=== PATIENT | male | born 1965 | race Caucasian/White ===

== ENCOUNTER 2020-04-24 16:46 | Inpatient (IN) | payer OTHER ==
[~2020-04-24] VITALS: Ht 182.9 cm; Wt 86.8 kg
[2020-04-24 19:13] VITALS: BP 118/67
[2020-04-24] MEDS ORDERED: ENOXAPARIN 30MG/0.3ML SYRINGE (J1650 PER 10MG) SC SCH (20:15)
[2020-04-24] MEDS ORDERED: SODIUM CHLORIDE 0.9% 1000ML IV SCH (20:15)
--- NOTE | 2020-04-24 21:18 | HPEPDOC ---
[facility] Medical History & Physical Date of Admission Apr 24, 2020 Date of Service: Apr 24, 2020 Primary Care Physician: A History and Physical Primary care provider: Dr. Ruddy Knight in [facility] [place] Line Puller: Dr. Berkowitz at [facility] Cardiology Date of Admission: 04/24/2020 CHIEF COMPLAINT: Weakness, dizziness, syncope HISTORY OF PRESENT ILLNESS: And patient reports that he was helping a friend move water heaters today in the 80 degree (or more) heat, when he began to feel very lightheaded, hot, he tried sitting in front of the air-conditioner, but after being seated for a few minutes he became even more lightheaded and then passed out. He was brought to the [facility] emergency room where he was found to be in acute renal failure with BUN 72, creatinine 7.4, sodium 135, potassium 4.4, chloride 98, CO2 21, calcium 10.5, anion gap 16. He was given fluids in the emergency department, and was going to be transferred to [facility], transfer was artery accepted and underway, but the patient decided to leave [place] from [facility]. Apparently his friends brought him to his senses, and he deciding that he did not wish to today, presented to [facility]. Since we already had a bed assigned for him anyway, in lieu of going to the ER, he was admitted as a direct admit to the hospitalist service. ALLERGIES: No known drug allergies CODE STATUS: Full Code PAST MEDICAL HISTORY: Known history of chronic atrial fibrillation Congestive heart failure COPD GERD Hypertension HOME MEDICATIONS: Apparently he had been on amiodarone 200 mg daily for years but this was disc ontinued by his certified residential medication aide in November 2019. He reports that he had been feeling bouts of atrial fibrillation in the past few weeks, therefore he started taking this once again just 1-2 weeks ago (using old pills that he had left over) he has not informed his certified residential medication aide that he has resumed taking this yet. Losartan potassium 100 mg daily Metoprolol tartrate 100 mg daily Pantoprazole 20 mg daily Xarelto - the patient reports that he takes and 25 mg daily, which currently is 1 tablet, but I do not believe that his manufactured in this dose, I suspect that he is actually on 20 mg daily. PAST SURGICAL HISTORY: Tonsillectomy SOCIAL HISTORY: Admits to current almost everyday use of manufactured methamphetamines for the past 10 years. Smokes daily. Quit using alcohol approximately 10 years when he started using meth. FAMILY HISTORY: Noncontributory REVIEW OF SYSTEMS: Constitutional: Patient denies fevers, chills, night sweats, recent weight gain/loss. HEENT: Patient denies blurred or double vision, transient visual disturbances, postnasal drip, epistaxis, sore throat, difficulty chewing or swallowing food. Cardiovascular: Patient denies chest discomfort/pain, palpitations, exertional dyspnea, orthopnea, edema of the extremities, claudication. He cannot tell he is in atrial fibrillation at this moment. Respiratory: Patient denies dyspnea, wheezing, cough, hemoptysis, sputum production. Gastrointestinal: Patient denies nausea, vomiting, diarrhea, constipation, abdominal pain, melena, hematochezia, hematemesis, jaundice at this time. He did have some nausea earlier today when he had the lightheadedness just prior to passing out. No emesis. PHYSICAL EXAMINATION: General: Awake, alert, oriented 3. He does seem to speak much more quickly than normal. HEENT: Head normocephalic atraumatic, conjunctiva are pink, sclera are nonicteric, buccal mucosa and tongue is very dry. Hearing is grossly intact to conversation. Respiratory: Clear to auscultation bilaterally with no wheezes, rales, or rhonchi. Cardiovascular: Distant heart sounds, although rhythm is irregular, rate is within normal range. Pulse is irregularly irregular. Abdomen: Soft, nontender, nondistended, no hepatosplenomegaly appreciated. Bowel sounds present. Extremities: 2+ pulses in the radial and dorsalis pedis bilaterally. No evidence of clubbing or cyanosis. Tenting present ELECTROCARDIOGRAM: EKG taken at [facility] shows him to be in atrial fibrillation with a rate of 76 IMAGING: Chest x-ray taken at [facility], report was unremarkable ASSESSMENT: Severe acute kidney injury, with unknown baseline creatinine. Likely secondary to significant dehydration. Also possibly secondary to reinitiating amiodarone without the knowledge of his certified residential medication aide. Rate controlled atrial fibrillation, with known history of paroxysmal atrial fibrillation Methamphetamine use likely contributing to presence of atrial fibrillation, and probably predisposing factor to dehydration and overexertion in hot weather PLAN: [facility] We will administer another 1 L saline bolus, and then continue saline at 200 mL per hour. Blood pressure is stable at this time, therefore we'll hold nephrotoxic home medications amiodarone, losartan, and pantoprazole. According to the patient he takes 100 mg metoprolol (he does not identify succinate or tartrate) daily, I will start him on metoprolol tartrate 50 mg twice a day with hold parameters such that we will hopefully keep his rate under control, without pushing his blood pressure too soft; first dose will be scheduled for tomorrow morning. We will hold his dose of Xarelto for tonight, and then start him on renally dosed 15 mg daily tomorrow evening. Given his history of most likely diagnosis is acute kidney injury secondary to dehydration, however he does not have a 2:1 BUN/Creatinine ratio, urine creatinine, sodium, and osmolality are also ordered initially to determine FeNa, and see if other etiologies should be further investigated. Daily renal profile labs will be followed. Given that he does not have any significant electrolyte imbalances at this time, we will hold off on nephrology consult for tonight. Vital Signs Vital Signs Date Time Temp Pulse Resp B/P (MAP) Pulse Ox O2 Delivery O2 Flow Rate FiO2 04/24/20 19:13 97.8 74 16 118/67 (84) 99 Allergies Coded Allergies: No Known Allergies (Unverified , 04/24/20) A-FIB/CHADSVASC A-FIB History Current/History of A-Fib/PAF?: Yes Current PO Anticoag Therapy: Yes AYSHA SWANSON DO Apr 24, 2020 21:18
[2020-04-24] MEDS ORDERED: PANT-23 PO (21:20)
[2020-04-24] MEDS ORDERED: GLUCCAP5 PO (21:20)
[2020-04-24] MEDS ORDERED: XARE15TA PO (21:20)
[2020-04-24] MEDS ORDERED: AMIO200T PO (21:20)
[2020-04-24] MEDS ORDERED: LOSA100T50 PO (21:20)
[2020-04-24] MEDS ORDERED: METO1TAB33 PO (21:20)
[2020-04-24 22:00] VITALS: BP 131/76
[2020-04-24 22:08] LABS: ALBUMIN 3.3 GM/DL (3.2-5.2); BILIRUBIN,TOTAL 0.7 MG/DL (0.2-1.0); CALCIUM LEVEL 8.9 MG/DL (8.5-10.1); CREATININE FOR GFR 6.89 MG/DL (0.70-1.30); GLOMERULAR FILTRATION RATE 8.9 (>56); MAGNESIUM LEVEL 2.5 MG/DL (1.8-2.4); TOTAL PROTEIN 8.6 GM/DL (6.4-8.2)
[2020-04-25] MEDS: NS 1,000 ML IV SCH ×4 (00:05→12:13)
[2020-04-25 06:00] VITALS: BP 135/87
[2020-04-25 06:52] LABS: CALCIUM LEVEL 8.5 MG/DL (8.5-10.1); CREATININE FOR GFR 5.39 MG/DL (0.70-1.30); GLOMERULAR FILTRATION RATE 11.8 (>56); PHOSPHORUS LEVEL 5.2 MG/DL (2.5-4.9); POTASSIUM SERUM 4.1 MEQ/L (3.5-5.1)
[2020-04-25] MEDS: METOPROLOL TART 50 MG TAB PO SCH ×2 (08:03→21:29)
[2020-04-25 08:32] LABS: BASO # 0.1 10^3/uL (0.0-0.2); BASO % 0.6 % (0.0-1.0); EOS # 0.1 10^3/uL (0.0-0.5); HEMATOCRIT 44.1 % (42.0-52.0); HEMOGLOBIN 14.7 g/dl (13.5-17.5); LYMPH % 22.8 % (24.0-44.0); MEAN CORPUSCULAR HEMOGLOBIN 30.1 pg (27.0-33.0); MEAN CORPUSCULAR HGB CONC 33.3 g/dl (32.0-36.5); MEAN CORPUSCULAR VOLUME 90.4 fl (80.0-96.0); MONO # 0.9 10^3/uL (0.0-0.8); NEUTROPHILS # 5.6 10^3/uL (1.5-8.5); NEUTROPHILS % 65.4 % (36.0-66.0); PLATELET COUNT, AUTOMATED 277 10^3/uL (150-450); RED BLOOD COUNT 4.88 10^6/uL (4.30-6.10); WHITE BLOOD COUNT 8.6 10^3/uL (4.0-10.0)
[2020-04-25 08:42] LABS: BILIRUBIN,TOTAL 0.6 MG/DL (0.2-1.0); MAGNESIUM LEVEL 2.3 MG/DL (1.8-2.4); TOTAL PROTEIN 7.2 GM/DL (6.4-8.2)
--- NOTE | 2020-04-25 10:21 | REP ---
CT ABDOMEN AND PELVIS WITHOUT IV OR ORAL CONTRAST: HISTORY: Acute kidney injury. Elevated liver enzymes. FINDINGS: Digital preliminary scout executive radiograph shows mild gaseous distension of a mid colonic loop. The lung bases are clear on axial CT images. The liver is normal in size and homogeneous in texture. Spleen is unremarkable. No focal hepatic or splenic lesion is seen. Normal adrenal glands are seen. The stomach is filled with ingested material. No abnormalities noted in the pancreas or the gallbladder. Kidneys are morphologically intact. There is no evidence of hydronephrosis or renal mass lesion. Vascular calcification is noted in the vessels in the renal hilus bilaterally. No intrarenal calculus is suspected. Vascular calcifications noted in a normal caliber aorta. Urinary bladder, seminal vesicles, and prostate are unremarkable. There are one or two dystrophic calcifications in the prostate. No abdominal wall defect is seen. Small and large bowel loops are unremarkable in the abdomen and pelvis. The air-filled dilated loop of colon seen on the scout executive view is a loop of sigmoid colon but no obstruction or mass is seen. No bony destructive lesion is seen. IMPRESSION: No acute intra-abdominal abnormality. No hydronephrosis, cyst, mass, or calculus seen in the urinary tract. Electronically Signed by Lavon Pratt MD 04/25/2020 10:53 A
[2020-04-25] MEDS ORDERED: FUROSEMIDE 20MG/2ML VIAL (J1940) IV ONE (13:00)
[2020-04-25 13:25] LABS: URIC ACID 8.5 MG/DL (3.5-7.2)
[2020-04-25 14:00] VITALS: BP 130/84
--- NOTE | 2020-04-25 14:59 | IPNPDOC ---
Text Note Date of Service The patient was seen on 04/25/20. NOTE Subjective: Patient stated that he usually used methamphetamine IV daily. For past few days he didn't take enough fluid. Also he complains of intermittent palpitations. Objective: VITAL SIGNS: Please see below. GENERAL: awake, alert, NAD HEENT: NCAT, anicteric sclera, FERNANDO NECK: supple, plus JVD CARDIOVASCULAR EXAMINATION: NS1S2, regular rate/rhythm RESPIRATORY EXAMINATION: CTA b/l, no wheezes/rales/rhonchi ABDOMINAL EXAMINATION: positive bowel sounds x 4, NT EXTREMITIES: no cyanosis, clubbing, edema SKIN: warm, no rashes. NEUROLOGICAL EXAMINATION: AAO x 3, no motor/sensory deficits Assessment and plan Patient is 54 years old male with past medical history of congestive heart failure, substance abuse presented to the hospital with acute kidney injury. Patient was found to have elevated creatinine up to 7 with GFR around 9. SCOTT Most likely combined Prerenal and renal etiology Most likely secondary to dehydration, methamphetamine CPK within normal limit Continue IV fluid Appreciate/agree with personnel records clerk consult Atrial fibrillation Patient has a long history of atrial fibrillation Heart rate is under control Continue beta blockers Elevated liver enzyme Patient has elevated transaminases Could be secondary to amiodarone which patient restarted recently by himself or hepatitis or methamphetamine Will check hepatitis panel Continue to monitor CT abdomen pelvis showed normal liver echogenicity CHF Patient has a history of CHF We'll check echo VS,Fishbone, I+O VS, Fishbone, I+O Laboratory Tests 04/24/20 21:26 04/25/20 06:09 Vital Signs Date Time Temp Pulse Resp B/P (MAP) Pulse Ox O2 Delivery O2 Flow Rate FiO2 04/25/20 08:03 69 122/76 04/25/20 06:00 97.8 16 99 I&O- Last 24 Hours up to 6 AM 04/25/20 06:00 Intake Total 3335 ml Balance 3335 ml GUILLERMINA BROCK DO Apr 25, 2020 14:59
[2020-04-25] MEDS: SODIUM BICARBONATE 75 MEQ in NS 0.45% 1,000 ML IV SCH (15:50)
[2020-04-25 15:51] LABS: APPEARANCE, URINE CLEAR (CLEAR); BACTERIA, URINE AUTO NEGATIVE (NEGATIVE); BILIRUBIN, URINE AUTO NEGATIVE (NEGATIVE); BLOOD, URINE BLOOD NEGATIVE (NEGATIVE); COLOR, URINE STRAW (YELLOW); GLUCOSE, URINE (UA) AUTO NEGATIVE (NEGATIVE); KETONE, URINE AUTO NEGATIVE (NEGATIVE); LEUKOCYTE ESTERASE, URINE AUTO NEGATIVE (NEGATIVE); MUCUS, URINE SMALL (NEGATIVE); NITRITE, URINE AUTO NEGATIVE (NEGATIVE); PROTEIN, URINE AUTO NEGATIVE (NEGATIVE); RBC, URINE AUTO 0 /HPF (0-3); SPECIFIC GRAVITY URINE AUTO 1.006 (1.002-1.035); SQUAMOUS EPITHELIAL CELL UR AU 0 /HPF (0-6); UROBILINOGEN, URINE AUTO 0.2 mg/dL (0.0-2.0); WBC, URINE AUTO 1 /HPF (0-3)
[2020-04-25 16:17] LABS: AMPHETAMINES LEVEL URINE POSITIVE (NEGATIVE); BARBITURATES URINE NEGATIVE (NEGATIVE); BENZODIAZEPINES URINE NEGATIVE (NEGATIVE); CANNABINOIDS URINE NEGATIVE (NEGATIVE); COCAINE METABOLITE URINE NEGATIVE (NEGATIVE); METHADONE URINE NEGATIVE (NEGATIVE); OPIATES URINE NEGATIVE (NEGATIVE); PHENCYCLIDINE URINE NEGATIVE (NEGATIVE)
--- NOTE | 2020-04-25 16:52 | CR ---
DATE OF CONSULTATION: 04/25/2020 CONSULTATION REPORT FOR: Dr. Tenzin Bose CONSULTING PHYSICIAN: Dr. Navarrete REASON FOR CONSULTATION: Management of acute renal failure. CHIEF COMPLAINT: The patient presented to the hospital yesterday with syncope and weakness. HISTORY OF PRESENT ILLNESS: Mr. Link Mckeon is a 54-year-old male with past medical history of systolic congestive heart failure, history of permanent atrial fibrillation, chronic use of IV methamphetamine, history of hypertension. He follows up with cardiology service. The patient initially presented to the [facility] yesterday. 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 He was brought to the [facility] Emergency Room where he was found to be in acute renal failure. His creatinine was 7.4. His blood urea nitrogen (BUN) was 72. The patient was given IV fluid hydration and because of acute renal failure, a bed request was made at [facility]. However, after he was accepted at [facility], he signed out against medical advice from the [facility] and presented himself to the [facility] Emergency Room (ER). The patient was admitted under the hospitalist service last night. He was started on aggressive IV fluid hydration. His creatinine on arrival last night was 6.8. Nephrology service has been called today morning for further help in the management of this patient. I saw and evaluated the patient today morning at the bedside. He was laying in the bed. He was getting normal saline at 200 mL an hour. He reports that he is feeling slightly better today as compared with yesterday. He reports that his last methamphetamine injection was the day before yesterday. The patient also reports that when he had a syncope before that, he had generalized muscle aches and pains and weakness. PAST MEDICAL HISTORY: Past medical history of: 1. Chronic persistent atrial fibrillation. He used to be on amiodarone which was stopped in November 2019. However, he started taking it again a few weeks ago because he was feeling palpitations. 2. History of systolic congestive heart failure. The patient reports that his initial ejection fraction (EF) was 15% which later improved to 55% on the repeat echocardiogram. 3. History of chronic obstructive pulmonary disease (COPD). 4. Gastroesophageal reflux disease (GERD). 5. Hypertension. PAST SURGICAL HISTORY: History of tonsillectomy in the past. ALLERGIES: No known drug allergies. FAMILY HISTORY: No significant family history of end-stage renal disease requiring hemodialysis. SOCIAL HISTORY: The patient lives at home. He smokes everyday and he injects methamphetamine almost everyday IV. REVIEW OF SYSTEMS: CONSTITUTIONAL: He denies any fevers or chills. EYES: He denies any blurry vision or double vision. EARS, NOSE, AND THROAT (ENT): He denies any dysphagia, odynophagia, or eadh discharge. CARDIOVASCULAR: He does report chronic atrial fibrillation and off-and-on palpitations. He restarted taking his amiodarone. RESPIRATORY: He denies any shortness of breath or cough. GASTROINTESTINAL (GI): He denies any nausea and vomiting. GENITOURINARY: He does report dark urine and decreased urine output. MUSCULOSKELETAL: He does report some generalized muscle aches and pains for the last two days. SKIN: He denies any rashes or ulcers. PSYCHIATRIC: He denies any depression or anxiety. ENDODRINE: He denies any hyperthyroidism or hypothyroidism. HEMATOLOGIC/ONCOLOGIC: He denies any easy bleeding or bruising. CENTRAL NERVOUS SYSTEM (INSURANCE ADVISOR): He does report syncope yesterday. All other review of systems is negative. PHYSICAL EXAMINATION: GENERAL: The patient is awake, alert, oriented times three, laying in bed. VITAL SIGNS: Temperature is 97.8 degrees Fahrenheit, blood pressure 135/87, pulse is 80, respiratory rare of 16, saturating 99% on room air. HEAD AND NECK: Extraocular muscles intact. Pupils equally round and reactive to light. Mucous membranes are moist. Neck is supple. He has moderately elevated jugular venous distention (JVD). CARDIOVASCULAR: S1, S2, irregular rate. No edema of the bilateral lower extremities. RESPIRATORY: Chest is clear to auscultation bilaterally in the upper lung zone, decreased breath sounds at the bases. ABDOMEN: Soft, positive bowel sounds, nontender. No organomegaly. GENITOURINARY: Bladder is not palpable. Bladder scan done at the bedside showed a postvoid residual of around 220 mL. MUSCULOSKELETAL: No clubbing or cyanosis. Pulses are 2+. CENTRAL NERVOUS SYSTEM (INSURANCE ADVISOR): No focal deficit. Power is 5/5 in all extremities. LABORATORY REVIEW: CBC showed a WBC of 8.6, hemoglobin 14.7, platelets are 277. Urinalysis done today showed no protein and no blood. BMP done today morning showed sodium 138, potassium 4.1, chloride 112, bicarbonate 16, BUN 69, creatinine is 5.3, it was 6.8 yesterday, uric acid 8.5, phosphorus is 5.2, AST 123, ALT is 178, alkaline phosphatase is 188, creatinine kinase is 110. Urine toxicology is pending. Hepatitis serologies pending. IMAGING STUDIES: CT scan of the abdomen and pelvis was done which showed no acute intraabdominal pathology. HOME MEDICATIONS: The patient takes: - amiodarone 200 mg by mouth daily - glucosamine chondroitin one capsule daily - losartan 100 mg by mouth daily - metoprolol 100 mg by mouth daily - Protonix 40 mg by mouth daily - Xarelto 15 mg by mouth daily CURRENT INPATIENT MEDICATIONS: The patient is getting normal saline at 200 mL an hour. I have stopped the normal saline and started him on half-normal saline plus 75 mEq bicarbonate of 125 mL an hour. He was also given Lasix 20 mg IV injection. He is getting Lopressor 50 mg by mouth twice a day and Xarelto 15 mg by mouth daily. ASSESSMENT: A 54-year-old male with history of systolic congestive heart failure, permanent atrial fibrillation in the past, admitted this time with acute renal failure and metabolic acidosis. PLAN: 1. Acute renal failure. The patient has nonoliguric renal failure. I saw his urine which was very dark and cloudy today. There is a risk of acute tubular necrosis (ATN), most likely associated with drug use or rhabdomyolysis. Urine for myoglobin has been ordered. Creatine phosphokinase (CPK) level is within the normal range at this time. Continue the IV fluid hydration. However, fluids have been changed to bicarbonate-containing fluids because of low bicarbonate level. Avoid angiotensin-converting enzyme (BUDDY) or angiotensin-receptor iliana (ARB) at this time. I am hopeful that the patient's renal function should recover. He was using IV amphetamines and he was dehydrated and working outside in the heat. 2. Normal anion gap metabolic acidosis. It is secondary to acute renal failure. The patient will be getting half-normal saline with 75 mEq of bicarbonate at 125 mL an hour. 3. History of hypertension. Blood pressures are acceptable at this time. Losartan has been stopped. Continue current dose of metoprolol 50 mg by mouth twice a day. 4. History of systolic congestive heart failure. The patient has elevated jugular venous distention (JVD). Latest echocardiogram is not available. I would still need to hydrate this patient with bicarbonate-containing fluids because of risk of rhabdomyolysis, drug-induced rhabdomyolysis causing acute kidney injury (SCOTT). I have given a small dose of Lasix to this patient today morning. 5. Atrial fibrillation. Heart rate is controlled. Amiodarone is on hold. He continues to be on metoprolol. He is anticoagulated with Xarelto 15 mg by mouth daily. 6. IV drug abuse. The patient admits to using IV methamphetamine almost everyday. Last use was the day before yesterday. Urine toxicology has been sent. Thank you for involving me in the care of this patient. I shall be happy to follow the patient along with you tomorrow morning.
[2020-04-25] MEDS ORDERED: RIVAROXABAN 15 MG TAB (XARELTO) PO SCH (18:00)
[2020-04-25 21:29] VITALS: BP 137/91
[2020-04-25 22:00] VITALS: BP 137/91
[2020-04-26] MEDS: SODIUM BICARBONATE 75 MEQ in NS 0.45% 1,000 ML IV SCH (01:10)
[2020-04-26 05:53] LABS: BASO % 0.4 % (0.0-1.0); EOS # 0.1 10^3/uL (0.0-0.5); EOS % 0.9 % (0.0-3.0); HEMATOCRIT 41.7 % (42.0-52.0); LYMPH % 25.1 % (24.0-44.0); MEAN CORPUSCULAR HEMOGLOBIN 29.9 pg (27.0-33.0); MEAN CORPUSCULAR HGB CONC 33.6 g/dl (32.0-36.5); MEAN CORPUSCULAR VOLUME 88.9 fl (80.0-96.0); MONO # 0.8 10^3/uL (0.0-0.8); MONO % 10.2 % (0.0-5.0); PLATELET COUNT, AUTOMATED 249 10^3/uL (150-450); RED BLOOD COUNT 4.69 10^6/uL (4.30-6.10)
[2020-04-26 06:00] VITALS: BP 137/91
[2020-04-26 06:34] LABS: ALBUMIN 2.8 GM/DL (3.2-5.2); BILIRUBIN,TOTAL 0.6 MG/DL (0.2-1.0); CALCIUM LEVEL 8.1 MG/DL (8.5-10.1); CREATININE FOR GFR 2.69 MG/DL (0.70-1.30); GLOMERULAR FILTRATION RATE 26.4 (>56); MAGNESIUM LEVEL 1.7 MG/DL (1.8-2.4); TOTAL PROTEIN 6.8 GM/DL (6.4-8.2)
[2020-04-26 10:24] LABS: HEPATITIS A ANTIBODY IGM NEGATIVE (NEGATIVE); HEPATITIS B CORE ANTIBODY IGM NEGATIVE (NEGATIVE); HEPATITIS B SURFACE ANTIGEN NEGATIVE (NEGATIVE); HIV 1&2 SCREEN CENTAUR NEGATIVE (NEGATIVE)
[2020-04-26 10:28] LABS: HEPATITIS C VIRUS ABY INDEX > 11.0 INDEX (<0.8)
--- NOTE | 2020-04-26 14:51 | DS.PDOC ---
Discharge Summary General Date of Admission Apr 24, 2020 at 18:43 Date of Discharge 04/26/20 Discharge Summary PROCEDURES PERFORMED DURING STAY: [None]. ADMITTING DIAGNOSES: SCOTT Elevated liver enzyme Atrial fibrillation CHF DISCHARGE DIAGNOSES: SCOTT Elevated liver enzyme Atrial fibrillation CHF COMPLICATIONS/CHIEF COMPLAINT: Acute Kidney Injury. HISTORY OF PRESENT ILLNESS: Patient is 54 years old male with past medical history of congestive heart failure, substance abuse presented to the hospital with acute kidney injury. Patient was found to have elevated creatinine up to 7 with GFR around 9. Today patient left the hospital AMA HOSPITAL COURSE: During hospital stay following issue addressed SCOTT Most likely combined Prerenal and renal etiology Most likely secondary to dehydration, methamphetamine CPK within normal limit Continue IV fluid Atrial fibrillation Patient has a long history of atrial fibrillation Heart rate is under control Continue beta blockers Elevated liver enzyme Patient has elevated transaminases Could be secondary to amiodarone which patient restarted recently by himself or hepatitis or methamphetamine Will check hepatitis panel Continue to monitor CT abdomen pelvis showed normal liver echogenicity CHF Patient has a history of CHF We'll check echo DISCHARGE MEDICATIONS: Please see below. ALLERGIES: Please see below. PHYSICAL EXAMINATION ON DISCHARGE: VITAL SIGNS: Please see below. GENERAL: HEENT: NECK: CARDIOVASCULAR EXAMINATION: RESPIRATORY EXAMINATION: ABDOMINAL EXAMINATION: EXTREMITIES: SKIN: NEUROLOGICAL EXAMINATION: PSYCHIATRIC EXAMINATION: LABORATORY DATA: Please see below. IMAGING: PROGNOSIS: ACTIVITY: [As tolerated]. DIET: DISCHARGE PLAN: DISPOSITION: 07 Against Medical Advice. DISCHARGE INSTRUCTIONS: 1. . ITEMS TO FOLLOWUP ON ON OUTPATIENT: 1. . DISCHARGE CONDITION: [Stable]. TIME SPENT ON DISCHARGE: Greater than minutes. Vital Signs/I&Os Vital Signs Date Time Temp Pulse Resp B/P (MAP) Pulse Ox O2 Delivery O2 Flow Rate FiO2 04/26/20 06:00 98.9 83 18 137/91 (106) 96 Room Air I&O- Last 24 Hours up to 6 AM 04/26/20 06:00 Intake Total 3040 ml Output Total 2425 ml Balance 615 ml Laboratory Data Labs 24H Laboratory Tests 2 04/25/20 15:25: Urine Color STRAW, Urine Appearance CLEAR, Urine pH 5.0, Urine Specific [place] 1.006, Urine Protein NEGATIVE, Urine Glucose (Auto)(UA) NEGATIVE, Urine Ketones (Auto) NEGATIVE, Urine Blood NEGATIVE, Urine Nitrite NEGATIVE, Urine Bilirubin NEGATIVE, Urine Urobilinogen 0.2, Urine Leukocyte Esterase (Auto) NEGATIVE, Urine WBC (Auto) 1, Urine RBC (Auto) 0, Urine Hyaline Casts (Auto) 1, Urine Bact eria (Auto) NEGATIVE, Urine Squamous Epithelial Cells 0, Urine Mucus (Auto) SMALL, Urine Sperm (Auto) 04/25/20 15:33: 04/25/20 15:34: Urine Opiates Screen NEGATIVE, Urine Methadone Screen NEGATIVE, Urine Barbiturates Screen NEGATIVE, Urine Phencyclidine Screen NEGATIVE, Urine A mphetamines Screen POSITIVEH, Urine Benzodiazepines Screen NEGATIVE, Urine Cocaine Metabolite Screen NEGATIVE, Urine Cannabinoids Screen NEGATIVE 04/26/20 05:22: Immature Granulocyte % (Auto) 0.4, Neutrophils (%) (Auto) 63.0, Lymphocytes (%) (Auto) 25.1, Monocytes (%) (Auto) 10.2H, Eosinophils (%) (Auto) 0.9, Basophils (%) (Auto) 0.4, Neutrophils # (Auto) 5.0, Lymphocytes # (Auto) 2.0, Monocytes # (Auto) 0.8, Eosinophils # (Auto) 0.1, Basophils # (Auto) 0.0, Nucleated Red Bl ood Cells % (auto) 0.0, Anion Gap 6L, Glomerular Filtration Rate 26.4L, Calcium Level 8.1L, Phosphorus Level 3.0#, Magnesium Level 1.7L, Total Bilirubin 0.6, Aspartate Amino Transf (AST/SGOT) 133H, Alanine Aminotransferase (ALT/SGPT) 168H, Alkaline Phosphatase 196H, Total Protein 6.8, Albumin 2.8L, Albumin/Globulin Ratio 0.7 CBC/BMP Laboratory Tests 04/26/20 05:22 Discharge Medications Scheduled Amiodarone HCl (Amiodarone HCl) 200 Mg Tablet, 200 MG PO DAILY, (Reported) Glucosam/Omar-Col.cplx/D3/C/Mn (Hylclqvhuoz-Opfvxsqmbts-S5 Cap) 1 Each Capsule, 1 CAP PO DAILY, (Reported) Losartan Potassium (Losartan Potassium) 100 Mg Tablet, 100 MG PO DAILY, (Reported) Metoprolol Succinate (Metoprolol Succinate) 100 Mg Tab.er.24h, 100 MG PO DAILY, (Reported) Pantoprazole Sodium (Pantoprazole Sodium) 40 Mg Tablet.dr, 40 MG PO DAILY, (Reported) Rivaroxaban (Xarelto) 15 Mg Tablet, 15 MG PO DAILY, (Reported) Allergies Coded Allergies: No Known Allergies (Unverified , 04/24/20) GUILLERMINA BROCK DO Apr 26, 2020 14:51
== END 2020-04-26 09:23 | disposition left against medical advice (07) | DRG 469 ==
LOC: M MSPAV 18:43
PROVIDERS: ADMIT Neuromusculoskeletal Medicine & OMM; ATTEND Internal Medicine
DX: N17.9 Acute kidney failure, unspecified (principal); I48.20 Chronic atrial fibrillation, unspecified; E86.0 Dehydration; Z79.899 Other long term (current) drug therapy; J44.9 Chronic obstructive pulmonary disease, unspecified; K21.9 Gastro-esophageal reflux disease without esophagitis; I11.0 Hypertensive heart disease with heart failure; F17.200 Nicotine dependence, unspecified, uncomplicated; F15.90 Other stimulant use, unspecified, uncomplicated; I50.22 Chronic systolic (congestive) heart failure; E87.2 Acidosis

== ENCOUNTER → 2020-10-04 | Outpatient (REF) | payer OTHER ==
[~2020-10-04] MED LIST: AMIO200T3 PO; GLUCCAP5 PO; LOSA100T50 PO; METO1TAB33 PO; PANT-23 PO; XARE15TA PO
[2020-10-04 15:37] LABS: ALBUMIN 3.7 GM/DL (3.2-5.2); ALT/SGPT 20 U/L (12-78); BILIRUBIN,TOTAL 0.6 MG/DL (0.2-1.0); BLOOD UREA NITROGEN 44 MG/DL (7-18); CALCIUM LEVEL 9.8 MG/DL (8.5-10.1); CARBON DIOXIDE LEVEL 23 MEQ/L (21-32); CHLORIDE LEVEL 110 MEQ/L (98-107); CREATININE FOR GFR 1.88 MG/DL (0.70-1.30); GLOMERULAR FILTRATION RATE 39.7 (>56); GLUCOSE, FASTING 100 MG/DL (70-100); POTASSIUM SERUM 4.1 MEQ/L (3.5-5.1); SODIUM LEVEL 140 MEQ/L (136-145); TOTAL PROTEIN 7.6 GM/DL (6.4-8.2)
[2020-10-04 16:10] LABS: HEPATITIS B SURFACE ANTIBODY POSITIVE (POSITIVE)
[2020-10-04 16:21] LABS: HEPATITIS B SURFACE ANTIGEN NEGATIVE (NEGATIVE)
[2020-10-04 16:49] LABS: HIV 1&2 SCREEN CENTAUR NEGATIVE (NEGATIVE)
== END ==
LOC: M SFHCPLAZ 11:35
PROVIDERS: ATTEND Internal Medicine Infectious Disease
DX: B18.2 Chronic viral hepatitis C (principal)

== ENCOUNTER → 2020-11-25 | Outpatient (REF) | payer OTHER ==
[2020-11-25 15:17] LABS: ALBUMIN 4.1 GM/DL (3.2-5.2); BILIRUBIN,TOTAL 0.8 MG/DL (0.2-1.0); CALCIUM LEVEL 9.8 MG/DL (8.5-10.1); CREATININE FOR GFR 1.35 MG/DL (0.70-1.30); GLOMERULAR FILTRATION RATE 58.2 (>56); TOTAL PROTEIN 8.1 GM/DL (6.4-8.2)
[2020-12-04 16:13] LABS: HEPATITIS C QUANTITATION 67220 IU/mL (.); HEPATITIS C VIRUS GENOTYPE 1a (.)
== END ==
LOC: M SFHCPLAZ 10:48
PROVIDERS: ATTEND Internal Medicine Infectious Disease
DX: B18.2 Chronic viral hepatitis C (principal)

== ENCOUNTER → 2021-01-03 | Outpatient (REF) | payer OTHER ==
[2021-01-03 14:44] LABS: ALBUMIN 3.9 GM/DL (3.2-5.2); BILIRUBIN,DIRECT 0.3 MG/DL (0.0-0.2); BILIRUBIN,TOTAL 0.9 MG/DL (0.2-1.0); TOTAL PROTEIN 7.6 GM/DL (6.4-8.2)
[2021-01-04 23:06] LABS: HEPATITIS C QUANTITATION HCV Not Detected IU/mL (.)
== END ==
LOC: M SFHCPLAZ 11:11
PROVIDERS: ATTEND Internal Medicine Infectious Disease
DX: B18.2 Chronic viral hepatitis C (principal)

== ENCOUNTER 2021-01-09 09:02 | Observation (INO) | payer OTHER ==
[2021-01-09] VITALS (7 sets, daily range): BP systolic 120–152; BP diastolic 74–98
[~2021-01-09] VITALS: Ht 182.9 cm; Wt 86.4 kg
[2021-01-09] MEDS: COMBIVENT RESPIMAT 100-20MCG INHALER 4GM INH SCH ×3 (09:53→10:47)
--- NOTE | 2021-01-09 09:57 | REP ---
INDICATION: CVA COMPARISON: None. TECHNIQUE: Portable AP view of the chest FINDINGS: Cardiomegaly is appreciated. Loop recorder overlies the left hilum. Lung miranda demonstrate chronic appearing interstitial changes. No discrete focal consolidation, effusion, or pneumothorax. Skeletal structures intact. IMPRESSION: Cardiomegaly and chronic appearing interstitial changes. No focal consolidation or effusion. <Electronically signed by Kar Valderrama > 01/09/21 [id number]
[2021-01-09] MEDS ORDERED: ISOVUE-370 76% 100ML VIAL As Ordered ONE (10:13)
[2021-01-09 10:28] LABS: BASO % 0.3 % (0.0-1.0); EOS % 0.1 % (0.0-3.0); HEMATOCRIT 41.3 % (42.0-52.0); HEMOGLOBIN 13.5 g/dl (13.5-17.5); LYMPH # 1.3 10^3/uL (1.5-5.0); LYMPH % 18.9 % (24.0-44.0); MEAN CORPUSCULAR HEMOGLOBIN 29.6 pg (27.0-33.0); MEAN CORPUSCULAR HGB CONC 32.7 g/dl (32.0-36.5); MEAN CORPUSCULAR VOLUME 90.6 fl (80.0-96.0); MONO # 0.9 10^3/uL (0.0-0.8); MONO % 12.9 % (2.0-8.0); NEUTROPHILS # 4.6 10^3/uL (1.5-8.5); NEUTROPHILS % 67.5 % (36.0-66.0); PLATELET COUNT, AUTOMATED 195 10^3/uL (150-450); RED BLOOD COUNT 4.56 10^6/uL (4.30-6.10); WHITE BLOOD COUNT 6.8 10^3/uL (4.0-10.0)
[2021-01-09] MEDS ORDERED: ALBUTEROL 90 MCG/ACT 8GM HFA INHALER INH PRN (11:00)
[2021-01-09] MEDS ORDERED: CASIRIVIMAB (REGN10933) 1,200 MG, IMDEVIMAB (REGN10987) 1,200 MG in NS 230 ML IV ONE (11:00)
[2021-01-09] MEDS ORDERED: methylPREDNISolone 125MG 2ML VIAL IV PRN (11:00)
[2021-01-09] MEDS ORDERED: ALBUTEROL SULFATE 2.5 MG/0.5 ML INH NEB SOLN INH PRN (11:00)
[2021-01-09] MEDS ORDERED: EPINEPHrine INJ 1 MG/ML 1ML AMP IM PRN (11:00)
[2021-01-09] MEDS ORDERED: diphenhydrAMINE 50MG/ML VIAL (J1200) IV PRN (11:00)
--- NOTE | 2021-01-09 11:01 | REP ---
INDICATION: CVA - Nursing interventions must not delay CT COMPARISON: None. TECHNIQUE: Axial noncontrast images from the skull base to the vertex with coronal reformations. This CT examination was performed using the following dose reduction techniques: Automated exposure control, adjustment of mA and/or kv according to the patient's size, and use of iterative reconstruction technique. FINDINGS: The ventricles, sulci, and cisterns are normal in position and appearance. Mares-white differentiation is maintained. No acute intracranial hemorrhage, mass/mass effect, pathology or trauma/injury. No evidence for acute infarction. No extra-axial fluid collection. Calvarium is intact. Paranasal sinuses and mastoid air cells are clear. IMPRESSION: Normal noncontrast head CT. No evidence for acute intracranial pathology or trauma/injury. <Electronically signed by Kar Valderrama > 01/09/21 [id number]
--- NOTE | 2021-01-09 11:03 | REP ---
INDICATION: neck pain COMPARISON: None. TECHNIQUE: Axial noncontrast images from the skull base to the thoracic inlet with coronal and sagittal re-formations This CT examination was performed using the following dose reduction techniques: Automated exposure control, adjustment of mA and/or kv according to the patient's size, and use of iterative reconstruction technique. FINDINGS: Advanced degenerative disc osteophyte complex at C6-7, C7-T1, and to a lesser extent C5-6 including osteophytosis, endplate sclerosis, disc space narrowing, and facet arthropathy. No acute fracture/compression injury or subluxation. Mild chronic stenosis at the C6-7 level cannot be excluded. Paravertebral soft tissues are normal. IMPRESSION: Advanced degenerative spondylosis at C6-7 and C7-T1. <Electronically signed by Kar Valderrama > 01/09/21 1056
[2021-01-09 11:07] LABS: ALT/SGPT 18 U/L (12-78); CK-MB VALUE MASS 2.2 NG/ML (<3.6); CPK CREATINE PHOSPHOKINASE 359 U/L (39-308); LDH LACTATE DEHYDROGENASE 277 U/L (87-241); MB/CK RELATIVE INDEX 0.61 (< OR =4)
[2021-01-09 11:08] LABS: ACETAMINOPHEN LEVEL < 2.0 UG/ML (10.0-30.0); ALBUMIN 4.2 GM/DL (3.2-5.2); BILIRUBIN,DIRECT 0.3 MG/DL (0.0-0.2); BILIRUBIN,TOTAL 0.6 MG/DL (0.2-1.0); C REACTIVE PROTEIN QUANTITATIV 4.54 MG/DL (0.00-0.30); ETHYL ALCOHOL (ETHANOL) < 0.003 % (0.000-0.010); FERRITIN 88 NG/ML (26-388); LIPASE 172 U/L (73-393); MAGNESIUM LEVEL 1.9 MG/DL (1.8-2.4); NT-PRO BNP 4358 PG/ML (<125); SALICYLATE LEVEL 3.3 MG/DL (5.0-30.0); THYROID STIMULATING HORMONE 0.409 uIU/ML (0.358-3.740)
--- NOTE | 2021-01-09 11:08 | REP ---
INDICATION: CVA - Nursing interventions must not delay CT. COMPARISON: None. TECHNIQUE: CT contrast dose: 100 ml of intravenous Isovue 370. Axial contrast-enhanced images were obtained from the skull base to the vertex with coronal reformations using 100 cc Isovue 370 intravenous contrast material. Maximal intensity projection and multiplanar re-formation images along with 3-D rendered imaging of the arterial vasculature. FINDINGS: Partially calcified atherosclerotic changes through the cavernous internal carotid arteries noted. The bilateral anterior cerebral arteries, middle cerebral arteries, and posterior cerebral arteries appear essentially symmetric and normal. Vascularity to the bilateral hemispheres appears relatively symmetric and normal. A right dominant vertebral artery is appreciated with otherwise normal appearance of the vertebrobasilar system. No evidence for occlusion or arteriovenous malformation is appreciated. IMPRESSION: No obvious arteriovenous malformation or aneurysm. Vasculature to the bilateral hemispheres and posterior fossa appear symmetric. <Electronically signed by Kar Valderrama > 01/09/21 1104
--- NOTE | 2021-01-09 11:10 | REP ---
INDICATION: CVA - Nursing interventions must not delay CT. COMPARISON: None. TECHNIQUE: Axial contrast-enhanced images were obtained from the thoracic inlet to the skull base with coronal and sagittal reformations using 100 cc Isovue 370 intravenous contrast material. Maximal intensity projection and multiplanar re-formation images along with 3-D rendered imaging of the arterial vasculature. This CT examination was performed using the following dose reduction techniques: Automated exposure control, adjustment of mA and/or kv according to the patient's size, and the use of iterative reconstruction technique. FINDINGS: The common carotid arteries, carotid bulbs and visualized portions of the external and the internal carotid arteries are essentially normal and age-appropriate. There is right vertebral artery dominance, but both appear patent and join to form a normal basilar artery at the skull base. There are no significant areas of stenosis and no evidence for occlusion identified. No obvious vascular abnormality noted. IMPRESSION: Essentially normal age-appropriate CT angiography of the neck <Electronically signed by Kar Valderrama > 01/09/21 1106
[2021-01-09 11:36] LABS: INR 1.71; PROTHROMBIN TIME 20.4 SECONDS (12.5-14.3)
[2021-01-09 11:37] LABS: PARTIAL THROMBOPLASTIN TIME 37.7 SECONDS (24.2-38.5)
[2021-01-09 11:39] LABS: D-DIMER QUANT 395.99 ng/ml (<500)
[2021-01-09] MEDS ORDERED: AMIODARONE 200 MG TAB (PACERONE) PO ONE (11:40)
[2021-01-09] MEDS ORDERED: XARE20TA PO (11:50)
[2021-01-09] MEDS ORDERED: EPCL1TAB PO (11:50)
[2021-01-09] MEDS ORDERED: METO200T28 PO (11:50)
--- NOTE | 2021-01-09 12:22 | ECGEPIP ---
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
[2021-01-09] MEDS ORDERED: METOPROLOL SUCC (TopROL XL) 100MG *XL* TAB PO ONE (12:30)
[2021-01-09] MEDS ORDERED: LOSARTAN 50MG TABLET PO ONE (12:30)
[2021-01-09] MEDS ORDERED: diphenhydrAMINE 50MG CAP PO ONE (13:00)
[2021-01-09] MEDS ORDERED: NS 1,000 ML IV SCH (13:00)
[2021-01-09 13:03] LABS: AMPHETAMINES LEVEL URINE POSITIVE (NEGATIVE); BARBITURATES URINE NEGATIVE (NEGATIVE); BENZODIAZEPINES URINE NEGATIVE (NEGATIVE); CANNABINOIDS URINE NEGATIVE (NEGATIVE); COCAINE METABOLITE URINE POSITIVE (NEGATIVE); METHADONE URINE NEGATIVE (NEGATIVE); OPIATES URINE NEGATIVE (NEGATIVE); PHENCYCLIDINE URINE NEGATIVE (NEGATIVE)
[2021-01-09] MEDS ORDERED: methylPREDNISolone 40MG 1ML VIAL IV ONE (13:30)
[2021-01-09] MEDS ORDERED: ACETAMINOPHEN TAB 650MG DOSE (2X325MG) PO ONE (13:30)
[2021-01-09] MEDS ORDERED: BAMLANIVIMAB 700 MG in NS 250 ML IV ONE (14:00)
[2021-01-09] MEDS ORDERED: RIVAROXABAN 20 MG TAB (XARELTO) PO SCH (18:00)
[2021-01-09] MEDS ORDERED: PANTOPRAZOLE 40MG TAB (PROTONIX) PO SCH (21:00)
[2021-01-10] VITALS: BP 132/70
[2021-01-10 06:00] VITALS: BP 140/80
[2021-01-10 06:25] LABS: HEMATOCRIT 38.7 % (42.0-52.0); HEMOGLOBIN 12.6 g/dl (13.5-17.5); MEAN CORPUSCULAR HEMOGLOBIN 29.6 pg (27.0-33.0); MEAN CORPUSCULAR HGB CONC 32.6 g/dl (32.0-36.5); MEAN CORPUSCULAR VOLUME 91.1 fl (80.0-96.0); PLATELET COUNT, AUTOMATED 196 10^3/uL (150-450); RED BLOOD COUNT 4.25 10^6/uL (4.30-6.10); WHITE BLOOD COUNT 6.6 10^3/uL (4.0-10.0)
[2021-01-10 06:52] LABS: ALBUMIN 3.3 GM/DL (3.2-5.2); ALT/SGPT 14 U/L (12-78); BILIRUBIN,TOTAL 0.4 MG/DL (0.2-1.0); BLOOD UREA NITROGEN 21 MG/DL (7-18); CALCIUM LEVEL 8.5 MG/DL (8.5-10.1); CARBON DIOXIDE LEVEL 24 MEQ/L (21-32); CHLORIDE LEVEL 112 MEQ/L (98-107); GLOMERULAR FILTRATION RATE > 60.0 (>56); GLUCOSE, FASTING 107 MG/DL (70-100); POTASSIUM SERUM 3.8 MEQ/L (3.5-5.1); SODIUM LEVEL 143 MEQ/L (136-145); TOTAL PROTEIN 6.8 GM/DL (6.4-8.2)
[2021-01-10 08:00] VITALS: BP 136/96
[2021-01-10 08:33] VITALS: BP 136/96
[2021-01-10] MEDS ORDERED: AMIODARONE 200 MG TAB (PACERONE) PO SCH (09:00)
[2021-01-10] MEDS ORDERED: LOSARTAN 50MG TABLET PO SCH (09:00)
[2021-01-10] MEDS ORDERED: METOPROLOL SUCC (TopROL XL) 100MG *XL* TAB PO SCH (09:00)
--- NOTE | 2021-01-10 09:18 | HPE ---
HISTORY AND PHYSICAL DATE OF ADMISSION: 01/09/2021 DIAGNOSIS: COVID infection with neurologic symptoms. HISTORY: Link Mckeon is a 55-year-old. Primary care physician is Greer Anaya. He lives in [place]. He was diagnosed with COVID last night in the emergency room at [facility]. Details of that visit are subject to interpretation. The patient says that he was escorted out of the emergency room by the police related to something about a warrant. He did not feel he should be discharged, so he slept in his car in case he had to go back into the emergency room for symptoms of increased shortness of breath. Apparently, he was found by EMS in his car this morning and was hypothermic and ended up in [facility] emergency room. He had neurologic symptoms consistent with COVID-related Child's palsy and is being admitted for further observation. He has been more short of breath than baseline. He has a sore throat, muscle aches, and "swollen glands" in his neck and submandibular area. His neurologic symptoms began last night. He has some numbness and tingling that is on the left side of the face, "like I went to the dentist," and associated with fluctuating hearing in his left ear and numbness around the back of the head on the left extending to just above the left shoulder. This is almost completely back to normal and lasted about 5 or 6 hours altogether. He says that during that time, he felt like the left side of his face was weak, but he did not have anybody to observe this. PAST MEDICAL HISTORY: He has quite a bit of interesting past medical history. 1. He has hepatitis C and is followed by Dr. Adri Blanco, last seen on 01/03/21. He is on EPCLUSA and was on that for about four weeks at the time of that appointment. He had lab work that showed no detectable hepatitis B. 2. He has a history of intravenous drug use, apparently methamphetamine, apparently still using this as he had an abscess of his arm in the emergency room. 3. He has a history of congestive heart failure with reduced ejection fraction. He has had an ejection fraction as low as 15%, although apparently on his most recent cardiologic evaluation, the ejection fraction was back up to 30%. He sees Dr. Berkowitz at [facility]. 4. He has a history of atrial fibrillation, RSVT, underwent an ablation procedure on 10/24 without recurrence of atrial fibrillation. He is on Xarelto as an anticoagulant, as well as amiodarone. 5. History of hepatitis B. His IgG was positive on a recent testing. 6. History of alcohol and tobacco abuse. MEDICATIONS: 1. Xarelto 20 mg daily. 2. Losartan 100 mg daily. 3. Furosemide 40 mg daily. 4. Protonix 40 mg daily. 5. Albuterol p.r.n. 6. EPCLUSA 400-100 one daily. ALLERGIES: WELLBUTRIN caused him to be lethargic. SOCIAL HISTORY: He smokes a pack a day, moderate alcohol intake currently. He claimed not to be using intravenous injections for the past month, but apparently did have an abscess on his arm consistent with this. He is . He is disabled. REVIEW OF SYSTEMS: He has myalgias, fevers, and chills. No epistaxis, rectal bleeding, urinary bleeding, orthopnea, or PND. His dyspnea on exertion has increased. He is more short of breath than baseline. LABORATORY: Chest x-ray showed chronic-appearing interstitial changes, cardiomegaly, and no infiltrates. White count 6.8, hemoglobin 13.5, platelets 195, sodium 139, potassium 5, BUN 29, creatinine 1.6. His troponin was 0.09. INR 1.3. ABG 7.47/. COVID is positive. Neurological imaging is pending. IMPRESSION: COVID infection with left facial weakness which has resolved with a change in hearing. I suspect this is a Child's palsy. He is more short of breath than usual. I think it would be prudent to observe him overnight. He thinks that he is becoming more short of breath (to a point where he slept in his car outside of the emergency room at [place] because he was concerned about needing to be admitted). His current oxygen is sufficient and he does not require supplemental oxygen, no steroids or antiviral. Because he does not require supplemental oxygen and his increased risk, I will order a monoclonal antibody therapy for him. If the neurological imaging is unremarkable, I expect that he will be discharged tomorrow unless his condition changes. ADDENDUM: I should note that he did receive his first COVID vaccination about six days ago, so he should continue with the designated vaccination plan based upon which vaccine he received, regardless of the monoclonal antibody infusion, as he has already received his first injection.
--- NOTE | 2021-01-10 11:29 | DSES ---
DISCHARGE SUMMARY DATE OF ADMISSION: 01/09/2021 DATE OF DISCHARGE: 01/10/2021 PRINCIPAL DIAGNOSIS: Left facial numbness, question mild Child's palsy. SECONDARY DIAGNOSES: 1. COVID-19 infection. 2. Methamphetamine and cocaine abuse. 3. Advanced degenerative spondylosis at C6-7, C7-T1. BRIEF HISTORY: Link Mckeon was admitted on 01/09. His dictated history and physical is not back but details are in that note. The patient was subsequently admitted because he had left-sided facial numbness and perceived weakness which was progressively resolving but was also diagnosed with COVID-19. He would have been discharged from the emergency room but I had concern about the facial symptoms and Child's palsy in the context of COVID-19 and wanted to observe him overnight. The patient was insistent he had some kind of blood clot in his neck causing his left neck pain but workup for that was unremarkable. HOSPITAL COURSE: He was admitted to a medical bed. He qualified for monoclonal antibody therapy because of decreased ejection fraction, chronic liver disease, hepatitis B and decreased renal function. He was not admitted to the hospital per se, he was an observation patient so per pharmacy could qualify for monoclonal antibody treatment. His neurologic symptoms remained stable. On the day that he left AMA he had no facial droop or weakness. Eyes closed normally. Facial strength was normal. Lungs clear. Heart regular rhythm. Abdomen soft, nontender. Oxygenation normal at 99% on room air. Vital signs were stable. LABS: White count 6.6, hemoglobin 12.6, platelets 196, sodium 143, potassium 3.8, BUN 21, creatinine 1.3, glucose 107. Toxicology was positive for amphetamines and cocaine use. Apparently had an abscess on one of his arms from recent methamphetamine injection. IMAGING: CT of the head was unremarkable. CT angiogram of the neck showed no AVMs, aneurysms or other vascular problems. CT of the cervical spine showed advanced degenerative spondylosis at C6-7 and C7-T1. On the day of discharge he was still having left posterior neck pain. He is tender to palpate over spinous processes and his exam is entirely consistent with musculoskeletal neck pain. He still is insisting he has a "blood clot" in his neck and I discussed the results of his angiogram and he remains unconvinced. An MRI scan was not done during this admission as he has implanted loop recorder and the MRI compatibility of that is unknown and he was unable to clarify this with any documentation such as the card he is supposed to be carrying with him. The patient left against medical advice after my rounds this morning. DISCHARGE MEDICATIONS: He should resume the medications that he was taking prior to admission: 1. Losartan 100 mg daily. 2. Metoprolol XL 200 mg daily. 3. Xarelto 20 mg daily. 4. Epclusa 400-100 daily. FOLLOW UP: Primary care physician within a week. I advised him to abstain from drug use including methamphetamine and cocaine use. He initially denied using these at all. I pointed out positive tox screen. He then said that he "just used a little bit every few days" which is not the same as abstaining. He understands health implications of this. I also discussed the importance of quarantining for the next 10 days due to his COVID-19. He understands that he is potentially infectious.
== END 2021-01-10 09:01 | disposition left against medical advice (07) ==
LOC: EDBD 09:02 → M ED 09:02 → M ED INP 10:58 → ENRESERV 11:38 → M 4MAIN 12:40
PROVIDERS: ADMIT Family Medicine; ATTEND Family Medicine
DX: R29.810 Facial weakness (principal); U07.1 COVID-19; Z53.21 Procedure and treatment not carried out due to patient leaving prior to being seen by health care provider; R78.81 Bacteremia; F15.10 Other stimulant abuse, uncomplicated; F14.10 Cocaine abuse, uncomplicated; F10.10 Alcohol abuse, uncomplicated; M47.813 Spondylosis without myelopathy or radiculopathy, cervicothoracic region; Z79.01 Long term (current) use of anticoagulants; Z79.899 Other long term (current) drug therapy; B18.2 Chronic viral hepatitis C; F17.218 Nicotine dependence, cigarettes, with other nicotine-induced disorders
CPT/HCPCS: 36415; 36600; 70450; 70496; 70498; 71045; 72125; 80047; 80053; 80076; 80143; 80307; 82077; 82550; 82553; 82728; 82803; 83605; 83615; 83690; 83735; 83880; 84145; 84439; 84443; 85025; 85027; 85379; 85384; 85610; 85730; 86140; 87040; 87077; 87186; 93005; 93041; 94760; 96361; 96365; 96375; 99285; J2920; Q9967

== ENCOUNTER 2021-09-07 14:47 | Emergency (ER) | payer OTHER ==
[~2021-09-07] VITALS: Ht 182.9 cm; Wt 81.8 kg
[~2021-09-07 14:47] MED LIST changes: +EPCL1TAB PO; +METO200T28 PO; +XARE20TA PO
[2021-09-07 14:53] VITALS: BP 148/87
[2021-09-07] MEDS ORDERED: NORV5TAB PO (15:02)
--- OUTSIDE RECORDS SUMMARY | 2021-09-07 15:07 | CCD ---
Author Author [facility] Organization [facility] Address Unknown Phone Unavailable Care Team Providers Care Customer Field Representative Name Role Phone Greer Anaya Unavailable PROBLEMS Type Condition ICD9-CM Code [id number] Code Onset Dates Condition S tatus W/U Status Risk SNOMED Code Notes Problem Mixed hyperlipidemia E78.2 Active confirmed 435899778 Problem Essential hypertension I10 Active confirmed 57566845 Problem Tobacco dependence F17.200 Active confirmed 55517759 Problem Chronic congestive heart failure, unspecified he art failure type I50.9 Active confirmed 42809157 Problem Nontraumatic tear of left rotator cuff, unspecif ied tear extent M75.102 Active confirmed 1773870191316187 Problem History of methamphetamine use Z87.898 Active confi rmed 113321568 Problem Anxiety F41.9 Active confirmed 33019747 Problem CKD (chronic kidney disease) stage 3, GFR 30-59 ml/min N18.3 Active confirmed 326606174 Problem Chronic drug abuse F19.10 Active confirmed 1 41795504 Problem Smoking F17.200 Active confirmed 25006542 Problem Bilateral primary osteoarthritis of hip M16.0 Active confirmed 706740286 Problem Other chronic pain G89.29 Active confirmed 8 3352934 Problem Erectile dysfunction, unspecified erectile dysfunction typ e N52.9 Active confirmed 045593429 Problem Chronic obstructive pulmonary disease, unspecified COPD ty pe J44.9 Active confirmed 48144439 Problem Pulmonary emphysema, unspecified emphysema type J4 3.9 Active confirmed 17691395 Problem Cervical spondylosis M47.812 Active confirmed 781708246 Problem Hypersomnia G47.10 Active confirmed 21992969 Problem Cardiomyopathy, unspecified type I42.9 Active conf irmed 95004942 Problem Vitamin D deficiency E55.9 Active confirmed 03827181 Problem Paroxysmal atrial fibrillation I48.0 Active confir med 608883231 Problem Gastroesophageal reflux disease without esophagitis K21.9 Active confirmed 859135508 Problem Seasonal allergic rhinitis, unspecified trigger J3 0.2 Active confirmed 325516821 Problem DDD (degenerative disc disease), cervical M50.30 Active confirmed 30197020 Problem MCDANIEL (nonalcoholic steatohepatitis) K75.81 Acti ve confirmed 849381992 Problem Chronic fatigue R53.82 Active confirmed 8422 9001 ALLERGIES Allergen (clinical drug ingredient) Drug/Non Drug Allergy do cumented on EMR Reaction Allergy Type Onset Date Status Wellbutrin N/V and lethargic Non Drug Allergy A ctive ENCOUNTERS from 1965 to 2021-08-17 Encounter Location Date Provider Diagnosis [address] [address] 12 Aug, 2021 Greer Anaya IMMUNIZATIONS Vaccine Route Administration Date Status BUPIVACAINE OTH Other/Miscellaneous Aug 31, 2020 Administ ered BUPIVACAINE OTH Other/Miscellaneous Aug 31, 2020 Administ ered BUPIVACAINE OTH Other/Miscellaneous Aug 31, 2020 Administ ered INFLUENZA 3 YRS AND OLDER Preservative free IM Intramuscular Aug 31, 2017 Administered Pneumococcal Vaccine PNEUMO 23 IM Intramuscular Aug 28, 2018 Administered TDAP 7yrs + Vaccine - Boostrix IM Intramuscular Aug 09, 2020 Administered BUPIVACAINE OTH Other/Miscellaneous Aug 31, 2020 Administ ered Influenza preservative free IM Intramuscular Aug 16, 2021 Adm inistered Triamcinolone Acetonide Injectable Susp OTH Other/Miscellaneous Aug 31, 2020 Administered Influenza preservative free IM Intramuscular Aug 31, 2020 Adm inistered Influenza preservative free IM Intramuscular Aug 28, 2018 Adm inistered SOCIAL HISTORY Tobacco Use: Social History Observation Description Date Details (start date - stop date) Current Smoker Sex Assigned At : Social History Observation Description Sex Assigned At Unknown Alcohol Screen Question Answer Notes Did you have a drink containing alcohol in the past year? Ye s Points 1 Interpretation Negative How many drinks did you have on a ica l day when you were drinking in the past year? 1 or 2 (0 points) How often did you have a drink containing alcohol in t he past year? Monthly or less (1 point) Tobacco Use/Smoking Question Answer Notes Are you a current smoker Are you interested in quitting? Thinking about quitting How many cigarettes a day do you smoke? 6-10 How soon after you wake up do you smoke your first cigarette ? 6-30 minutes How often do you smoke cigarettes? every day REASON FOR REFERRAL No Information VITAL SIGNS No information MEDICATIONS Medication SIG (Take, Route, Frequency, Duration) Notes Start Da te End Date Status Fexofenadine HCl 180 MG 1 tablet Orally Once a day for 30 day(s) Active AirDuo RespiClick 55/14 55-14 MCG/ACT 1 puff Inhalation Twic e a day for 30 days Sep, Not-Taking Ventolin HFA 108 (90 Base) MCG/ACT 2 puffs as needed I nhalation every 6 hrs for 25 PRN Not-Taking Xarelto 20 MG 1 tablet with food Orally Once a day CHF, A-fib Active Sildenafil Citrate 100 MG 1 tablet as needed Orally Once a day a s neede for 2 Not-Taking Metoprolol Succinate 200 MG 1 capsule Orally Once a day for 30 day(s) Active Losartan Potassium 100 MG TAKE ONE TABLET BY MOUTH EVERY DAY for 90 Active Fluticasone Propionate 50 MCG/ACT 1 spray in each nost ril Nasally Once a day for 30 day(s) Active Lasix 40 MG 1 tablet Orally Once a day for 90 days PRN 15 Jul, 2020 Not-Taking PROCEDURES No Information RESULTS No Results REASON FOR VISIT Chest Xray Results MEDICAL (GENERAL) HISTORY Type Description Date Medical History hypertension Medical History tobacco dependence Medical History COPD Medical History Cardiomyopathy Medical History Paroxysmal A-fib Medical History Drug abuse - meth, cocaine, marijuana Medical History CHF Medical History Anxiety Medical History Hyperlipidemia Medical History neck/back pain Medical History Hep C (treated 2020) Surgical History Tonsils Surgical History loop monitor placed @ [facility]. 07/19/2020 Surgical History Cardiac Ablation [place] 10/2020 Hospitalization History Pneumonia 2010 Hospitalization History Fluid Overload 2016 Hospitalization History [facility] back pain/covid-19 01/2021 Goals Section No Information Health Concerns No Information MEDICAL EQUIPMENT No Information MENTAL STATUS No Information FUNCTIONAL STATUS No Information ASSESSMENTS No Information PLAN OF TREATMENT Medication Medication Name Sig Start Date Stop Date Fluticasone Propionate 50 MCG/ACT 1 spray in each nost ril Nasally Once a day for 30 day(s) Fexofenadine HCl 180 MG 1 tablet Orally Once a day for 30 day(s) Insurance Providers Payer Name Payer Address Payer Phone Insured Name Patient Relati onship to Insured Coverage Start Date Coverage End Date [employer] - [employer] [address] [facility] [id number] LEAH BUSTOS self
--- OUTSIDE RECORDS SUMMARY | 2021-09-07 15:07 | CCD | Continuity of Care Document ---
Author Author Loop Summary, Link Organization Unknown Address [address] [place] [address] Phone [phone] Care Team Providers Care Director Of Intelligence Name Role Phone Ruddy Knight MD AUTM [phone] [facility] AUTM [facility]- Surgical Pr - Dr. 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 GRINDER AUTM [phone] Central Scheduling AUTM [phone] Problems Active Problems Provider Date Cardiomyopathy, unspecified Morro Nugent MD On set: 04/03/2018 Dyspnea Morro Nugent MD Onset: Paroxysmal atrial fibrillation Morro Nugent MD Onset: 04/03/2018 Tachycardia Morro Nugent MD Onset: Substance abuse counseling Morro Nugent MD Ons et: 04/03/2018 Chronic atrial fibrillation Morro Nugent MD On set: 10/23/2018 Screening for cardiovascular system disease Morro Maxwell i, MD Onset: 10/23/2018 Obstructive sleep apnea syndrome Morro Nugent MD Onset: 04/23/2019 Long-term current use of anticoagulant Parul Tipton NP O nset: 11/04/2019 Tricuspid valve disorder, non-rheumatic Parul Tipton NP Onset: 11/04/2019 Mitral valve disorder Emely D Onset: 11/04/2019 Syncope and collapse Morro Nugent MD Onset: Electrocardiogram abnormal Parul Tipton NP Onset: 2020 Social History Type Date Description Comments Sex Unknown ETOH Use Denies alcohol use Tobacco Use Start: Unknown Patient is a current smoker, smo kes every day 10 cigs daily Recreational Drug Use Former Drug User prior his tory of meth, cocaine and marijuana use Smoking Status Reviewed: 02/18/21 Patient is a current smoker, smokes every day 10 cigs daily Allergies and adverse reactions Description No Known Drug Allergies Medications Active Medications SIG Qnty Indications Ordering Provide r Date Cardizem CD 120mg Caps ER 24HR 1 by mouth every day 30caps Morro Nugent MD Metoprolol Succinate ER 200mg Tablets ER 24HR Take One Tablet By Mouth Every Day 90tabs Morro Pinon MD 08/09/2020 Xarelto 20mg Tablets Take One Tablet By Mouth Once A Day 90tabs Morro Nugent MD 0 04/03/2018 Lasix 40mg Tablets 1 by mouth every day as needed 90tabs Unknown Proair HFA 108(90Base) mcg/Act Aer osol 1-2 puffs q4-6 as needed wheezing/sob Unknown Sildenafil Citrate 100mg Tablets Take One Tablet By Mouth Once A Day as Needed Unknown Sofosbuvir-Velpatasvir 400-100mg T ablets Take One Tablet By Mouth Every Day Unknown Airduo Digihaler 55-14mcg/Act Aero katheryn use twice a day as needed Unknown Triamterene/Hydrochlorothiazide 37.5-25mg Capsules 1 by mouth every day in the morning Unkno wn Cyclobenzaprine HCL 10mg Tablets Take One Tablet By Mouth Twice A Day For 7 Days Unknown Pantoprazole Sodium 40mg Tablets D R Take 1 Tablet By Mouth Once A Day Unknown 00/00 /0000 Medications Administered in Office Medication SIG Qnty Indications Ordering Provider Date Covid-19 vaccine, Unspecified Inj ection Unknown 01/24/2021 Covid-19 vaccine, Unspecified Inj ection Unknown 01/03/2021 Regadenoson, 0.1 MG Injection Jace 05/20/2020 Immunizations CPT Code Status Date Vaccine Lot # U-Flu Given 08/05/2020 Influenza,Unspecified U-Flu Given 08/05/2019 Influenza,Unspecified U-Pneum Given 08/05/2018 Pneumococcal,Unspecified U-Flu Given 08/05/2018 Influenza,Unspecified Vital Signs Date Vital Result Comment 03/24/2021 1:42pm BP Systolic Sitting 128 mmHg BP Diastolic Sitting 84 mmHg Heart Rate 80 /min Weight 184.50 lb Height 72 inches 6'0" BMI (Body Mass Index) 25.0 kg/m2 O2 % BldC Oximetry 99 % BSA (Body Surface Area) 2.06 m2 02/18/2021 4:26pm BP Systolic Left Arm 122 mmHg BP Diastolic Left Arm 80 mmHg Heart Rate 63 /min Weight 189.38 lb Height 72 inches 6'0" BMI (Body Mass Index) 25.7 kg/m2 O2 % BldC Oximetry 99 % BSA (Body Surface Area) 2.08 m2 Results Description No Information Available Procedures Date Code Description Status 07/05/2021 81389 Loop - Interrogation Remote Comp leted 05/13/2021 81718 Loop - Interrogation Remote Comp leted 04/12/2021 05385 Complete ECHO Completed 03/28/2021 50024 Loop - Interrogation Remote Comp leted Medical Devices Description No Information Available Encounters Description No Information Available Assessments Date Code Description Provider 07/05/2021 I48.0 Paroxysmal atrial fibrillation R Morro Collier MD 07/05/2021 I48.0 Paroxysmal atrial fibrillation L oop Summary 05/13/2021 I48.0 Paroxysmal atrial fibrillation R Morro Collier MD 05/13/2021 I48.0 Paroxysmal atrial fibrillation L oop Summary 04/12/2021 I48.0 Paroxysmal atrial fibrillation R Morro Collier MD 04/12/2021 I48.0 Paroxysmal atrial fibrillation T krunal Wilkinson 04/12/2021 I36.1 Nonrheumatic tricuspid (valve) i nsufficiency Morro Nugent MD 04/12/2021 I36.1 Nonrheumatic tricuspid (valve) i nsufficiency Emely D 04/12/2021 I34.0 Nonrheumatic mitral (valve) insu fficiency Morro Nugent MD 04/12/2021 I34.0 Nonrheumatic mitral (valve) insu fficiency Emely D 04/12/2021 I42.9 Cardiomyopathy, unspecified Morro Moses MD 04/12/2021 I42.9 Cardiomyopathy, unspecified Trac y D 03/28/2021 I48.0 Paroxysmal atrial fibrillation R Morro Collier MD 03/28/2021 I48.0 Paroxysmal atrial fibrillation L oop Summary 03/24/2021 I48.0 Paroxysmal atrial fibrillation M mela Thomas MD Plan of Treatment Future Appointment(s):* 09/08/2021 2:00 pm - Parul Tipton NP at [facility] 03/24/2021 - Robert Thomas MD* I48.0 Paroxysmal atrial fibrillation Functional Status Description No Information Available Mental Status Description No Information Available Referrals Refer to Reason for Referral [place] [address] ECHO DX'S I48.19 AND I50.2 2 AUTO APPROVED Created [address] [address] [phone]
--- OUTSIDE RECORDS SUMMARY | 2021-09-07 15:07 | CCD | Continuity of Care Document ---
Author Author Loop Summary, Link Organization Unknown Address [address] [place] [address] Phone [phone] Care Team Providers Care Earth Mover Name Role Phone Ruddy Knight MD AUTM [phone] [facility] AUTM [facility]- Surgical Pr - Dr. Thomas AUTM [phone] [facility] Imagin AUTM [phone] [facility] Moc AUTM [phone] Greer Anaya RAIL EXPRESS CLERK AUTM [phone] Central Scheduling AUTM [phone] Problems Active Problems Provider Date Cardiomyopathy, unspecified [...] smoker, smokes every day 10 cigs daily Allergies, Adverse Reactions, Alerts Description No Known Drug Allergies Medications Active [...] Mouth Once A Day Unknown 00/00 /0000 History Medications Cardizem CD 240mg Caps ER 24HR 1 by mouth every day 90caps Morro Nugent MD - 02/18/2021 Medications Administered in Office Medication SIG Qnty [...] Available Procedures Date Code Description Status 07/05/2021 96058 Loop - Interrogation Remote Comp leted 05/13/2021 28361 Loop - Interrogation Remote Comp leted 04/12/2021 46432 Complete ECHO Completed 03/28/2021 00845 Loop - Interrogation Remote Comp leted 02/18/2021 34863 Office/Outpatient Established Mo d MDM 30-39 Min Completed 02/18/2021 44451 Electrocardiogram Complete Compl eted 02/11/2021 68345 Office/Outpatient Established Mo d MDM 30-39 Min Completed 02/11/2021 94165 Electrocardiogram Complete Compl eted 02/07/2021 13726 Loop - Interrogation Remote Comp leted Medical Devices Description No Information Available Encounters Type Date Location Provider Dx Diagnosis [facility] I[facility].0 Paroxysmal atrial fibrillation Z79.01 ferry terminal agent (current) use of a nticoagulants G47.33 Obstructive sleep apnea (yadi lt) (pediatric) I36.1 Nonrheumatic tricuspid (valv e) insufficiency R06.02 Shortness of breath R94.31 Abnormal electrocardiogram [ ECG] [EKG] Office Visit 02/11[facility]2021 [facility] I48.0 Paroxysmal atrial fibrillation I36.1 Nonrheumatic tricuspid (valv e) insufficiency Z79.01 ferry terminal agent (current) use of a nticoagulants G47.33 Obstructive sleep apnea (yadi lt) (pediatric) I34.0 Nonrheumatic mitral (valve) insufficiency Assessments Date Code Description Provider 07/05/2021 I48.0 Paroxysmal atrial fibrillation R Morro Collier MD 07/05/2021 I48.0 Paroxysmal atrial fibrillation L oop Summary 05/13/2021 I48.0 Paroxysmal atrial fibrillation R Morro Collier MD 05/13/2021 I48.0 Paroxysmal atrial fibrillation L oop Summary 04/12/2021 I48.0 Paroxysmal atrial fibrillation R Morro Collier MD 04/12/2021 I48.0 Paroxysmal atrial fibrillation T racy D 04/12/2021 I36.1 Nonrheumatic tricuspid (valve) i nsufficiency [...] Paroxysmal atrial fibrillation M mela Thomas MD 02/18/2021 I48.0 Paroxysmal atrial fibrillation W inter Parul, CLINICAL ASSOCIATE 02/18/2021 Z79.01 ferry terminal agent (current) use of antic oagulants Winter Parul, CLINICAL ASSOCIATE 02/18/2021 G47.33 Obstructive sleep apnea (adult) (pediatric) Winter, Parul, CLINICAL ASSOCIATE 02/18/2021 I36.1 Nonrheumatic tricuspid (valve) i nsufficiency Winter, Parul, CLINICAL ASSOCIATE 02/18/2021 R06.02 Shortness of breath Emily Merida MD 02/18/2021 R06.02 Shortness of breath WinterLatrella , CLINICAL ASSOCIATE 02/18/2021 R94.31 Abnormal electrocardiogram [ECG] [EKG] Yola Merida MD 02/18/2021 R94.31 Abnormal electrocardiogram [ECG] [EKG] WinterLatrella, CLINICAL ASSOCIATE 02/11/2021 I48.0 Paroxysmal atrial fibrillation K Yola díaz MD 02/11/2021 I48.0 Paroxysmal atrial fibrillation W interLatrella, CLINICAL ASSOCIATE 02/11/2021 I36.1 Nonrheumatic tricuspid (valve) i nsufficiency Winter, Parul, CLINICAL ASSOCIATE 02/11/2021 Z79.01 ferry terminal agent (current) use of antic oagulants Winter Parul, CLINICAL ASSOCIATE 02/11/2021 G47.33 Obstructive sleep apnea (adult) (pediatric) WinterLatrella, CLINICAL ASSOCIATE 02/11/2021 I34.0 Nonrheumatic mitral (valve) insu fficiency Winter, Parul, CLINICAL ASSOCIATE 02/07/2021 R55 Syncope and collapse Morro Ospina MD 02/07/2021 R55 Syncope and collapse Loop Summar y 02/07/2021 I48.0 Paroxysmal atrial fibrillation R Morro Collier MD 02/07/2021 I48.0 Paroxysmal atrial fibrillation L oop Summary Plan of Treatment Future Appointment(s):* 08/29/2021 9:30 am - Loop Summary at [facility] * 08/22/2021 3:15 pm - Morro Nugent MD at [facility] 03/24/2021 - Robert Thomas MD* I48.0 Paroxysmal atrial fibrillation Functional Status Description No Information Available Mental Status Description No Information Available Referrals Refer to Dr Reason for Referral [place] [address] ECHO DX'S I48.19 AND I50.2 2 AUTO APPROVED Created 20 Located [facility] [address] [place] [address] [phone] Morro Nuegnt MD OFFICE VISITS Created [address] [place] [address] [address] [place] [address] [phone]
--- OUTSIDE RECORDS SUMMARY | 2021-09-07 15:07 | CCD | Continuity of Care Document ---
Author Author Loop Summary, Link Organization Unknown Address [address] [place] [address] Phone [phone] Care Team Providers Care Medical Surgery Nurse Name Role Phone Ruddy Knight MD AUTM [phone] [facility] AUTM [facility]- Surgical Pr - Dr. Thomas AUTM [facility] Imagin AUTM [phone] [facility] Moc AUTM [phone] Greer Anaya DATA STORAGE SPECIALIST AUTM [phone] Central Scheduling AUTM [phone] Problems Active Problems Provider Date Cardiomyopathy, unspecified [...] Information Available Procedures Date Code Description Status 05/13/2021 27135 Loop - Interrogation Remote Comp leted 04/12/2021 51700 Complete ECHO Completed 03/28/2021 97663 Loop - Interrogation Remote Comp leted 02/18/2021 40728 Office/Outpatient Established Mo d MDM 30-39 Min Completed 02/18/2021 53222 Electrocardiogram Complete Compl eted 02/11/2021 13236 Office/Outpatient Established Mo d MDM 30-39 Min Completed 02/11/2021 11215 Electrocardiogram Complete Compl eted 02/07/2021 89297 Loop - Interrogation Remote Comp leted Medical Devices Description No Information Available Encounters Type Date Location Provider Dx Diagnosis Office Visit 02/18/2021 4:30p [facility] Tyler NP I48.0 Paroxysmal atrial fibrillation Z79.01 detention (current) use of a nticoagulants G47.33 Obstructive sleep apnea (yadi lt) (pediatric) I36.1 Nonrheumatic tricuspid (valv e) insufficiency R06.02 Shortness of breath R94.31 Abnormal electrocardiogram [ ECG] [EKG] Office Visit 02/11/2021 10:30a [facility], Parul Wadsworth NP I48.0 Paroxysmal atrial fibrillation I36.1 Nonrheumatic tricuspid (valv e) insufficiency Z79.01 technician terminal and repeater (current) use of a nticoagulants G47.33 Obstructive sleep apnea (yadi lt) (pediatric) I34.0 Nonrheumatic mitral (valve) insufficiency Assessments Date Code Description Provider 05/13/2021 I48.0 Paroxysmal atrial fibrillation R Morro [...] oop Summary 03/24/2021 I48.0 Paroxysmal atrial fibrillation Jazmin Thomas MD 02/18/2021 I48.0 Paroxysmal atrial fibrillation W interLatrella, DRIVER'S LICENSE REVIEWING OFFICER 02/18/2021 Z79.01 detention (current) use of antic oagulants Parul Tipton, DRIVER'S LICENSE REVIEWING OFFICER 02/18/2021 G47.33 Obstructive sleep apnea (adult) (pediatric) Latrell Tiptona, DRIVER'S LICENSE REVIEWING OFFICER 02/18/2021 I36.1 Nonrheumatic tricuspid (valve) i nsufficiency Latrell Tiptona, DRIVER'S LICENSE REVIEWING OFFICER 02/18/2021 R06.02 Shortness of breath Emily Merida MD 02/18/2021 R06.02 Shortness of breath WinterLatrella , DRIVER'S LICENSE REVIEWING OFFICER 02/18/2021 R94.31 Abnormal electrocardiogram [ECG] [EKG] Yola Merida MD 02/18/2021 R94.31 Abnormal electrocardiogram [ECG] [EKG] Latrell Tiptona, DRIVER'S LICENSE REVIEWING OFFICER 02/11/2021 I48.0 Paroxysmal atrial fibrillation K Yola díaz MD 02/11/2021 I48.0 Paroxysmal atrial fibrillation W Latrell sheltona, DRIVER'S LICENSE REVIEWING OFFICER 02/11/2021 I36.1 Nonrheumatic tricuspid (valve) i nsufficiency Latrell Tiptona, DRIVER'S LICENSE REVIEWING OFFICER 02/11/2021 Z79.01 technician terminal and repeater (current) use of antic oagulants Parul Tipton, DRIVER'S LICENSE REVIEWING OFFICER 02/11/2021 G47.33 Obstructive sleep apnea (adult) (pediatric) Parul Tipton, DRIVER'S LICENSE REVIEWING OFFICER 02/11/2021 I34.0 Nonrheumatic mitral (valve) insu fficiency WinterLatrella, DRIVER'S LICENSE REVIEWING OFFICER 02/07/2021 R55 Syncope and collapse Morro Ospina MD 02/07/2021 R55 Syncope and collapse Loop Summar y 02/07/2021 I48.0 Paroxysmal atrial fibrillation R Morro Collier MD 02/07/2021 I48.0 Paroxysmal atrial fibrillation L oop Summary Plan of Treatment Future Appointment(s):* 08/22/2021 3:15 pm - Morro Nugent MD at [facility] 03/24/2021 - Robert Thomas MD* I48.0 Paroxysmal atrial fibrillation Functional Status Description No Information Available Mental Status Description No Information Available Referrals Refer to Dr Reason for Referral [place] [address] ECHO DX'S I48.19 AND I50.2 2 AUTO APPROVED Created [address] [place] [address] [address] [place] [address] [phone] Morro Nugent MD OFFICE VISITS Created [address] [place] [address] [address] [place] [address] [phone]
--- OUTSIDE RECORDS SUMMARY | 2021-09-07 15:07 | CCD ---
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 Name Role Phone Greer Anaya Unavailable PROBLEMS Type Condition ICD9-CM Code [id number] Code Onset Dates Condition S tatus W/U Status Risk SNOMED Code Notes Problem Mixed hyperlipidemia E78.2 Active confirmed 787200196 Problem Essential hypertension I10 Active confirmed 06141302 Problem Tobacco dependence F17.200 Active confirmed 95850551 Problem Chronic congestive heart failure, unspecified he art failure type I50.9 Active confirmed 00247529 Problem Nontraumatic tear of left rotator cuff, unspecif ied tear extent M75.102 Active confirmed 6111667515027510 Problem History of methamphetamine use Z87.898 Active confi rmed 539240844 Problem Anxiety F41.9 Active confirmed 19879565 Problem CKD (chronic kidney disease) stage 3, GFR 30-59 ml/min N18.3 Active confirmed 031947726 Problem Chronic drug abuse F19.10 Active confirmed 1 48760060 Problem Smoking F17.200 Active confirmed 67997701 Problem Bilateral primary osteoarthritis of hip M16.0 Active confirmed 653383848 Problem Other chronic pain G89.29 Active confirmed 8 4457591 Problem Erectile dysfunction, unspecified erectile dysfunction typ e N52.9 Active confirmed 700532412 Problem Chronic obstructive pulmonary disease, unspecified COPD ty pe J44.9 Active confirmed 45204585 Problem Pulmonary emphysema, unspecified emphysema type J4 3.9 Active confirmed 20736539 Problem Cervical spondylosis M47.812 Active confirmed 732294614 Problem Hypersomnia G47.10 Active confirmed 42453774 Problem Cardiomyopathy, unspecified type I42.9 Active conf irmed 39747555 Problem Vitamin D deficiency E55.9 Active confirmed 15946429 Problem Paroxysmal atrial fibrillation I48.0 Active confir med 121919994 Problem Gastroesophageal reflux disease without esophagitis K21.9 Active confirmed 315252966 Problem Seasonal allergic rhinitis, unspecified trigger J3 0.2 Active confirmed 673215797 Problem DDD (degenerative disc disease), cervical M50.30 Active confirmed 94269636 Problem MCDANIEL (nonalcoholic steatohepatitis) K75.81 Acti ve confirmed 331836106 Problem Chronic fatigue R53.82 Active confirmed 8422 9001 ALLERGIES Allergen (clinical drug ingredient) Drug/Non Drug Allergy do cumented on EMR Reaction Allergy Type Onset Date Status Wellbutrin N/V and lethargic Non Drug Allergy A ctive ENCOUNTERS from 1965 to 2021-08-17 Encounter Location Date Provider Diagnosis [address] [id number] Aug, Greer Jaclyn Cervical radiculopathy M54.1 2 ; DDD (degenerative disc disease), cervical M50.30 ; Cervical spondylosis M47.812 ; Essential hypertension I10 ; Seasonal allergic rhinitis, unspecified trigger J30.2 ; Drug use F19.90 ; Cervicalgia M54.2 ; Cardiomyopathy, unspecified type I42.9 ; Paroxysmal atrial fibrillation I48.0 ; Chronic obstructive pulmonary disease, unspecified COPD type J44.9 ; Tobacco abuse Z72.0 ; Tobacco abuse counseling Z71.6 ; Tobacco dependence F17.200 ; Encounter for well adult exam without abnormal findings Z00.00 ; Shortness of breath R06.02 ; Encounter for vaccination Z23 ; Immunization counseling Z71.85 ; Personal history of tobacco use Z87.891 ; Vitamin D deficiency E55.9 ; Mixed hyperlipidemia E78.2 ; Orthopnea R06.01 ; Chronic fatigue R53.82 ; Hypersomnia G47.10 ; Pulmonary emph ysema, unspecified emphysema type J43.9 and MCDANIEL (nonalcoholic steatohepatitis) K75.81 IMMUNIZATIONS Vaccine Route Administration Date Status BUPIVACAINE [...] BUPIVACAINE OTH Other/Miscellaneous Aug 31, 2020 Administ scott Influenza preservative free IM Intramuscular Aug 16, [...] many drinks did you have on a typica day when you were drinking in the [...] REASON FOR REFERRAL No Information VITAL SIGNS Height 72 in Aug, Weight 181.6 lbs Aug, BMI 24.63 kg/m2 Aug, Temperature 98.0 degrees Fahrenheit Aug, Heart Rate 65 /min Aug, Respiratory Rate 18 /min Aug, Oximetry 100 % Aug, Blood pressure systolic 138 mmHg Aug, Blood pressure diastolic 82 mmHg Aug, MEDICATIONS Medication SIG (Take, Route, Frequency, Duration) [...] Jul, 2020 Not-Taking PROCEDURES No Information RESULTS Component Value Reference Range CHEST 2 VIEWS Reviewed date:08/16/2021 13:34:24 Interpretation: Performing Lab: REASON FOR VISIT annual MEDICAL (GENERAL) HISTORY Type Description Date Medical History hypertension Medical History tobacco dependence Medical History COPD Medical History Cardiomyopathy Medical History Paroxysmal A-fib Medical History Drug abuse - meth, cocaine, marijuana Medical History CHF Medical History Anxiety Medical History Hyperlipidemia Medical History neck/back pain Medical History Hep C (treated 2020) Surgical History Tonsils Surgical History loop monitor placed @ [facility]. 07/19/2020 Surgical History Cardiac Ablation [place] 10/2020 Hospitalization History Pneumonia 2010 Hospitalization History Fluid Overload 2016 Hospitalization History [facility] back pain/covid-19 01/2021 Goals Section No Information Health Concerns No Information MEDICAL EQUIPMENT No Information MENTAL STATUS No Information FUNCTIONAL STATUS No Information ASSESSMENTS Encounter Date Diagnosis Assessment Notes Treatment Notes Treatm ent Clinical Notes Aug, Cervical radiculopathy (ICD-10 - M54.12) Pending nerve conduction study. Unable to do MRI at this time d/t loop recorder - recommended to discuss with cardiology Patient declining PT Consider supplemental modalities including Chiropractic, massage, pt, stretching at home, warm moist heat, ice, tens unit May use OTC medications as needed including Tylenol/Motrin/Aleve (do not take Motrin and Aleve together), topicals like capsacian cream, lidocaine, biofreeze, icyhot, ect Aug, DDD (degenerative disc disease), cervical (ICD-1 0 - M50.30) as above Aug, Cervical spondylosis (ICD-10 - M47.812) as above Consider supplemental modalities including Chiropractic, massage, pt, stretching at home, warm moist heat, ice, tens unit May use OTC medications as needed including Tylenol/Motrin/Aleve (do not take Motrin and Aleve together), topicals like capsacian cream, lidocaine, biofreeze, icyhot, ect Aug, Essential hypertension (ICD-10 - I10) COntinue to follow with cardiology as scheduled 02/03/2021 Patient continuing to decline taking triam/HCTZ until seen by cardio Things that you can do at home to improve and maintain a healthy blood pressure: - Decrease salt intake - Increase water intake - Decrease alcohol and caffeine intake - Increase exercise - Weight loss. Aug, Seasonal allergic rhinitis, unspecified trigger (ICD-10 - J30.2) May take clartin/zyrtec/connie/xyzal/clarinex (or their generics) as needed for allergy symptoms (congestion, runny nose, itching) For sinus congestion, post nasal drip and/or ear pressure that is not resolved with allergy medication alone, would recommend starting Flonase or Nasonex twice per day (available over the counter). If you have history of hypertension or heart disease DO NOT take any medications that contain decongestants (including pseudoephedrine or phenylephrine). This includes allergy meds with -D (ie Zyrtec-D), dayquil, nyquil, sudafed, ect. You MAY take Coricidin (Chlorpheniramine) Aug, Drug use (ICD-10 - F19.90) Recommended to avoid meth, cocaine, marijuana Patient admits to intermittent meth use Reviewed risks associated with meth use in the presence of cardiac disease Aug, Cervicalgia (ICD-10 - M54.2) as above Aug, Cardiomyopathy, unspecified type (ICD-10 - I42.9 ) continue to follow with cardiology Aug, Paroxysmal atrial fibrillation (ICD-10 - I48.0) continue to follow with cardiology patient is asymptomatic at this time but does appear to be in an irregular rhythm in office Aug, Chronic obstructive pulmonar y disease, unspecified COPD type (ICD- 10 - J44.9) Encouraged smoking cessation Encouraged inhaler compliance (patient is currently non compliant) STates that pulmonology told him his lung function was fine and he did not need to follow up with them Aug, Tobacco abuse (ICD-10 - Z72.0) Spent approx 3 minutes discussing smoking cessation with patient. Praised patient for cutting back on smoking. Discussed methods for replacing habit including activities to keep mouth/brain/hand occupied like drawing, sucking on sugar free hard candies, exercise. Reviewed smoking cessation methods including gum, lozenges, nasal spray, oral medications. Patient does not want any medications at this time. Encouraged continued weaning down of cigarettes per day. Reviewed importance of smoking cessation for prevention of further lung degradation and improvement of chronic symptoms. Aug, Tobacco abuse counseling (ICD-10 - Z71.6) as above Aug, Tobacco dependence (ICD-10 - F17.200) as above Aug, Encounter for well adult exa m without abnormal findings (ICD-10 - Z00.00) - Follow up yearly for annual PE - Follow up as directed for routine condition monitoring - Follow up as needed for acute injury/illness/questions/concerns Health Maintenance: - Ensure diet high in fruits, vegetables, lean protein - Moderate alcohol, caffiene - Avoid tobacco - Obtain at least 150 mins of heart raising physical activity daily - Wear seatbelt - Use CO and smoke detectors in home Screenings: - Start colonoscopy at age 50 unless otherwise directed - Obtain yearly fasting labs Aug, Shortness of breath (ICD-10 - R06.02) with lying down denies any recent illness is not associated with chest pains/palpitations does have dx COPD but is not compliant with inhalers is still smoking Pending chest xray Consider ddimer Aug, Encounter for vaccination (ICD-10 - Z23) Please administer flu shot today. Aug, Immunization counseling (ICD-10 - Z71.85) Reviewed immunizations with the patient including indications and possible side effects. Encouraged to take Tylenol PRN pain/fevers. May use heat/ice on injection site as needed. VIS provided Aug, Personal history of tobacco use (ICD-10 - Z87.89 1) Pending CT low dose at this time Aug, Vitamin D deficiency (ICD-10 - E55.9) Pending labs. encouraged taking vitamin D supplements with food. Advised of importance of vit D supplementation - especially during winter months - for bone health, immune function, moods, ect. CASING SEWER for vit D is 800 units. Generally people in this area of the country need at least 2,000-4,000 units per day in the winter months. Recommended to take supplementation daily with food (as vit D is a fat soluable vitamin). May need high dose supplementation if levels are insufficienct (pending labs). Aug, Mixed hyperlipidemia (ICD-10 - E78.2) Things that you can do at home to help control cholesterol: - Decrease unhealthy fats (capmbell, butter, meat) - Increase activity - Lose weight. Fasting labs have been ordered. 1. Please do not eat or drink anything (other than PLAIN water) for at least 8 hours (preferably 12 hours). Usually the easiest thing to do is do not eat after dinner and have labs drawn the next day prior to coffee and breakfast. 2. The lab opens at 7 am daily, you do not need an appointment. 3. The orders will be sent to the hospital electronically, you will not need to remember to bring them with you. Aug, Orthopnea (ICD-10 - R06.01) no improvement with increased lasix recommend sleep study encouraged compliance with inhalers Pending labs Aug, Chronic fatigue (ICD-10 - R53.82) Pending labs Aug, Hypersomnia (ICD-10 - G47.10) Pending home sleep study. Aug, Pulmonary emphysema, unspecified emphysema type (ICD-10 - J43.9) Pending PFT> Aug, MCDANIEL (nonalcoholic steatohepatitis) (ICD-10 - K7 5.81) avoid tylenol, alcohol, fatty foods Aug, Other All questions and concerns addressed, patient understanding and agreeable to plan. Patient encouraged to follow up at the clinic for any additional or new questions or concerns. Time spent includes face to face time with patient and review of any pertinent laboratory results, consult documentation/hospital notes and diagnostic imaging. Time spent: 45 mins Renita Lovell, scribing the following service on behalf of Greer Anaya NP on 08-16-2021 PLAN OF TREATMENT Medication Medication Name Sig Start Date Stop Date Fluticasone Propionate 50 MCG/ACT 1 spray in each nost ril Nasally Once a day for 30 day(s) Fexofenadine HCl 180 MG 1 tablet Orally Once a day for 30 day(s) Treatment Notes Assessment Notes Clinical Notes Encounter for well adult exam without abnormal finding s - Follow up yearly for annual PE - Follow up as directed for routine condition monitoring - Follow up as needed for acute injury/illness/questions/concerns Health Maintenance: - Ensure diet high in fruits, vegetables, lean protein - Moderate alcohol, caffiene - Avoid tobacco - Obtain at least 150 mins of heart raising physical activity daily - Wear seatbelt - Use CO and smoke detectors in home Screenings: - Start colonoscopy at age 50 unless otherwise directed - Obtain yearly fasting labs Tobacco dependence as above Encounter for vaccination Please administer flu shot today. Shortness of breath with lying downdenies any re cent illnessis not associated with chest pains/palpitationsdoes have dx COPD but is not compliant with inhalersis still smokingPending chest xrayConsider ddimer Personal history of tobacco use Pending CT low dose at this time Immunization counseling Reviewed immunizations with the patient including indications and possible side effects. Encouraged to take Tylenol PRN pain/fevers. May use heat/ice on injection site as needed.VIS provided Mixed hyperlipidemia Things that you can do at ho me to help control cholesterol:- Decrease unhealthy fats (campbell, butter, meat)- Increase activity- Lose weight.Fasting labs have been ordered.1. Please do not eat or drink an ything (other than PLAIN water) for at least 8 hours (preferably 12 hours). Usually the easiest thing to do is do not eat after dinner and have labs drawn the next day prior to coffee and breakfast.2. The lab opens at 7 am daily, you do not need an appointment.3. The orders will be sent to the hospital electronically, you will not need to remember to bring them with you. Vitamin D deficiency Pending labs.encouraged nancy kathleen vitamin D supplements with food.Advised of importance of vit D supplementation - especially during winter months - for bone health, immune function, moods, ect. CASING SEWER for vit D is 800 units. Generally people in this area of the country need at least 2,000-4,000 units per day in the winter months. Recommended to take supplementation daily with food (as vit D is a fat soluable vitamin). May need high dose supplementation if levels are insufficienct (pending labs). Tobacco abuse counseling as above Tobacco abuse Spent approx 3 minutes discu ssing smoking cessation with patient. Praised patient for cutting back on smoking. Discussed methods for replacing habit including activities to keep mouth/brain/hand occupied like drawing, sucking on sugar free hard candies, exercise. Reviewed smoking cessation methods including gum, lozenges, nasal spray, oral medications. Patient does not want any medications at this time. Encouraged continued weaning down of cigarettes per day. Reviewed importance of smoking cessation for prevention of further lung degradation and improvement of chronic symptoms. MCDANIEL (nonalcoholic steatohepatitis) avoid tylenol, alcohol, fatty foods Cervical radiculopathy Pending nerve conduction ezequiel dy.Unable to do MRI at this time d/t loop recorder - recommended to discuss with cardiologyPatient declining PTConsider supplemental modalities including Chiropractic, massage, pt, stretching at home, warm moist heat, ice, tens unit May use OTC medications as needed including Tylenol/Motrin/Aleve (do not take Motrin and Aleve together), topicals like capsacian cream, lidocaine, biofreeze, icyhot, ect Pulmonary emphysema, unspecified emphysema type Pending PFT> DDD (degenerative disc disease), cervical as above Cervical spondylosis as aboveConsider supplementa l modalities including Chiropractic, massage, pt, stretching at home, warm moist heat, ice, tens unitMay use OTC medications as needed including Tylenol/Motrin/Aleve (do not take Motrin and Aleve together), topicals like capsacian cream, lidocaine, biofreeze, icyhot, ect Essential hypertension COntinue to follow with card iology as scheduled 1Patient continuing to decline taking triam/HCTZ until seen by cardioThings that you can do at home to improve and maintain a healthy blood pressure: - Decrease salt intake - Increase water intake - Decrease alcohol and caffeine intake - Increase exercise - Weight loss. Seasonal allergic rhinitis, unspecified trigger May ta ke clartin/zyrtec/connie/xyzal/clarinex (or their generics) as needed for allergy symptoms (congestion, runny nose, itching) For sinus congestion, post nasal drip and/or ear pressure that is not resolved with allergy medication alone, would recommend starting Flonase or Nasonex twice per day (available over the counter). If you have history of hypertension or heart disease DO NOT take any medications that contain decongestants (including pseudoephedrine or phenylephrine). This includes allergy meds with -D (ie Zyrtec-D), dayquil, nyquil, sudafed, ect. You MAY take Coricidin (Chlorpheniramine) Drug use Recommended to avoid meth, c ocaine, marijuanaPatient admits to intermittent meth useReviewed risks associated with meth use in the presence of cardiac disease Cervicalgia as above Orthopnea no improvement with increase d lasixrecommend sleep studyencouraged compliance with inhalersPending labs Hypersomnia Pending home sleep study. Chronic fatigue Pending labs Cardiomyopathy, unspecified type continue to follow with car diology Paroxysmal atrial fibrillation continue to follow with cardiologypatient is asymptomatic at this time but does appear to be in an irregular rhythm in office Chronic obstructive pulmonary disease, unspecified BOX TOE CEMENTER D type Encouraged smoking cessationEncouraged inhaler compliance (patient is currently non compliant)STates that pulmonology told him his lung function was fine and he did not need to follow up with them Treatment Notes Test Name Order Date COMPLETE METABOLIC PROLFILE 2021-08-16 VITAMIN D, 25-HYDROXY 2021-08-16 MAGNESIUM 2021-08-16 TSH 2021-08-16 LIPID PROFILE 2021-08-16 CBC 2021-08-16 BNP 2021-08-16 Home Sleep Study 2021-08-16 Pulmonary Function Test 2021-08-16 CT LOW DOSE - 76237/ICD-10 Z87.891 2021-08-16 Next Appt Details 3 Months, prn Reason: Insurance Providers Payer Name Payer Address Payer Phone Insured Name Patient Relati onship to Insured Coverage Start Date Coverage End Date [employer] [address] [facility] [id number] LEAH BUSTOS self
--- OUTSIDE RECORDS SUMMARY | 2021-09-07 15:10 | CCD ---
Author Author [facility] Organization [facility] Address Unknown Phone Unavailable Care Team Providers Care Delicatessen Department Manager Name Role Phone Dean Neri MD Unavailable Unavailable Dean Neri MD Unavailable Unavailable Dean Neri MD Unavailable Unavailable Dean Neri MD Unavailable Unavailable Dean Neri MD Unavailable Unavailable Dean Neri MD Unavailable Unavailable Dean Neri MD Unavailable Unavailable Dean Neri MD Unavailable Unavailable Dean Neri MD Unavailable Unavailable Dean Neri MD Unavailable Unavailable Dean Neri MD Unavailable Unavailable Dean Neri MD Unavailable Unavailable Daen Neri MD Unavailable Unavailable Dean Neri MD Unavailable Unavailable Dean Neri MD Unavailable Unavailable Dean Neri MD Unavailable Unavailable Dean Neri MD Unavailable Unavailable Dean Neri MD Unavailable Unavailable Dombek-Lang, V Aracelis MD Unavailable Unavailable Dombek-Lang, V Aracelis MD Unavailable Unavailable Dombek-Lang, V Aracelis MD Unavailable Unavailable Dombek-Lang, V Aracelis MD Unavailable Unavailable Dombek-Lang, V Aracelis MD Unavailable Unavailable Dombek-Lang, V Aracelis MD Unavailable Unavailable Dombek-Lang, V Aracelis MD Unavailable Unavailable Dombek-Lang, V Aracelis MD Unavailable Unavailable Dombek-Lang, V Aracelis MD Unavailable Unavailable Dombek-Lang, V Aracelis MD Unavailable Unavailable Dombek-Lang, V Aracelis MD Unavailable Unavailable Dombek-Lang, V Aracelis MD Unavailable Unavailable Dombek-Lang, V Aracelis MD Unavailable Unavailable Dombek-Lang, V Aracelis MD Unavailable Unavailable Dombek-Lang, V Aracelis MD Unavailable Unavailable Dombek-Lang, V Aracelis MD Unavailable Unavailable Dombek-Lang, V Aracelis MD Unavailable Unavailable Dombek-Lang, V Aracelis MD Unavailable Unavailable Dombek-Lang, V Aracelis MD Unavailable Unavailable Dombek-Lang, V Aracelis MD Unavailable Unavailable Dombek-Lang, V Aracelis MD Unavailable Unavailable Daljit Dumont MD Unavailable Unavailable Daljit Dumont MD Unavailable Unavailable Daljit Dumont MD Unavailable Unavailable Daljit Dumont MD Unavailable Unavailable Daljit Dumont MD Unavailable Unavailable Daljit Dumont MD Unavailable Unavailable Daljit Dumont MD Unavailable Unavailable Daljit Dumont MD Unavailable Unavailable Daljit Dumont MD Unavailable Unavailable Daljit Dumont MD Unavailable Unavailable Daljit Dumont MD Unavailable Unavailable Daljit Dumont MD Unavailable Unavailable Daljit Dumont MD Unavailable Unavailable Daljit Dumont MD Unavailable Unavailable Daljit Dumont MD Unavailable Unavailable Daljit Dumont MD Unavailable Unavailable Daljit Dumont MD Unavailable Unavailable Daljit Dumont MD Unavailable Unavailable Daljit Dumont MD Unavailable Unavailable Kaferdinand, Daljit Segal MD Unavailable Unavailable Kabbli, Daljit Segal MD Unavailable Unavailable Kabbcandy, Daljit Segal MD Unavailable Unavailable Kabbli, Daljit Segal MD Unavailable Unavailable Kabbcandy, Daljit Segal MD Unavailable Unavailable Kaferdinand, Daljit Segal MD Unavailable Unavailable Kabbcandy, Daljit Segal MD Unavailable Unavailable Kabbli, Daljit Segal MD Unavailable Unavailable Kaferdinand, Daljit Segal MD Unavailable Unavailable Kabbcandy, Daljit Segal MD Unavailable Unavailable Kabbli, Daljit Segal MD Unavailable Unavailable Kabbcandy, Daljit Segal MD Unavailable Unavailable Kaferdinand, Daljit eSgal MD Unavailable Unavailable Kaferdinand, Daljit Segal MD Unavailable Unavailable Kaferdinand, Daljit Segal MD Unavailable Unavailable Kaferdinand, Daljit Segal MD Unavailable Unavailable Coolin, C Serena DO Unavailable Unavailable Coolin, C Serena DO Unavailable Unavailable Coolin, C Serena DO Unavailable Unavailable Garcia, C Serena DO Unavailable Unavailable Coolin, C Serena DO Unavailable Unavailable Coolin, C Serena DO Unavailable Unavailable Coolin, C Serena DO Unavailable Unavailable Garcia, C Serena DO Unavailable Unavailable Garcia, C Serena DO Unavailable Unavailable Coolin, C Serena DO Unavailable Unavailable Coolin, C Serena DO Unavailable Unavailable Coolin, C Serena DO Unavailable Unavailable Garcia, C Serena DO Unavailable Unavailable Coolin, C Serena DO Unavailable Unavailable Coolin, C Serena DO Unavailable Unavailable Garcia, C Serena DO Unavailable Unavailable Garcia, C Serena DO Unavailable Unavailable Coolin, C Serena DO Unavailable Unavailable Coolin, C Serena DO Unavailable Unavailable Garcia, C Serena DO Unavailable Unavailable Garcia, C Serena DO Unavailable Unavailable Coolin, C Serena DO Unavailable Unavailable Coolin, C Serena DO Unavailable Unavailable Coolin, C Serena DO Unavailable Unavailable Garcia, C Serena DO Unavailable Unavailable Coolin, C Serena DO Unavailable Unavailable Coolin, C Serena DO Unavailable Unavailable Garcia, C Serena DO Unavailable Unavailable Garcia, C Serena DO Unavailable Unavailable Coolin, C Serena DO Unavailable Unavailable Coolin, C Serena DO Unavailable Unavailable Garcia, C Serena DO Unavailable Unavailable Garcia, C Serena DO Unavailable Unavailable Garcia, C Serena DO Unavailable Unavailable Garcia, C Serena DO Unavailable Unavailable Garcia, C Serena DO Unavailable Unavailable JOSE D CONDON Unavailable Unavailable PHYSICIAN, OTHER Unavailable Unavailable VIDA, L KENNEDY PA Unavailable Unavailable VIDA, L KENNEDY PA Unavailable Unavailable VIDA, L KENNEDY PA Unavailable Unavailable VIDA, L KENNEDY PA Unavailable Unavailable VIDA, L KENNEDY PA Unavailable Unavailable VIDA, L KENNEDY PA Unavailable Unavailable VIDA, L KENNEDY PA Unavailable Unavailable VIDA, L KENNEDY PA Unavailable Unavailable VIDA, L KENNEDY PA Unavailable Unavailable VIDA, L KENNEDY PA Unavailable Unavailable VIDA, L KENNEDY PA Unavailable Unavailable VIDA, L KENNEDY PA Unavailable Unavailable VIDA, L KENNEDY PA Unavailable Unavailable VIDA, L KENNEDY PA Unavailable Unavailable VIDA, L KENNEDY PA Unavailable Unavailable VIDA, L KENNEDY PA Unavailable Unavailable VIDA, L KENNEDY PA Unavailable Unavailable VIDA, L KENNEDY PA Unavailable Unavailable VIDA, L KENNEDY PA Unavailable Unavailable VIDA, L KENNEDY PA Unavailable Unavailable VIDA, L KENNEDY PA Unavailable Unavailable VIDA, L KENNEDY PA Unavailable Unavailable Kati CONDON MD Unavailable Unavailable Kati CONDON MD Unavailable Unavailable Kati CONDON MD Unavailable Unavailable Kati CONDON MD Unavailable Unavailable Kati CONDON MD Unavailable Unavailable Kati CONDON MD Unavailable Unavailable Kati CONDON MD Unavailable Unavailable Kati CONDON MD Unavailable Unavailable Kati CONDON MD Unavailable Unavailable SYMENOW, G CHRISTOPHER PA Unavailable Unavailable SYMENOW, G CHRISTOPHER PA Unavailable Unavailable SYMENOW, G CHRISTOPHER PA Unavailable Unavailable SYMENOW, G CHRISTOPHER PA Unavailable Unavailable SYMENOW, G CHRISTOPHER PA Unavailable Unavailable SYMENOW, G CHRISTOPHER PA Unavailable Unavailable SYMENOW, G CHRISTOPHER PA Unavailable Unavailable SYMENOW, G CHRISTOPHER PA Unavailable Unavailable SYMENOW, G CHRISTOPHER PA Unavailable Unavailable SYMENOW, G CHRISTOPHER PA Unavailable Unavailable SYMENOW, G CHRISTOPHER PA Unavailable Unavailable SYMENOW, G CHRISTOPHER PA Unavailable Unavailable SYMENOW, G CHRISTOPHER PA Unavailable Unavailable SYMENOW, G CHRISTOPHER PA Unavailable Unavailable SYMENOW, G CHRISTOPHER PA Unavailable Unavailable SYMENOW, G CHRISTOPHER PA Unavailable Unavailable Malick-Leon, Mohammad Unavailable Unavailable Malick-Leon, Mohammad Unavailable Unavailable Malick-Leon, Mohammad Unavailable Unavailable Malick-Leon, Mohammad Unavailable Unavailable Malikc-Leon, Mohammad Unavailable Unavailable WINTER, M BRANDON MARINE FUEL DOCK ATTENDANT Unavailable Unavailable WINTER, M BRANDON MARINE FUEL DOCK ATTENDANT Unavailable Unavailable WINTER, M BRANDON MARINE FUEL DOCK ATTENDANT Unavailable Unavailable WINTER, M BRANDON MARINE FUEL DOCK ATTENDANT Unavailable Unavailable WINTER, M BRANDON MARINE FUEL DOCK ATTENDANT Unavailable Unavailable WINTER, M BRANDON MARINE FUEL DOCK ATTENDANT Unavailable Unavailable WINTER, M BRANDON MARINE FUEL DOCK ATTENDANT Unavailable Unavailable WINTER, M BRANDON MARINE FUEL DOCK ATTENDANT Unavailable Unavailable WINTER, M BRANDON MARINE FUEL DOCK ATTENDANT Unavailable Unavailable WINTER, M BRANDON MARINE FUEL DOCK ATTENDANT Unavailable Unavailable WINTER, M BRANDON MARINE FUEL DOCK ATTENDANT Unavailable Unavailable WINTER, M BRANDON MARINE FUEL DOCK ATTENDANT Unavailable Unavailable WINTER, M BRANDON MARINE FUEL DOCK ATTENDANT Unavailable Unavailable WINTER, M BRANDON MARINE FUEL DOCK ATTENDANT Unavailable Unavailable WINTER, M BRANDON MARINE FUEL DOCK ATTENDANT Unavailable Unavailable WINTER, M BRANDON MARINE FUEL DOCK ATTENDANT Unavailable Unavailable WINTER, M BRANDON MARINE FUEL DOCK ATTENDANT Unavailable Unavailable WINTER, M BRANDON MARINE FUEL DOCK ATTENDANT Unavailable Unavailable WINTER, M BRANDON MARINE FUEL DOCK ATTENDANT Unavailable Unavailable WINTER, M BRANDON MARINE FUEL DOCK ATTENDANT Unavailable Unavailable WINTER, M BRANDON MARINE FUEL DOCK ATTENDANT Unavailable Unavailable WINTER, M BRANDON MARINE FUEL DOCK ATTENDANT Unavailable Unavailable WINTER, M BRANDON MARINE FUEL DOCK ATTENDANT Unavailable Unavailable WINTER, M BRANDON MARINE FUEL DOCK ATTENDANT Unavailable Unavailable WINTER, M BRANDON MARINE FUEL DOCK ATTENDANT Unavailable Unavailable WINTER, M BRANDON MARINE FUEL DOCK ATTENDANT Unavailable Unavailable WINTER, M BRANDON MARINE FUEL DOCK ATTENDANT Unavailable Unavailable WINTER, M BRANDON MARINE FUEL DOCK ATTENDANT Unavailable Unavailable WINTER, M BRANDON MARINE FUEL DOCK ATTENDANT Unavailable Unavailable WINTER, M BRANDON MARINE FUEL DOCK ATTENDANT Unavailable Unavailable WINTER, M BRANDON MARINE FUEL DOCK ATTENDANT Unavailable Unavailable WINTER, M BRANDON MARINE FUEL DOCK ATTENDANT Unavailable Unavailable WINTER, M BRANDON MARINE FUEL DOCK ATTENDANT Unavailable Unavailable ANTONIO ARANA MD Unavailable Unavailable ANTONIO ARANA MD Unavailable Unavailable ANTONIO ARANA MD Unavailable Unavailable ANTONIO ARANA MD Unavailable Unavailable Marcos, Reginah W Dorota ELECTRICIAN SUBSTATION SUPERVISOR-C Unavailable Unavailabl e Marcos, Reginah W Dorota ELECTRICIAN SUBSTATION SUPERVISOR-C Unavailable Unavailabl e Marcos, Reginah W Dorota ELECTRICIAN SUBSTATION SUPERVISOR-C Unavailable Unavailabl e Marcos, Reginah W Dorota ELECTRICIAN SUBSTATION SUPERVISOR-C Unavailable Unavailabl e Marcos, Reginah W Dorota ELECTRICIAN SUBSTATION SUPERVISOR-C Unavailable Unavailabl e Marcos, Reginah W Dorota ELECTRICIAN SUBSTATION SUPERVISOR-C Unavailable Unavailabl e Marcos, Reginah W Dorota ELECTRICIAN SUBSTATION SUPERVISOR-C Unavailable Unavailabl e Marcos, Reginah W Dorota ELECTRICIAN SUBSTATION SUPERVISOR-C Unavailable Unavailabl e Marcos, Lisset W Dorota ELECTRICIAN SUBSTATION SUPERVISOR-C Unavailable Unavailabl e Marcos, Lisset W Dorota ELECTRICIAN SUBSTATION SUPERVISOR-C Unavailable Unavailabl e Marcos, Regprincess W Dorota ELECTRICIAN SUBSTATION SUPERVISOR-C Unavailable Unavailabl e Marcos, Lisset W Dorota ELECTRICIAN SUBSTATION SUPERVISOR-C Unavailable Unavailabl e Marcos, Lisset W Dorota ELECTRICIAN SUBSTATION SUPERVISOR-C Unavailable Unavailabl e Marcos, Regprincess W Dorota ELECTRICIAN SUBSTATION SUPERVISOR-C Unavailable Unavailabl e Marcos, Carterinanelia W Dorota ELECTRICIAN SUBSTATION SUPERVISOR-C Unavailable Unavailabl e Marcos, Lisset W Dorota ELECTRICIAN SUBSTATION SUPERVISOR-C Unavailable Unavailabl e Marcos, Lisset W Dorota ELECTRICIAN SUBSTATION SUPERVISOR-C Unavailable Unavailabl e Marcos, Lisset W Dorota ELECTRICIAN SUBSTATION SUPERVISOR-C Unavailable Unavailabl e Marcos, Lisset W Dorota ELECTRICIAN SUBSTATION SUPERVISOR-C Unavailable Unavailabl e Marcos, Lisset W Dorota ELECTRICIAN SUBSTATION SUPERVISOR-C Unavailable Unavailabl e Marcos, Lisset W Dorota ELECTRICIAN SUBSTATION SUPERVISOR-C Unavailable Unavailabl e Marcos, Lisset W Dorota ELECTRICIAN SUBSTATION SUPERVISOR-C Unavailable Unavailabl e Marcos, Lisset W Dorota ELECTRICIAN SUBSTATION SUPERVISOR-C Unavailable Unavailabl e Marcos, Lisset W Dorota ELECTRICIAN SUBSTATION SUPERVISOR-C Unavailable Unavailabl e Marcos, Lisset W Dorota ELECTRICIAN SUBSTATION SUPERVISOR-C Unavailable Unavailabl e Marcos, Lisset W Dorota ELECTRICIAN SUBSTATION SUPERVISOR-C Unavailable Unavailabl e Marcos, Lisset W Dorota ELECTRICIAN SUBSTATION SUPERVISOR-C Unavailable Unavailabl e Marcos, Lisset W Dorota ELECTRICIAN SUBSTATION SUPERVISOR-C Unavailable Unavailabl e Marcos, Regprincess W Dorota ELECTRICIAN SUBSTATION SUPERVISOR-C Unavailable Unavailabl e Marcos, Regprincess W Dorota ELECTRICIAN SUBSTATION SUPERVISOR-C Unavailable Unavailabl e Marcos, Regprincess W Dorota ELECTRICIAN SUBSTATION SUPERVISOR-C Unavailable Unavailabl e Marcos, Regprincess W Dorota ELECTRICIAN SUBSTATION SUPERVISOR-C Unavailable Unavailabl e PETROFF, ANAIS Unavailable Unavailable Benjamin Noonan DO Unavailable Unavailable Benjamin Noonan DO Unavailable Unavailable Benjamin oNonan DO Unavailable Unavailable Noonan, B Morgan DO Unavailable Unavailable Noonan, B Morgan DO Unavailable Unavailable Benjamin Noonan Morgan DO Unavailable Unavailable Benjamin Noonan Morgan DO Unavailable Unavailable NoonanBenjamin Morgan DO Unavailable Unavailable Benjamin Noonan Morgan DO Unavailable Unavailable Benjamin Noonan Morgan DO Unavailable Unavailable Benjamin Noonan Morgan DO Unavailable Unavailable Benjamin Noonan Morgan DO Unavailable Unavailable Benjamin Noonan Morgan DO Unavailable Unavailable Benjamin Noonan Morgan DO Unavailable Unavailable Benjamin Noonan Morgan DO Unavailable Unavailable Benjamin Noonan DO Unavailable Unavailable Kati Blanco MD Unavailable Unavailable Kati Blanco MD Unavailable Unavailable Kati Blanco MD Unavailable Unavailable Kati Blanco MD Unavailable Unavailable Kati Blanco MD Unavailable Unavailable Kati Blanco MD Unavailable Unavailable Kati Blanco MD Unavailable Unavailable Kati Blanco MD Unavailable Unavailable Kati Blanco MD Unavailable Unavailable Kati Blanco MD Unavailable Unavailable Kati Blanco MD Unavailable Unavailable Kati Blanco MD Unavailable Unavailable Kati Blanco MD Unavailable Unavailable Kati Blanco MD Unavailable Unavailable Kati Blanco MD Unavailable Unavailable Kati Blanco MD Unavailable Unavailable Kati Blanco MD Unavailable Unavailable Kati Blanco MD Unavailable Unavailable Kati Blanco MD Unavailable Unavailable Kati Blanco MD Unavailable Unavailable Kati Blanco MD Unavailable Unavailable Kati Blanco MD Unavailable Unavailable Kati Blanco MD Unavailable Unavailable Kati Blanco MD Unavailable Unavailable Kati Blanco MD Unavailable Unavailable Kati Blanco MD Unavailable Unavailable Kati Blanco MD Unavailable Unavailable Kati Blanco MD Unavailable Unavailable Kati Blanco MD Unavailable Unavailable Kati Blanco MD Unavailable Unavailable Kati Blanco MD Unavailable Unavailable Kati Blanco MD Unavailable Unavailable Kati Blanco MD Unavailable Unavailable Kati Blanco MD Unavailable Unavailable Kati Blanco MD Unavailable Unavailable Kati Blanco MD Unavailable Unavailable Kati Blanco MD Unavailable Unavailable Kati Blanco MD Unavailable Unavailable Kati Blanco MD Unavailable Unavailable Kati Blanco MD Unavailable Unavailable Kati Blanco MD Unavailable Unavailable Bella, Kati Rush MD Unavailable Unavailable Bella, Kati Rush MD Unavailable Unavailable Bella, Kati Rush MD Unavailable Unavailable Bella, Kati Rush MD Unavailable Unavailable Bella, Kati Rush MD Unavailable Unavailable Bella, Kati Rush MD Unavailable Unavailable Bella, Kati Rush MD Unavailable Unavailable Bella, Kati Rush MD Unavailable Unavailable Bella, Kati Rush MD Unavailable Unavailable Bella, Kati Rush MD Unavailable Unavailable Bella, Kati Rush MD Unavailable Unavailable VIDA, L KENNEDY PA Unavailable Unavailable VIDA, L KENNEDY PA Unavailable Unavailable VIDA, L KENNEDY PA Unavailable Unavailable VIDA, L KENNEDY PA Unavailable Unavailable VIDA, L KENNEDY PA Unavailable Unavailable VIDA, L KENNEDY PA Unavailable Unavailable VIDA, L KENNEDY PA Unavailable Unavailable VIDA, L KENNEDY PA Unavailable Unavailable VIDA, L KENNEDY PA Unavailable Unavailable VIDA, L KENNEDY PA Unavailable Unavailable VIDA, L KENNEDY PA Unavailable Unavailable VIDA, L KENNEDY PA Unavailable Unavailable VIDA, L KENNEDY PA Unavailable Unavailable VIDA, L KENNEDY PA Unavailable Unavailable VIDA, L KENNEDY PA Unavailable Unavailable VIDA, L KENNEDY PA Unavailable Unavailable VIDA, L KENNEDY PA Unavailable Unavailable VIDA, L KENNEDY PA Unavailable Unavailable VIDA, L KENNEDY PA Unavailable Unavailable VIDA, L KENNEDY PA Unavailable Unavailable VIDA, L KENNEDY PA Unavailable Unavailable VIDA, L KENNEDY PA Unavailable Unavailable Jaclyn, A Greer ELECTRICIAN SUBSTATION SUPERVISOR Unavailable Unavailable Jaclyn, A Greer ELECTRICIAN SUBSTATION SUPERVISOR Unavailable Unavailable Jaclyn, A Greer ELECTRICIAN SUBSTATION SUPERVISOR Unavailable Unavailable Jaclyn, A Greer ELECTRICIAN SUBSTATION SUPERVISOR Unavailable Unavailable Jaclyn, A Greer ELECTRICIAN SUBSTATION SUPERVISOR Unavailable Unavailable Jaclyn, A Greer ELECTRICIAN SUBSTATION SUPERVISOR Unavailable Unavailable Jaclyn, A Greer ELECTRICIAN SUBSTATION SUPERVISOR Unavailable Unavailable Jaclyn, A Greer ELECTRICIAN SUBSTATION SUPERVISOR Unavailable Unavailable Jaclyn, A Greer ELECTRICIAN SUBSTATION SUPERVISOR Unavailable Unavailable Jaclyn, A Greer ELECTRICIAN SUBSTATION SUPERVISOR Unavailable Unavailable Jaclyn, A Greer ELECTRICIAN SUBSTATION SUPERVISOR Unavailable Unavailable Jaclyn, A Greer ELECTRICIAN SUBSTATION SUPERVISOR Unavailable Unavailable Jaclyn, A Greer ELECTRICIAN SUBSTATION SUPERVISOR Unavailable Unavailable Jaclyn, A Greer ELECTRICIAN SUBSTATION SUPERVISOR Unavailable Unavailable Jaclyn, A Greer ELECTRICIAN SUBSTATION SUPERVISOR Unavailable Unavailable Jaclyn, A Greer ELECTRICIAN SUBSTATION SUPERVISOR Unavailable Unavailable Jaclyn, A Greer ELECTRICIAN SUBSTATION SUPERVISOR Unavailable Unavailable Jaclyn, A Greer ELECTRICIAN SUBSTATION SUPERVISOR Unavailable Unavailable Jaclyn, A Greer ELECTRICIAN SUBSTATION SUPERVISOR Unavailable Unavailable Jaclyn, A Greer ELECTRICIAN SUBSTATION SUPERVISOR Unavailable Unavailable Jaclyn, A Greer ELECTRICIAN SUBSTATION SUPERVISOR Unavailable Unavailable Jaclyn, A Greer ELECTRICIAN SUBSTATION SUPERVISOR Unavailable Unavailable Jaclyn, A Greer ELECTRICIAN SUBSTATION SUPERVISOR Unavailable Unavailable Jaclyn, A Greer ELECTRICIAN SUBSTATION SUPERVISOR Unavailable Unavailable Jaclyn, A Greer ELECTRICIAN SUBSTATION SUPERVISOR Unavailable Unavailable Jaclyn, A Greer ELECTRICIAN SUBSTATION SUPERVISOR Unavailable Unavailable Jaclyn, A Greer ELECTRICIAN SUBSTATION SUPERVISOR Unavailable Unavailable Jaclyn, A Greer ELECTRICIAN SUBSTATION SUPERVISOR Unavailable Unavailable Jaclyn, A Greer ELECTRICIAN SUBSTATION SUPERVISOR Unavailable Unavailable Jaclyn, A Greer ELECTRICIAN SUBSTATION SUPERVISOR Unavailable Unavailable Jaclyn, A Greer ELECTRICIAN SUBSTATION SUPERVISOR Unavailable Unavailable Jaclyn, A Greer ELECTRICIAN SUBSTATION SUPERVISOR Unavailable Unavailable Jaclyn, A Greer ELECTRICIAN SUBSTATION SUPERVISOR Unavailable Unavailable Jaclyn, A Rgeer ELECTRICIAN SUBSTATION SUPERVISOR Unavailable Unavailable Jaclyn, A Greer ELECTRICIAN SUBSTATION SUPERVISOR Unavailable Unavailable Jaclyn, A Greer ELECTRICIAN SUBSTATION SUPERVISOR Unavailable Unavailable Jaclyn, A Greer ELECTRICIAN SUBSTATION SUPERVISOR Unavailable Unavailable Jaclyn, A Greer ELECTRICIAN SUBSTATION SUPERVISOR Unavailable Unavailable Jaclyn, A Greer ELECTRICIAN SUBSTATION SUPERVISOR Unavailable Unavailable Jaclyn, A Greer ELECTRICIAN SUBSTATION SUPERVISOR Unavailable Unavailable Jaclyn, A Greer ELECTRICIAN SUBSTATION SUPERVISOR Unavailable Unavailable Jaclyn, A Greer ELECTRICIAN SUBSTATION SUPERVISOR Unavailable Unavailable Jaclyn, A Greer ELECTRICIAN SUBSTATION SUPERVISOR Unavailable Unavailable Jaclyn, A Greer ELECTRICIAN SUBSTATION SUPERVISOR Unavailable Unavailable Jaclyn, A Greer ELECTRICIAN SUBSTATION SUPERVISOR Unavailable Unavailable Jaclyn, A Greer ELECTRICIAN SUBSTATION SUPERVISOR Unavailable Unavailable Jaclyn, A Greer ELECTRICIAN SUBSTATION SUPERVISOR Unavailable Unavailable Jaclyn, A Greer ELECTRICIAN SUBSTATION SUPERVISOR Unavailable Unavailable Jaclyn, A Greer ELECTRICIAN SUBSTATION SUPERVISOR Unavailable Unavailable Jaclyn, A Greer ELECTRICIAN SUBSTATION SUPERVISOR Unavailable Unavailable Jaclyn, A Greer ELECTRICIAN SUBSTATION SUPERVISOR Unavailable Unavailable Jaclyn, A Greer ELECTRICIAN SUBSTATION SUPERVISOR Unavailable Unavailable Jaclyn, A Greer ELECTRICIAN SUBSTATION SUPERVISOR Unavailable Unavailable Jaclyn, A Greer ELECTRICIAN SUBSTATION SUPERVISOR Unavailable Unavailable ROEL FARMER MD Unavailable Unavailable ISRA III, J LAWRENCE Unavailable Unavailable ISRA III, J LAWRENCE Unavailable Unavailable ISRA III, J LAWRENCE Unavailable Unavailable ISRA III, J LAWRENCE Unavailable Unavailable ISRA III, J LAWRENCE Unavailable Unavailable ISRA III, J LAWRENCE Unavailable Unavailable Daljit Farmer MD Unavailable Unavailable Daljit Farmer MD Unavailable Unavailable Daljit Farmer MD Unavailable Unavailable Daljit Farmer MD Unavailable Unavailable Daljit Farmer MD Unavailable Unavailable Daljit Farmer MD Unavailable Unavailable Daljit Farmer MD Unavailable Unavailable Daljit Farmer MD Unavailable Unavailable Daljit Farmer MD Unavailable Unavailable Daljit Farmer MD Unavailable Unavailable Caruso, Zi PA Unavailable Unavailable Caruso, Zi PA Unavailable Unavailable Caruso, Zi PA Unavailable Unavailable Caruso, Zi PA Unavailable Unavailable Caruso, Zi PA Unavailable Unavailable Caruso, Zi PA Unavailable Unavailable Carsuo, Zi PA Unavailable Unavailable Caruso, Zi PA Unavailable Unavailable Caruso, Zi PA Unavailable Unavailable Caruso, Zi PA Unavailable Unavailable Caruso, Zi PA Unavailable Unavailable Caruso, Zi PA Unavailable Unavailable Caruso, Zi PA Unavailable Unavailable Kati Dhaliwal Unavailable Kati Dhaliwalony Unavailable Kati Dhaliwalony Unavailable Kati Dhaliwalony Unavailable Kati Dhaliwalony Unavailable PETROFF, ANAIS PA Unavailable Unavailable PETROFF, ANAIS PA Unavailable Unavailable PETROFF, ANAIS PA Unavailable Unavailable PETROFF, ANAIS PA Unavailable Unavailable PETROFF, ANAIS PA Unavailable Unavailable PETROFF, ANAIS PA Unavailable Unavailable PETROFF, ANAIS PA Unavailable Unavailable PETROFF, ANAIS PA Unavailable [facility]available [facility] Unavailable Unavailable Irma DUGGAN MD Unavailable Unavailable Irma DUGGAN MD Unavailable Unavailable Irma DUGGAN MD Unavailable Unavailable Irma DUGGAN MD Unavailable Unavailable Irma DUGGAN MD Unavailable Unavailable Irma DUGGAN MD Unavailable Unavailable Irma DUGGAN MD Unavailable Unavailable Irma DUGGAN MD Unavailable Unavailable Irma DUGGAN MD Unavailable Unavailable Irma DUGGAN MD Unavailable Unavailable Irma DUGGAN MD Unavailable Unavailable Irma DUGGAN MD Unavailable Unavailable Irma DUGGAN MD Unavailable Unavailable Irma DUGGAN MD Unavailable Unavailable Irma DUGGAN MD Unavailable Unavailable Irma DUGGAN MD Unavailable Unavailable Irma DUGGAN MD Unavailable Unavailable Irma DUGGAN MD Unavailable Unavailable Irma DUGGAN MD Unavailable Unavailable Irma DUGGAN MD Unavailable Unavailable Irma DUGGAN MD Unavailable Unavailable OLGA LIDIAIrma MD Unavailable Unavailable OLGA LIDIAIrma MD Unavailable Unavailable OLGA LIDIA S ZEENAT PATEL Unavailable Unavailable OLGA LIDIAIrma MD Unavailable Unavailable OLGA LIDIAIrma MD Unavailable Unavailable OLGA LIDIAIrma MD Unavailable Unavailable OLGA LIDIAIrma MD Unavailable Unavailable OLGA LIDIAIrma MD Unavailable Unavailable OLGA LIDIAIrma MD Unavailable Unavailable OLGA LIDIA S ZEENAT PATEL Unavailable Unavailable OLGA LIDIAIrma MD Unavailable Unavailable OLGA LIDIAIrma MD Unavailable Unavailable OLGA LIDIAIrma MD Unavailable Unavailable OLGA LIDIAIrma DEXTER MD Unavailable Unavailable OLGA LIDIAIrma DEXTER MD Unavailable Unavailable OLGA LIDIAIrma DEXTER MD Unavailable Unavailable OLGA LIDIAIrma DEXTER MD Unavailable Unavailable OLGA LIDIAIrma DEXTER MD Unavailable Unavailable OLGA LIDIAIrma DEXTER MD Unavailable Unavailable OLGA LIDIAIrma DEXTER MD Unavailable Unavailable OLGA LIDIAIrma DEXTER MD Unavailable Unavailable OLGA LIDIAIrma TORRES MD Unavailable Unavailable OLGA LIDIAIrma DEXTER MD Unavailable Unavailable OLGA LIDIAIrma DEXTER MD Unavailable Unavailable OLGA LIDIAIrma DEXTER MD Unavailable Unavailable OLGA LIDIAIrma DEXTER MD Unavailable Unavailable OLGA LIDIAIrma DEXTER MD Unavailable Unavailable OLGA LIDIAIrma DEXTER MD Unavailable Unavailable OLGA LIDIAIrma TORRES MD Unavailable Unavailable OLGA LIDIAIrma DEXTER MD Unavailable Unavailable OLGA LIDIAIrma DEXTER MD Unavailable Unavailable OLGA LIDIAIrma DEXTER MD Unavailable Unavailable OLGA LIDIAIrma DEXTER MD Unavailable Unavailable OLGA LIDIAIrma DEXTER MD Unavailable Unavailable OLGA LIDIAIrma DEXTER MD Unavailable Unavailable OGLA LIDIAIrma DEXTER MD Unavailable Unavailable OLGA LIDIAIrma DEXTER MD Unavailable Unavailable OLGA LIDIAIrma DEXTER MD Unavailable Unavailable OLGA LIDIAIrma DEXTER MD Unavailable Unavailable OLGA LIDIAIrma DEXTER MD Unavailable Unavailable OLGA LIDIAIrma DEXTER MD Unavailable Unavailable OLGA LIDIA S ZEENAT PATEL Unavailable Unavailable OLGA LIDIA, S ZEENAT PATEL Unavailable Unavailable BRUNO SR, ZEENAT KONG MD Unavailable Unavailable BRUNO SR, ZEENAT KONG MD Unavailable Unavailable BRUNO SR, ZEENAT KONG MD Unavailable Unavailable BRUNO SR, ZEENAT KONG MD Unavailable Unavailable BRUNO SR, ZEENAT KONG MD Unavailable Unavailable BRUNO SR, ZEENAT KONG MD Unavailable Unavailable BRUNO SR, ZEENAT KONG MD Unavailable Unavailable BRUNO SR, ZEENAT KONG MD Unavailable Unavailable BRUNO SR, ZEENAT KONG MD Unavailable Unavailable BRUNO SR, ZEENAT KONG MD Unavailable Unavailable BRUNO SR, ZEENAT KONG MD Unavailable Unavailable BRUNO SR, ZEENAT KONG MD Unavailable Unavailable BRUNO SR, ZEENAT KONG MD Unavailable Unavailable BRUNO SR, ZEENAT KONG MD Unavailable Unavailable BRUNO SR, ZEENAT KONG MD Unavailable Unavailable BRUNO SR, ZEENAT KONG MD Unavailable Unavailable BRUNO SR, ZEENAT KONG MD Unavailable Unavailable BRUNO SR, ZEENAT KONG MD Unavailable Unavailable BRNUO SR, ZEENAT KONG MD Unavailable Unavailable BRUNO SR, ZEENAT KONG MD Unavailable Unavailable BRUNO SR, ZEENAT KONG MD Unavailable Unavailable BRUNO SR, ZEENAT KONG MD Unavailable Unavailable BRUNO SR, ZEENAT KONG MD Unavailable Unavailable BRUNO SR, ZEENAT KONG MD Unavailable Unavailable BRUNO SR, ZEENAT KONG MD Unavailable Unavailable BRUNO SR, ZEENAT KONG MD Unavailable Unavailable BRUNO SR, ZEENAT KONG MD Unavailable Unavailable BRUNO SR, ZEENAT KONG MD Unavailable Unavailable BRUNO SR, ZEENAT KONG MD Unavailable Unavailable BRUNO SR, ZEENAT KONG MD Unavailable Unavailable BRUNO SR, ZEENAT KONG MD Unavailable Unavailable BRUNO SR, ZEENAT KONG MD Unavailable Unavailable BRUNO SR, ZEENAT KONG MD Unavailable Unavailable BRUNO SR, ZEENAT KONG MD Unavailable Unavailable BRUNO SR, ZEENAT KONG MD Unavailable Unavailable BRUNO SR, ZEENAT KONG MD Unavailable Unavailable BRUNO SR, ZEENAT KONG MD Unavailable Unavailable BRUNO SR, ZEENAT KONG MD Unavailable Unavailable BRUNO SR, ZEENAT KONG MD Unavailable Unavailable BRUNO SR, ZEENAT KONG MD Unavailable Unavailable BRUNO SR, ZEENAT KONG MD Unavailable Unavailable BRUNO SR, ZEENAT KONG MD Unavailable Unavailable BRUNO SR, ZEENAT KONG MD Unavailable Unavailable BRUNO SR, ZEENAT KONG MD Unavailable Unavailable BRUNO SR, ZEENAT KONG MD Unavailable Unavailable BRUNO SR, ZEENAT KONG MD Unavailable Unavailable BRUNO SR, ZEENAT KONG MD Unavailable Unavailable BRUNO SR, ZEENAT KONG MD Unavailable Unavailable BRUNO SR, ZEENAT KONG MD Unavailable Unavailable BRUNO SR, ZEENAT KONG MD Unavailable Unavailable BRUNO SR, ZEENAT KONG MD Unavailable Unavailable BRUNO SR, ZEENAT KONG MD Unavailable Unavailable BRUON SR, ZEENAT KONG MD Unavailable Unavailable BRUNO SR, ZEENAT KONG MD Unavailable Unavailable BRUNO SR, ZEENAT KONG MD Unavailable Unavailable BRUNO SR, ZEENAT KONG MD Unavailable Unavailable Donte, G Zeenat PATEL Unavailable Unavailable Donte, Tonya Lundberg MD Unavailable Unavailable Donte, Tonya Lundberg MD Unavailable Unavailable Donte, Tonya Lundberg MD Unavailable Unavailable Donte, Tonya Lundberg MD Unavailable Unavailable Donte, Tonya Lundberg MD Unavailable Unavailable Donte, Tonya Lundberg MD Unavailable Unavailable Donte, Tonya Lundberg MD Unavailable Unavailable Donte, Tonya Lundberg MD Unavailable Unavailable Donte, Tonya Lundberg MD Unavailable Unavailable Donte, Tonya Lundberg MD Unavailable Unavailable Donte, Tonya Lundberg MD Unavailable Unavailable Donte, Tonya Lundberg MD Unavailable Unavailable Donte, Tonya Lundberg MD Unavailable Unavailable Donte, Tonya Lundberg MD Unavailable Unavailable Donte, Tonya Lundberg MD Unavailable Unavailable Donte, Tonya Lundberg MD Unavailable Unavailable Donte, Tonya Lundberg MD Unavailable Unavailable Donte, Tonya Lundberg MD Unavailable Unavailable Donte, Tonya Lundberg MD Unavailable Unavailable Donte, Tonya Lundberg MD Unavailable Unavailable Donte, Tonya Lundberg MD Unavailable Unavailable Donte, Tonya Lundberg MD Unavailable Unavailable Donte, Tonya Lundberg MD Unavailable Unavailable Donte, Tonya Lundberg MD Unavailable Unavailable Donte, Tonya Lundberg MD Unavailable Unavailable Donte, G Zeenat PATEL Unavailable Unavailable Donte, G Zeenat PATEL Unavailable Unavailable Donte, Tonya Lundberg MD Unavailable Unavailable Donte, Tonya Lundberg MD Unavailable Unavailable Donte, G Zeenat PATEL Unavailable Unavailable Donte, G Zeenat PATEL Unavailable Unavailable Donte, G Zeenat PATEL Unavailable Unavailable Donte, G Zeenat PATEL Unavailable Unavailable Donte, G Zeenat PATEL Unavailable Unavailable Donte, G Zeenat PATEL Unavailable Unavailable Donte, G Zeenat PATEL Unavailable Unavailable Donte, G Zeenat PATEL Unavailable Unavailable Donte, G Zeenat PATEL Unavailable Unavailable Donte, G Zeenat PATEL Unavailable Unavailable Donte, Tonya Lundberg MD Unavailable Unavailable Donte, G Zeenat PATEL Unavailable Unavailable Donte, G Zeenat PATEL Unavailable Unavailable Donte, Tonya Lundberg MD Unavailable Unavailable Donte, G Zeenat PATEL Unavailable Unavailable Donte, G Zeenat PATEL Unavailable Unavailable Donte, G Zeenat PATEL Unavailable Unavailable Donte, G Zeenat PATEL Unavailable Unavailable Donte, G Zeenat PATEL Unavailable Unavailable Donte, G Zeenat PATEL Unavailable Unavailable Donte, G Zeenat PATEL Unavailable Unavailable Donte, Tonya Lundberg MD Unavailable Unavailable Donte, Tonya Lundberg MD Unavailable Unavailable Donte, Tonya Lundberg MD Unavailable Unavailable Donte, Tonya Lundberg MD Unavailable Unavailable Donte, Tonya Lundberg MD Unavailable Unavailable Donte, Tonya Lundberg MD Unavailable Unavailable Donte, Tonya Lundberg MD Unavailable Unavailable Donte, Tonya Lundberg MD Unavailable Unavailable Donte, Tonya Lundberg MD Unavailable Unavailable Donte, Tonya Lundberg MD Unavailable Unavailable Donte, Tonya Lundberg MD Unavailable Unavailable Donte, G Zeenat PATEL Unavailable Unavailable Donte, G Zeenat PATEL Unavailable Unavailable Donte, G Zeenat PATEL Unavailable Unavailable Donte, G Zeenat PATEL Unavailable Unavailable Conover, Julisa RPA-C Unavailable Unavailable Conover, Julisa RPA-C Unavailable Unavailable Conover, Julisa RPA-C Unavailable Unavailable Conover, Julisa RPA-C Unavailable Unavailable Conover, Julisa RPA-C Unavailable Unavailable Conover, Julisa RPA-C Unavailable Unavailable Conover, Julisa RPA-C Unavailable Unavailable Conover, Julisa RPA-C Unavailable Unavailable Conover, Julisa RPA-C Unavailable Unavailable Conover, Julisa RPA-C Unavailable Unavailable Conover, Julisa RPA-C Unavailable Unavailable Conover, Julisa RPA-C Unavailable Unavailable Conover, Julisa RPA-C Unavailable Unavailable Conover, Julisa RPA-C Unavailable Unavailable Conover, Julisa RPA-C Unavailable Unavailable Conover, Julisa RPA-C Unavailable Unavailable Conover, Julisa RPA-C Unavailable Unavailable Conover, Julisa RPA-C Unavailable Unavailable Jazmin NORRIS MD Unavailable Unavailable Jazmin NORRIS MD Unavailable Unavailable aJzmin NORRIS MD Unavailable Unavailable Jazmin NORRIS MD Unavailable Unavailable Jazmin NORRIS MD Unavailable Unavailable Jazmin NORRIS MD Unavailable Unavailable Jazmin NORRIS MD Unavailable Unavailable Jazmin NORRIS MD Unavailable Unavailable Jazmin NORRIS MD Unavailable Unavailable Jazmin NORRIS MD Unavailable Unavailable Jazmin NORRIS MD Unavailable Unavailable Jazmin NORRIS MD Unavailable Unavailable Jazmin NORRIS MD Unavailable Unavailable Jazmin NORRIS MD Unavailable Unavailable Jazmin NORRIS MD Unavailable Unavailable Jazmin NORRIS MD Unavailable Unavailable Jazmin NORRIS MD Unavailable Unavailable Jazmin NORRIS MD Unavailable Unavailable Jazmin NORRIS MD Unavailable Unavailable Jazmin NORRIS MD Unavailable Unavailable Jazmin NORRIS MD Unavailable Unavailable Jazmin NORRIS MD Unavailable Unavailable Jazmin NORRIS MD Unavailable Unavailable NEEDED NEEDED, INFO Unavailable Unavailable Morro Nugent MD Unavailable UnavailMorro Roman MD Unavailable UnavailMorro Roman MD Unavailable UnavailMorro Roman MD Unavailable UnavailMorro Roman MD Unavailable UnavailMorro Roman MD Unavailable UnavailMorro Roman MD Unavailable UnavailMorro Roman MD Unavailable Unavailabl e Ranjbaran-Jahromi, Morro MD Unavailable Unavailabl e Ranjbaran-Jahromi, Morro MD Unavailable Unavailabl e Aysebaran-Jahromi, Morro MD Unavailable Unavailabl e Ranjbaran-Jahromi Morro MD Unavailable Unavailabl e Ranjbaran-Jahromi, Morro MD Unavailable Unavailabl e Aysebaran-Jahromi Morro MD Unavailable Unavailabl e Aysebaran-Jahromi Morro MD Unavailable Unavailabl e Ranjbaran-Jahromi Morro MD Unavailable Unavailabl e Ranjbaran-Jahromi, Morro MD Unavailable Unavailabl e Aysebaran-Jahromi Morro MD Unavailable Unavailabl e Aysebaran-Jahromi Morro MD Unavailable Unavailabl e Aysebaran-Jahromi Morro MD Unavailable Unavailabl e Aysebaran-Jahromi Morro MD Unavailable Unavailabl e Aysebaran-Jahromi Morro MD Unavailable Unavailabl e Aysebaran-Jahromi Morro MD Unavailable Unavailabl e Aysebaran-Jahromi Morro MD Unavailable Unavailabl e Maryam-Jahromi Morro MD Unavailable Unavailabl e Maryam-Warrenhromi Morrotc PATEL Unavailable Unavailabl e Maryam-Jahromi Morrotc PATEL Unavailable Unavailabl e Maryam-Jahromi Morro Unavailable Unavailabl e Maryam-Jahromi Morrotc PATEL Unavailable Unavailabl e Maryam-Warrenhromi Morro MD Unavailable Unavailabl e Aysebaran-Jahromi Morro MD Unavailable Unavailabl e Aysebaran-Jahromi Morro MD Unavailable Unavailabl e Maryam-Jahromi Morrotc PATEL Unavailable Unavailabl e Maryam-Warrenhromi Morro MD Unavailable Unavailabl e Francinean-Jahromi Morro MD Unavailable Unavailabl e Francinean-Jahromi Morro Unavailable Unavailabl e Maryam-Jahromi Morrotc PATEL Unavailable Unavailabl e Maryam-Arcadioomi, Morro MD Unavailable Unavailabl e Ranjbaran-Jahromi, Morro MD Unavailable Unavailabl e Ranjbaran-Jahromi, Morro MD Unavailable Unavailabl e Ranjbaran-Jahromi, Morro MD Unavailable Unavailabl e Ranjbaran-Jahromi, Morro MD Unavailable Unavailabl e Ranjbaran-Jahromi, Morro MD Unavailable Unavailabl e Ranjbaran-Jahromi, Morro MD Unavailable Unavailabl e Ranjbaran-Jahromi Morro MD Unavailable Unavailabl e Ranjbaran-Jahromi, Morro MD Unavailable Unavailabl e Ranjbaran-Jahromi Morro MD Unavailable Unavailabl e Ranjbaran-Jahromi Morro MD Unavailable Unavailabl e Ranjbaran-Jahromi Morro MD Unavailable Unavailabl e Ranjbaran-Jahromi Morro MD Unavailable Unavailabl e Rankatibaran-Jahromi Morro MD Unavailable Unavailabl e Rankatibaran-Jahromi Morro MD Unavailable Unavailabl e Ranjbaran-Jahromi Morro MD Unavailable Unavailabl e Aysebaran-Jahromi Morro MD Unavailable Unavailabl e Francinean-Jahromi Morrotc PATEL Unavailable Unavailabl e Aysebaran-Jahromi Morro MD Unavailable Unavailabl e Rankatibaran-Jahromi Morro MD Unavailable Unavailabl e Maryam-Jahromi Morro MD Unavailable Unavailabl e Francinean-Jahromi Morro MD Unavailable Unavailabl e Rankatibaran-Jahromi Morro MD Unavailable Unavailabl e Rankatibaran-Jahromi Morro MD Unavailable Unavailabl e Aysebaran-Jahromi Morro MD Unavailable Unavailabl e Francinean-Jahromi Morro MD Unavailable Unavailabl e Aysebaran-Jahromi Morro MD Unavailable Unavailabl e Rankatibaran-Jahromi Morro Unavailable Unavailabl e Francinean-Jahromi Morrotc PATEL Unavailable Unavailabl e Francinean-Jahromi Morro MD Unavailable Unavailabl e Ranjbaran-Jahromi, Morro MD Unavailable Unavailabl e Ranjbaran-Jahromi, Morro MD Unavailable Unavailabl e Ranjbaran-Jahromi, Morro MD Unavailable Unavailabl e Ranjbaran-Jahromi, Morro MD Unavailable Unavailabl e Ranjbaran-Jahromi, Morro MD Unavailable Unavailabl e Ranjbaran-Jahromi, Morro MD Unavailable Unavailabl e Ranjbaran-Jahromi, Morro MD Unavailable Unavailabl e Ranjbaran-Jahromi, Morro MD Unavailable Unavailabl e Ranjbaran-Jahromi, Morro MD Unavailable Unavailabl e Ranjbaran-Jahromi, Morro MD Unavailable Unavailabl e Ranjbaran-Jahromi, Morro MD Unavailable Unavailabl e Ranjbaran-Jahromi, Morro MD Unavailable Unavailabl e Ranjbarlinda-Jahromi, Morro MD Unavailable Unavailabl e Ranjbarlinda-Jahromi, Morroct PATEL Unavailable Unavailabl e Ranjbaran-Jahromi, Morro MD Unavailable Unavailabl e Ranjbaran-Jahromi, Morro MD Unavailable Unavailabl e Maryam-Warrenhromi, Morrotc PATEL Unavailable Unavailabl e Maryam-Warrenhromi Morrotc PATEL Unavailable Unavailabl e Aysebarlinda-Jahromi Morro Unavailable Unavailabl e Aysebarlinda-Jahromi, Morrotc PATEL Unavailable Unavailabl e Maryam-Jahromi, Morrotc PATEL Unavailable Unavailabl e Maryam-Warrenhromi Morrotc PATEL Unavailable Unavailabl e ANNA MARIE ARCE Unavailable Unavailable ANNA MARIE ARCE Unavailable Unavailable ANNA MARIE ARCE Unavailable Unavailable ANNA MARIE ARCE Unavailable Unavailable ANNA MARIE ARCE Unavailable Unavailable ANNA MARIE ARCE Unavailable Unavailable ANNA MARIE ARCE Unavailable Unavailable ANNA MARIE ARCE Unavailable Unavailable ANNA MARIE ARCE Unavailable Unavailable ANNA MARIE ARCE Unavailable Unavailable ANNA MARIE ARCE Unavailable Unavailable YAZMIN, ANNA MARIE THAI PA Unavailable Unavailable YAZMIN, ANNA MARIE THAI PA Unavailable Unavailable YAZMIN, ANNA MARIE THAI PA Unavailable Unavailable YAZMIN, ANNA MARIE THAI PA Unavailable Unavailable YAZMIN, ANNA MARIE THAI PA Unavailable Unavailable YAZMIN, ANNA MARIE THAI PA Unavailable Unavailable YAZMIN, ANNA MARIE THAI PA Unavailable Unavailable YAZMIN, ANNA MARIE THAI PA Unavailable Unavailable YAZMIN, ANNA MARIE THAI PA Unavailable Unavailable YAZMIN, ANNA MARIE THAI PA Unavailable Unavailable YAZMIN, ANNA MARIE THAI PA Unavailable Unavailable MigeedRobert MD Unavailable Unavaila ble MigeedRobert MD Unavailable Unavaila ble MigeedRobert MD Unavailable Unavaila ble MigeedRobert MD Unavailable Unavaila ble MigeedRobert MD Unavailable Unavaila ble MigeedRobert MD Unavailable Unavaila ble MigeedRobert MD Unavailable Unavaila ble MigeedRobert MD Unavailable Unavaila ble MigeedRobert MD Unavailable Unavaila ble MigeedRobert MD Unavailable Unavaila ble MigeedRobert MD Unavailable Unavaila ble MigeedRobert MD Unavailable Unavaila ble MigeedRobert MD Unavailable Unavaila ble MigeedRobert MD Unavailable Unavaila ble MigeedRobert MD Unavailable Unavaila ble MigeedRobert MD Unavailable Unavaila ble MigeedRobert MD Unavailable Unavaila ble MigeedRobert MD Unavailable Unavaila ble MigeedRobert MD Unavailable Unavaila ble MigeedRobert MD Unavailable Unavaila ble MigeedRobert MD Unavailable Unavaila ble MigeedRobert MD Unavailable Unavaila ble MigeedRobert MD Unavailable Unavaila ble MigeedRobert MD Unavailable Unavaila ble MigeedRobert MD Unavailable Unavaila ble MigeedRobert MD Unavailable Unavaila ble MigeedRobert MD Unavailable Unavaila ble MigeedRobert MD Unavailable Unavaila ble MigeedRobert MD Unavailable Unavaila ble MigeedRobert MD Unavailable Unavaila ble MigeedRobert MD Unavailable Unavaila ble MigeedRobert MD Unavailable Unavaila ble MigeedRobert MD Unavailable Unavaila ble MigeedRobert MD Unavailable Unavaila ble MigeedRobert MD Unavailable Unavaila ble MigeedRobert MD Unavailable Unavaila ble MigeedRobert MD Unavailable Unavaila ble MigeedRobert MD Unavailable Unavaila ble MigeedRobert MD Unavailable Unavaila ble MigeedRobert MD Unavailable Unavaila ble MigeedRobert MD Unavailable Unavaila ble MigeedRobert MD Unavailable Unavaila ble MigeedRobert MD Unavailable Unavaila ble MigeedRobert MD Unavailable Unavaila ble MigeedRobert MD Unavailable Unavaila ble MigeedRobert MD Unavailable Unavaila ble MigeedRobert MD Unavailable Unavaila ble MigeedRobert MD Unavailable Unavaila ble MigeedRobert MD Unavailable Unavaila ble Michael HOROWITZ Unavailable [phone] Michael HOROWITZ Unavailable [phone] Michael HOROWITZ Unavailable [phone] Michael HOROWITZ Unavailable [phone] Michael HOROWITZ Unavailable [phone] Robert Thomas MD Unavailable Unavaila ble MigeedRobert MD Unavailable Unavaila ble MigeedRobert MD Unavailable Unavaila ble MigeedRobert MD Unavailable Unavaila ble MigeedRobert MD Unavailable Unavaila ble MigeedRobert MD Unavailable Unavaila ble MigeedRobert MD Unavailable Unavaila ble MigeedRobert MD Unavailable Unavaila ble MigeedRobert MD Unavailable Unavaila ble Migeed, Robert Meek MD Unavailable Unavaila ble Migeed, Robert Meek MD Unavailable Unavaila ble Migeed, Robert Meek MD Unavailable Unavaila ble Migeed, Robert Meek MD Unavailable Unavaila ble Migeed, Robert Meek MD Unavailable Unavaila ble Migeed, Robert Meek MD Unavailable Unavaila ble Migeed, Robert Meek MD Unavailable Unavaila ble Migeed, Robert Meek MD Unavailable Unavaila ble Migeed, Robert Meek MD Unavailable Unavaila ble Migeed, Robert Meek MD Unavailable Unavaila ble Migeed, Robert Meek MD Unavailable Unavaila ble Migeed, Robert Meek MD Unavailable Unavaila ble MigeedRobert MD Unavailable Unavaila ble Migeed, Robert Meek MD Unavailable Unavaila ble MigeedRobert MD Unavailable Unavaila ble MigeedRobert MD Unavailable Unavaila ble MigeedRobert MD Unavailable Unavaila ble MigeedRobert MD Unavailable Unavaila ble MigeedRobert MD Unavailable Unavaila ble MigeedRobert MD Unavailable Unavaila ble MigeedRobert MD Unavailable Unavaila ble MigeedRobert MD Unavailable Unavaila ble MigeedRobert MD Unavailable Unavaila ble MigeedRobert MD Unavailable Unavaila ble Migeed, Robert Meek MD Unavailable Unavaila ble Migeed, Robert Meek MD Unavailable Unavaila ble Migeed, Robert Meek MD Unavailable Unavaila ble Migeed, Robret Meek MD Unavailable Unavaila ble Migeed, Robert Meek MD Unavailable Unavaila ble Migeed, Robert Meek MD Unavailable Unavaila ble Migeed, Robert Meek MD Unavailable Unavaila ble Migeed, Robert Meek MD Unavailable Unavaila ble Migeed, Robert Meek MD Unavailable Unavaila ble Migeed, Robert Meek MD Unavailable Unavaila ble Migeed, Robert Meek MD Unavailable Unavaila ble Migeed, Robert Meek MD Unavailable Unavaila ble Migeed, Robert Meek MD Unavailable Unavaila ble Migeed, Robert Meek MD Unavailable Unavaila ble Migeed, Robert Meek MD Unavailable Unavaila ble Migeed, Robert Meek MD Unavailable Unavaila ble RANK, L APRYL MARINE FUEL DOCK ATTENDANT Unavailable Unavailable RANK, L APRYL MARINE FUEL DOCK ATTENDANT Unavailable Unavailable Re-disclosure Warning The records that you are about to access may contain information from federally-assisted alcohol or drug abuse programs. If such information is present, then the following federally mandated warning applies: This information has been disclosed to you from records protected by federal confidentiality rules (42 CFR part 2). The federal rules prohibit you from making any further disclosure of this information unless further disclosure is expressly permitted by the written consent of the person to whom it pertains or as otherwise permitted by 42 CFR part 2. A general authorization for the release of medical or other information is NOT sufficient for this purpose. The Federal rules restrict any use of the information to criminally investigate or prosecute any alcohol or drug abuse patient.The records that you are about to access may contain highly sensitive health information, the redisclosure of which is protected by Article 27-F of the [facility] Public Health law. If you continue you may have access to information: Regarding HIV / AIDS; Provided by facilities licensed or operated by the [facility] Office of Mental Health; or Provided by the [facility] Office for People With Developmental Disabilities. If such information is present, then the following [facility] mandated warning applies: This information has been disclosed to you from confidential records which are protected by state law. State law prohibits you from making any further disclosure of this information without the specific written consent of the person to whom it pertains, or as otherwise permitted by law. Any unauthorized further disclosure in violation of state law may result in a fine or detention sentence or both. A general authorization for the release of medical or other information is NOT sufficient authorization for further disc losure. Allergies and Adverse Reactions Type Description Substance Reaction Status Data Source(s ) Propensity to adverse reactions NO KNOWN ALLERGIES NO KNOWN ALLERGIES [facility] Propensity to adverse reactions Wellbutrin 89157 lethargic Acti ve eCW1 ([facility]) Propensity to adverse reactions Wellbutrin 86590 lethargic Acti ve eCW1 ([facility]) Propensity to adverse reactions Wellbutrin Drug allergy lethargic Ac tive eCW1 ([facility]) Propensity to adverse reactions Wellbutrin Drug allergy lethargic Ac tive eCW1 ([facility]) Propensity to adverse reactions Wellbutrin Drug allergy lethargic Ac tive eCW1 ([facility]) Propensity to adverse reactions Wellbutrin Drug allergy lethargic Ac tive eCW1 ([facility]) Propensity to adverse reactions Wellbutrin Drug allergy lethargic Ac tive eCW1 ([facility]) Propensity to adverse reactions Wellbutrin Drug allergy lethargic Ac tive eCW1 ([facility]) Propensity to adverse reactions Wellbutrin Drug allergy lethargic Ac tive eCW1 ([facility]) Propensity to adverse reactions Wellbutrin Drug allergy lethargic Ac tive eCW1 ([facility]) Propensity to adverse reactions Wellbutrin Drug allergy lethargic Ac tive eCW1 ([facility]) Encounters Encounter Providers Location Date Indications Data Source(s ) Outpatient [facility] 09/05/2021 12:00:00 AM EDT eCW1 ([facility]) Emergency Attender: Morgan Wright: Mary Anaya [facility]-ER 08/29/2021 07:41:00 AM EDT - 08/29/2021 11:00:00 AM EDT [facility] Patient discharged. Inpatient Attender: Serena VERNON ttender: ALIN NORRIS MDAttender: ANTONIO ARANA MDAttender: Lawrence Marder: LAWRENCE DHALIWAL IIIAdmitter: ANTONIO YASMEEN MDReferrer: APRYL JONES NPConsultant: Serena Zelaya DO [id number] 08/29/2021 12:00:00 AM EDT - 09/03/2021 01:33:00 PM EDT [facility] Patient discharged. Outpatient Attender: Greer Anaya FNPReferrer: Greer Anaya [facility] 08/16/2021 11:00:00 AM EDT - 08/16/2021 11:00:00 AM EDT [facility] Outpatient [facility] 08/16/2021 12:00:00 AM EDT eCW1 ([facility]) Outpatient [facility] 08/16/2021 12:00:00 AM EDT eCW1 ([facility]) Outpatient Attender: Fantasma Thomas MDAdmitter: Fantasma allen MD [email or web address] 07/13/2021 03:12:29 PM EDT [facility] [address] [address] 06/03/2021 12:00:00 AM EDT eCW1 ([facility]) Out[place] [address] [address] 05/26/2021 12:00:00 AM EDT eCW1 ([facility]) Outpatient Attender: Adri Blanco MDReferrer: Magali [facility] ROOM-LABOTHPROV 05/23/2021 06:48:00 AM EDT - 05/23/2021 06:48:00 AM EDT [facility] Outpatient Referrer: Fantasma Thomas MD 05/06/2021 08:17:5 9 AM EDT [facility] Outpatient Attender: Fantasma Thomas MD Attender: INFO NEEDED NEEDEDReferrer: Greer ALVARADO EMERGENCY ROOM-LABOTHPROV 05/03/2021 11:48:00 AM EDT - 05/03/2021 11:48:00 AM EDT [facility] Outpatient Referrer: Fantasma Thomas MD 04/25/2021 01:28:3 3 PM EDT [facility] Outpatient Referrer: Fantasma Thomas MD 04/25/2021 11:26:5 3 AM EDT [facility] Outpatient Attender: Fantasma Thomas MDAdmitter: Fantasma allen MD ES1-SJ.CVAU 04/21/2021 03:18:34 PM EDT [facility] Outpatient Referrer: Fantasma Thomas MD 03/30/2021 10:30:4 3 AM EDT [facility] Outpatient Attender: Fantasma Thomas MD [facility] 03/24/2021 01:45:00 PM EDT [facility] ([facility]) Outpatient [facility] 03/09/2021 12:00:00 AM EDT eCW1 ([facility]) [address], [facility] [id number] 03/07/2021 12:00:00 AM EDT eCW1 ([facility]) Outpatient Attender: BRANDON BOYD NP [facility] 02/18/2021 04:30:00 PM EDT [facility] ([facility]) Outpatient Attender: BRANDON BOYD NP [facility] 02/11/2021 10:30:00 AM EDT [facility] ([facility] Outpatient [facility] 02/01/2021 12:00:00 AM EDT eCW1 ([facility]) Outpatient [facility] 01/25/2021 12:00:00 AM EDT eCW1 ([facility]) Outpatient Attender: Greer ALVARADO 01/24/2021 08:55 :00 AM EDT [facility] (TCM) TCM/Hospital Follow Up [facility] 01/24/2021 12:00:00 AM EDT eCW1 ([facility]) Outpatient [facility] 01/13/2021 12:00:00 AM EST eCW1 ([facility]) Outpatient [facility] 01/13/2021 12:00:00 AM EST eCW1 ([facility]) [place] [address] [facility] [address] 01/10/2021 12:00:00 AM EST eCW1 ([facility]) Emergency Attender: RINA Grijalva tender: RINA CONDONReferrer: Greer Anaya [facility] EMERGENCY ROOM-ER 01/09/2021 01:37:00 AM EST - 01/09/2021 03:00:00 AM EST [facility] Patient discharged. [place]patient [address] [facility] [address] 01/03/2021 12:00:00 AM EST eCW1 ([facility]) [place] [address] [facility] [address] 12/03/2020 12:00:00 AM EST eCW1 ([facility]) Outpatient [address] [facility] [address] 11/25/2020 12:00:00 AM EST eCW1 ([facility]) [place] [address] [facility] [address] 11/15/2020 12:00:00 AM EST eCW1 ([facility]) Outpatient Attender: ZEENAT DUGGAN MDReferrer: Me oren Anaya [facility] EMERGENCY ROOM-LABOTHPROV 11/08/2020 08:17:00 AM EST - 11/08/2020 08:17:00 AM EST [facility] Unknown [address] [facility] [address] 10/08/2020 12:00:00 AM EST eCW1 ([facility]) Outpatient Attender: Fantasma Thomas MDAdmitter: Fantasma allen MD ES1-SJ.CVAU 10/05/2020 06:40:00 AM EST - 10/05/2020 04:10:00 PM EST [facility] Patient discharged. Outpatient [address] [facility] [address] 10/04/2020 12:00:00 AM EST eCW1 ([facility]) Outpatient Attender: Fantasma Thomas MDReferrer: Me oren ALVARADO EMERGENCY ROOM-LABOTHPROV 10/01/2020 03:13:00 PM EST - 10/01/2020 03:13:00 PM [facility] Outpatient Attender: Zeenat Kent MD 09/28/2020 02:16:00 P [facility] Outpatient [facility] 09/28/2020 12:00:00 AM EST eCW1 ([facility]) Outpatient Attender: Greer ALVARADO 09/23/2020 08:06 :00 AM [facility] 09/23/2020 12:00:00 AM EST eCW1 ([facility]) Outpatient Attender: Julisa Jones RPA-CReferrer: Greer ALVARADO 09/22/2020 11:20:00 AM EST - 09/22/2020 11:20:00 AM [facility] 09/22/2020 12:00:00 AM EST eCW1 ([facility]) Outpatient Attender: Greer ALVARADO 09/16/2020 08:30 :00 AM [facility] Unknown [address] [facility] [address] 09/16/2020 12:00:00 AM EST eCW1 ([facility]) Outpatient Attender: KENNEDY MCPHERSON PAConsultant: [facility] [id number] 09/11/2020 12:57:00 PM [facility] Emergency Attender: KENNEDY MCPHERSON PARbullerrer: Mary ALVARADO EMERGENCY ROOM-ER 09/11/2020 12:43:00 PM EST - 09/11/2020 03:17:00 PM [facility] Patient discharged. Outpatient Referrer: Fantasma Thomas MD MOB-MOB.PAT 04/2020 11:50:05 AM EST - 09/10/2020 11:50:10 AM EST [facility] Outpatient [facility] 09/10/2020 12:00:00 AM EST eCW1 ([facility]) Outpatient Attender: Greer Anaya FNPReferrer: Greer KAYP 09/08/2020 08:42:00 AM EST - 09/08/2020 08:42:00 AM [facility] Outpatient Attender: Greer Anaya FNPReferrer: Greer KAYP 09/07/2020 08:00:00 AM [facility] Outpatient Attender: LUANN BRUNO SR 09/05/2020 10:31:00 AM [facility] Outpatient Attender: Zeenat Kent MD 08/31[facility]: Greer Anaya FNPReferrer: Greer Anaya [facility] EMERGENCY ROOM-[facility] 08/31/2020 07:10:00 AM EDT - 08/31/2020 07:10:00 AM EDT [facility] Outpatient [facility] 08/31/2020 12:00:00 AM EDT eCW1 ([facility]) Outpatient [facility] 08/31/2020 12:00:00 AM EDT eCW1 ([facility]) Outpatient [facility] 08/31/2020 12:00:00 AM EDT eCW1 ([facility]) Outpatient [facility] 08/31/2020 12:00:00 AM EDT eCW1 ([facility]) Outpatient Attender: LUANN BRUNO SR 08/18 01:42:00 PM EDT - 09/01/2020 10:31:00 AM EDT [facility] Patient discharged. Outpatient [facility] 08/18/2020 12:00:00 AM EDT eCW1 ([facility]) Outpatient Attender: Luzma Dumont MDAdmitter: Luzma Dumont MD ES1-SJ.CVAU 08/16/2020 02:58:15 PM EDT [facility] Outpatient Attender: ANAIS Reed evi: ANAIS VAZQUEZConsultant: [facility] [id number] 08/13/2020 08:30:00 AM EDT [facility] Emergency Attender: ANAIS KHANKAT PAReferrer: LUANN BRUNO EMERGENCY ROOM-ER 08/13/2020 08:08:00 AM EDT - 08/13/2020 09:07:00 AM EDT [facility] Patient discharged. Outpatient Attender: Fantasma Thomas MDAdmitter: Fantasma allen MD ES1-SJ.CV 08/12/2020 03:50:20 PM EDT [facility] Outpatient Attender: LUANN BRUNO SRReferrer: LUANN Walter SR 08/09/2020 08:01:00 AM EDT - 08/09/2020 08:01:00 AM EDT [facility] Outpatient [facility] 08/09/2020 12:00:00 AM EDT eCW1 ([facility]) Outpatient [facility] 07/21/2020 12:00:00 AM EDT eCW ([facility]) Outpatient [facility] 07/20/2020 12:00:00 AM EDT eCW ([facility]) Outpatient Attender: Fantasma Thomas MD Admitter: Fantasma Thomas MDReferrer: Fantasma Thomas MD ES1-SJ.CVAU 07/19/2020 07:56:00 AM EDT - 07/19/2020 12:37:00 PM EDT [facility] Patient discharged. Outpatient Attender: Fantasma Thomas MD Attender: Avery CastrejonAttender: OTHER PHYSICIAN ER-HIC 07/14/2020 08:18:00 AM EDT [facility] Outpatient Attender: Fantasma Thomas MDReferrer: CHRISTIN BRUNO SR EMERGENCY ROOM-LABOTHPROV 06/14/2020 07:06:00 AM EDT - 06/14/2020 07:06:00 AM EDT [facility] Emergency Attender: Zi Caruso PAReferrer: LUANN Walter SR 05/07/2020 11:59:00 AM EDT - 05/07/2020 12:30:00 PM EDT [facility] Patient discharged. Emergency Attender: Zi MATOS 05/07 09:36:00 AM EDT - 05/07/2020 10:40:00 AM [facility] Patient discharged. Outpatient Attender: LUANN BRUNO SRReferrer: ALEJANDRO BRUNO EMERGENCY ROOM-[facility] 04/28/2020 09:25:00 AM EDT - 04/28/2020 09:25:00 AM [facility] Emergency Attender: THAI ARCE PAReferrer: Minh BRUNO EMERGENCY ROOM-ER 04/24/2020 02:18:00 PM EDT - [facility]24[facility] Attender: MO BARNHARTeferrer : LUANN BRUNO EMERGENCY ROOM-ER 11/10/2019 06:08:00 AM EST - 11/10/2019 08:43:00 AM [facility] Patient discharged. Emergency Attender: ANAIS VAZQUEZ PAReferrer: LUANN BRUNO EMERGENCY ROOM-ER 07/18/2019 03:43:00 PM EDT - 07/18/2019 06:13:00 PM [facility] Patient discharged. Emergency Attender: Roel Farmer MDAttender: ROEL FARMER MD ER-ER 07/02/2019 02:56:00 PM EDT - 07/02/2019 05:09:00 PM EDT [facility] Patient discharged. Outpatient Attender: LUANN BRUNO SRReferrer: ALEJANDRO BRUNO EMERGENCY ROOM-[facility] 04/25/2019 11:35:00 AM EDT - 04/25/2019 11:35:00 AM [facility] Outpatient Attender: ZEENAT DUGGAN MDReferrer: LUANN CRISTINA ACE 10/03/2018 12:00:00 PM EST - 10/03/2018 12:00:[address] [facility] Outpatient Attender: ZEENAT DUGGAN MDReferrer: LUANN CRISTINA ACE, SR 10/02/2018 01:00:00 PM EST - 10/02/2018 01:00:[address] [facility] Outpatient Attender: Morro Nugent MDReferrer: Minh BRUNO 08/28/2018 03:28:00 PM EDT - 08/28/2018 03:28:00 PM EDT [facility] Emergency Attender: THAI ARCE PAReferrer: Minh BRUNO EMERGENCY ROOM-ER 07/22/2018 12:33:00 PM EDT - 07/22/2018 [facility]: THAI ARCE PAReferrer: Minh BRUNO EMERGENCY ROOM-ER 05/30/2018 08:05:00 AM EDT - 05/30/2018 [facility]: THAI Earl AAttender: Dorota Rodríguez [facility]-CAdmitter: LEAH HOROWITZReferrer: LUANN BRUNO EMERGENCY ROOM-ER 02/08/2018 10 :56:00 AM EDT - 02/08/2018 04:00:00 PM [facility] Emergency Attender: THAI MATOS EMERGENCY ROOM-ER 01/23/2018 04:08:00 PM EDT - 01/23/2018 09:30:[facility]: KENNEDY MATOS EMERGENCY ROOM-ER 04:45:00 AM EDT - 01/23/2018 04:48:00 AM [facility] Inpatient Attender: THAI Earl AAttender: KENNEDY MCPHERSON PAAdmitter: Aracelis Neri MD EMERGENCY ROOM-2N 11/19/2017 10:23:00 AM [facility] - 10/26/2017 06:59:00 AM [facility] Emergency Attender: Aracelis Neri MD EMERGENCY ROOM-E R 11/27/2016 07:06:00 AM [facility] - 11/27/2016 11:30:00 AM [facility] Immunizations Vaccine Date Status Description Data Source(s) New in 2011. IIV4 08/16/2021 11:28:00 AM EDT completed eCW1 ([facility]) New in 2011. IIV4 08/16/2021 11:28:00 AM EDT completed eCW1 ([facility]) New in 2011. IIV4 08/16/2021 11:28:00 AM EDT completed eCW1 ([facility]) Hep A, adult 05/26/2021 01:17:00 PM EDT completed e CW1 ([facility]) Hep A, adult 05/26/2021 01:17:00 PM EDT completed e CW1 ([facility]) 208 01/24/2021 12:00:00 AM EDT completed <td I D="[id number]">Covid-19 (Pfizer)</td><td>01/24/2021, 01/04/2021</td><td></td> [facility] COVID-19 VACCINE Pfizer 01/24/2021 12:00:00 AM EDT completed [facility] Vaccine Series Complete: YESThis Data wa s Submitted to [facility]. 208 01/04/2021 12:00:00 AM EST completed <td I D="[id number]">Covid-19 (Pfizer)</td><td>01/24/2021, 01/04/2021</td><td></td> [facility] COVID-19 VACCINE Pfizer 01/03/2021 12:00:00 AM EST completed [facility] Vaccine Series Complete: NOThis Data was Submitted to [facility]. Hep A, adult 11/25/2020 11:09:00 AM EST completed e CW1 ([facility]) Hep A, adult 11/25/2020 11:09:00 AM EST completed e CW1 ([facility]) Hep A, adult 11/25/2020 11:09:00 AM EST completed e CW1 ([facility]) Hep A, adult 11/25/2020 11:09:00 AM EST completed e CW1 ([facility]) Hep A, adult 11/25/2020 11:09:00 AM EST completed e CW1 ([facility]) Hep A, adult 11/25/2020 11:09:00 AM EST completed e CW1 ([facility]) Hep A, adult 11/25/2020 11:09:00 AM EST completed e CW1 ([facility]) 08/31/2020 02:46:00 PM EDT completed e CW1 ([facility]) 08/31/2020 02:46:00 PM EDT completed e CW1 ([facility]) 08/31/2020 02:46:00 PM EDT completed e CW1 ([facility]) 08/31/2020 02:46:00 PM EDT completed e CW1 ([facility]) 08/31/2020 02:46:00 PM EDT completed e CW1 ([facility]) 08/31/2020 02:46:00 PM EDT completed e CW1 ([facility]) 08/31/2020 02:46:00 PM EDT completed e CW1 ([facility]) 08/31/2020 02:46:00 PM EDT completed e CW1 ([facility]) 08/31/2020 02:46:00 PM EDT completed e CW1 ([facility]) 08/31/2020 02:46:00 PM EDT completed e CW1 ([facility]) 08/31/2020 02:46:00 PM EDT completed e CW1 ([facility]) 08/31/2020 02:46:00 PM EDT completed e CW1 ([facility]) 08/31/2020 02:46:00 PM EDT completed e CW1 ([facility]) 08/31/2020 02:46:00 PM EDT completed e CW1 ([facility]) 08/31/2020 02:46:00 PM EDT completed e CW1 ([facility]) 08/31/2020 02:46:00 PM EDT completed e CW1 ([facility]) 08/31/2020 02:46:00 PM EDT completed e CW1 ([facility]) 08/31/2020 02:46:00 PM EDT completed e CW1 ([facility]) 08/31/2020 02:46:00 PM EDT completed e CW1 ([facility]) 08/31/2020 02:46:00 PM EDT completed e CW1 ([facility]) 08/31/2020 02:46:00 PM EDT completed e CW1 ([facility]) 08/31/2020 02:46:00 PM EDT completed e CW1 ([facility]) 08/31/2020 02:46:00 PM EDT completed e CW1 ([facility]) 08/31/2020 02:46:00 PM EDT completed e CW1 ([facility]) 08/31/2020 02:46:00 PM EDT completed e CW1 ([facility]) 08/31/2020 02:46:00 PM EDT completed e CW1 ([facility]) 08/31/2020 02:46:00 PM EDT completed e CW1 ([facility]) 08/31/2020 02:46:00 PM EDT completed e CW1 ([facility]) 08/31/2020 02:46:00 PM EDT completed e CW1 ([facility]) 08/31/2020 02:46:00 PM EDT completed e CW1 ([facility]) 08/31/2020 02:46:00 PM EDT completed e CW1 ([facility]) 08/31/2020 02:46:00 PM EDT completed e CW1 ([facility]) 08/31/2020 02:44:00 PM EDT completed e CW1 ([facility]) 08/31/2020 02:44:00 PM EDT completed e CW1 ([facility]) 08/31/2020 02:44:00 PM EDT completed e CW1 ([facility]) 08/31/2020 02:44:00 PM EDT completed e CW1 ([facility]) 08/31/2020 02:44:00 PM EDT completed e CW1 ([facility]) 08/31/2020 02:44:00 PM EDT completed e CW1 ([facility]) 08/31/2020 02:44:00 PM EDT completed e CW1 ([facility]) 08/31/2020 02:44:00 PM EDT completed e CW1 ([facility]) 08/31/2020 02:44:00 PM EDT completed e CW1 ([facility]) 08/31/2020 02:44:00 PM EDT completed e CW1 ([facility]) 08/31/2020 02:44:00 PM EDT completed e CW1 ([facility]) 08/31/2020 02:44:00 PM EDT completed e CW1 ([facility]) 08/31/2020 02:44:00 PM EDT completed e CW1 ([facility]) 08/31/2020 02:44:00 PM EDT completed e CW1 ([facility]) 08/31/2020 02:44:00 PM EDT completed e CW1 ([facility]) 08/31/2020 02:44:00 PM EDT completed e CW1 ([facility]) 08/31/2020 02:43:00 PM EDT completed e CW1 ([facility]) 08/31/2020 02:43:00 PM EDT completed e CW1 ([facility]) 08/31/2020 02:43:00 PM EDT completed e CW1 ([facility]) 08/31/2020 02:43:00 PM EDT completed e CW1 ([facility]) 08/31/2020 02:43:00 PM EDT completed e CW1 ([facility]) 08/31/2020 02:43:00 PM EDT completed e CW1 ([facility]) 08/31/2020 02:43:00 PM EDT completed e CW1 ([facility]) 08/31/2020 02:43:00 PM EDT completed e CW1 ([facility]) 08/31/2020 02:43:00 PM EDT completed e CW1 ([facility]) 08/31/2020 02:43:00 PM EDT completed e CW1 ([facility]) 08/31/2020 02:43:00 PM EDT completed e CW1 ([facility]) 08/31/2020 02:43:00 PM EDT completed e CW1 ([facility]) 08/31/2020 02:43:00 PM EDT completed e CW1 ([facility]) 08/31/2020 02:43:00 PM EDT completed e CW1 ([facility]) 08/31/2020 02:43:00 PM EDT completed e CW1 ([facility]) 08/31/2020 02:43:00 PM EDT completed e CW1 ([facility]) 08/31/2020 02:43:00 PM EDT completed e CW1 ([facility]) 08/31/2020 02:43:00 PM EDT completed e CW1 ([facility]) 08/31/2020 02:43:00 PM EDT completed e CW1 ([facility]) 08/31/2020 02:43:00 PM EDT completed e CW1 ([facility]) 08/31/2020 02:43:00 PM EDT completed e CW1 ([facility]) 08/31/2020 02:43:00 PM EDT completed e CW1 ([facility]) 08/31/2020 02:43:00 PM EDT completed e CW1 ([facility]) 08/31/2020 02:43:00 PM EDT completed e CW1 ([facility]) 08/31/2020 02:43:00 PM EDT completed e CW1 ([facility]) 08/31/2020 02:43:00 PM EDT completed e CW1 ([facility]) 08/31/2020 02:43:00 PM EDT completed e CW1 ([facility]) 08/31/2020 02:43:00 PM EDT completed e CW1 ([facility]) 08/31/2020 02:43:00 PM EDT completed e CW1 ([facility]) 08/31/2020 02:43:00 PM EDT completed e CW1 ([facility]) 08/31/2020 02:43:00 PM EDT completed e CW1 ([facility]) 08/31/2020 02:43:00 PM EDT completed e CW1 ([facility]) New in 2011. IIV4 08/31/2020 07:57:00 AM EDT completed eCW1 ([facility]) New in 2011. IIV4 08/31/2020 07:57:00 AM EDT completed eCW1 ([facility]) New in 2011. IIV4 08/31/2020 07:57:00 AM EDT completed eCW1 ([facility]) New in 2011. IIV4 08/31/2020 07:57:00 AM EDT completed eCW1 ([facility]) New in 2011. IIV4 08/31/2020 07:57:00 AM EDT completed eCW1 ([facility]) New in 2011. IIV4 08/31/2020 07:57:00 AM EDT completed eCW1 ([facility]) New in 2011. IIV4 08/31/2020 07:57:00 AM EDT completed eCW1 ([facility]) New in 2011. IIV4 08/31/2020 07:57:00 AM EDT completed eCW1 ([facility]) New in 2011. IIV4 08/31/2020 07:57:00 AM EDT completed eCW1 ([facility]) New in 2011. IIV4 08/31/2020 07:57:00 AM EDT completed eCW1 ([facility]) New in 2011. IIV4 08/31/2020 07:57:00 AM EDT completed eCW1 ([facility]) New in 2011. IIV4 08/31/2020 07:57:00 AM EDT completed eCW1 ([facility]) New in 2011. IIV4 08/31/2020 07:57:00 AM EDT completed eCW1 ([facility]) New in 2011. IIV4 08/31/2020 07:57:00 AM EDT completed eCW1 ([facility]) New in 2011. IIV4 08/31/2020 07:57:00 AM EDT completed eCW1 ([facility]) New in 2011. IIV4 08/31/2020 07:57:00 AM EDT completed eCW1 ([facility]) New in 2011. IIV4 08/31/2020 07:57:00 AM EDT completed eCW1 ([facility]) Tdap 08/09/2020 08:46:00 AM EDT completed e CW1 ([facility]) Tdap 08/09/2020 08:46:00 AM EDT completed e CW1 ([facility]) Tdap 08/09/2020 08:46:00 AM EDT completed e CW1 ([facility]) Tdap 08/09/2020 08:46:00 AM EDT completed e CW1 ([facility]) Tdap 08/09/2020 08:46:00 AM EDT completed e CW1 ([facility]) Tdap 08/09/2020 08:46:00 AM EDT completed e CW1 ([facility]) Tdap 08/09/2020 08:46:00 AM EDT completed e CW1 ([facility]) Tdap 08/09/2020 08:46:00 AM EDT completed e CW1 ([facility]) Tdap 08/09/2020 08:46:00 AM EDT completed e CW1 ([facility]) Tdap 08/09/2020 08:46:00 AM EDT completed e CW1 ([facility]) Tdap 08/09/2020 08:46:00 AM EDT completed e CW1 ([facility]) Tdap 08/09/2020 08:46:00 AM EDT completed e CW1 ([facility]) Tdap 08/09/2020 08:46:00 AM EDT completed e CW1 ([facility]) Tdap 08/09/2020 08:46:00 AM EDT completed e CW1 ([facility]) Tdap 08/09/2020 08:46:00 AM EDT completed e CW1 ([facility]) Tdap 08/09/2020 08:46:00 AM EDT completed e CW1 ([facility]) Tdap 08/09/2020 08:46:00 AM EDT completed e CW1 ([facility]) Tdap 08/09/2020 08:46:00 AM EDT completed e CW1 ([facility]) Tdap 08/09/2020 08:46:00 AM EDT completed e CW1 ([facility]) This CVX code allows reporting of a vacc ination when formulation is unknown (for example, when recording a Influenza vaccination when noted on a vaccination card) 08/05/2020 10:27:00 AM EDT completed MEDEN T ([facility]) Medications Medication Brand Name Start Date Product Form Dose Route Admi nistrative Instructions Pharmacy Instructions Status Indications Reaction Description Data Source(s) 10 mg 09/02/2021 12:00:00 AM EDT tablet 30 TAKE ONE TABLET BY MOUTH ONCE DAILY TAKE ONE TABLET BY MOUTH ONCE DAILY SOLD: 09/04/2021 [facility] 200 mg 07/20/2021 12:00:00 AM EDT tablet extended release 24 hr 90 TAKE ONE TABLET BY MOUTH EVERY DAY TAKE ONE TABLET BY MOUTH EVERY DAY SOLD: 07/21/2021 [facility] 20 mg 07/19/2021 12:00:00 AM EDT tablet 90 TAKE ONE TABLET BY MOUTH ONCE A DAY TAKE ONE TABLET BY MOUTH ONCE A DAY SOLD: 07/19/2021 [facility] 100 mg 07/18/2021 12:00:00 AM EDT tablet 90 TAKE ONE TABLET BY MOUTH EVERY DAY TAKE ONE TABLET BY MOUTH EVERY DAY SOLD: 07/19/2021 [facility] 100 mg 04/25/2021 12:00:00 AM EDT tablet 2 TAKE ONE TABLET BY MOUTH EVERY DAY NEEDED TAKE ONE TABLET BY MOUTH EVERY DAY NEEDED SOLD: 05/13/2021 [facility] 100 mg 04/25/2021 12:00:00 AM EDT tablet 2 TAKE ONE TABLET BY MOUTH EVERY DAY NEEDED TAKE ONE TABLET BY MOUTH EVERY DAY NEEDED SOLD: 07/02/2021 [facility] 100 mg 04/25/2021 12:00:00 AM EDT tablet 2 TAKE ONE TABLET BY MOUTH EVERY DAY NEEDED TAKE ONE TABLET BY MOUTH EVERY DAY NEEDED SOLD: 06/23/2021 [facility] 100 mg 04/25/2021 12:00:00 AM EDT tablet 90 TAKE ONE TABLET BY MOUTH EVERY DAY TAKE ONE TABLET BY MOUTH EVERY DAY SOLD: 04/25/2021 [facility] 100 mg 04/25/2021 12:00:00 AM EDT tablet 2 TAKE ONE TABLET BY MOUTH EVERY DAY NEEDED TAKE ONE TABLET BY MOUTH EVERY DAY NEEDED SOLD: 04/25/2021 [facility] 24 HR Diltiazem Hydrochloride 120 MG Extended Release Oral Capsule DILTIAZEM HCL 02/20/2021 12:00:00 AM EDT capsule,extended release 24hr 30 TAKE ONE CAPSULE BY MOUTH EVERY DAY TAKE ONE CAPSULE BY MOUTH EVERY DAY SOLD: 02/20/2021 [facility] 120 mg 02/20/2021 12:00:00 AM EDT capsule,extended releas e 24hr 30 TAKE ONE CAPSULE BY MOUTH EVERY DAY TAKE ONE CAPSULE BY MOUTH EVERY DAY SOLD: 03/24/2021 [facility] 24 HR Diltiazem Hydrochloride 120 MG Extended Release Oral Capsule [Cardizem] Cardizem CD 02/18/2021 12:00:00 AM EDT ORAL active MEDENT ([facility]) 24 HR Diltiazem Hydrochloride 240 MG Extended Release Oral Capsule [Cardizem] Cardizem CD 02/11/2021 12:00:00 AM EDT ORAL completed MEDENT ([facility]) 24 HR Diltiazem Hydrochloride 240 MG Extended Release Oral Capsule DILTIAZEM HCL 02/11/2021 12:00:00 AM EDT capsule,extended release 24hr 30 TAKE ONE CAPSULE BY MOUTH EVERY DAY TAKE ONE CAPSULE BY MOUTH EVERY DAY SOLD: 02/12/2021 [facility] 200 mg 02/08/2021 12:00:00 AM EDT tablet extended release 24 hr 90 TAKE ONE TABLET BY MOUTH EVERY DAY TAKE ONE TABLET BY MOUTH EVERY DAY SOLD: 04/15/2021 [facility] 200 mg 02/08/2021 12:00:00 AM EDT tablet extended release 24 hr 30 TAKE ONE TABLET BY MOUTH EVERY DAY TAKE ONE TABLET BY MOUTH EVERY DAY SOLD: 02/11/2021 [facility] 200 mg 02/08/2021 12:00:00 AM EDT tablet extended release 24 hr 30 TAKE ONE TABLET BY MOUTH EVERY DAY TAKE ONE TABLET BY MOUTH EVERY DAY SOLD: 03/12/2021 [facility] 100 mg 02/07/2021 12:00:00 AM EDT tablet 2 TAKE 1 TABLET BY MOUTH ONCE DAILY NEEDED TAKE 1 TABLET BY MOUTH ONCE DAILY NEEDED SOLD: 04/09/2021 [facility] 100 mg 02/07/2021 12:00:00 AM EDT tablet 2 TAKE 1 TABLET BY MOUTH ONCE DAILY NEEDED TAKE 1 TABLET BY MOUTH ONCE DAILY NEEDED SOLD: 02/11/2021 [facility] 100 mg 02/07/2021 12:00:00 AM EDT tablet 2 TAKE 1 TABLET BY MOUTH ONCE DAILY NEEDED TAKE 1 TABLET BY MOUTH ONCE DAILY NEEDED SOLD: 03/26/2021 [facility] 100 mg 02/07/2021 12:00:00 AM EDT tablet 2 TAKE 1 TABLET BY MOUTH ONCE DAILY NEEDED TAKE 1 TABLET BY MOUTH ONCE DAILY NEEDED SOLD: 03/05/2021 [facility] 100 mg 02/07/2021 12:00:00 AM EDT tablet 2 TAKE 1 TABLET BY MOUTH ONCE DAILY NEEDED TAKE 1 TABLET BY MOUTH ONCE DAILY NEEDED SOLD: 03/16/2021 [facility] Fexofenadine hydrochloride 180 MG Oral Tablet Fexofena dine HCl 180 MG Fexofenadine HCl 180 MG 01/24/2021 12:00:00 AM EDT 1.0 {tablet} active Fexofenadine HCl 180 MG eCW1 ([facility]) Fluticasone Propionate 50 MCG/ACT Fluticasone Propionate 50 MCG/ACT 01/24/2021 12:00:00 AM EDT 1.0 {spray_in_each_nostril} acti ve Fluticasone Propionate 50 MCG/ACT eCW1 ([facility]) Fluticasone Propionate 50 MCG/ACT Fluticasone Propionate 50 MCG/ACT 01/24/2021 12:00:00 AM EDT 1.0 {spray_in_each_nostril} acti ve Fluticasone Propionate 50 MCG/ACT [facility]CW[facility] Fexofenadine hydrochloride 180 MG Oral Tablet Fexofena dine HCl 180 MG Fexofenadine HCl 180 MG 01/24/2021 12:00:00 AM EDT 1.0 {tablet} active Fexofenadine HCl 180 MG eCW1 ([facility]) Fluticasone Propionate 50 MCG/ACT Fluticasone Propionate 50 MCG/ACT 01/24/2021 12:00:00 AM EDT 1.0 {spray_in_each_nostril} acti ve Fluticasone Propionate 50 MCG/ACT eCW1 ([facility]) Covid-19 vaccine, Unspecified 01/24/2021 12:00:00 AM EDT completed MEDENT ([facility]) Medication administered onsite Fexofenadine hydrochloride 180 MG Oral Tablet Fexofena dine HCl 180 MG Fexofenadine HCl 180 MG 01/24/2021 12:00:00 AM EDT 1.0 {tablet} active Fexofenadine HCl 180 MG eCW1 ([facility]) Covid-19 vaccine, Unspecified 01/03/2021 12:00:00 AM EST completed MEDENT ([facility]) Medication administered onsite Epclusa 400-100 MG Epclusa 400-100 MG 12/05/2020 12:00:00 AM EST 1.0 {tablet} active Epclusa 400-100 MG e CW1 ([facility]) Epclusa 400-100 MG Epclusa 400-100 MG 12/05/2020 12:00:00 AM EST 1.0 {tablet} active Epclusa 400-100 MG e CW1 ([facility]) Epclusa 400-100 MG Epclusa 400-100 MG 12/05/2020 12:00:00 AM EST 1.0 {tablet} suspended Epclusa 400-100 MG e CW1 ([facility]) Epclusa 400-100 MG Epclusa 400-100 MG 12/05/2020 12:00:00 AM EST 1.0 {tablet} active Epclusa 400-100 MG e CW1 ([facility]) Epclusa 400-100 MG Epclusa 400-100 MG 12/05/2020 12:00:00 AM EST 1.0 {tablet} active Epclusa 400-100 MG e CW1 ([facility]) Epclusa 400-100 MG Epclusa 400-100 MG 12/05/2020 12:00:00 AM EST 1.0 {tablet} suspended Epclusa 400-100 MG e CW1 ([facility]) Epclusa 400-100 MG Epclusa 400-100 MG 12/05/2020 12:00:00 AM EST 1.0 {tablet} active Epclusa 400-100 MG e CW1 ([facility]) normal saline flush 0.9 % injection 3 mL [id number] 10/05/2020 02:00:00 PM EST 3 mL Intravenous active 3 mL , Intravenous, PROTOCOL, First dose on Sun10/05/20 at 1400, Post-op
flush per protocol, D/C Main IV fluid if appropriate
[facility] Medication administered onsite ondansetron (ZOFRAN) injection 4 mg [id number] 10/05/2020 01:49:2 9 PM EST 4 mg Intravenous active 4 mg, In travenous, Every 8 hours PRN, nausea, vomiting, Starting Sun10/05/20 at 1349, Post-op [facility] Medication administered onsite Acetaminophen 325 MG / Hydrocodone Niki trate 10 MG Oral Tablet HYDROcodone- acetaminophen (NORCO 10-325) 10-325 MG per tablet 1 tablet HYDROcodone- acetaminophen (NORCO 10-325) 10-325 MG per tablet 1 tablet 10/05/2020 01:49:29 PM EST 1 {tbl} Oral active 1 tablet , Oral, Every 4 hours PRN, moderate pain (4-6), severe pain (7-10), Starting Sun10/05/20 at 1349, For 7 days, Post-op [facility] Medication administered onsite Acetaminophen 325 MG Oral Tablet acetaminophen (TYLENO L) 325 MG tablet 650 mg acetaminophen (TYLENOL) 325 MG tablet 650 mg 10/05/2020 01:49:29 PM EST 650 mg Oral active 650 mg, Or al, Every 6 hours PRN, mild pain (1-3), Starting Sun10/05/20 at 1349, Post-op
"Maximum dose of acetaminophen is 4,000 mg from all sources in 24 hours."
[facility] Medication administered onsite Acetaminophen 325 MG / Oxycodone Hydroch loride 5 MG Oral Tablet oxyCODONE- acetaminophen (PERCOCET) 5-325 MG 1-2 tablet oxyCODONE-acetaminophen (PERCOCET) 5-325 MG 1-2 tablet 10/05/2020 01:01:41 PM EST Oral active 1-2 tablet, Oral, Every 4 hours PRN, moderate pain (4-6), severe pain (7-10), Starting Sun10/05/20 at 1301, For 7 days, Post-op [facility] Medication administered onsite protamine injection [id number] 10/05/2020 12:16:59 PM EST active As needed, Starting Sun10/05/20 at 1216, Intra-Procedu re [facility] Medication administered onsite 1 ML heparin sodium, porcine 1000 UNT/ML Injection hep faiza (porcine) injection heparin (porcine) injection 10/05/2020 11:21:48 AM EST active As needed, Starting Sun10/05/20 at 1121, Intra-Procedure [facility] Medication administered onsite Epclusa 400-100 MG Epclusa 400-100 MG 10/04/2020 12:00:00 AM EST 1.0 {tablet} active Epclusa 400-100 MG e CW1 ([facility]) Epclusa 400-100 MG Epclusa 400-100 MG 10/04/2020 12:00:00 AM EST 1.0 {tablet} active Epclusa 400-100 MG e CW1 ([facility]) Epclusa 400-100 MG Epclusa 400-100 MG 10/04/2020 12:00:00 AM EST 1.0 {tablet} active Epclusa 400-100 MG e CW1 ([facility]) Epclusa 400-100 MG Epclusa 400-100 MG 10/04/2020 12:00:00 AM EST 1.0 {tablet} suspended Epclusa 400-100 MG e CW1 ([facility]) Epclusa 400-100 MG Epclusa 400-100 MG 10/04/2020 12:00:00 AM EST 1.0 {tablet} suspended Epclusa 400-100 MG e CW1 ([facility]) Epclusa 400-100 MG Epclusa 400-100 MG 10/04/2020 12:00:00 AM EST 1.0 {tablet} suspended Epclusa 400-100 MG e CW1 ([facility]) Epclusa 400-100 MG Epclusa 400-100 MG 10/04/2020 12:00:00 AM EST 1.0 {tablet} active Epclusa 400-100 MG e CW1 ([facility]) pantoprazole 40 MG Delayed Release Oral Tablet PANTOPRAZOLE SODIUM 10/04/2020 12:00:00 AM EST tablet,delayed release (DR/EC) 90 T PATRICIA 1 TABLET BY MOUTH ONCE A DAY TAKE 1 TABLET BY MOUTH ONCE A DAY SOLD: 10/08/2020 [facility] Epclusa 400-100 MG Epclusa 400-100 MG 10/04/2020 12:00:00 AM EST 1.0 {tablet} suspended Epclusa 400-100 MG e CW1 ([facility]) Epclusa 400-100 MG Epclusa 400-100 MG 10/04/2020 12:00:00 AM EST 1.0 {tablet} suspended Epclusa 400-100 MG e CW1 ([facility]) 55-14 mcg/actuation 09/28/2020 12:00:00 AM EST aerosol powdr breath activated 1 INHALE 1 PUFF BY MOUTH TWO TIMES A DAY I NHALE 1 PUFF BY MOUTH TWO TIMES A DAY SOLD: 09/28/2020 [facility] 55-14 mcg/actuation 09/28/2020 12:00:00 AM EST aerosol powdr breath activated 1 INHALE 1 PUFF BY MOUTH TWO TIMES A DAY I NHALE 1 PUFF BY MOUTH TWO TIMES A DAY SOLD: 10/28/2020 [facility] 60 ACTUAT Fluticasone propionate 0.055 M G/ACTUAT / Salmeterol xinafoate 0.014 MG/ACTUAT Dry Powder Inhaler 55-14 mcg/actuation FLUTICASONE PROPION/SALMETEROL 09/28/2020 12:00:00 AM EST aerosol powdr breath activated 1 INHALE 1 PUFF BY MOUTH TWO TIMES A DAY INHALE 1 PUFF BY MOUTH TWO TIMES A DAY SOLD: 08/22/2021 [facility] AirDuo RespiClick 55/14 55-14 MCG/ACT AirDuo RespiClick 55/1 4 55-14 MCG/ACT 09/23/2020 12:00:00 AM EST 1.0 {puff} active AirDuo RespiClick 55/14 55-14 MCG/ACT eCW1 ([facility]) [employer]Du[employer] Respi[employer] 55/14 55-14 MCG/ACT AirDuo RespiClick 55/1 4 55-14 MCG/ACT 09/23/2020 12:00:00 AM EST 1.0 {puff} suspended AirDuo RespiClick 55/14 55-14 MCG/ACT eCW1 ([facility]) [employer]Duo RespiClick 55/14 55-14 MCG/ACT AirDuo RespiClick 55/1 4 55-14 MCG/ACT 09/23/2020 12:00:00 AM EST 1.0 {puff} active AirDuo RespiClick 55/14 55-14 MCG/ACT eCW1 ([facility]) AirDuo RespiClick 55/14 55-14 MCG/ACT AirDuo RespiClick 55/1 4 55-14 MCG/ACT 09/23/2020 12:00:00 AM EST 1.0 {puff} suspended AirDuo RespiClick 55/14 55-14 MCG/ACT eCW1 ([facility]) [employer]Duo RespiClick 55/14 55-14 MCG/ACT AirDuo RespiClick 55/1 4 55-14 MCG/ACT 09/23/2020 12:00:00 AM EST 1.0 {puff} suspended AirDuo RespiClick 55/14 55-14 MCG/ACT eCW1 ([facility]) AirDuo Respi[employer] 55/14 55-14 MCG/ACT AirDuo RespiClick 55/1 4 55-14 MCG/ACT 09/23/2020 12:00:00 AM EST 1.0 {puff} suspended AirDuo RespiClick 55/14 55-14 MCG/ACT eCW1 ([facility]) AirDuo RespiClick 55/14 55-14 MCG/ACT AirDuo RespiClick 55/1 4 55-14 MCG/ACT 09/23/2020 12:00:00 AM EST 1.0 {puff} suspended AirDuo RespiClick 55/14 55-14 MCG/ACT eCW1 ([facility]) AirDuo Respi[employer] 55/14 55-14 MCG/ACT AirDuo RespiClick 55/1 4 55-14 MCG/ACT 09/23/2020 12:00:00 AM EST 1.0 {puff} active AirDuo RespiClick 55/14 55-14 MCG/ACT eCW1 ([facility]) AirDuo RespiClick 55/14 55-14 MCG/ACT AirDuo RespiClick 55/1 4 55-14 MCG/ACT 09/23/2020 12:00:00 AM EST 1.0 {puff} suspended AirDuo RespiClick 55/14 55-14 MCG/ACT eCW1 ([facility]) [employer]Duo RespiClick 55/14 55-14 MCG/ACT AirDuo RespiClick 55/1 4 55-14 MCG/ACT 09/23/2020 12:00:00 AM EST 1.0 {puff} active AirDuo RespiClick 55/14 55-14 MCG/ACT eCW1 ([facility]) [employer]Duo RespiClick 55/14 55-14 MCG/ACT AirDuo RespiClick 55/1 4 55-14 MCG/ACT 09/23/2020 12:00:00 AM EST 1.0 {puff} suspended AirDuo RespiClick 55/14 55-14 MCG/ACT eCW1 ([facility]) [employer]Duo RespiClick 55/14 55-14 MCG/ACT AirDuo RespiClick 55/1 4 55-14 MCG/ACT 09/23/2020 12:00:00 AM EST 1.0 {puff} suspended AirDuo RespiClick 55/14 55-14 MCG/ACT eCW1 ([facility]) [employer]Duo RespiClick 55/14 55-14 MCG/ACT AirDuo RespiClick 55/1 4 55-14 MCG/ACT 09/23/2020 12:00:00 AM EST 1.0 {puff} suspended AirDuo RespiClick 55/14 55-14 MCG/ACT eCW1 ([facility]) Cyclobenzaprine hydrochloride 10 MG Oral Tablet CYCLOBENZAPR INE HCL 09/22/2020 12:00:00 AM EST tablet 14 TAKE ONE TABLET BY MOUTH TWICE A DAY FOR 7 DAYS TAKE ONE TABLET BY MOUTH TWICE A DAY FOR 7 DAYS SOLD: 09/22/2020 [facility] Cyclobenzaprine hydrochloride 10 MG Oral Tablet Cyclob enzaprine HCl 10 MG Cyclobenzaprine HCl 10 MG 09/22/2020 12:00:00 AM EST active Cyclobenzaprine HCl 10 MG eCW1 ([facility]) 100 mg 09/06/2020 12:00:00 AM EST tablet 30 TAKE 1 TABLET BY MOUTH ONCE A DAY TAKE 1 TABLET BY MOUTH ONCE A DAY SOLD: 12/11/2020 [facility] 100 mg 09/06/2020 12:00:00 AM EST tablet 90 TAKE 1 TABLET BY MOUTH ONCE A DAY TAKE 1 TABLET BY MOUTH ONCE A DAY SOLD: 09/13/2020 [facility] 100 mg 09/06/2020 12:00:00 AM EST tablet 30 TAKE 1 TABLET BY MOUTH ONCE A DAY TAKE 1 TABLET BY MOUTH ONCE A DAY SOLD: 02/07/2021 [facility] 100 mg 09/06/2020 12:00:00 AM EST tablet 30 TAKE 1 TABLET BY MOUTH ONCE A DAY TAKE 1 TABLET BY MOUTH ONCE A DAY SOLD: 01/06/2021 [facility] physical therapy eval and tx - UNK 08/09/2020 12:00:00 AM EDT active physical therapy eval and tx - eCW1 ([facility]) 24 HR metoprolol succinate 200 MG Extended Release Ora l Tablet Metoprolol Succinate ER 08/09/2020 12:00:00 AM EDT active MEDENT ([facility]) 200 mg 08/09/2020 12:00:00 AM EDT tablet extended release 24 hr 90 TAKE ONE TABLET BY MOUTH EVERY DAY TAKE ONE TABLET BY MOUTH EVERY DAY SOLD: 10/28/2020 [facility] 200 mg 08/09/2020 12:00:00 AM EDT tablet extended release 24 hr 90 TAKE ONE TABLET BY MOUTH EVERY DAY TAKE ONE TABLET BY MOUTH EVERY DAY SOLD: 08/09/2020 [facility] physical therapy eval and tx - UNK 08/09/2020 12:00:00 AM EDT active physical therapy eval and tx - eCW1 ([facility]) 40 mg 07/21/2020 12:00:00 AM EDT tablet 90 TAKE ONE TABLET BY MOUTH EVERY DAY TAKE ONE TABLET BY MOUTH EVERY DAY SOLD: 07/22/2020 [facility] Furosemide 40 MG Oral Tablet [Lasix] Lasix 40 MG Lasix 40 MG 07/20/2020 12:00:00 AM EDT 1.0 {tablet} active Lasix 40 M G eCW1 ([facility]) Furosemide 40 MG Oral Tablet [Lasix] Lasix 40 MG Lasix 40 MG 07/20/2020 12:00:00 AM EDT 1.0 {tablet} suspended Lasix 4 0 MG eCW1 ([facility]) Furosemide 40 MG Oral Tablet [Lasix] Lasix 40 MG Lasix 40 MG 07/20/2020 12:00:00 AM EDT 1.0 {tablet} suspended Lasix 4 0 MG eCW1 ([facility]) Furosemide 40 MG Oral Tablet [Lasix] Lasix 40 MG Lasix 40 MG 07/20/2020 12:00:00 AM EDT 1.0 {tablet} suspended Lasix 4 0 MG eCW1 ([facility]) Furosemide 40 MG Oral Tablet [Lasix] Lasix 40 MG Lasix 40 MG 07/20/2020 12:00:00 AM EDT 1.0 {tablet} suspended Lasix 4 0 MG eCW1 ([facility]) Furosemide 40 MG Oral Tablet [Lasix] Lasix 40 MG Lasix 40 MG 07/20/2020 12:00:00 AM EDT 1.0 {tablet} active Lasix 40 M G eCW1 ([facility]) Furosemide 40 MG Oral Tablet [Lasix] Lasix 40 MG Lasix 40 MG 07/20/2020 12:00:00 AM EDT 1.0 {tablet} active Lasix 40 M G eCW1 ([facility]) Furosemide 40 MG Oral Tablet [Lasix] Lasix 40 MG Lasix 40 MG 07/20/2020 12:00:00 AM EDT 1.0 {tablet} active Lasix 40 M G eCW1 ([facility]) Furosemide 40 MG Oral Tablet [Lasix] Lasix 40 MG Lasix 40 MG 07/20/2020 12:00:00 AM EDT 1.0 {tablet} suspended Lasix 4 0 MG eCW1 ([facility]) Furosemide 40 MG Oral Tablet [Lasix] Lasix 40 MG Lasix 40 MG 07/20/2020 12:00:00 AM EDT 1.0 {tablet} active Lasix 40 M G eCW1 ([facility]) Furosemide 40 MG Oral Tablet [Lasix] Lasix 40 MG Lasix 40 MG 07/20/2020 12:00:00 AM EDT 1.0 {tablet} active Lasix 40 M G eCW1 ([facility]) Furosemide 40 MG Oral Tablet [Lasix] Lasix 40 MG Lasix 40 MG 07/20/2020 12:00:00 AM EDT 1.0 {tablet} active Lasix 40 M G eCW1 ([facility]) Furosemide 40 MG Oral Tablet [Lasix] Lasix 40 MG Lasix 40 MG 07/20/2020 12:00:00 AM EDT 1.0 {tablet} suspended Lasix 4 0 MG eCW1 ([facility]) Furosemide 40 MG Oral Tablet [Lasix] Lasix 40 MG Lasix 40 MG 07/20/2020 12:00:00 AM EDT 1.0 {tablet} suspended Lasix 4 0 MG eCW1 ([facility]) Furosemide 40 MG Oral Tablet [Lasix] Lasix 40 MG Lasix 40 MG 07/20/2020 12:00:00 AM EDT 1.0 {tablet} active Lasix 40 M G eCW1 ([facility]) Furosemide 40 MG Oral Tablet [Lasix] Lasix 40 MG Lasix 40 MG 07/20/2020 12:00:00 AM EDT 1.0 {tablet} suspended Lasix 4 0 MG eCW1 ([facility]) Furosemide 40 MG Oral Tablet [Lasix] Lasix 40 MG Lasix 40 MG 07/20/2020 12:00:00 AM EDT 1.0 {tablet} active Lasix 40 M G eCW1 ([facility]) Furosemide 40 MG Oral Tablet [Lasix] Lasix 40 MG Lasix 40 MG 07/20/2020 12:00:00 AM EDT 1.0 {tablet} active Lasix 40 M G eCW1 ([facility]) Furosemide 40 MG Oral Tablet [Lasix] Lasix 40 MG Lasix 40 MG 07/20/2020 12:00:00 AM EDT 1.0 {tablet} suspended Lasix 4 0 MG eCW1 ([facility]) Furosemide 40 MG Oral Tablet [Lasix] Lasix 40 MG Lasix 40 MG 07/20/2020 12:00:00 AM EDT 1.0 {tablet} active Lasix 40 M G eCW1 ([facility]) Furosemide 40 MG Oral Tablet [Lasix] Lasix 40 MG Lasix 40 MG 07/20/2020 12:00:00 AM EDT 1.0 {tablet} active Lasix 40 M G eCW1 ([facility]) normal saline flush 0.9 % injection 3 mL [id number] 07/19/2020 02:00:00 PM EDT 3 mL Intravenous active 3 mL , Intravenous, Every 8 hours (scheduled), First dose on Sun07/19/20 at 1400, PACU (only)
flush per protocol, D/C Main IV fluid if appropriate
[facility] Medication administered onsite lidocaine (PF) (XYLOCAINE-MPF) 1 % injection [id number] 10:41:12 AM EDT active As needed, Start ing Sun07/19/20 at 1041, Intra-Procedure [facility] Medication administered onsite ondansetron (ZOFRAN) injection 4 mg [id number] 07/19/2020 10:23:0 1 AM EDT 4 mg Intravenous active 4 mg, In travenous, Once as needed, nausea, vomiting, if not given in last 4 hours, Starting Sun07/19/20 at 1023, For 1 dose, PACU (only) [facility] Medication administered onsite Hydralazine Hydrochloride 20 MG/ML Injec table Solution hydrALAZINE (APRESOLINE) injection 5 mg hydrALAZINE (APRESOLINE) injection 5 mg 07/19/2020 10: 23:01 AM EDT 5 mg Intravenous active 5 mg , Intravenous, Every 20 min PRN, high blood pressure, for SBP greater than 160 when labetelol cannot be used for HR less than 60 or max labetalol has been given, Starting Sun07/19/20 at 1023, For 4 doses, PACU (only)
Max dose of 20 mg
[facility] Medication administered onsite 4 ML Labetalol hydrochloride 5 MG/ML Car tridge labetalol (NORMODYNE,TRANDATE) injection 5 mg labetalol (NORMODYNE,TRANDATE) injection 5 mg 07/19/20 10:23:01 AM EDT 5 mg Intravenous active 5 mg , Intravenous, Every 5 min PRN, high blood pressure, for SBP greater than 160, Starting Sun07/19/20 at 1023, For 4 doses, PACU (only)
Max of 20 MG, hold for HR less than 60
[facility] Medication administered onsite fentaNYL Citrate (PF) (SUBLIMAZE) injection 25 mcg [id number] 07/19/2020 10:23:01 AM EDT 25 ug Intravenous active 25 mcg, Intravenous, Every 5 min PRN, moderate pain (4 to 6), Starting Sun07/19/20 at 1023, For 1 day, PACU (only) [facility] Medication administered onsite Albuterol 0.83 MG/ML Inhalant Solution a lbuterol (PROVENTIL) nebulizer solution 2.5 mg albuterol (PROVENTIL) nebulizer solution 2.5 mg 2019 10:23:00 AM EDT 2.5 mg active 2.5 mg, Nebulization, Once as needed, wheezing, Starting Sun07/19/20 at 1023, For 1 dose, PACU (only) [facility] Medication administered onsite 10 ML Atropine Sulfate 0.1 MG/ML Prefill ed Syringe atropine sulfate injection 0.5 mg atropine sulfate injection 0.5 mg 07/19/2020 10:23:00 AM EDT 0.5 mg active 0.5 mg, Intrave nous Push, Every 5 min PRN, other, As needed, for heart rate less than 60 BPM and the patient is hemodynamically unstable and/or SBP is less than 90mmHg, Starting Sun07/19/20 at 1023, For 1 day, PACU (only)
Not to exceed a total of 3 mg or 0.04 mg/kg. Max of 6 doses
[facility] Medication administered onsite normal saline flush 0.9 % injection 3 mL [id number] 07/19/2020 09:00:00 AM EDT 3 mL Intravenous active 3 mL , Intravenous, Every 8 hours (scheduled), First dose on Sun07/19/20 at 0900, Pre-op
Rapid push positive pressure flushing shall be performed with a 10 cc normal saline syringe to check the PATENCY of a PIV site prior to any infusion therapy initiation unless resistance is met.
[facility] Medication administered onsite Magnesium Chloride 0.15869 MEQ/ML / Pota ssium Chloride 0.0497 MEQ/ML / Sodium Acetate 0.0163 MEQ/ML / Sodium Chloride 0.0899 MEQ/ML / Sodium gluconate 5.02 MG/ML Injectable Solution [Normosol-R] electrolyte-R (NORMOSOL-R/PLASMALYTE-R) solution electrolyte-R (NORMOSOL-R/PLASMALYTE-R) solution 07/19 09:00:00 AM EDT Intravenous active at 1 00 mL/hr, Intravenous, Continuous, Starting 07/19/20 at 0900, Pre-op [facility] Medication administered onsite 20 mg 07/14/2020 12:00:00 AM EDT tablet 90 TAKE ONE TABLET BY MOUTH ONCE A DAY TAKE ONE TABLET BY MOUTH ONCE A DAY SOLD: 07/16/2020 [facility] 20 mg 07/14/2020 12:00:00 AM EDT tablet 30 TAKE ONE TABLET BY MOUTH ONCE A DAY TAKE ONE TABLET BY MOUTH ONCE A DAY SOLD: 05/11/2021 [facility] 20 mg 07/14/2020 12:00:00 AM EDT tablet 30 TAKE ONE TABLET BY MOUTH ONCE A DAY TAKE ONE TABLET BY MOUTH ONCE A DAY SOLD: 01/06/2021 [facility] 20 mg 07/14/2020 12:00:00 AM EDT tablet 30 TAKE ONE TABLET BY MOUTH ONCE A DAY TAKE ONE TABLET BY MOUTH ONCE A DAY SOLD: 06/15/2021 [facility] 20 mg 07/14/2020 12:00:00 AM EDT tablet 30 TAKE ONE TABLET BY MOUTH ONCE A DAY TAKE ONE TABLET BY MOUTH ONCE A DAY SOLD: 02/07/2021 [facility] 20 mg 07/14/2020 12:00:00 AM EDT tablet 90 TAKE ONE TABLET BY MOUTH ONCE A DAY TAKE ONE TABLET BY MOUTH ONCE A DAY SOLD: 10/08/2020 [facility] 20 mg 07/14/2020 12:00:00 AM EDT tablet 30 TAKE ONE TABLET BY MOUTH ONCE A DAY TAKE ONE TABLET BY MOUTH ONCE A DAY SOLD: 03/12/2021 [facility] 20 mg 07/14/2020 12:00:00 AM EDT tablet 30 TAKE ONE TABLET BY MOUTH ONCE A DAY TAKE ONE TABLET BY MOUTH ONCE A DAY SOLD: 04/09/2021 [facility] 100 mg 07/01/2020 12:00:00 AM EDT tablet 2 TAKE ONE TABLET BY MOUTH ONCE A DAY NEEDED TAKE ONE TABLET BY MOUTH ONCE A DAY NEEDED SOLD: 01/06/2021 [facility] 100 mg 07/01/2020 12:00:00 AM EDT tablet 2 TAKE ONE TABLET BY MOUTH ONCE A DAY NEEDED TAKE ONE TABLET BY MOUTH ONCE A DAY NEEDED SOLD: 07/22/2020 [facility] 100 mg 07/01/2020 12:00:00 AM EDT tablet 2 TAKE ONE TABLET BY MOUTH ONCE A DAY NEEDED TAKE ONE TABLET BY MOUTH ONCE A DAY NEEDED SOLD: 10/28/2020 [facility] 100 mg 07/01/2020 12:00:00 AM EDT tablet 2 TAKE ONE TABLET BY MOUTH ONCE A DAY NEEDED TAKE ONE TABLET BY MOUTH ONCE A DAY NEEDED SOLD: 10/03/2020 [facility] Amiodarone hydrochloride 200 MG Oral Tablet amiodarone (PACERONE) 200 MG tablet amiodarone (PACERONE) 200 MG tablet 200 mg Oral ab orted Take 200 mg by mouth daily [facility] Insurance Providers Payer name Policy type / Coverage type Policy ID Covered democrat ID Covered democrat's relationship to simons Policy Simons Plan Information [facility] MEDICAID [id number] xxxxxxxxx [id number] [facility] MEDICAID [id number] Tena [id number] MEDICAID [id number] [facility] MEDICAID [id number] S [id number] [facility] MEDICAID [id number] S [id number] MEDICAID [id number] Tena [id number] [facility] MEDICAID [id number] S [id number] [facility] MEDICAID [id number] S [id number] [facility] MEDICAID [id number] S [id number] [facility] MEDICAID [id number] S [id number] INSURANCE COVID-19 [id number] [id number] INSURANCE COVID-19 COVID Tena C OVID [facility] I [id number] Self [id number] [facility] COMMUNITY PLAN [facility] [id number] SP [id number] [facility] MEDICAID [id number] S [id number] [facility] I [id number] Self [id number] [facility] [id number] [facility] [id number] [facility] [id number] ANSI-Medicaid [id number] ANSI-Medicaid [id number] ANSI-Medicaid [id number] ANSI-Medicaid [id number] ANSI-Medicaid [id number] [facility] MEDICAID PI PI COMMERCIAL GENERIC PI P I SELF PAY SP [id number] S [id number] [facility] COMMUNITY PLAN MCDO [id number] SP [id number] [facility] MEDICAID [id number] S [id number] MEDICAID [id number] S [id number] MEDICAID [id number] S [id number] [facility] [id number] S [id number] COMMERCIAL GENERIC [id number] Tena [id number] [facility](MCAID) O [id number] S [id number] [facility] MEDICAID [id number] S [id number] [facility] COMMUNITY PLAN MCDO [id number] SP [id number] [facility] DIVYA UNAVAILABLE S UNAVAILABLE ANSI-Medicaid [id number] ANSI-Medicaid [id number] [facility] Community Plan Commercial [id number] [facility] [id number] ANSI-Medicaid [id number] ANSI-Medicaid [id number] Problems, Conditions, and Diagnoses Code Display Name Description Problem Type Effective Dates Data Source(s) Z79.899 Other group home (current) drug therapy O THER LONG-TERM (CURRENT) DRUG THERAPY Diagnosis 08/29/2021 07:41:00 AM [facility] Z79.01 half-way (current) use of anticoagulant s LONG-TERM (CURRENT) USE OF ANTICOAGULANTS Diagnosis 08/29/2021 07:41:00 AM [facility] Z20.822 CONTACT WITH AND (SUSPECTED) EXPOSURE TO COVID-19 CONTACT WITH AND (SUSPECTED) EXPOSURE TO COVID-19 Diagnosis 08/29/2021 07:41:00 AM [facility] F17.210 Nicotine dependence, cigarettes, uncompl icated NICOTINE DEPENDENCE, CIGARETTES, UNCOMPLICATED Diagnosis 08/29/2021 07:41:00 AM [facility] I50.9 Heart failure, unspecified HEART FAILURE, UNSPECIFIED Diagnosis 08/29/2021 07:41:00 AM [facility] N18.9 Chronic kidney disease, unspecified CHRONIC KIDN EY DISEASE, UNSPECIFIED Diagnosis 08/29/2021 07:41:00 AM [facility] I13.0 Hypertensive heart and chron ic kidney disease with heart failure and stage 1 through stage 4 chronic kidney disease, or unspecified chronic kidney disease HYP HRT CHR KDNY DIS W HRT FAIL AND STG 1-4/UNSP Diagnosis 07:41:00 AM [facility] J44.9 Chronic obstructive pulmonary disease, u nspecified CHRONIC OBSTRUCTIVE PULMONARY DISEASE, UNSPECIFIED Diagnosis 08/29/2021 07:41:00 AM [facility] I61.9 Nontraumatic intracerebral hemorrhage, u nspecified NONTRAUMATIC INTRACEREBRAL HEMORRHAGE, UNSPECIFIED Diagnosis 08/29/2021 07:41:00 AM [facility] R20.2 Paresthesia of skin PARESTHESIA OF SKIN Diagnosis 1 07:41:00 AM [facility] R06.02 Shortness of breath SHORTNESS OF BREATH Diagnosis 1 11:00:00 AM [facility] I48.0 Paroxysmal atrial fibrillation Paroxysmal atrial fibri llation Diagnosis 07/29/2021 12:57:22 PM T [facility] B18.2 Chronic viral hepatitis C CHRONIC VIRAL HEPATITIS C Di agnosis 05/23/2021 06:48:00 AM [facility] Z01.810 Encounter for preprocedural cardiovascul ar examination ENCOUNTER FOR PREPROCEDURAL CARDIOVASCUL Diagnosis 05/03/2021 11:48:00 AM [facility] I48.0 Paroxysmal atrial fibrillation PAROXYSMAL ATRIAL FIBRI LLATION Diagnosis 05/03/2021 11:48:00 AM [facility] I42.9 Cardiomyopathy, unspecified CARDIOMYOPATHY, UNSPECIFIE D Diagnosis 01/24/2021 08:55:00 AM [facility] F19.90 Other psychoactive substance use, unspec ified, uncomplicated OTHER PSYCHOACTIVE SUBSTANCE USE, UNSPECIFIED, UNC Diagnosis 08:55:00 AM [facility] J30.2 Other seasonal allergic rhinitis OTHER SEASONAL ALLERGIC RHINITIS Diagnosis 01/24/2021 08:55:00 AM [facility] N18.30 CHRONIC KIDNEY DISEASE, STAGE 3 UNSPECIF IED CHRONIC KIDNEY DISEASE, STAGE 3 UNSPECIFIED Diagnosis 01/24/2021 08:55:00 [facility] I12[facility]9 Hypertensive chronic kidney disease with stage 1 through stage 4 chronic kidney disease, or unspecified chronic kidney disease HYPERTENSIVE CHRONIC KIDNEY DISEASE W STG 1-4/UNSP Diagnosis 01/24/2021 08:55:00 AM [facility] 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, cervical region SPONDYLOSIS W/O MYELOPATHY OR RADICULOPATHY, CERVI Diagnosis 08:55:00 AM [facility] M54.12 Radiculopathy, cervical region RADICULOPATHY, CERVICAL REGION Diagnosis 01/24/2021 08:55:00 AM [facility] M50.30 Other cervical disc degeneration, unspec ified cervical region OTHER CERVICAL DISC DEGENERATION, UNSP CERVICAL RE Diagnosis 08:55:00 AM [facility] S16.1XXA Strain of muscle, fascia and tendon at n ronit level, initial encounter STRAIN OF MUSCLE, FASCIA AND TENDON AT NECK LEVEL, Diagnosis 05/2021 01:37:00 AM [facility] U07.1 COVID-19 COVID-19 Diagnosis 01/09/2021 01:37:00 AM [facility] R05 Cough COUGH Diagnosis 01/09/2021 01:37:00 AM [facility] Y93.89 Activity, other specified ACTIVITY, OTHER SPECIFIED Di agnosis 01/09/2021 01:37:00 AM [facility] Y92.[address] as the place of o ccurrence of the external cause OTH PLACES THE PLACE OF OCCURRENCE OF THE EXTER Diagnosis 05/2021 01:37:00 AM [facility] X58.XXXA Exposure to other specified factors, ini tial encounter EXPOSURE TO OTHER SPECIFIED FACTORS, INITIAL ENCOU Diagnosis 01/09/2021 01:37:00 A [facility] I48.19 Other persistent atrial fibrillation Oth er persistent atrial fibrillation Diagnosis 10/05/2020 06:40:00 AM [facility] Z71.2 Person consulting for explanation of exa mination or test findings PERSON CONSULTING FOR EXPLANATION OF EXAM OR TEST Diagnosis 09/23/2020 08:06: 00 AM [facility] K74.00 HEPATIC FIBROSIS, UNSPECIFIED HEPATIC FIBROSIS, UNSPEC IFIED Diagnosis 09/23/2020 08:06:00 AM [facility] I10 Essential (primary) hypertension ESSENTIAL (PRIMARY) H YPERTENSION Diagnosis 09/22/2020 11:20:00 AM [facility] M43.6 Torticollis TORTICOLLIS Diagnosis 09/22/2020 11:20:00 AM [facility] M25.511 Pain in right shoulder PAIN IN RIGHT SHOULDER Diagnosi s 09/22/2020 11:20:00 AM [facility] Z53.20 Procedure and treatment not carried out because of patient's decision for unspecified reasons PROC/TRTMT NOT CRD OUT BEC PT DECISION FOR UNSP RE Gloria gnosis 09/11/2020 12:43:00 PM [facility] I16.9 HYPERTENSIVE CRISIS, UNSPECIFIED HYPERTENSIVE CR KHUSHBOO, UNSPECIFIED Diagnosis 09/11/2020 12:43:00 PM [facility] L02.413 Cutaneous abscess of right upper limb CU TANEOUS ABSCESS OF RIGHT UPPER LIMB Diagnosis 09/11/2020 12:43:00 PM [facility] I48.20 CHRONIC ATRIAL FIBRILLATION, UNSPECIFIED CHRONIC ATRIAL FIBRILLATION, UNSPECIFIED Diagnosis 09/11/2020 12:43:00 PM [facility] J44.1 Chronic obstructive pulmonary disease wi th (acute) exacerbation CHRONIC OBSTRUCTIVE PULMONARY DISEASE W (ACUTE) EX Diagnosis 09/11/2020 12:43: 00 PM [facility] R06.00 Dyspnea, unspecified DYSPNEA, UNSPECIFIED Diagnosis 09/11/2020 12:43:00 PM [facility] I51.3 Intracardiac thrombosis, not elsewhere c lassified Intracardiac thrombosis, not elsewhere c Diagnosis 09/10/2020 02:14:24 PM [facility] U07.1 COVID-19 COVID-19 Diagnosis 09/10/2020 11:50:05 AM [facility] K82.9 Disease of gallbladder, unspecified DISEASE OF G ALLBLADDER, UNSPECIFIED Diagnosis 09/08/2020 08:42:00 AM [facility] R10.30 Lower abdominal pain, unspecified LOWER ABDOMINA L PAIN, UNSPECIFIED Diagnosis 09/08/2020 08:42:00 AM [facility] K76.0 Fatty (change of) liver, not elsewhere c lassified FATTY (CHANGE OF) LIVER, NOT ELSEWHERE CLASSIFIED Diagnosis 09/07/2020 08:30:[address] [facility] I25.84 Coronary atherosclerosis due to calcifie d coronary lesion CORONARY ATHEROSCLEROSIS DUE TO CALCIFIED CORONARY Diagnosis 09/07/2020 08:30:0 0 AM [facility] J43.9 Emphysema, unspecified EMPHYSEMA, UNSPECIFIED Diagnosi s 09/07/2020 08:30:00 AM [facility] R79.89 Other specified abnormal findings of blo od chemistry OTHER SPECIFIED ABNORMAL FINDINGS OF BLOOD CHEMISTRY Diagnosis 09/07/2020 08:30:00 AM [facility] M75.102 Unspecified rotator cuff tea r or rupture of left shoulder, not specified as traumatic UNSP ROTATR-CUFF TEAR/RUPTR OF LEFT SHOULDER, NOT Diagnosis 08/31/2020 01:51:00 PM [facility] M75.42 Impingement syndrome of left shoulder IM PINGEMENT SYNDROME OF LEFT SHOULDER Diagnosis 08/31/2020 01:51:00 PM [facility] Z76.89 Persons encountering health services in other specified circumstances PERSONS ENCOUNTERING HEALTH SERVICES IN OT CIRCUM Diagnosis 07:10:00 AM [facility] F41.9 Anxiety disorder, unspecified ANXIETY DISORDER, UNSPEC IFIED Diagnosis 08/31/2020 07:10:00 AM [facility] Z20.828 Contact with and (suspected) exposure to other viral communicable diseases CONTACT W AND EXPOSURE TO [facility] VIRAL COMMUNICABLE D Diagnosis 08/13/2020 08:08:00 AM [facility] I48.91 Unspecified atrial fibrillation UNSPECIFIED ATRI AL FIBRILLATION Diagnosis 08/13/2020 08:08:00 AM [facility] I11.0 Hypertensive heart disease with heart fa ilure HYPERTENSIVE HEART DISEASE WITH HEART FAILURE Diagnosis 08/13/2020 08:08:00 AM [facility] Z12.11 Encounter for screening for malignant ne oplasm of colon ENCOUNTER FOR SCREENING FOR MALIGNANT NEOPLASM OF Diagnosis 08/09/2020 08:01:00 AM [facility] Z71.89 Other specified counseling OTHER SPECIFIED COUNSELING Diagnosis 08/09/2020 08:01:00 AM [facility] Z23 Encounter for immunization ENCOUNTER FOR IMMUNIZATION Diagnosis 08/09/2020 08:01:00 AM [facility] G89.29 Other chronic pain OTHER CHRONIC PAIN Diagnosis 03/2020 08:01:00 AM [facility] M25.512 Pain in left shoulder PAIN IN LEFT SHOULDER Diagnosis 08/09/2020 08:01:00 AM [facility] Z20.828 Contact with and (suspected) exposure to other viral communicable diseases CONTACT W AND EXPOSURE TO [facility] COMMUNICABLE D Diagnosis 07/14/2020 08:18:[address] [facility] Z01.812 Encounter for preprocedural laboratory e xamination ENCOUNTER FOR PREPROCEDURAL LABORATORY EXAMINATION Diagnosis 07/14/2020 08:18:[address] [facility] I63.9 [id number] Cerebrovascular accident (CVA), unspecifi ed mechanism Problem 09/05/2021 12:00:00 AM EDT eCW1 ([facility]) E55.9 [id number] Vitamin D deficiency Problem 08/16/2021 12:0 0:00 AM EDT eCW1 ([facility]) G47.10 [id number] Hypersomnia Problem 08/16/2021 12:00:00 AM E DT eCW1 ([facility]) R53.82 [id number] Chronic fatigue Problem 08/16/2021 12:00:00 AM EDT eCW1 ([facility]) K75.81 [id number] MCDANIEL (nonalcoholic steatohepatitis) Probl em 08/16/2021 12:00:00 AM EDT eCW1 ([facility]) L60.1 99167636 Onycholysis Problem 05/26/2021 12:00:00 AM E DT eCW1 ([facility]) R21 [id number] Rash and nonspecific skin eruption Proble m 05/26/2021 12:00:00 AM EDT eCW1 ([facility]) R94.31 Electrocardiogram abnormal Electrocardiogram abnormal Problem 02/18/2021 12:00:00 AM EDT [facility] M50.30 [id number] DDD (degenerative disc disease), cervical Problem 01/24/2021 12:00:00 AM EDT eCW1 ([facility]) J30.2 752182020 Seasonal allergic rhinitis, unspecified t rigger chief Problem 01/24/2021 12:00:00 AM EDT eCW1 ([facility]) M47.812 083221351 Cervical spondylosis Problem 01/24/2021 12:0 0:00 AM EDT eCW1 ([facility]) K21.9 084819808 Gastroesophageal reflux disease without e sophagitis Problem 10/04/2020 12:00:00 AM EST eCW1 ([facility]) B18.2 302266917 Chronic hepatitis C without hepatic coma Problem 10/04/2020 12:00:00 AM EST eCW1 ([facility]) I50.22 075371217 Chronic systolic congestive heart failure Problem 10/04/2020 12:00:00 AM EST eCW1 ([facility]) F19.90 [id number] IVDU (intravenous drug user) Problem 10/04/2020 12:00:00 AM EST eCW1 ([facility]) F15.10 612991223 Methamphetamine abuse Problem 10/04/2020 12: 00:00 AM EST eCW1 ([facility]) I48.19 728389084 Persistent atrial fibrillation Problem 10/04/2020 12:00:00 AM EST eCW1 ([facility]) J44.9 59548560 Chronic obstructive pulmonary di sease, unspecified COPD type Problem 09/23/2020 12:00:00 AM EST eCW1 ([facility]) J43.9 80410855 Pulmonary emphysema, unspecified emphysem a type Problem 09/10/2020 12:00:00 AM EST eCW1 ([facility]) M75.102 [id number] Nontraumatic tear of left rotator cuff, unspecified tear extent Problem 08/31/2020 12:00:00 AM EDT eCW1 ([facility]) I50.9 Heart failure Chronic congestive h eart failure, unspecified heart failure type Problem 08/31/2020 12:00:00 AM EDT eCW1 ([facility]) G89.29 75951953 Other chronic pain Problem 08/09/2020 12:00: 00 AM EDT eCW1 ([facility]) I51.3 Atrial thrombus Atrial thrombus [id number] 07/21/2020 12:0 0:00 AM EDT [facility] Surgeries/Procedures Procedure Description Date Indications Data Source(s) Loop - Interrogation Remote 07/05/2021 12:00:00 AM EDT [facility] ([facility]) HEPATITIS A VACCINE ADULT FOR INTRAMUSCULAR USE 2020 12:00:00 AM EDT eCW1 ([facility]) Loop - Interrogation Remote 05/13/2021 12:00:00 AM EDT [facility] ([facility]) Complete ECHO 04/12/2021 12:00:00 AM EDT [facility] ([facility]) Loop - Interrogation Remote 03/28/2021 12:00:00 AM EDT [facility] ([facility]) Electrocardiogram Complete 03/24/2021 12:00:00 AM EDT [facility] ([facility]) OFFICE OUTPATIENT VISIT 40 MINUTES 03/24/2021 12:00:00 AM EDT [facility] ([facility]) Electrocardiogram Complete 02/18/2021 12:00:00 AM EDT [facility] ([facility]) OFFICE OUTPATIENT VISIT 25 MINUTES 02/18/2021 12:00:00 AM EDT [facility] ([facility]) Electrocardiogram Complete 02/11/2021 12:00:00 AM EDT [facility] ([facility]) OFFICE OUTPATIENT VISIT 25 MINUTES 02/11/2021 12:00:00 AM EDT [facility] ([facility]) Loop - Interrogation Remote 02/07/2021 12:00:00 AM EDT [facility] ([facility]) Loop - Interrogation Remote 12/24/2020 12:00:00 AM EST [facility] ([facility]) HEPATITIS A VACCINE ADULT FOR INTRAMUSCULAR USE 2020 12:00:00 AM EST eCW1 ([facility]) Loop - Interrogation Remote 11/16/2020 12:00:00 AM EST [facility] ([facility]) EP STUDY <td>EP STUDY</td><td>Routine </td><td>10/05/2020 12:18 PM EST</td><td> Persistent atrial fibrillation</td><td> </td> 10/05/2020 05:18:58 PM EST Persistent atrial fibrillation [facility] Persistent atrial fibrillation BLOOD TYPING ABO <td>TYPE AND SCREEN</td><td> Routine</td><td>10/05/2020 8:00 AM EST</td><td></td><td> </td> 10/05/2020 01:00:00 PM EST [facility] COVID/FLU AB/RSV PCR <td>COVID/FLU AB/RSV PCR</td ><td>STAT</td><td>10/05/2020 6:10 AM EST</td><td></td><td> </td> 10/05/2020 11:10:00 AM EST [facility] Loop - Interrogation Remote 10/04/2020 12:00:00 AM EST [facility] ([facility]) Loop - Interrogation Remote 08/24/2020 12:00:00 AM EDT [facility] ([facility]) EP STUDY <td>EP STUDY</td><td>Routine </td><td>07/19/2020 10:44 AM EDT</td><td> Persistent atrial fibrillation</td><td> </td> 07/19/2020 02:44:39 PM EDT Persistent atrial fibrillation [facility] Persistent atrial fibrillation BLOOD COUNT COMPLETE AUTOMATED <td>CBC</td><td>STAT</t d><td>07/19/2020 8:10 AM EDT</td><td></td><td> </td> 07/19/2020 12:10:00 PM EDT [facility] BLOOD TYPING ABO <td>TYPE AND SCREEN</td><td> Routine</td><td>07/19/2020 8:10 AM EDT</td><td></td><td> </td> 07/19/2020 12:10:00 PM EDT [facility] Results ID Date Data Source [id number] 09/05/2021 08:00:59 AM EDT [facility] Name Value Range Interpretation Code Description Data [place] rce(s) Supporting Document(s) Consultation [facility] XVMTOv0uPmNTYhAs68/INQfiRYStj3GxOXlnCVh2JIoqEEJhB5PwHSU2zA9cRMV4AVyORnIpQrSfTFMe [facility] [file] ICAgICAgICAgICAgICAgICAgICAgICAgICAgICAgICAgICAgICAgICAgICAgICAgICAgICAgICAgICAg ICAgICAgICAgICAgICANCiAgICAgICAgICAgICAgICAgICAgICAgICAgICAgICAgICAgICAgICAgICAg ICAgICAgICAgICAgICAgICAgICAgICAgICAgICAgIC AgICAgICAgICAgICAgICAgICAgICAgICANCiAgICAgICAgICAgICAgICAgICAgICAgICAgICAgICAgIC AgICAgICAgICAgICAgICAgICAgICAgICAgICAgICAgICAgICAgICAgICAgICAgICAgICAgICAgICAgIC AgICAgICANCiAgICAgICAgICAgICAgICAgICAgICAg ICAgICAgICAgICAgICAgICAgICAgICAgICAgICAgICAgICAgICAgICAgICAgICAgICAgICAgICAgICAg ICAgICAgICAgICAgICAgICANCiAgICAgICAgICAgICAgICAgICAgICAgICAgICAgICAgICAgICAgICAg ICAgICAgICAgICAgICAgICAgICAgICAgICAgICAgIC AgICAgICAgICAgICAgICAgICAgICAgICAgICANCiAgICAgICAgICAgICAgICAgICAgICAgICAgICAgIC AgICAgICAgICAgICAgICAgICAgICAgICAgICAgICAgICAgICAgICAgICAgICAgICAgICAgICAgICAgIC AgICAgICAgICANCiAgICAgICAgICAgICAgICAgICAg ICAgICAgICAgICAgICAgICAgICAgICAgICAgICAgICAgICAgICAgICAgICAgICAgICAgICAgICAgICAg ICAgICAgICAgICAgICAgICAgICANCiAgICAgICAgICAgICAgICAgICAgICAgICAgICAgICAgICAgICAg ICAgICAgICAgICAgICAgICAgICAgICAgICAgICAgIC AgICAgICAgICAgICAgICAgICAgICAgICAgICAgICANCiAgICAgICAgICAgICAgICAgICAgICAgICAgIC AgICAgICAgICAgICAgICAgICAgICAgICAgICAgICAgICAgICAgICAgICAgICAgICAgICAgICAgICAgIC AgICAgICAgICAgICANCiAgICAgICAgICAgICAgICAg ICAgICAgICAgICAgICAgICAgICAgICAgICAgICAgICAgICAgICAgICAgICAgICAgICAgICAgICAgICAg ICAgICAgICAgICAgICAgICAgICAgICANCjw/yGJqU5jgsXDnwbW0C1lvGc2BGz2JYX5kg3NxMQAyRSkx zbIbHtkRWfDsONZjTyyRTxe3SGpuLN6AoYWmS0DcB2 LcTRzoQJ0FRFIbBXBrtPCoFKDsAJFyEzV2ZIXjCVdtHB5MtZWbWRzjQRHiTZSxGnPhBMZkIWMfWSEiFU WrNUQQNKRhOEWiZdZqSVOmVGWgDI5RRVUaL099bdJqOa8WNf9HTsEdDE0ybv8SShLaNIAcFlpVGjo9SI krVK0KcVGrzCDvCxFbMDBBAvNkM1xih0TeBuEwZCNL KSrpPM0Oy2SsyCFwJQo+Qw0NCM1mo1MkAMjiOuWuYI1vmb0SAMsSBpPoX0HknBbnCEIggoW5iNGoDVU5 LJ1ianLhQKCkO9J3aqwoNHKKSvUaxKRyJH7bIS6eCXFcLGWbKmE7ZNOPEJ5YIILqXDMvwVBpADJnILDP MG1MSWzvDUB4LRAtejFglQExXPcjRO2TKPVqeeZrNs UgMCBSDQo+Wv4YXU7ue6AuMTevLgWqNA9wzm7HBRvJDkEpC6O0xLJoJ3H8KZpvKr4RGQDnDLKcUuAcFX SMQMixUZ8WKR4bteW0MP6VmTSgPZLuGLMnpMJrMCl9G39saJEkRFtaRH3DPHZ+Magdy+Hh3XGZBqBQIzIY ClUrTlTUPANnFnH5ZbL1SYa2AjJ4McCQ18cKwxueUx NGgqMB2TVI4hJJZfFIIMKN2RcVMmcB7nvfJiTOMrBNDKBqRhF21mgFNdHXEwBOO7VXXjRw4WETJcB8Qf vmWoiEbsjmIlKPVvMKHMKA0YOIytxvPjzLAqhPjnGQ02zEhnZZ5WXa3QFpBmBE2fsa1EqDElFe0XAWGq SO6SDWGjRXYuMKYnBDH8YIXwYvCoFPkwKDFzRACgDC A7MNNsKPYlRZ2HApJlCJEfIhT4XwxaWABkGCSmpt7QKKIsGOMvILK0DPOzJQQuTVXiMNjyHXUgWROuEM E8AFHrTMGrHT5RHcSxMIKuVTO3PDajAPStQPJzru3WHOQgAXOdOgdpWbSpUONxNGIfMZdtYHBxMIW8Hb dyDYZbZWTbDY5TYtZaEUXtGJH7GfHrLZHpODUidp5N RGJmSOQpIJX7HgFjWCZrTUAtQKznYFOtYTE5HUHeKEZfBLDcHX6WLtGeGVFoVNW9FHBzNULaZWGyvm3M QEOcKUQrKmW3MwWrRBLoQFAlWProLEVcKMM5TBO2EAJtEYQdNK5WIhUxPOFeSVMjBiFcRUIlYFSplg8B MNKmBVAaWBywHAMgVOApSNZjHHgwQMAtQDP3LWFfIM NfKIOzQP6CNdBfADVcOGuoNBVuNRQbONCiok8GTZVpBTQmTmH6JcLbGNAuHBYhYLurWXSoFAQ2ALffRS JuPHUuTW9PZdVhXAPhPEg3ZoldSTHuYIAedl1PESViYEZeVXDrDIBdFNNsENCjGKhqHTEqQPA6JLR9NS YwDNNgIP4SQaSuOJSiXZp9InwdDQCtWNLpwf4FSKSa BSOdJUh4SoHlWUHqFYEhPYubNDHtDPBaSGB6IETrEWHtRQ7IHnMnPEEzUxTfBYbdHUPnNOHnjq4MWAWa TNYvLEVfHWYpLAYzDSJkJGfqRFZgULXuSYR3KFGnEKIuDX5FEoDuNKDfFjX3KHXsQDRnTLJtbf7UNDBu MDAzMzIxMSAwMDAwMCBuDQowMDAwMDMzNDIwIDAwMD VbON5IApXmVLYuFcK0JJjkRMDlKVTnrc8DUWNaUKIpCfnvWNRyBNSwJKEpLIugSUOyPKV6EiM8WHMtZG AlRU8MViMhNXXkVcB2QIknPWXcLBVmfd0ZCLDcKQVbDTi0LXRbTYIhFKBhEIvtWZVnUOJ2UWM6TOOgJT RyTO4EYwFnRIikCZOJIbe2RTktQ1t7XXDpXX1PF7Mz o9SqMlkwZYVXEGokPM3ebyDrUWHqTa8IK6qCFzayTLz5SBG4I3X1LOIfVIHwAYLiXQAaDiG0HxIsWDRb Ee3sTQJ5GgRgTQYuRuB4CRQjRXIdVyN5BXK3ILOwQSR4DyZzTvAkIX9HFy5FDvU6SZT0uWDxLk1IObPb MoeDChLbDW3EZFd= ID Date Data Source [id number] 09/03/2021 03:40:56 AM EDT [facility] Name Value Range Interpretation Code Description Data [place] rce(s) Supporting Document(s) Leukocytes [#/volume] in Blood by Automated count 8.7 10*3/uL 4-10 [facility] Erythrocytes [#/volume] in Blood by Automated count 4.98 10*6/uL 4.6- 6.1 [facility] Hemoglobin [Mass/volume] in Blood 15.3 g/dL 13.5-18 [facility] Hematocrit [Volume Fraction] of Blood by Automated count 46.0 % 4 1-53 [facility] Erythrocyte mean corpuscular volume [Entitic volume] by Auto mated count 92.4 fL 80-96 [facility] Erythrocyte mean corpuscular hemoglobin [Entitic mass] by Automated count 30.6 pg 27-33 [facility] Erythrocyte mean corpuscular hemoglobin concentration [Mass/volume] by Automated count 33.2 g/dL 32.0-36.[facility] [Ratio] by Automated count 15.1 % 11.5-14.5 H [facility] Platelets [#/volume] in Blood by Automated count 247 10*3/uL 150-400 [facility] Differential cell count method - Blood [facility] Neutrophils/100 leukocytes in Blood by Automated count 63 % [facility] Lymphocytes/100 leukocytes in Blood by Automated count 26 % [facility] Monocytes/100 leukocytes in Blood by Automated count 8 % [facility] Eosinophils/100 leukocytes in Blood by Automated count 2 % [facility] Basophils/100 leukocytes in Blood by Automated count 1 % [facility] Neutrophils [#/volume] in Blood by Automated count 5.46 10*3/uL 1.8-7 .0 [facility] Lymphocytes [#/volume] in Blood by Automated count 2.30 10*3/uL 1.2-4 .0 [facility] Monocytes [#/volume] in Blood by Automated count 0.74 10*3/uL 0-0.8 [facility] Eosinophils [#/volume] in Blood by Automated count 0.16 10*3/uL 0-0.5 [facility] Basophils [#/volume] in Blood by Automated count 0.07 10*3/uL 0-0.2 [facility] Nucleated erythrocytes/100 leukocytes [Ratio] in Blood by Automated count 0 /100{WBCs} 0-0 [facility] ID Date Data Source [id number] 09/03/2021 03:52:02 AM EDT [facility] Name Value Range Interpretation Code Description Data [place] rce(s) Supporting Document(s) Bicarbonate [Moles/volume] in Serum 18 mmol/L 22-29 L [facility] Chloride [Moles/volume] in Serum or Plasma 105 mmol/L 98-107 [facility] Creatinine [Mass/volume] in Serum or Plasma 1.56 mg/dL 0.70-1.20 H [facility] Glucose [Mass/volume] in Serum or Plasma 112 mg/dL 70-140 [facility] Potassium [Moles/volume] in Serum or Plasma 3.9 mmol/L 3.4-5.1 [facility] Hemolyzed Sodium [Moles/volume] in Serum or Plasma 136 mmol/L 136-145 [facility] Urea nitrogen [Mass/volume] in Serum or Plasma 36 mg/dL 6-20 H [facility] Anion gap 3 in Serum or Plasma 13 mmol/L 8-15 [facility] Osmolality of Serum or Plasma by calculation 291 mosm/kg 275-300 [facility] Creatinine/Urea nitrogen [Mass Ratio] in Serum or Plasma 23 [facility] Calcium [Mass/volume] in Serum or Plasma 8.8 mg/dL 8.6-10.0 [facility] Glomerular filtration rate/1.73 sq M pre dicted among non-blacks [Volume Rate/Area] in Serum or Plasma by Creatinine-based formula (MDRD) 48 mL/min/1.73m2 >60 L [facility] Glomerular filtration rate/1.73 sq M pre dicted among blacks [Volume Rate/Area] in Serum or Plasma by Creatinine-based formula (MDRD) 55 mL/min/1.73m2 >60 L [facility] ID Date Data Source [id number] 09/02/2021 11:51:18 PM EDT [facility] MR BRAIN WITHOUT CONTRAST [id number] RES ULTInterpreted by:Bill Whittington MDINDICATION: Neuro deficit, acute, stroke suspected. ICH , multifocal , eval for amyloid angiopathy.TECHNIQUE: Multiplanar and multisequence MR images of the brain were obtained on the 1.5Twithout intravenous contrast administration. COMPARISON: CT head dated 08/30/2021, CTA head and neck dated 08/29/2021.FINDINGS: Compared to the most recent prior CT had, there is no significant interval change in size of the acute to early subacute intraparenchymal hemorrhage involving the left basal ganglia and left insular cortex extending to the voss radiata. There is rim of diffusion restriction partially surrounding the hemorrhage There is persistent surrounding edema with mild mass effect on the left lateral ventricle without significant midline shift. Basal cisterns are patent.Hemorrhage within the left kenny is also unchanged.There is no new intraparenchymal hemorrhage or acute infarct. Midline structures including the corpus callosum and cerebellar tonsils are normal. Pituitary gland is unremarkable with normal posterior T1 bright spot. No evidence of Chiari I malformation.Flow voids of the major intracranial arteries are normal.A small retention cyst within the left maxillary sinus. Minimal mucosal thickening in the mastoid air cells bilaterally. Orbits are grossly unremarkable.IMPRESSION:1. Intraparenchymal hemorrhages involving the left kenny and left basal ganglia and insular cortex extending to the voss radiata with surrounding edema, essentially unchanged in size given the difference in techniq ue/modality.2. No new hemorrhage or infarct.3. No evidence of amyloid angiopathy.4. Minimal bilateral mastoiditis and a small retention cysts in the left maxillary sinus.This document has been electronically signed by Marquita Figueroa MD on 09/02/2021 11:49 PM Name Value Range Interpretation Code Description Data [place] rce(s) Supporting Document(s) ID Date Data Source [id number] 09/02/2021 01:42:39 PM [facility] Name Value Range Interpretation Code Description Data [place] rce(s) Supporting Document(s) Bicarbonate [Moles/volume] in Serum 19 mmol/L 22-29 L [facility] Chloride [Moles/volume] in Serum or Plasma 104 mmol/L 98-107 [facility] Creatinine [Mass/volume] in Serum or Plasma 1.81 mg/dL 0.70-1.20 H [facility] Glucose [Mass/volume] in Serum or Plasma 104 mg/dL 70-140 [facility] Potassium [Moles/volume] in Serum or Plasma 4.6 mmol/L 3.4-5.1 [facility] Sodium [Moles/volume] in Serum or Plasma 135 mmol/L 136-145 L [facility] Urea nitrogen [Mass/volume] in Serum or Plasma 29 mg/dL 6-20 H [facility] Anion gap 3 in Serum or Plasma 12 mmol/L 8-15 [facility] Osmolality of Serum or Plasma by calculation 286 mosm/kg 275-300 [facility] Creatinine/Urea nitrogen [Mass Ratio] in Serum or Plasma 16 [facility] Calcium [Mass/volume] in Serum or Plasma 9.4 mg/dL 8.6-10.0 [facility] Glomerular filtration rate/1.73 sq M pre dicted among non-blacks [Volume Rate/Area] in Serum or Plasma by Creatinine-based formula (MDRD) 40 mL/min/1.73m2 >60 L [facility] Glomerular filtration rate/1.73 sq M pre dicted among blacks [Volume Rate/Area] in Serum or Plasma by Creatinine-based formula (MDRD) 46 mL/min/1.73m2 >60 L [facility] ID Date Data Source [id number] 09/02/2021 05:33:16 AM EDT [facility] Name Value Range Interpretation Code Description Data [place] rce(s) Supporting Document(s) Bicarbonate [Moles/volume] in Serum 19 mmol/L 22-29 L [facility] Chloride [Moles/volume] in Serum or Plasma 106 mmol/L 98-107 [facility] Creatinine [Mass/volume] in Serum or Plasma 1.42 mg/dL 0.70-1.20 H [facility] Glucose [Mass/volume] in Serum or Plasma 103 mg/dL 70-140 [facility] Potassium [Moles/volume] in Serum or Plasma 4.3 mmol/L 3.4-5.1 [facility] Sodium [Moles/volume] in Serum or Plasma 138 mmol/L 136-145 [facility] Urea nitrogen [Mass/volume] in Serum or Plasma 28 mg/dL 6-20 H [facility] Anion gap 3 in Serum or Plasma 13 mmol/L 8-15 [facility] Osmolality of Serum or Plasma by calculation 292 mosm/kg 275-300 [facility] Creatinine/Urea nitrogen [Mass Ratio] in Serum or Plasma 20 [facility] Calcium [Mass/volume] in Serum or Plasma 9.6 mg/dL 8.6-10.0 [facility] Glomerular filtration rate/1.73 sq M pre dicted among non-blacks [Volume Rate/Area] in Serum or Plasma by Creatinine-based formula (MDRD) 53 mL/min/1.73m2 >60 L [facility] Glomerular filtration rate/1.73 sq M pre dicted among blacks [Volume Rate/Area] in Serum or Plasma by Creatinine-based formula (MDRD) 62 mL/min/1.73m2 >60 [facility] ID Date Data Source [id number] 09/02/2021 06:19:12 AM EDT [facility] Name Value Range Interpretation Code Description Data [place] rce(s) Supporting Document(s) Leukocytes [#/volume] in Blood by Automated count 11.2 10*3/uL 4-10 H [facility] Erythrocytes [#/volume] in Blood by Automated count 5.27 10*6/uL 4.6- 6.1 [facility] Hemoglobin [Mass/volume] in Blood 16.0 g/dL 13.5-18 [facility] Hematocrit [Volume Fraction] of Blood by Automated count 48.2 % 4 1-53 [facility] Erythrocyte mean corpuscular volume [Entitic volume] by Auto mated count 91.5 fL 80-96 [facility] Erythrocyte mean corpuscular hemoglobin [Entitic mass] by Automated count 30.4 pg 27-33 [facility] Erythrocyte mean corpuscular hemoglobin concentration [Mass/volume] by Automated count 33.2 g/dL 32.0-36.0 [facility] width [Ratio] by Automated count 15.1 % 11.5-14.5 H [facility] Platelets [#/volume] in Blood by Automated count 287 10*3/uL 150-400 [facility] Confirmed Differential cell count method - Blood [facility] Neutrophils/100 leukocytes in Blood by Automated count 72 % [facility] Lymphocytes/100 leukocytes in Blood by Automated count 18 % [facility] Monocytes/100 leukocytes in Blood by Automated count 8 % [facility] Eosinophils/100 leukocytes in Blood by Automated count 1 % [facility] Basophils/100 leukocytes in Blood by Automated count 1 % [facility] Neutrophils [#/volume] in Blood by Automated count 8.07 10*3/uL 1.8-7 .0 H [facility] Lymphocytes [#/volume] in Blood by Automated count 2.05 10*3/uL 1.2-4 .0 [facility] Monocytes [#/volume] in Blood by Automated count 0.88 10*3/uL 0-0.8 H [facility] Eosinophils [#/volume] in Blood by Automated count 0.10 10*3/uL 0-0.5 [facility] Basophils [#/volume] in Blood by Automated count 0.09 10*3/uL 0-0.2 [facility] Nucleated erythrocytes/100 leukocytes [Ratio] in Blood by Automated count 0 /100{WBCs} 0-0 [facility] ID Date Data Source [id number] 09/01/2021 03:18:43 PM EDT [facility] Name Value Range Interpretation Code Description Data [place] rce(s) Supporting Document(s) Consultation [facility] AQSSXx7eJeNANvVr73/YPJysJGRxf8VgUYorEFn5MHnuQGNiL0QpHFG5oQ6lMGB3KGiFFsCkQpZlSXN8 lbm VqVaaEHyJrIGMnCfbJHbDkUJxlEsigwDLrIZ5FrNY8PAXqD42nMTFnSIBcF3EaGGLeGKU+Nw9UPRYylB LsNB2PNrbW3E3Xz0jKCD4IiQ7NFHPhS5fAm0ioHP52UaAKwLvYcRIbNk64cANXFvdakthQp3DNngiXy1 kj8HgHwb3tpQXid+2hfb86fCneX58LOhF638k8o/2Z 6rM96gH482+89WtRePva+yw3xOsB+pmf1h+OH6Mw9p+eHXrbP/gs9By6eIy+OKTcVNny1g7dHz1urZle F/Yd9uf6IO4rCdsvmzvd4x6SufshlVtllxwVg63E/1xoA5840gQYxdST59NpI8Yw7LdLBEJj60Ttu6I8 Cvq0W6tq2SSsWOzsJUlDFjagkPXu+jXil3SYgbW9DE rvWLf/blanchard+dLIVAbIIUVvGMFTd6Ae/BdJmwuwx5Aoz3CI1Ba5njVERbP5xIz52JDq2uKXzW38z0CLJDo3 [file] S1C5GEM6B6ZeZKYgFelbNRAdTDGzGgp+TN2iUSa+Tm1Io3HdhwK6fqDuJVi3WmS6AZpnAONSVz1L ID Date Data Source [id number] 09/01/2021 12:24:50 PM EDT [facility] Name Value Range Interpretation Code Description Data [place] rce(s) Supporting Document(s) Consultation [facility] FNTOEx6pBrMSBnCh71/YDXyfLCYak2MjUKgrCPo3AGdeDTMqZ9HgGLZ5bU8hWEN1ORvCFeVoBwNrPAN1 lbm [file] ICAgICAgICAgICAgICAgICAgICAgICAgICAgICAgICAgICAgICAgICAgICAgICAgICAgICAgICAgICAg ICAgICAgICAgICAgICAgICAgICAgICAgICAgDQogICAgICAgICAgICAgICAgICAgICAgICAgICAgICAg ICAgICAgICAgICAgICAgICAgICAgICAgICAgICAgIC AgICAgICAgICAgICAgICAgICAgICAgICAgICAgICAgICAgICAgDQogICAgICAgICAgICAgICAgICAgIC AgICAgICAgICAgICAgICAgICAgICAgICAgICAgICAgICAgICAgICAgICAgICAgICAgICAgICAgICAgIC AgICAgICAgICAgICAgICAgICAgDQogICAgICAgICAg ICAgICAgICAgICAgICAgICAgICAgICAgICAgICAgICAgICAgICAgICAgICAgICAgICAgICAgICAgICAg ICAgICAgICAgICAgICAgICAgICAgICAgICAgICAgDQogICAgICAgICAgICAgICAgICAgICAgICAgICAg ICAgICAgICAgICAgICAgICAgICAgICAgICAgICAgIC AgICAgICAgICAgICAgICAgICAgICAgICAgICAgICAgICAgICAgICAgDQogICAgICAgICAgICAgICAgIC AgICAgICAgICAgICAgICAgICAgICAgICAgICAgICAgICAgICAgICAgICAgICAgICAgICAgICAgICAgIC AgICAgICAgICAgICAgICAgICAgICAgDQogICAgICAg ICAgICAgICAgICAgICAgICAgICAgICAgICAgICAgICAgICAgICAgICAgICAgICAgICAgICAgICAgICAg ICAgICAgICAgICAgICAgICAgICAgICAgICAgICAgICAgDQogICAgICAgICAgICAgICAgICAgICAgICAg ICAgICAgICAgICAgICAgICAgICAgICAgICAgICAgIC AgICAgICAgICAgICAgICAgICAgICAgICAgICAgICAgICAgICAgICAgICAgDQogICAgICAgICAgICAgIC AgICAgICAgICAgICAgICAgICAgICAgICAgICAgICAgICAgICAgICAgICAgICAgICAgICAgICAgICAgIC AgICAgICAgICAgICAgICAgICAgICAgICAgDQogICAg ICAgICAgICAgICAgICAgICAgICAgICAgICAgICAgICAgICAgICAgICAgICAgICAgICAgICAgICAgICAg TAHuWGRyTDIbKUWfBBIiPYJdVSXxSETwHMKuPVPyPDIbOOLzEHe5T3poGAWoENNbNL6dXQu5Yn9+DQoN JcKuXUX0isCtqT3JAY2yt2VfWRxtJHJjq9XaVQr0DJ 2XAZArGCqaRF5MNHodbi0QFBSkMKDohGKZi2ouYbRbDJV6KEIoGklaRU4SHZUbP8sfvdNlTCWoALJGNX 2JQqVbC6QtzS47WJBBVx9+VObjzhQhAavCNvR6RFCql8IhAQy7XV1IXLLvCoirx7TfDWDkBNZQYLhcMQ 3RDPG0YZS5CYZrHl8ZNLDoY269tyEeDK0AVc9FZuOy TQ1nmv4XFOWvGLNhRazXQoj6AVevHM3EjLQaPQhZd56ytEd5kcZlkZFXssEofozaIGDbFbUvahneES4U EnMgnJFeMI1fXT8aYMSqYQIuJtTyJSMAIK7NFKEkMJLeuHDqKIWuQHORDA4SJVrmTKE8GMIgveVbnKXm GSeuEV6QDNWymbIxKRYeQDXPZJz+Gb6LWQ2fq9KtXF szHtJqSZ2jiu0RUEyZKoGsZ3R7zBYeC0X2KTskFc5VCLDkDTXrENNbQWQVIHnuMS8FLQ6qsjS1EC0NzI TpAYYnXLJkbNGcNMp9E64xpRJlCAkvFE8NUTG+Magdy+Zw1NEYVxRVHsNJQmXcIxBMQROdBuY0TiY5KOr5 FjI5ZxOR19fUrtmsLxUBujHI2NFA8bRVWzTVWHYN0G qQDnvR3rmlNdYNIoYWHMYqYoA37uoFDiMVUxSMWsQFNpTg0STKIeO1XszvShgUmnfyUuURDpXVNJQU5L HDvyhnFajVFxdTbaIG18tNgmPT3OCu6FWvErEC1jme2NbCFxRx7NMULrOs0YPUNsQQJlEGHyEKL1EBAg WwJgSTngRTAgJZZlEEJ3YLNnCIEaLQ4LYlPbLINbAM E2UOHxMYHlJOZujz8NBAHkAFMfOdThPlCfJBSgOQYtZSohFHXyYMMsORO6XAAqFGZlFX7MTbScXFPhTA O5JCPhVEKeLOBgio6YTLRtSAShRed9ZrMyCMMyXSMmHIpsIFCvJMRfDCU1OIXlSSFaST8XLiDzWRNeLB LuNMAyXNWyPRCxul2KWYDtURFpFFUeFUWpPHEjTGJo ZAywHPDfJRP4Fxq0QUTuKOPrJC1RFcWyCMPsFHI9GAYcCYCkJZXped4EHMKpQQJrVDI8OLZvVOOgLGQg WVubJBCqTDA8IAbzIDRvLHHkWQ2LWqFnJQCzNWu8OZDbRKQoMVYzsr0OLHRbWRSwRvN5UYCwAXDgUTTv ITxeYQFbTPZ6VsL5HYCeZUBvRF5OLiIiWYnuIKQITq z8PPodG9q2FPSeUc5XL7Nrh4UdCGRiISXAEKjqTI4ynkRkEXObKz5VN8wJFtt2UCP2NCNhKlTsCkIgEX W9EpjaPjIjNKW3FDOxVuSiKZ2mFNdtIWBhSmK3ICPtFWC2Muf0LGYnLtQiSXp7LjWqQpC2FmBhZL0QGe 3AReT6AWC8sSYgDd3HJho7JM5WMVGNJ1GXHs== ID Date Data Source [id number] 09/01/2021 09:46:39 AM EDT [facility] Name Value Range Interpretation Code Description Data [place] rce(s) Supporting Document(s) Leukocytes [#/volume] in Blood by Automated count 11.7 10*3/uL 4-10 H [facility] Erythrocytes [#/volume] in Blood by Automated count 5.51 10*6/uL 4.6- 6.1 [facility] Hemoglobin [Mass/volume] in Blood 16.5 g/dL 13.5-18 [facility] Hematocrit [Volume Fraction] of Blood by Automated count 50.7 % 4 1-53 [facility] Erythrocyte mean corpuscular volume [Entitic volume] by Auto mated count 92.1 fL 80-96 [facility] Erythrocyte mean corpuscular hemoglobin [Entitic mass] by Automated count 30.0 pg 27-33 [facility] Erythrocyte mean corpuscular hemoglobin concentration [Mass/volume] by Automated count 32.6 g/dL 32.0-36.0 [facility] width [Ratio] by Automated count 15.4 % 11.5-14.5 H [facility] Platelets [#/volume] in Blood by Automated count 286 10*3/uL 150-400 [facility] Differential cell count method - Blood [facility] Neutrophils/100 leukocytes in Blood by Automated count 75 % [facility] Lymphocytes/100 leukocytes in Blood by Automated count 16 % [facility] Monocytes/100 leukocytes in Blood by Automated count 8 % [facility] Eosinophils/100 leukocytes in Blood by Automated count 1 % [facility] Basophils/100 leukocytes in Blood by Automated count 0 % [facility] Neutrophils [#/volume] in Blood by Automated count 8.76 10*3/uL 1.8-7 .0 H [facility] Lymphocytes [#/volume] in Blood by Automated count 1.90 10*3/uL 1.2-4 .0 [facility] Monocytes [#/volume] in Blood by Automated count 0.88 10*3/uL 0-0.8 [facility] Eosinophils [#/volume] in Blood by Automated count 0.07 10*3/uL 0-0.5 [facility] Basophils [#/volume] in Blood by Automated count 0.05 10*3/uL 0-0.2 [facility] Nucleated erythrocytes/100 leukocytes [Ratio] in Blood by Automated count 0 /100{WBCs} 0-0 [facility] ID Date Data Source [id number] 09/01/2021 10:04:45 AM [facility] Name Value Range Interpretation Code Description Data [place] rce(s) Supporting Document(s) Magnesium [Mass/volume] in Serum or Plasma 2.2 mg/dL 1.6-2.6 [facility] ID Date Data Source [id number] 09/01/2021 10:04:45 AM [facility] Value Range Interpretation Code Description Data [place] rce(s) Supporting Document(s) Phosphate [Mass/volume] in Serum or Plasma 4.1 mg/dL 2.5-4.5 [facility] ID Date Data Source [id number] 09/01/2021 10:04:45 AM [facility] Value Range Interpretation Code Description Data [place] rce(s) Supporting Document(s) Bicarbonate [Moles/volume] in Serum 18 mmol/L 22-29 L [facility] Chloride [Moles/volume] in Serum or Plasma 102 mmol/L 98-107 [facility] Creatinine [Mass/volume] in Serum or Plasma 1.25 mg/dL 0.70-1.20 H [facility] Glucose [Mass/volume] in Serum or Plasma 120 mg/dL 70-140 [facility] Potassium [Moles/volume] in Serum or Plasma 4.3 mmol/L 3.4-5.1 [facility] Sodium [Moles/volume] in Serum or Plasma 133 mmol/L 136-145 L [facility] Urea nitrogen [Mass/volume] in Serum or Plasma 20 mg/dL 6-20 [facility] Anion gap 3 in Serum or Plasma 13 mmol/L 8-15 [facility] Osmolality of Serum or Plasma by calculation 280 mosm/kg 275-300 [facility] Creatinine/Urea nitrogen [Mass Ratio] in Serum or Plasma 16 [facility] Calcium [Mass/volume] in Serum or Plasma 10.0 mg/dL 8.6-10.0 [facility] Glomerular filtration rate/1.73 sq M pre dicted among non-blacks [Volume Rate/Area] in Serum or Plasma by Creatinine-based formula (MDRD) 62 mL/min/1.73m2 >60 [facility] Glomerular filtration rate/1.73 sq M pre dicted among blacks [Volume Rate/Area] in Serum or Plasma by Creatinine-based formula (MDRD) 72 mL/min/1.73m2 >60 [facility] ID Date Data Source [id number] 09/01/2021 08:21:26 AM EDT [facility] XR CHEST FRONTAL ONLY [id number] RESULTI nterpreted by:Zeenat Gonzalez, MDPROCEDURE INFORMATION: Exam: XR Chest Exam date and time: 09/01/2021 5:56 AM Age: 56 years old Clinical indication: Unspecified atrial fibrillation; Other: Evaluate for cause of desaturation TECHNIQUE: Imaging protocol: XR of the chest. Views: 1 view. (2 images total) COMPARISON: CR XR CHEST FRONTAL ONLY [id number] PORTABLE 08/29/2021 2:22 PM FINDINGS: Lungs: Previous pulmonary vascular congestion and interstitial prominence has essentially resolved. There is no airspace consolidation. Pleural spaces: Unremarkable. No pleural effusion. No pneumothorax. Heart/Mediastinum: The cardiomediastinal silhouette is fairly stable in appearance, with similar cardiomegaly. Bones/joints: Unremarkable. Gastrointestinal tract: Loop monitor is again present on the left. IMPRESSION: Essential resolution of pulmonary vascular congestion and interstitial prominence since 08/29/2021, with similar mild cardiomegaly. THIS DOCUMENT HAS BEEN ELECTRONICALLY SIGNED BY ZEENAT GONZALEZ MDThis document has been electronically signed by Zeenat Gonzalez MD on 09/01/2021 8:21 AM Name Value Range Interpretation Code Description Data [place] rce(s) Supporting Document(s) ID Date Data Source [id number] 08/31/2021 04:45:32 PM [facility] Name Value Range Interpretation Code Description Data [place] rce(s) Supporting Document(s) [facility] [id number]K0UFpCInZtYsDnYRA0 lbm [file] [id number]EDz= ID Date Data Source [id number] 08/31/2021 03:38:55 PM EDT [facility] Name Value Range Interpretation Code Description Data [place] rce(s) Supporting Document(s) Bicarbonate [Moles/volume] in Serum 20 mmol/L 22-29 L [facility] Chloride [Moles/volume] in Serum or Plasma 109 mmol/L 98-107 H [facility] Creatinine [Mass/volume] in Serum or Plasma 1.08 mg/dL 0.70-1.20 [facility] Glucose [Mass/volume] in Serum or Plasma 75 mg/dL 70-140 [facility] Potassium [Moles/volume] in Serum or Plasma 3.8 mmol/L 3.4-5.1 [facility] Sodium [Moles/volume] in Serum or Plasma 141 mmol/L 136-145 [facility] Urea nitrogen [Mass/volume] in Serum or Plasma 16 mg/dL 6-20 [facility] Anion gap 3 in Serum or Plasma 12 mmol/L 8-15 [facility] Osmolality of Serum or Plasma by calculation 292 mosm/kg 275-300 [facility] Creatinine/Urea nitrogen [Mass Ratio] in Serum or Plasma 15 [facility] Calcium [Mass/volume] in Serum or Plasma 8.1 mg/dL 8.6-10.0 L [facility] Glomerular filtration rate/1.73 sq M pre dicted among non-blacks [Volume Rate/Area] in Serum or Plasma by Creatinine-based formula (MDRD) 74 mL/min/1.73m2 >60 [facility] Glomerular filtration rate/1.73 sq M pre dicted among blacks [Volume Rate/Area] in Serum or Plasma by Creatinine-based formula (MDRD) 86 mL/min/1.73m2 >60 [facility] ID Date Data Source [id number] 08/31/2021 01:20:18 PM EDT [facility] Name Value Range Interpretation Code Description Data [place] rce(s) Supporting Document(s) Consultation [facility] [id number]dWPwRfUbMrXEK3 lbm [file] [id number]nMlNL6WTUt= ID Date Data Source [id number] 08/31/2021 10:16:27 AM EDT [facility] Name Value Range Interpretation Code Description Data [place] rce(s) Supporting Document(s) [facility] XLBNQq1eXhNGHgJrv5WcJfMuWSNhVE7cvew0H6L8qQUbB4LbmHKup5hgF6DkW2OzAMMhKEKDYJ8ZyMPj jb2 [file] H4L4u57SokX6AGwj1WGHJ/Adrián/Kaqp5xsCj/Q+/2w9 [file] k0RPVQh18wi+qPPhJOoNvz+MRCDyA5/iWVjc2/+h8uJJztCcVORo6HdIBHTBKyqfnplqkxJmDLu+Le +Y2BR3KJ4KFzjgLLYlDVouO4SoyaKyXzNYz0CS2sKr 3y3PeP2ia+HcZ7tJ6YCR57DY7300+yn9bjW1AjEn0ZDp9C1F5vHkq+L2jz9e9/Y/J7k9+tB0EHTBGka8 gF5CnGulnceeKTPv1qvLk8mJaHC1TA/6nSn12/Yt+A/Rjj35hjmN0UCa9Gz1O7PnjVO0PTlgVMJOmmPv 4Rr4tiaD6DM/lw1Hg3Ptp9Ry879A0cIl+4BnngBdcL r1nUrfo5VwqeIsFZjgoZFpYqzveEu/qKefQ0zkzVMz8I2Y6B/AtaJz9S3niNs6IJ/eymYc8ULl/3LvMV /K8wXuh/hfL0v+rif9XF/6pDv+Rc2gtig69N1+nJ1B02dmBd83NR/YrXRcqLlEt/Fv+zHo0kgsGlM14H Px/cG1kyQ3N3Yi4gg4e/3zJ2tFr/HtKfh/KyBq5P77 PG6+y34n/Vxf+qT/m+0K/Qb2ee//cP406a+hXmf+yE5QkXw9NAjE7eeEa/je2NKll3ZX9gd+/Dp2FFfR +hf0K/iut++/Blackmon/jzz/QeWh5jrFM09OyL6dN59H/U3pLtwnkjYtji2wy7J+rt+da+nHV9U36ZoN3kWbt 0pVze1ATqh11H+hBcKp1N+iN/jdVLfu6Gt5HcZnn28 Hwk8Vszy13uJq3FAT/NJML1NeDQV0RyPk6k2woQ1qdj4xa33DUK0LY+ZaLa9zlXZGzVN+099jiR6vHoq yve9/5N1FAnEkmr4IE/6xw6cD/pcNHA+4GAg45RxycexWM/0gqx2TvYe61yqOb3VwY3l84mnAv+cD8a1 lC/5/ew9rnF66+cB/Jm1dDdx0zmoXFSjiHDI4g1Qr9 hdn/yNvG9J+/PA+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+/m8Ys7K206s9V92zY/Kv+8Q/6sB/xnU6p2dB/s8xCM3sMmzqbHF/lc+Fw34X/ l8NeB/2JkksR4WWIabya08NhcW6N1oPRc7NvsV/7hZfyyj39kCi7R0lD2/O+T+P45z7ov4sxipGPnZy5 J7+mj9BOcrj+K71+qDnulyIy9a6/VijPb48eS7JrlY w/LuwyBmK2Zy1aO+KfQrXncp9/UI/MO8Hzdw3Re7A+hX+FHO5rgz8F84xkr8n9i1ybK5NyFtx/OF0dK+ MWC/Fx6lyq1BbznjeMaWucp+k6Pl/ne0tD+Plv5IA/kX3yyuG8Uh/WPawL6xSp2RDdoh8N0xqkm8pzoy aDk/p4cw64T+Fdd3Ph/Qrwav8/499ckB+hJer2ZE9e Majo/Yr4/MHR8mYb+/R094+rbiCpm51jPJ+GoQ5Hj2Y+DnM9JiyLe9ap6Q1P/i1APv8uHQFI/sYJfvtSH k3WFXkRc+K33t/lnsto9C/Js/tj1xL+ch+Tv1NcJD+VXid/XnI+47c7w/Yr9AmI/dHY0p/spXoZ7NjSm A9vrYy0vxzQh8c/5872enoF1/0FFzUFcdMf/6B80H0 L2sJDs2J//YB/HqoDg7X4/Q7YBvW365o9+PrEfqP+F+ZWs659dt+TIHrVx9SLpZy8U0L6nc+3m24T/V9 Se7M9C7Ng8z3l4uvqcazLxH2KJ7m185a05blZDsC9si+/uz3m/G65/XM34pDAe/4pfG1li4dzO06/TyH mvJW9XO6kUhYza+eQk05IEpl/Xqo4FbM9Y+Po1/Rt3 Mc/crYtke/Rodriguez/n4haWthlS7HGcF2tPLyh/pvwbn24lYIC18YMV1nOj2fZK+xXvOfK/dWvhszl6Y5Xzi fmk/h4ZvuO0TNsKjb34nopzf0f8Fjppz/3bNoKQinczy16s3yzapxUD+Yzbj+f8G/1kedtigbwfdngW4 ehRt7gyLUQy22k6zd/6ncxVox7IXo/s2U92clabgJQ xpdN0a+m+H0W1Vx8Z0ouGYzsvl/I62FZBUHwNsxqkvldpIciq5N6b/9Vw/V1ptDrlJ+CEj1GO2d//on4 aqHyWdlGkeG5Zp7rzhU0poruK2vEZc5J2qF6TNyV5l40r/iyaUN+n/nNiUbApOng05FZR5rkD+G7WJ6X Blez6hsiZnY2m8Vp1sRbasvOnW3DW5bG5EsjMn6hi4 e5Knvx6cAq9nsipUcWbaY0o2pktqEPT1AF/40J/EiprJH1dgjVwkXqo2P3jW1Vacdlr/ek/Qq/SX1jwn 0X0VD8wz7Or0U/7IR+hf4G/WrhN2m/mrRfDVzf/cuE/Xxq9dMddYX+KTemE664Xl0axB0u5tlAkV2Y0K cLHk9FjkwBCD/P1Jczl6nQPt6bgAk99ow5s/LcnvXp 2P/iufB/9bbMahpdG1zs2P+bdBm/cIW60H9jI6l3wVeuTS/YKdYjP8egs06Px2HZgdV2sRib856PmWx+ r+tX/O2BC2OqUDpq+nieIqXJrdQ6ojALacUu11j/pAn7FX+f5Nfyoe/aYw3HX38ze2W+TioPanT3C/oV zuu9x5nx+Haj04hp4W61jC6YmqF/EbkV4LH+V3PKej NIrM2z50E+s3zJ+Y3ytzSwCe3g4Fmn/iJ+VL5hqD49noKEksUaiAx4c/Qu58xpuIolv2OFA6eeM932T5 ycQgfMoxGcz9HykNonu6IFI5wpY784Z1zrNwbjtOFO/DXi5g2gzW9NF5N7eeGhTXztkKZ/OCV+cEr84N ldqwjz2C/B+EFe3++1nlx/F/SrjfLsz+tJf/715Hn3 dqThpe5rm8+h8EfqM2zhTWce3CaT85a8LtsO+lVD+bi2SlV6XvvGco/HZpjq3slR38x+VmDi0dzOv5IO Tawanda/814P3KLys9HXP12QsezFBh1uD1+6N4m7xpEs/M8uCA1iQQN3CPxV3LfdZ0k5joI1vvc+wJD/DkvwM [file] [id number]= ID Date Data Source [id number] 08/31/2021 01:15:10 PM EDT [facility] Name Value Range Interpretation Code Description Data [place] rce(s) Supporting Document(s) Osmolality of Urine 436 mosm/kg 300-1000 [facility] ID Date Data Source [id number] 08/31/2021 03:29:07 PM EDT [facility] Name Value Range Interpretation Code Description Data [place] rce(s) Supporting Document(s) Sodium [Moles/volume] in Urine 91 mmol/L [facility] ID Date Data Source [id number] 08/31/2021 10:16:47 AM [facility] Value Range Interpretation Code Description Data [place] rce(s) Supporting Document(s) Platelets [#/volume] in Blood by Automated count 232 10*3/uL 150-400 [facility] ID Date Data Source [id number] 08/31/2021 08:44:24 AM [facility] Value Range Interpretation Code Description Data [place] rce(s) Supporting Document(s) Bicarbonate [Moles/volume] in Serum 21 mmol/L 22-29 L [facility] Chloride [Moles/volume] in Serum or Plasma 99 mmol/L 98-107 [facility] Creatinine [Mass/volume] in Serum or Plasma 1.30 mg/dL 0.70-1.20 H [facility] Glucose [Mass/volume] in Serum or Plasma 115 mg/dL 70-140 [facility] Potassium [Moles/volume] in Serum or Plasma 3.6 mmol/L 3.4-5.1 [facility] Hemolyzed Sodium [Moles/volume] in Serum or Plasma 133 mmol/L 136-145 L [facility] Urea nitrogen [Mass/volume] in Serum or Plasma 16 mg/dL 6-20 [facility] Anion gap 3 in Serum or Plasma 13 mmol/L 8-15 [facility] Osmolality of Serum or Plasma by calculation 278 mosm/kg 275-300 [facility] Creatinine/Urea nitrogen [Mass Ratio] in Serum or Plasma 13 [facility] Calcium [Mass/volume] in Serum or Plasma 9.7 mg/dL 8.6-10.0 [facility] Glomerular filtration rate/1.73 sq M pre dicted among non-blacks [Volume Rate/Area] in Serum or Plasma by Creatinine-based formula (MDRD) 59 mL/min/1.73m2 >60 L [facility] Glomerular filtration rate/1.73 sq M pre dicted among blacks [Volume Rate/Area] in Serum or Plasma by Creatinine-based formula (MDRD) 69 mL/min/1.73m2 >60 [facility] ID Date Data Source [id number] 08/31/2021 08:44:24 AM [facility] Name Value Range Interpretation Code Description Data [place] rce(s) Supporting Document(s) Magnesium [Mass/volume] in Serum or Plasma 2.0 mg/dL 1.6-2.6 [facility] ID Date Data Source [id number] 08/31/2021 08:44:24 AM [facility] Name Value Range Interpretation Code Description Data [place] rce(s) Supporting Document(s) Phosphate [Mass/volume] in Serum or Plasma 2.4 mg/dL 2.5-4.5 L [facility] ID Date Data Source [id number] 08/31/2021 02:23:25 PM [facility] Name Value Range Interpretation Code Description Data [place] rce(s) Supporting Document(s) Bicarbonate [Moles/volume] in Serum 19 mmol/L 22-29 L [facility] Chloride [Moles/volume] in Serum or Plasma 97 mmol/L 98-107 L [facility] Creatinine [Mass/volume] in Serum or Plasma 1.30 mg/dL 0.70-1.20 H [facility] Glucose [Mass/volume] in Serum or Plasma 117 mg/dL 70-140 [facility] Potassium [Moles/volume] in Serum or Plasma 3.6 mmol/L 3.4-5.1 [facility] Sodium [Moles/volume] in Serum or Plasma 131 mmol/L 136-145 L [facility] Urea nitrogen [Mass/volume] in Serum or Plasma 17 mg/dL 6-20 [facility] Anion gap 3 in Serum or Plasma 17 mmol/L 8-15 H [facility] Osmolality of Serum or Plasma by calculation 291 mosm/kg 275-300 [facility] Creatinine/Urea nitrogen [Mass Ratio] in Serum or Plasma 13 [facility] Calcium [Mass/volume] in Serum or Plasma 9.5 mg/dL 8.6-10.0 [facility] Glomerular filtration rate/1.73 sq M pre dicted among non-blacks [Volume Rate/Area] in Serum or Plasma by Creatinine-based formula (MDRD) 59 mL/min/1.73m2 >60 L [facility] Glomerular filtration rate/1.73 sq M pre dicted among blacks [Volume Rate/Area] in Serum or Plasma by Creatinine-based formula (MDRD) 69 mL/min/1.73m2 >60 [facility] ID Date Data Source [id number] 08/31/2021 05:21:32 AM [facility] Value Range Interpretation Code Description Data [place] rce(s) Supporting Document(s) Prothrombin time (PT) 14.5 s 11.6-14.0 H [facility] INR in Platelet poor plasma by Coagulation assay 1.18 [facility] Routine intensity oral anticoagulation I NR is typically 2.0-3.0. Target INR must be clinically individualized. ID Date Data Source [id number] 08/31/2021 05:53:27 AM [facility] Value Range Interpretation Code Description Data [place] rce(s) Supporting Document(s) Bicarbonate [Moles/volume] in Serum 22-29 [facility] NOTIFIED GUI POTTER [id number] 1933 BY 975 1 Chloride [Moles/volume] in Serum or Plasma 98-107 [facility] Creatinine [Mass/volume] in Serum or Plasma 0.70-1.20 [facility] Glucose [Mass/volume] in Serum or Plasma 70-140 [facility] Potassium [Moles/volume] in Serum or Plasma 3.4-5.1 [facility] Sodium [Moles/volume] in Serum or Plasma 136-145 [facility] Urea nitrogen [Mass/volume] in Serum or Plasma 6-20 [facility] Anion gap 3 in Serum or Plasma 8-15 [facility] Osmolality of Serum or Plasma by calculation 275-300 [facility] Creatinine/Urea nitrogen [Mass Ratio] in Serum or Plasma [facility] Calcium [Mass/volume] in Serum or Plasma 8.6-10.0 [facility] Glomerular filtration rate/1.73 sq M pre dicted among non-blacks [Volume Rate/Area] in Serum or Plasma by Creatinine-based formula (MDRD) >6 0 [facility] Glomerular filtration rate/1.73 sq M pre dicted among blacks [Volume Rate/Area] in Serum or Plasma by Creatinine-based formula (MDRD) >60 [facility] ID Date Data Source [id number] 08/31/2021 06:06:20 AM EDT [facility] Name Value Range Interpretation Code Description Data [place] rce(s) Supporting Document(s) Leukocytes [#/volume] in Blood by Automated count 10.2 10*3/uL 4-10 H [facility] Erythrocytes [#/volume] in Blood by Automated count 4.92 10*6/uL 4.6- 6.1 [facility] Hemoglobin [Mass/volume] in Blood 15.0 g/dL 13.5-18 [facility] Hematocrit [Volume Fraction] of Blood by Automated count 44.6 % 4 1-53 [facility] Erythrocyte mean corpuscular volume [Entitic volume] by Auto mated count 90.8 fL 80-96 [facility] Erythrocyte mean corpuscular hemoglobin [Entitic mass] by Automated count 30.5 pg 27-33 [facility] Erythrocyte mean corpuscular hemoglobin concentration [Mass/volume] by Autom[facility] 33.6 g/[facility] 32.0-[facility] width [Ratio] by Automated count 16.4 % 11.5-14.5 H [facility] Platelets [#/volume] in Blood by Automated count 150-400 [facility] Differential cell count method - Blood [facility] Neutrophils/100 leukocytes in Blood by Automated count 74 % [facility] Lymphocytes/100 leukocytes in Blood by Automated count 17 % [facility] Monocytes/100 leukocytes in Blood by Automated count 7 % [facility] Eosinophils/100 leukocytes in Blood by Automated count 1 % [facility] Basophils/100 leukocytes in Blood by Automated count 1 % [facility] Neutrophils [#/volume] in Blood by Automated count 7.60 10*3/uL 1.8-7 .0 H [facility] Lymphocytes [#/volume] in Blood by Automated count 1.69 10*3/uL 1.2-4 .0 [facility] Monocytes [#/volume] in Blood by Automated count 0.71 10*3/uL 0-0.8 [facility] Eosinophils [#/volume] in Blood by Automated count 0.09 10*3/uL 0-0.5 [facility] Basophils [#/volume] in Blood by Automated count 0.12 10*3/uL 0-0.2 [facility] Nucleated erythrocytes/100 leukocytes [Ratio] in Blood by Automated count 0 /100{WBCs} 0-0 [facility] ID Date Data Source [id number] 08/30/2021 01:15:45 PM EDT [facility] Name Value Range Interpretation Code Description Data [place] rce(s) Supporting Document(s) Consultation [facility] [id number] lbm [file] [id number]+[id number] ID Date Data Source [id number] 08/30/2021 11:24:05 AM EDT [facility] CT HEAD WITHOUT CONTRAST [id number] RESU LTInterpreted by:Cheng Ovalle MDINDICATION: 56-year-old male with interparenchymal hemorrhages and history of atrial fibrillation on Xarelto. Stability scan.TECHNIQUE: Contiguous axial CT images of the head from the base of the skull to the vertex without IV contrast. Coronal and sagittal reformatted images were also obtained. Automated dose lowering techniques and/or adjustment according to patient size were utilized for this exam.COMPARISON: CTA head 08/29/[address] head 08/29/2021 available in Syntemp.FINDINGS:Compared to immediate prior examination, the left external capsule/deep white matter hemorrhage lateral to left basal ganglia is similar in size and mild surrounding vasogenic edema. The left posterior kenny hemorrhage is also similar in appearance compared to previous imaging. There is no evidence of new intracranial hemorrhage or extra-axial fluid collection. There continues to be mild mass effect on the left lateral ventricle. There is no midline shift. There is no evidence of acute territorial infarction. The basal cisterns are patent. Left maxillary sinus is partially opacified. Mastoid air cells are clear. No d epressed calvarial fracture. Extracranial soft tissues are unremarkable.IMPRESSION:No significant interval change of left external capsule/deep white matter hemorrhage . Stable left upper brainstem hemorrhage. No new evidence of intracranial hemorrhage or extra axial fluid collection.This document has been electronically signed by ABDIEL Ovalle on 08/30/2021 11:21 AM Name Value Range Interpretation Code Description Data [place] rce(s) Supporting Document(s) ID Date Data Source [id number] 08/30/2021 09:09:25 AM EDT [facility] Name Value Range Interpretation Code Description Data [place] rce(s) Supporting Document(s) Leukocytes [#/volume] in Blood by Automated count 9.6 10*3/uL 4-10 [facility] Erythrocytes [#/volume] in Blood by Automated count 4.63 10*6/uL 4.6- 6.1 [facility] Hemoglobin [Mass/volume] in Blood 14.3 g/dL 13.5-18 [facility] Hematocrit [Volume Fraction] of Blood by Automated count 42.9 % 4 1-53 [facility] Erythrocyte mean corpuscular volume [Entitic volume] by Auto mated count 92.7 fL 80-96 [facility] Erythrocyte mean corpuscular hemoglobin [Entitic mass] by Automated count 30.9 pg 27-33 [facility] Erythrocyte mean corpuscular hemoglobin concentration [Mass/volume] by Automated count 33.3 g/dL 32.0-36.0 [facility] width [Ratio] by Automated count 15.2 % 11.5-14.5 H [facility] Platelets [#/volume] in Blood by Automated count 236 10*3/uL 150-400 [facility] Differential cell count method - Blood [facility] Neutrophils/100 leukocytes in Blood by Automated count 76 % [facility] Lymphocytes/100 leukocytes in Blood by Automated count 15 % [facility] Monocytes/100 leukocytes in Blood by Automated count 7 % [facility] Eosinophils/100 leukocytes in Blood by Automated count 1 % [facility] Basophils/100 leukocytes in Blood by Automated count 1 % [facility] Neutrophils [#/volume] in Blood by Automated count 7.28 10*3/uL 1.8-7 .0 H [facility] Lymphocytes [#/volume] in Blood by Automated count 1.46 10*3/uL 1.2-4 .0 [facility] Monocytes [#/volume] in Blood by Automated count 0.66 10*3/uL 0-0.8 [facility] Eosinophils [#/volume] in Blood by Automated count 0.11 10*3/uL 0-0.5 [facility] Basophils [#/volume] in Blood by Automated count 0.07 10*3/uL 0-0.2 [facility] Nucleated erythrocytes/100 leukocytes [Ratio] in Blood by Automated count 0 /100{WBCs} 0-0 [facility] ID Date Data Source [id number] 08/30/2021 09:22:25 AM EDT [facility] Name Value Range Interpretation Code Description Data [place] rce(s) Supporting Document(s) Bicarbonate [Moles/volume] in Serum 23 mmol/L 22-29 [facility] Chloride [Moles/volume] in Serum or Plasma 103 mmol/L 98-107 [facility] Creatinine [Mass/volume] in Serum or Plasma 1.27 mg/dL 0.70-1.20 H [facility] Glucose [Mass/volume] in Serum or Plasma 111 mg/dL 70-140 [facility] Potassium [Moles/volume] in Serum or Plasma 3.8 mmol/L 3.4-5.1 [facility] Sodium [Moles/volume] in Serum or Plasma 137 mmol/L 136-145 [facility] Urea nitrogen [Mass/volume] in Serum or Plasma 13 mg/dL 6-20 [facility] Anion gap 3 in Serum or Plasma 11 mmol/L 8-15 [facility] Osmolality of Serum or Plasma by calculation 284 mosm/kg 275-300 [facility] Creatinine/Urea nitrogen [Mass Ratio] in Serum or Plasma 10 [facility] Calcium [Mass/volume] in Serum or Plasma 9.6 mg/dL 8.6-10.0 [facility] Glomerular filtration rate/1.73 sq M pre dicted among non-blacks [Volume Rate/Area] in Serum or Plasma by Creatinine-based formula (MDRD) 61 mL/min/1.73m2 >60 [facility] Glomerular filtration rate/1.73 sq M pre dicted among blacks [Volume Rate/Area] in Serum or Plasma by Creatinine-based formula (MDRD) 71 mL/min/1.73m2 >60 [facility] ID Date Data Source [id number] 08/30/2021 09:22:25 AM [facility] Name Value Range Interpretation Code Description Data [place] rce(s) Supporting Document(s) Magnesium [Mass/volume] in Serum or Plasma 1.8 mg/dL 1.6-2.6 [facility] ID Date Data Source [id number] 08/30/2021 09:22:25 AM [facility] Value Range Interpretation Code Description Data [place] rce(s) Supporting Document(s) Phosphate [Mass/volume] in Serum or Plasma 2.7 mg/dL 2.5-4.5 [facility] ID Date Data Source [id number] 08/30/2021 11:21:08 AM [facility] Value Range Interpretation Code Description Data [place] rce(s) Supporting Document(s) Natriuretic peptide.B prohormone N-Terminal [Mass/volu me] in Serum or Plasma 1089 pg/mL <125 H [facility] ID Date Data Source [id number] 08/30/2021 06:23:11 AM [facility] Value Range Interpretation Code Description Data [place] rce(s) Supporting Document(s) Prothrombin time (PT) 14.5 s 11.6-14.0 H [facility] INR in Platelet poor plasma by Coagulation assay 1.18 [facility] Routine intensity oral anticoagulation I NR is typically 2.0-3.0. Target INR must be clinically individualized. ID Date Data Source [id number] 08/30/2021 12:47:59 AM EDT [facility] Name Value Range Interpretation Code Description Data [place] rce(s) Supporting Document(s) Prothrombin time (PT) 14.1 s 11.6-14.0 H [facility] INR in Platelet poor plasma by Coagulation assay 1.14 [facility] Routine intensity oral anticoagulation I NR is typically 2.0-3.0. Target INR must be clinically individualized. ID Date Data Source [id number] [facility] Code Description Data [place] rce(s) Supporting Document(s) [facility] [id number] m [file] [id number] ID Date Data Source [id number] 08/29/2021 08:57:02 PM EDT [facility] Name Value Range Interpretation Code Description Data [place] rce(s) Supporting Document(s) Consultation [facility] [id number] lbm [file] [id number]= ID Date Data Source [id number] 08/29/2021 08:56:22 PM EDT [facility] Name Value Range Interpretation Code Description Data [place] rce(s) Supporting Document(s) History and Physical [facility] [id number] lbm [file] [id number] ID Date Data Source [id number] 08/29/2021 03:56:13 PM EDT [facility] ANGIOGRAPHY HEAD [id number] RESULTInt erpreted by:Kike Sun MDINDICATION: 56-year-old male with history of atrial fibrillation on Xarelto present with slurred speech, weakness and numbness. TECHNIQUE: Noncontrast axial head CT was acquired. A contrast-enhanced multidetector helical CTA head and neck was performed after the administration of Omnipaque IV contrast. Pertaining to the extracranial internal carotid arteries (ICAs), the degree of stenosis was accessed using NASCET Criteria. Automated dose lowering techniques and/or adjustment according to patient size were utilized for this exam.COMPARISON: CT head dated 08/29/2021 7:33 AM available in Syntemp.FINDINGS:BRAIN: There is redemonstration of left frontotemporal lobe lateral to left basal ganglia, similar in size compared to previous imaging with surrounding vasogenic edema. There is also additional left posterior kenny hemorrhage, similar in appearance compared to previous imaging. There is no evidence of new intracranial hemorrhage or extra-axial fluid collection.There is no evidence of acute territorial infarction. There is no midline shift. The basal cisterns are patent. Ventricles and sulci are normal.Left maxillary sinus is partially opacified. Mastoid air cells are clear. No depressed calvarial fracture. Extracranial soft tissues are unremarkable.CTA NECK: There is normal three vessel anatomy of the aortic arch. There are scattered atherosclerotic calcified plaque of the aortic arch, otherwise aortic arch and proximal branches are patent. There are calcified and noncalcified plaque in the bilateral extr acranial ICAs and carotid bifurcations without hemodynamically significant stenosis. Left vertebral artery appears small in caliber up to C2 level and faintly visualized from C 2 to V4 segment and reconstituted before the basilar artery. Bilateral subclavian arteries, common carotid arteries, extracranial vertebral arteries are patent without hemodynamically significant stenosis. Lung apices demonstrate cystic changes and scarring. Scattered degenerative changes are present in the visualized cervical spine. No discrete nodule is identified in the visualized thyroid gland. There is mild asymmetric appearance of left vocal cord without evidence of discrete mass.CTA HEAD: Intracranial cavernous and supraclinoid ICAs demonstrate calcified and noncalcified plaque without radiographically significant stenosis.The left vertebral artery is faintly visualized from C2 level to beginning of V4 segment and reconstitutes prior to joining basilar artery.A1 and A2 segments of anterior cerebral arteries, anteri or communicating artery, M1 and M2 segments of middle cerebral arteries, basilar artery, superior cerebellar arteries, and the P1 and P2 segments of posterior cerebral arteries are patent without hemodynamically significant stenosis.The visualized portion of major dural venous sinuses are patent.IMPRESSION:1. 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 No new evidence of intracranial hemorrhage or extra axial fluid collection.2. Extracranial left vertebral artery appears small in caliber with nonvisualization from C2 level to beginning of the V4 segment with reconstitution prior to the basilar artery. Otherwise the major intra-axial and extra cranial arteries are patent. No evidence of aneurysm.This document has been electronically signed by Freddy Rae MD on 08/29/2021 3:54 PM Name Value Range Interpretation Code Description Data [place] rce(s) Supporting Document(s) ID Date Data Source [id number] 08/29/2021 03:56:13 PM EDT [place] [facility] CT ANGIOGRAPHY NECK [id number] RESULTInt erpreted by:Kike Sun MDINDICATION: 56-year-old male with history of atrial fibrillation on Xarelto present with slurred speech, weakness and numbness. TECHNIQUE: Noncontrast axial head CT was acquired. A contrast-enhanced multidetector helical CTA head and neck was performed after the administration of Omnipaque IV contrast. Pertaining to the extracranial internal carotid arteries (ICAs), the degree of stenosis was accessed using NASCET Criteria. Automated dose lowering techniques and/or adjustment according to patient size were utilized for this exam.COMPARISON: CT head dated 08/29/2021 7:33 AM available in Syntemp.FINDINGS:BRAIN: There is redemonstration of left frontotemporal lobe lateral to left basal ganglia, similar in size compared to previous imaging with surrounding vasogenic edema. There is also additional left posterior kenny hemorrhage, similar in appearance compared to previous imaging. There is no evidence of new intracranial hemorrhage or extra-axial fluid collection.There is no evidence of acute territorial infarction. There is no midline shift. The basal cisterns are patent. Ventricles and sulci are normal.Left maxillary sinus is partially opacified. Mastoid air cells are clear. No depressed calvarial fracture. Extracranial soft tissues are unremarkable.CTA NECK: There is normal three vessel anatomy of the aortic arch. There are scattered atherosclerotic calcified plaque of the aortic arch, otherwise aortic arch and proximal branches are patent. There are calcified and noncalcified plaque in the bilateral extr acranial ICAs and carotid bifurcations without hemodynamically significant stenosis. Left vertebral artery appears small in caliber up to C2 level and faintly visualized from C 2 to V4 segment and reconstituted before the basilar artery. Bilateral subclavian arteries, common carotid arteries, extracranial vertebral arteries are patent without hemodynamically significant stenosis. Lung apices demonstrate cystic changes and scarring. Scattered degenerative changes are present in the visualized cervical spine. No discrete nodule is identified in the visualized thyroid gland. There is mild asymmetric appearance of left vocal cord without evidence of discrete mass.CTA HEAD: Intracranial cavernous and supraclinoid ICAs demonstrate calcified and noncalcified plaque without radiographically significant stenosis.The left vertebral artery is faintly visualized from C2 level to beginning of V4 segment and reconstitutes prior to joining basilar artery.A1 and A2 segments of anterior cerebral arteries, anteri or communicating artery, M1 and M2 segments of middle cerebral arteries, basilar artery, superior cerebellar arteries, and the P1 and P2 segments of posterior cerebral arteries are patent without hemodynamically significant stenosis.The visualized portion of major dural venous sinuses are patent.IMPRESSION:1. 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 No new evidence of intracranial hemorrhage or extra axial fluid collection.2. Extracranial left vertebral artery appears small in caliber with nonvisualization from C2 level to beginning of the V4 segment with reconstitution prior to the basilar artery. Otherwise the major intra-axial and extra cranial arteries are patent. No evidence of aneurysm.This document has been electronically signed by Freddy Rae MD on 08/29/2021 3:54 PM Name Value Range Interpretation Code Description Data [place] rce(s) Supporting Document(s) ID Date Data Source [id number] 08/29/2021 03:03:03 PM EDT [facility] XR CHEST FRONTAL ONLY [id number] RESULTI nterpreted by:Cesario Vanessa MDPROCEDURE INFORMATION: Exam: XR Chest Exam date and time: 08/29/2021 2:22 PM Age: 56 years old Clinical indication: Other: Stroke eitiology TECHNIQUE: Imaging protocol: XR of the chest. Views: 1 view. COMPARISON: CT ANGIOGRAPHY NECK [id number] 08/29/2021 2:08 PM FINDINGS: Lungs: There is central vascular and interstitial prominence. Correlate for signs of passive congestion. No consolidation. Pleural spaces: Unremarkable. No pleural effusion. No pneumothorax. Heart/Mediastinum: There is mild cardiomegaly. A loop monitor projects over the left hemithorax.Bones/joints: Unremarkable. IMPRESSION: Central vascular and interstitial prominence. Mild cardiomegaly.THIS DOCUMENT HAS BEEN ELECTRONICALLY SIGNED BY CESARIO VANESSA MDThis document has been electronically signed by Cesario Vanessa MD on 08/29/2021 3:02 PM Name Value Range Interpretation Code Description Data [place] rce(s) Supporting Document(s) ID Date Data Source [id number] 08/29/2021 02:59:00 PM EDT [facility] Name Value Range Interpretation Code Description Data [place] rce(s) Supporting Document(s) SARS-CoV-2 RNA 2019 nCoV Real-Time RT-PCR: NOT DETECTED [facility] This lab was ordered by [facility] and reported by [facility]. ID Date Data Source [id number] 08/30/2021 06:37:36 AM EDT [facility] Service Cmnt XXX-Imp : NoneRespiratory P CR Panel : PCR ResultsMicroorganism XXX Cult : See Labs Tab for 2019 nCoV RT-PCR resultsHAdV DNA QI NIRMAL+non-probe : Not DetectedHCoV [id number] Nph QI NIRMAL+non-probe : Not DetectedHCoV HYF2IKP Nph QI NIRMAL+non-probe : Not [id number] RNA Nph QI NIRMAL+non-probe : Not [id number] RNA Upper resp QI NIRMAL+probe : Not DetectedhMPV RNA Nph QINAA+non-probe : Not DetectedRV+EV RNA Nph QI NIRMAL+non-probe : Not DetectedFLUAV RNA Nph QI NIRMAL+ non-probe : Not DetectedFLUBV RNA Nph QI NIRMAL+non-probe : Not DetectedHPIV1 RNA NphQINAA+non-probe : Not DetectedHPIV2 RNA Nph QINAA+non-probe : Not DetectedHPVI3 RNA Nph NIRMAL+non-probe : Not DetectedHPIV4 RNA Nph Q NIRMAL+non-probe : Not DetectedRSV RNA Nph Q NIRMAL+non-probe : Polymerase chain reaction is POSITIVE for Respiratory syncytial virus.Isolation precautions required-refer to Infection Control Manual.B pert.PT PrmtNph Q NIRMAL+non-probe : Not DetectedC pneum DNA Nph Q NIRMAL+non-probe : Not DetectedM pneum DNA Nph Q NIRMAL+non-probe : Not DetectedB [id number] DNA Nph NIRMAL+non-probe : Not DetectedPlease note : FAX [id number] Name Value Range Interpretation Code Description Data [place] rce(s) Supporting Document(s) ID Date Data Source [id number] 08/29/2021 04:43:18 PM EDT [facility] Name Value Range Interpretation Code Description Data [place] rce(s) Supporting Document(s) Amphetamine [Presence] in Urine by Screen method Negative [facility] (NOTE)Positive results are presumptive a nd unconfirmed;confirmatorytesting can be ordered at the [facility] at [address] [place] [address] at [address] within 5 days of collection. Benzodiazepines [Presence] in Urine by Screen method Negat [facility] Cannabinoids [Presence] in Urine by Screen method Negative [facility] (NOTE)Positive results are presumptive a nd unconfirmed;confirmatorytesting can be ordered at the [facility] at [address] [place] [address] at [phone] within 5 days of collection. Benzoylecgonine [Presence] in Urine by [facility] Methadone [Presence] in Urine by Screen method Negative [facility] Opiates [Presence] in Urine by Screen method Negative [facility] Oxycodone [Presence] in Urine by Screen method Negative [facility] Fentanyl+Norfentanyl [Presence] in Urine by Screen method Negative [facility] Service comment [facility] Results below the indicated cutoff (ng/m L), are reported as"Negative." Note: for medical purposes only; not valid for legalor employment testing. ID Date Data Source [id number] 08/29/2021 04:33:08 PM EDT [facility] Name Value Range Interpretation Code Description Data [facility] rce(s) Supporting Document(s) Specimen source [Identifier] of Unspecified specimen [facility] SARS-CoV-2 RNA 2019 nCoV Real-Time RT-PCR: NOT DETECTED [facility] Assay Performed 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 [facility] Patient has symptoms related to condition [facility] When did you start to experience these symptoms [Date and time] [Phen X] [facility] Patient was hospitalized because of this condition [facility] patient was admitted to ICU for condition [facility] Patient resides in a congregate care setting [facility] status [facility] ID Date Data Source [id number] 08/29/2021 03:50:12 PM [facility] Value Range Interpretation Code Description Data [place] rce(s) Supporting Document(s) Natriuretic peptide.B prohormone N-Terminal [Mass/volu me] in Serum or Plasma 3052 pg/mL <125 H [facility] ID Date Data Source [id number] 08/29/2021 03:50:12 PM [facility] Value Range Interpretation Code Description Data [place] rce(s) Supporting Document(s) Cholesterol [Mass/volume] in Serum or Plasma 163 mg/dL <200 [facility] Triglyceride [Mass/volume] in Serum or Plasma 75 mg/dL <150 [facility] Cholesterol in HDL [Mass/volume] in Serum or Plasma 48 mg/dL >40 [facility] Cholesterol in LDL [Mass/volume] in Serum or Plasma by calcu lation 100 mg/dL <100 H [facility] Cholesterol in VLDL [Mass/volume] in Serum or Plasma by calc ulation 15 mg/dl 16-42 L [facility] Cholesterol non HDL [Mass/volume] in Serum or Plasma 115 mg/dL <130 [facility] ID Date Data Source [id number] 08/29/2021 04:18:[address] [facility] Value Range Interpretation Code Description Data [place] rce(s) Supporting Document(s) Hemoglobin A1c/Hemoglobin.total in Blood by HPLC 5.9 % 4.0-6.0 [facility] (NOTE)<5.7% Average risk of diabetes (ADA)5.7-6.4% Increased risk of diabetes(ADA)>/= 6.5% Diagnostic for diabetes(ADA) Glucose mean value [Mass/volume] in Blood Estimated fr om glycated hemoglobin 123 mg/dL <126 [facility] ID Date Data Source [id number] 08/29/2021 02:11:51 PM [facility] Value Range Interpretation Code Description Data [place] rce(s) Supporting Document(s) Leukocytes [#/volume] in Blood by Automated count 9.2 10*3/uL 4-10 [facility] Erythrocytes [#/volume] in Blood by Automated count 4.57 10*6/uL 4.6- 6.1 L [facility] Hemoglobin [Mass/volume] in Blood 14.2 g/dL 13.5-18 [facility] Hematocrit [Volume Fraction] of Blood by Automated count 42.5 % 4 1-53 [facility] Erythrocyte mean corpuscular volume [Entitic volume] by Auto mated count 92.8 fL 80-96 [facility] Erythrocyte mean corpuscular hemoglobin [Entitic mass] by Automated count 30.9 pg 27-33 [facility] Erythrocyte mean corpuscular hemoglobin concentration [Mass/volume] by Automated count 33.3 g/dL 32.0-36.0 [facility] width [Ratio] by Automated count 15.5 % 11.5-14.5 H [facility] Platelets [#/volume] in Blood by Automated count 237 10*3/uL 150-400 [facility] ID Date Data Source [id number] 08/29/2021 02:33:[address] [facility] Value Range Interpretation Code Description Data [place] rce(s) Supporting Document(s) Prothrombin time (PT) 15.4 s 11.6-14.0 H [facility] INR in Platelet poor plasma by Coagulation assay 1.27 [facility] Routine intensity oral anticoagulation I NR is typically 2.0-3.0. Target INR must be clinically individualized. ID Date Data Source [id number] 08/29/2021 02:33:27 PM [facility] Value Range Interpretation Code Description Data [place] rce(s) Supporting Document(s) aPTT in Platelet poor plasma by Coagulation assay 30.5 s 24.0-33. 0 [facility] ID Date Data Source [id number] 08/29/2021 03:00:47 PM [facility] Value Range Interpretation Code Description Data [place] rce(s) Supporting Document(s) Ethanol [Mass/volume] in Serum or Plasma Negative [facility] ID Date Data Source [id number] 08/29/2021 03:26:52 PM [facility] Value Range Interpretation Code Description Data [place] rce(s) Supporting Document(s) Albumin [Mass/volume] in Serum or Plasma by Bromocresol green (BCG) dye binding method 4.1 g/dL 3.5-5.2 [facility] Bilirubin.total [Mass/volume] in Serum or Plasma 0.8 mg/dL <1.2 [facility] Calcium [Mass/volume] in Serum or Plasma 8.9 mg/dL 8.6-10.0 [facility] Chloride [Moles/volume] in Serum or Plasma 105 mmol/L 98-107 [facility] Creatinine [Mass/volume] in Serum or Plasma 1.21 mg/dL 0.70-1.20 H [facility] Glucose [Mass/volume] in Serum or Plasma 92 mg/dL 70-140 [facility] Alkaline phosphatase [Enzymatic activity/volume] in Serum or Plasma 122 U/L 40-129 [facility] Potassium [Moles/volume] in Serum or Plasma 4.2 mmol/L 3.4-5.1 [facility] Protein [Mass/volume] in Serum or Plasma 7.1 g/dL 6.4-8.3 [facility] Sodium [Moles/volume] in Serum or Plasma 142 mmol/L 136-145 [facility] Aspartate aminotransferase [Enzymatic activity/volume] in Serum or Plasma 14 U/L <40 [facility] Urea nitrogen [Mass/volume] in Serum or Plasma 13 mg/dL 6-20 [facility] Osmolality of Serum or Plasma by calculation 294 mosm/kg 275-300 [facility] Creatinine/Urea nitrogen [Mass Ratio] in Serum or Plasma 11 [facility] Bicarbonate [Moles/volume] in Serum 25 mmol/L 22-29 [facility] Alanine aminotransferase [Enzymatic activity/volume] in Seru m or Plasma 8 U/L <41 [facility] Anion gap 3 in Serum or Plasma 12 mmol/L 8-15 [facility] Glomerular filtration rate/1.73 sq M pre dicted among non-blacks [Volume Rate/Area] in Serum or Plasma by Creatinine-based formula (MDRD) 65 mL/min/1.73m2 >60 [facility] Glomerular filtration rate/1.73 sq M pre dicted among blacks [Volume Rate/Area] in Serum or Plasma by Creatinine-based formula (MDRD) 75 mL/min/1.73m2 >60 [facility] ID Date Data Source [id number] 08/29/2021 03:26:52 PM EDT [facility] Name Value Range Interpretation Code Description Data [place] rce(s) Supporting Document(s) Thyrotropin [Units/volume] in Serum or Plasma 1.420 u[IU]/mL 0.270-4. 200 [facility] ID Date Data Source [id number] 08/29/2021 02:42:17 PM EDT [facility] Name Value Range Interpretation Code Description Data [facility] rce(s) Supporting Document(s) ABO and Rh group [Type] in Blood [facility] Blood group antibody screen [Presence] in Serum or Plasma [facility] Blood bank comment [facility] ID Date Data Source [id number] 08/29/2021 08:58:00 AM EDT [facility] DATE OF EXAMINATION: 08/29/2021 8:08 EDT HISTORY: Trauma TECHNIQUE: 2 views of the right humerus were obtained. FINDINGS: There is no fracture, dislocation or arthritic changes. Bones and soft tissuesappear normal. IMPRESSION: Unremarkable study of the humerus. Electronically signed in PS360 by: Mickey Greenberg M.D. 08/29/2021 8:52 EDT Name Value Range Interpretation Code Description Data [place] rce(s) Supporting Document(s) ID Date Data Source [id number] 08/29/2021 07:47:00 AM EDT [facility] DATE OF EXAMINATION: 08/29/2021 7:32 EDT CHEST 1 VIEW HISTORY: Possible stroke TECHNIQUE: Single frontal radiograph of chest COMPARISON: 08/16/2021 FINDINGS: Newly developed moderate cardiomegaly with pulmonary venous hypertension isnoted. Lungs are clear. There is no pleural effusion IMPRESSION: Newly developed moderate cardiomegaly with pulmonary venous hypertension Electronically signed in PS360 by: Mickey Greenberg M.D. 08/29/2021 7:41 EDT Name Value Range Interpretation Code Description Data [facility] rce(s) Supporting Document(s) ID Date Data Source [id number] 08/29/2021 07:45:00 AM EDT [facility] Name Value Range Interpretation Code Description Data [place] rce(s) Supporting Document(s) COVID-19 NEGATIVE [facility] This lab was ordered by [facility] and reported by [facility]. ID Date Data Source [id number] 08/29/2021 08:39:00 AM EDT [facility] [id number] Name Value Range Interpretation Code Description Data [place] rce(s) Supporting Document(s) PARTIAL THROMBOPLASTIN TIME 26.3 SECONDS 21.2-27.3 [facility] ID Date Data Source [id number] 08/29/2021 08:39:00 AM EDT [facility] l TSYSORDER [id number] Name Value Range Interpretation Code Description Data [place] rce(s) Supporting Document(s) PROTHROMBIN TIME (PATIENT) 11.6 SECONDS 9.1-11.6 [facility] INR 1.12 0.87-1.06 H [facility] ID Date Data Source [id number] 08/29/2021 08:16:00 AM EDT [facility] l TSYSORDER [id number] Name Value Range Interpretation Code Description Data [place] rce(s) Supporting Document(s) ACETAMINOPHEN LEVEL < 2.0 ug/mL 10.0-30.0 [facility] ID Date Data Source [id number] 08/29/2021 08:16:00 AM EDT [facility] l TSYSORDER [id number] Name Value Range Interpretation Code Description Data [place] rce(s) Supporting Document(s) ETHYL ALCOHOL 0.00 % 0-0.01 [facility] ID Date Data Source [id number] 08/29/2021 08:16:00 AM EDT [facility] l TSYSORDER [id number] Name Value Range Interpretation Code Description Data [place] rce(s) Supporting Document(s) SALICYLATE < 3.0 mg/dL 2.8-20.0 [facility] ID Date Data Source [id number] 08/29/2021 08:16:00 AM EDT [facility] l TSYSORDER [id number] Name Value Range Interpretation Code Description Data [place] rce(s) Supporting Document(s) GLUCOSE 97 mg/dL 74-106 [facility] BLOOD UREA NITROGEN 14 mg/dL 7-18 [facility] ital CREATININE 1.42 mg/dl 0.70-1.30 H [facility] SODIUM 141 mmol/L 136-145 [facility] POTASSIUM 3.8 mmol/L 3.5-5.1 [facility] CHLORIDE 105 mmol/L 98-107 [facility] CO2 25 mmol/L 21-32 [facility] CALCIUM 8.8 mg/dL 8.5-10.1 [facility] ANION GAP 11.0 mmol/L 5-12 [facility] GLOMERULAR FILTRATION RATE 51 mL/min [facility] GFR IS CALCULATED IN mL/min/1.73m2 YARY L FUNCTION: >90MILDLY DECREASED: 60-89MILDY TO MODERATELY DECREASED: 45-59 MODERATELY TO SEVERELY DECREASED: 30-44SEVERELY DECREASED: 15-29RENAL FAILURE: <15 AST 14 U/L 15-37 [facility] ALT 16 U/L 16-63 [facility] ALKALINE PHOSPHATASE 118 U/L 46-[address] [facility] pital TOTAL BILIRUBIN 0.4 mg/dL 0.2-1.0 [facility] TOTAL PROTEIN 6.9 g/dL 6.4-8.2 [facility] ALBUMIN 3.1 gm/dL 3.4-5.0 [facility] ID Date Data Source [id number] 08/29/2021 08:09:00 AM EDT [facility] TSYSORDER [id number] Name Value Range Interpretation Code Description [facility](s) COVID-19 NEGATIVE NEGATIVE [facility] Negative results should be treated as pr esumptive and, ifinconsistent with clinical signs and symptoms or necessaryfor patient management, should be tested with differentauthorized or cleared molecular tests.Negative results do not preclude SARS-CoV-2 infection andshould not be used as the sole basis for patient managementdecisions.This is a rapid molecular isothermal nucleic acidamplification technology (NAAT) in vitro diagnostic testutilizing a loop mediated isothermal amplification (LAMP)test with nicking endonuclease amplification reaction(NEAR) intended for the qualitative detection of nucleica rhett from the SARS-CoV-2 viral RNA in direct nasal,nasopharyngeal or throat swabs from individuals who aresuspected of COVID-19.Results are for the indentification of SARS-CoV-2 RNA. GhfGSWI-GrH-1 RNA is generally detectable in respiratorysamples during the actue phase of infection. ID Date Data Source [id number] 08/29/2021 07:54:00 AM EDT [facility] TSYSORDER [id number] Name Value Range Interpretation Code Description Data [place] e(s) Supporting Document(s) WHITE BLOOD COUNT 9.0 K/mm3 4.0-10.0 [facility] al RED BLOOD COUNT 4.60 M/mm3 4.50-6.00 [facility] HEMOGLOBIN 13.9 gm/dL 14.0-18.0 L [facility] HEMATOCRIT 41.4 % 42.0-54.0 L [facility] MEAN CELL VOLUME 90.0 fl 80-96 [facility] MEAN CORPUSCULAR HEMOGLOBIN 30.2 pg 27.0-31.0 [facility] MEAN CORPUSCULAR HGB CONC 33.6 g/dl 32.0-36.0 [facility] RED CELL DISTRIBUTION WIDTH 14.6 % 10.0-14.5 H [facility] PLATELET COUNT 237 K/mm3 172-450 [facility] MEAN PLATELET VOLUME 10.0 fl 9.0-13.0 [facility] pital GRAN % 70.6 % 50-80.0 [facility] IG% 0.2 % 0.0-0.2 [facility] LYMPH % 19.1 % 25.0-50.0 L [facility] MONO % 7.4 % 2.0-10.0 [facility] EOS % 2.1 % 0-5.0 [facility] BASO % 0.6 % 0.0-2.0 [facility] GRAN # 6.4 K/mm3 2.0-8.00 [facility] IG# 0.0 K/mm3 0.0-0.2 [facility] LYMPH # 1.7 K/mm3 1.0-5.0 [facility] MONO # 0.7 K/mm3 0.10-1.20 [facility] EOS # 0.2 K/mm3 0.0-0.5 [facility] BASO # 0.1 K/mm3 0.0-0.2 [facility] ID Date Data Source [id number] 08/29/2021 07:42:00 AM EDT [facility] l DATE OF EXAMINATION: 08/29/2021 7:26 ED T BRAIN W/O CONTRAST HISTORY: Stroke TECHNIQUE: This CT exam was performed using the following dose reduction techniques:automatic exposure control, adjustment of mA and/or kV according to thepatient's size, and use of iterative reconstruction technique. Standard contiguous axial spiral imaging was obtained from the skull basethrough the vertex without contrast administration and with coronalreformatting. FINDINGS: BRAIN: There is a 3.9 x 2.7 cm hematoma in the left basal ganglia region. Thereis no mass effect or midline shift. Mild atrophy is seen. There are noextra-axial collections. A 1.3 x 1 cm hematoma in the left posterior kenny. Thebasilar artery appears hyperdense. Possibility of a small cortical bleed in theleft parietal vertex is raised as well. IMPRESSION: 3.9 x 2.7 cm hematoma in the left basal ganglia region as well as a 1.3 x 1 cmhematoma in the left posterior kenny. The basilar artery appears hyperdense.Possibility of a small cortical bleed in the left parietal vertex is raised aswell. Electronically signed in PS360 by: Mickey Greenberg M.D. 08/29/2021 7:36 EDT Name Value Range Interpretation Code Description Data [place] rce(s) Supporting Document(s) ID Date Data Source [id number] 08/16/2021 12:23:00 PM EDT [facility] l DATE OF EXAMINATION: 08/16/2021 11:46 ED T CHEST 2 VIEWS HISTORY: Shortness of breath TECHNIQUE: PA and lateral radiographs of the chest COMPARISON: CT scan of January 2021 FINDINGS: Again identified is moderate centrilobular emphysematous changes of both lungs.There is no evidence for pneumonia or effusion. Heart is normal in size. IMPRESSION: Moderate centrilobular emphysematous changes of both lungs. Electronically signed in PS360 by: Mickey Greenberg M.D. 08/16/2021 12:18 EDT Name Value Range Interpretation Code Description Data [place] rce(s) Supporting Document(s) ID Date Data Source CHEST 2 VIEWS 08/16/2021 12:00:00 AM EDT eCW1 ([facility]) Name Value Range Interpretation Code Description Data [place] rce(s) Supporting Document(s) CHEST 2 VIEWS eCW1 ([facility]) ID Date Data Source [id number] 05/31/2021 08:30:00 AM EDT [facility] CT A NGIO CHESTCLINICAL HISTORY: Paroxysmal atrial fibrillation. Pre ablation study.COMPARISON: CT angio thorax dated 06/16/2020.TECHNIQUE: 0.62 and 2.5 mm gated axial images were obtained through the thorax following the uneventful IV administration of 70 cc of Isovue 370. Sagittal and coronal reconstructed images were obtained. Images were also evaluated using a 3D [id number]/100CC Isovue 370 injected intravenously.FINDINGS: Right superior pulmonary vein: 20 x 21 mm. Early branching.Right middle pulmonary vein: 5 mm.Right inferior pulmonary vein: 16 x 18 mm. Early branching.Intravenous saddle: NoneLeft superior pulmonary vein: 19 x 25 mm.Left inferior pulmonary vein: 18 x 21 mm.Intravenous saddle: None.Left atrium is enlarged. There are no filling defects seen.Mild cardiac enlargement. Moderate to high-grade stenosis left common carotid artery origin from the aortic arch. Mildly enlarged mediastinal and right hilar lymph nodes of uncertain etiology unchanged.Blebs and bullae seen along the lung apices. Dependent atelectasis seen bilaterally. No suspicious pulmonary nodules or masses identified. No pneumothorax. No pleural effusion. No pericardial effusion. Scattered coronary artery calcifications. Thoracic aorta has normal course and caliber without aneurysmal dilatation. Right vertebral artery is dominant.Visualized abdominal structures appear unremarkable. Degenerative changes thoracic spine.IMPRESSION: Pulmonary vein measurements as described above. Mild cardiac enlargement.Moderate to high-grade stenosis left common carotid artery origin from the aortic arch.Emphysematous changes. Blebs and bullae seen along the lung apices.Dictated by: HILARIO WALLIS M.D. on 05/31/2021lectronically Signed by: HILARIO WALLIS M.D. on 05/31/2021 09:35 AMTranscribed by: braulio on 05/31/2021 09:35 AMCDS G code: , ,CDS Modifier: , ,cc: Name Value Range Interpretation Code Description Data [place] rce(s) Supporting Document(s) ID Date Data Source [id number] 05/24/2021 04:06:00 PM EDT [facility] Name Value Range Interpretation Code Description Data [place] rce(s) Supporting Document(s) AFP, SERUM, TUMOR MARKER 3.6 ng/mL 0.0-8.3 [facility] Electrochemiluminescen ce Immunoassay(ECLIA)Values obtained with different assay methods or kits cannotbe used interchangeably. Results cannot be interpreted asabsolute evidence of the presence or absence of malignantdisease.This test is not interpretable in females.Performed at: [facility] [employer] [id number] Director: Renata Parra MD, Phone: [phone] ID Date Data Source [id number] 05/24/2021 08:09:00 PM EDT [facility] al Name Value Range Interpretation Code Description Data [place] rce(s) Supporting Document(s) HEPATITIS C QUANTITATION HCV Not Detected IU/mL . [facility] TEST INFORMATION: Comment . [facility] The quantitative range of this assay is 15 IU/mL to 100million IU/mL.Performed at: [facility] [employer] [id number] Director: Renata Parra MD, Phone: [phone] ID Date Data Source [id number] 05/24/2021 04:05:00 PM EDT [facility] Name Value Range Interpretation Code Description Data [place] rce(s) Supporting Document(s) AFP, Serum, Tumor Marker 3.6 ng/mL 0.0-8.3 [facility] Electrochemiluminescen ce Immunoassay (ECLIA) Values obtained with different assay methods or kits cannot beused interchangeably. Results cannot be interpreted as absoluteevidence of the presence or absence of malignant disease. This test is not interpretable in females. ID Date Data Source [id number] 05/24/2021 08:05:00 PM EDT [facility] Name Value Range Interpretation Code Description Data [place] rce(s) Supporting Document(s) Hepatitis C Quantitation HCV Not Detected IU/mL [facility] Test Information: [facility] The quantitative range of this assay is 15 IU/mL to 100 million IU/mL. ID Date Data Source [id number] 05/23/2021 09:08:00 AM EDT [facility] FAX [phone] Name Value Range Interpretation Code Description Data [place] rce(s) Supporting Document(s) GLUCOSE 78 mg/dL 74-106 [facility] BLOOD UREA NITROGEN 19 mg/dL 7-18 [facility] ital CREATININE 1.43 mg/dL 0.7-1.3 H [facility] SODIUM 146 mmol/L 136-145 H [facility] POTASSIUM 4.8 mmol/L 3.5-5.1 [facility] CHLORIDE 106 mmol/L 98-107 [facility] CO2 30 mmol/L 21-32 [facility] CALCIUM 9.1 mg/dL 8.5-10.1 [facility] ANION GAP 10.0 mmol/L 5-12 [facility] GLOMERULAR FILTRATION RATE 51 mL/min [facility] GFR IS CALCULATED IN mL/min/1.73m2 YARY L FUNCTION: >90MILDLY DECREASED: 60-89MILDY TO MODERATELY DECREASED: 45-59 MODERATELY TO SEVERELY DECREASED: 30-44SEVERELY DECREASED: 15-29RENAL FAILURE: <15 AST 8 U/L 15-37 L [facility] ALT 11 U/L 12-78 L [facility] ALKALINE PHOSPHATASE 122 U/L 46-[address] [facility] pital TOTAL BILIRUBIN 0.5 mg/dL 0.2-1.0 [facility] TOTAL PROTEIN 7.4 g/dl 6.4-8.2 [facility] ALBUMIN 3.6 gm/dL 3.4-5.0 [facility] ID Date Data Source [id number] 05/03/2021 12:53:00 PM T [facility] FAX [phone] Name Value Range Interpretation Code Description Data [facility]) Supporting Document(s) GLUCOSE 85 mg/dL 74-106 [facility] BLOOD UREA NITROGEN 17 mg/dL 7-18 [facility] ital CREATININE 1.39 mg/dL 0.7-1.3 H [facility] SODIUM 143 mmol/L 136-145 [facility] POTASSIUM 4.7 mmol/L 3.5-5.1 [facility] CHLORIDE 106 mmol/L 98-107 [facility] CO2 32 mmol/L -32 [facility] CALCIUM 9.4 mg/dL 8.5-10.1 [facility] ANION GAP 5.0 mmol/L 5-12 [facility] GLOMERULAR FILTRATION RATE 53 mL/min [facility] GFR IS CALCULATED IN mL/min/1.73m2 YARY L FUNCTION: >90MILDLY DECREASED: 60-89MILDY TO MODERATELY DECREASED: 45-59 MODERATELY TO SEVERELY DECREASED: 30-44SEVERELY DECREASED: 15-29RENAL FAILURE: <15 ID Date Data Source [id number] 05/03/2021 12:32:00 PM EDT [facility] l FAX [phone] Name Value Range Interpretation Code Description Data [place] rce(s) Supporting Document(s) FREE T4 1.0 ng/dL 0.76-1.46 [facility] ID Date Data Source [id number] 05/03/2021 12:32:00 PM [facility] l FAX [phone] Name Value Range Interpretation Code Description Data [place] rce(s) Supporting Document(s) TSH 1.187 uIU/mL 0.360-3.740 [facility] ID Date Data Source [id number] 05/03/2021 12:01:00 PM [facility] l FAX [phone] Name Value Range Interpretation Code Description Data [place] rce(s) Supporting Document(s) WHITE BLOOD COUNT 8.3 K/mm3 4.0-10.0 [facility] al RED BLOOD COUNT 4.97 M/mm3 4.50-6.00 [facility] HEMOGLOBIN 15.0 gm/dL 14.0-18.0 [facility] HEMATOCRIT 46.0 % 42.0-54.0 [facility] MEAN CELL VOLUME 92.6 fl 80-96 [facility] MEAN CORPUSCULAR HEMOGLOBIN 30.2 pg 27.0-31.0 [facility] MEAN CORPUSCULAR HGB CONC 32.6 g/dl 32.0-36.0 [facility] RED CELL DISTRIBUTION WIDTH 14.9 % 10.0-14.5 H [facility] PLATELET COUNT 241 K/mm3 172-450 [facility] MEAN PLATELET VOLUME 10.1 fl 9.0-13.0 [facility] pital GRAN % 66.5 % 50-80.0 [facility] IG% 0.1 % 0.0-0.2 [facility] LYMPH % 23.9 % 25.0-50.0 L [facility] MONO % 6.6 % 2.0-10.0 [facility] EOS % 2.3 % 0-5.0 [facility] BASO % 0.6 % 0.0-2.0 [facility] GRAN # 5.5 K/mm3 2.0-8.00 [facility] IG# 0.0 K/mm3 0.0-0.2 [facility] LYMPH # 2.0 K/mm3 1.0-5.0 [facility] MONO # 0.6 K/mm3 0.10-1.20 [facility] EOS # 0.2 K/mm3 0.0-0.5 [facility] BASO # 0.1 K/mm3 0.0-0.2 [facility] ID Date Data Source [id number] 01/09/2021 09:33:00 AM EST [facility] Name Value Range Interpretation Code Description Data [place] rce(s) Supporting Document(s) SARS COVID ANTIGEN POSITIVE [facility] This lab was ordered by FILIPE saba nd reported by . ID Date Data Source [id number] 01/09/2021 07:23:00 AM EST [facility] DATE OF EXAMINATION: 01/09/2021 1:38 EST C HEST W/O IV CONTRAST HISTORY: Chest pain TECHNIQUE: This CT exam was performed using the following dose reduction techniques:automatic exposure control, adjustment of mA and/or kV according to thepatient's size, and use of iterative reconstruction technique. Standard contiguous axial spiral imaging was obtained from lung apices to thelung bases without intravenous contrast administration and with coronalreformatting. FINDINGS: Lung miranda are well aerated and demonstrate moderate emphysematous changesincluding bronchiectasis, scattered bullae/blebs, and scattered elements ofscarring. No acute consolidation, significant nodule, or mass lesion. No pleuraleffusion. No pneumothorax. 16 mm precarinal lymph node along with smallerprimarily subcentimeter mediastinal lymph nodes are nonspecific. Atheroscleroticchanges to the thoracic aorta and coronary arteries noted without aorticaneurysm or cardiomegaly. No pericardial effusion. IMPRESSION:Moderate emphysematous changes.No acute mediastinal or pleuroparenchymal process. Electronically signed in PS360 by: Kar Valderrama M.D. 01/09/2021 7:17 EST Name Value Range Interpretation Code Description Data [place] rce(s) Supporting Document(s) ID Date Data Source [id number] 01/09/2021 07:08:00 AM [facility] DATE OF EXAMINATION: 01/09/2021 1:16 EST NECK W/O IV CONTRAST HISTORY: Neck pain TECHNIQUE: This CT exam was performed using the following dose reduction techniques:automated exposure control, adjustment of mA and or kV according to thepatient's size, and use of iterative reconstruction technique. Standard contiguous axial spiral imaging was obtained from the skull basethrough the thoracic inlet without contrast administration and with coronal andsagittal reformatting. FINDINGS:Examination is significantly limited due to motion artifact. The nasal, oral, and hypopharynx along with surrounding soft tissue structuresare grossly normal. Carotid, parotid, commercial credit reviewer, prevertebral, andparapharyngeal spaces appear normal. Retropharyngeal space appears normal.Submandibular and parotid glands as well as thyroid lobes appear normal as well.Airways are intact. True and false vocal cords appear unremarkable. Osseousstructures are grossly intact. IMPRESSION: Examination is significantly limited by motion artifact.However, no obvious abnormalities appreciated. Electronically signed in PS360 by: Kar Valderrama M.D. 01/09/2021 7:02 EST Name Value Range Interpretation Code Description Data [place] rce(s) Supporting Document(s) ID Date Data Source [id number] 01/09/2021 07:05:00 AM [facility] DATE OF EXAMINATION: 01/09/2021 1:16 EST BRAIN W/O CONTRAST HISTORY: Headache TECHNIQUE: This CT exam was performed using the following dose reduction techniques:automatic exposure control, adjustment of mA and/or kV according to thepatient's size, and use of iterative reconstruction technique. Standard contiguous axial spiral imaging was obtained from the skull basethrough the vertex without contrast administration and with coronalreformatting. FINDINGS: Evaluation is somewhat limited due to motion artifact. However, the ventriclesand cisterns appear metric and normal. Mares-white differentiation is relativelymaintained. No acute intracranial hemorrhage, mass or mass effect. No obviousextra-axial fluid collection. Calvarium is grossly normal. Sinuses are grosslyaerated and intact without fluid level or obvious mucosal abnormalities. IMPRESSION:Limited examination.No obvious acute intracranial pathology, mass/mass effect or hemorrhage. Electronically signed in PS360 by: Kar Valderrama M.D. 01/09/2021 7:00 EST Name Value Range Interpretation Code Description Data [place] rce(s) Supporting Document(s) ID Date Data Source [id number] 01/09/2021 06:07:00 AM EST [facility] Patient: LEAH BUSTOS Observation Report - [facility].VisitID: [id number] [place] [address] [phone], MRegistration Date/Time: 01/09/2021 00:20 Weight:86.1 kg (S). Height/Length:72 inches (S). BMI:25.8 FAMILY HISTORYNo significant family medical history. (Electronically signed by Rina Condon M.D. 01/09/2021 06:05) Name Value Range Interpretation Code Description Data [facility] rce(s) Supporting Document(s) ID Date Data Source [id number] 01/09/2021 02:00:00 AM EST [facility] TSYSORDER [id number] Name Value Range Interpretation Code Description Data [facility] rce(s) Supporting Document(s) C REACTIVE PROTEIN 42.4 mg/L 0.0-3.0 [facility] ID Date Data Source [id number] 01/09/2021 01:39:00 AM EST [facility] TSYSORDER [id number] Name Value Range Interpretation Code Description Data [facility] rce(s) Supporting Document(s) GLUCOSE 94 mg/dL 74-106 [facility] BLOOD UREA NITROGEN 24 mg/dL 7-18 H [facility] ital CREATININE 1.68 mg/dL 0.7-1.3 H [facility] SODIUM 138 mmol/L 136-145 [facility] POTASSIUM 3.7 mmol/L 3.5-5.1 [facility] CHLORIDE 101 mmol/L 98-107 [facility] CO2 26 mmol/L 21-32 [facility] CALCIUM 8.6 mg/dL 8.5-10.1 [facility] ANION GAP 11.0 mmol/L 5-12 [facility] GLOMERULAR FILTRATION RATE 42 mL/min [facility] GFR IS CALCULATED IN mL/min/1.73m2 YARY L FUNCTION: >90MILDLY DECREASED: 60-89MILDY TO MODERATELY DECREASED: 45-59 MODERATELY TO SEVERELY DECREASED: 30-44SEVERELY DECREASED: 15-29RENAL FAILURE: <15 AST 24 U/L 15-37 [facility] ALT 16 U/L 12-78 [facility] ALKALINE PHOSPHATASE 94 U/L 46-116 [facility] TOTAL BILIRUBIN 0.6 mg/dL 0.2-1.0 [facility] TOTAL PROTEIN 7.1 g/dl 6.4-8.2 [facility] ALBUMIN 3.8 gm/dL 3.4-5.0 [facility] ID Date Data Source [id number] 01/09/2021 01:06:00 AM EST [facility] TSYSORDER [id number] Name Value Range Interpretation Code Description Data [place] rce(s) Supporting Document(s) WHITE BLOOD COUNT 6.7 K/mm3 4.0-10.0 [facility] al RED BLOOD COUNT 4.19 M/mm3 4.50-6.00 L [facility] HEMOGLOBIN 12.5 gm/dL 14.0-18.0 L [facility] HEMATOCRIT 36.5 % 42.0-54.0 L [facility] MEAN CELL VOLUME 87.1 fl 80-96 [facility] MEAN CORPUSCULAR HEMOGLOBIN 29.8 pg 27.0-31.0 [facility] MEAN CORPUSCULAR HGB CONC 34.2 g/dl 32.0-36.0 [facility] RED CELL DISTRIBUTION WIDTH 14.8 % 10.0-14.5 H [facility] PLATELET COUNT 178 K/mm3 172-450 [facility] MEAN PLATELET VOLUME 10.5 fl 9.0-13.0 [facility] GRAN % 66.7 % 50-80.0 [facility] IG% 0.2 % 0.0-0.2 [facility] LYMPH % 20.3 % 25.0-50.0 L [facility] MONO % 11.9 % 2.0-10.0 H [facility] EOS % 0.3 % 0-5.0 [facility] BASO % 0.6 % 0.0-2.0 [facility] GRAN # 4.5 K/mm3 2.0-8.00 [facility] IG# 0.0 K/mm3 0.0-0.2 [facility] LYMPH # 1.4 K/mm3 1.0-5.0 [facility] MONO # 0.8 K/mm3 0.10-1.20 [facility] EOS # 0.0 K/mm3 0.0-0.5 [facility] BASO # 0.0 K/mm3 0.0-0.2 [facility] ID Date Data Source [id number] 01/09/2021 12:30:00 AM EST [facility] Name Value Range Interpretation Code Description Data [place] rce(s) Supporting Document(s) COVID-19 POSITIVE [facility] This lab was ordered by [facility] M aiиван Lab and reported by [facility] Laboratory. ID Date Data Source [id number] 01/09/2021 12:51:00 AM EST [facility]vetlana TSYSORDER [id number] Name Value Range Interpretation Code Description Data [place] rce(s) Supporting Document(s) COVID-19 POSITIVE NEGATIVE H [facility] Positive results are indicative of the p resence adDQGV-KhX-0 RNA.Positive results do not rule out bacterial infection orco-infection with other viruses.This is a rapid molecular in vitro diagnostic test utilizingan isothermal nucleic acid amplification technology intendedfor the qualitative detection of nucleic acid from the SARS-CoV-2 viral RNA in direct nasal, nasopharyngeal orthroat swabs from individuals who are suspected of COVID- 19.Results are for the indentification of SARS-CoV-2 RNA. MkpOZRC-ZkU-5 RNA is generally detectable in respiratorysamples during the actue phase of infection. ID Date Data Source HEPATITIS C QUANT BY PCR 01/03/2021 12:00:00 AM EST eCW1 ([facility]) Name Value Range Interpretation Code Description Data [place] rce(s) Supporting Document(s) HCV Not Detected . HEPATITIS C QUANTIT ATION eCW1 ([facility]) TNP . Hepatitis C log10 eCW1 ([facility]) ID Date Data Source LIVER PROFILE 01/03/2021 12:00:00 AM EST eCW1 ([facility]) Name Value Range Interpretation Code Description Data [place] rce(s) Supporting Document(s) 120 45-117 ALKALINE PHOSPHATASE eCW1 ([facility]) 10 7-37 AST/SGOT eCW1 ([facility]) 14 12-78 ALT/SGPT eCW1 ([facility]) 0.9 0.2-1.0 BILIRUBIN,TOTAL eCW1 ([facility]) 1.1 ALBUMIN/GLOBULIN RATIO eCW1 ([facility]) 7.6 6.4-8.2 TOTAL PROTEIN eCW1 ([facility]) 0.3 0.0-0.2 BILIRUBIN,DIRECT eCW1 ([facility]) 3.9 3.2-5.2 ALBUMIN eCW1 ([facility]) ID Date Data Source HEPATITIS C GENOTYPE 11/25/2020 12:00:00 AM EST eCW1 ([facility]) Name Value Range Interpretation Code Description Data [place] rce(s) Supporting Document(s) 1a . HEPATITIS C VIRUS GENOTYPE eCW 1 ([facility]) . COMMENT FOR HEPC GENOTYPE eCW1 ([facility]) ID Date Data Source Comprehensive Metabolic Profile (CMP) 11/25/2020 12:00:00 AM EST eCW1 ([facility]) Name Value Range Interpretation Code Description Data [place] rce(s) Supporting Document(s) 12 7-18 BLOOD UREA NITROGEN eCW1 ([facility]) 84 70-100 GLUCOSE, FASTING eCW1 ([facility]) 1.35 0.70-1.30 CREATININE FOR GFR eCW1 ([facility]) 58.2 >56 GLOMERULAR FILTRATION RATE eCW 1 ([facility]) 105 98-107 CHLORIDE LEVEL eCW1 ([facility]) 9.8 8.5-10.1 CALCIUM LEVEL eCW1 ([facility]) 30 21-32 CARBON DIOXIDE LEVEL eCW1 ([facility]) 4.0 3.5-5.1 POTASSIUM SERUM eCW1 ([facility]) 143 136-145 SODIUM LEVEL eCW1 ([facility]) 347 7-37 AST/SGOT eCW1 ([facility]) 186 45-117 ALKALINE PHOSPHATASE eCW1 ([facility]) 0.8 0.2-1.0 BILIRUBIN,TOTAL eCW1 ([facility]) 562 12-78 ALT/SGPT eCW1 ([facility]) 1.0 ALBUMIN/GLOBULIN RATIO eCW1 ([facility]) 8.1 6.4-8.2 TOTAL PROTEIN eCW1 ([facility]) 4.1 3.2-5.2 ALBUMIN eCW1 ([facility]) ID Date Data Source ALPHA FETOPROTEIN TUMOR QUANT 11/25/2020 12:00:00 AM EST eCW 1 ([facility]) Name Value Range Interpretation Code Description Data [place] rce(s) Supporting Document(s) 5.1 <8.1 ALPHA FETOPROTEIN TUMOR Q UANT eCW1 ([facility]) ID Date Data Source [id number] 11/08/2020 09:18:00 AM EST [facility] FAX [phone] COULD NOT GIVE U RINE SAMPLE Name Value Range Interpretation Code Description Data [place] rce(s) Supporting Document(s) GLUCOSE 90 mg/dL 74-106 [facility] BLOOD UREA NITROGEN 15 mg/dL 7-18 [facility] ital CREATININE 1.41 mg/dL 0.7-1.3 H [facility] SODIUM 140 mmol/L 136-145 [facility] POTASSIUM 3.7 mmol/L 3.5-5.1 [facility] CHLORIDE 101 mmol/L 98-107 [facility] CO2 29 mmol/L 21-32 [facility] CALCIUM 9.2 mg/dL 8.5-10.1 [facility] ANION GAP 10.0 mmol/L 5-12 [facility] GLOMERULAR FILTRATION RATE 52 mL/min [facility] GFR IS CALCULATED IN mL/min/1.73m2 YARY L FUNCTION: >90MILDLY DECREASED: 60-89MILDY TO MODERATELY DECREASED: 45-59 MODERATELY TO SEVERELY DECREASED: 30-44SEVERELY DECREASED: 15-29RENAL FAILURE: <15 AST 15 U/L 15-37 [facility] ALT 15 U/L 12-78 [facility] ALKALINE PHOSPHATASE 121 U/L 46-[address] [facility] pital TOTAL BILIRUBIN 0.6 mg/dL 0.2-1.0 [facility] TOTAL PROTEIN 7.9 g/dl 6.4-8.2 [facility] ALBUMIN 3.7 gm/dL 3.4-5.0 [facility] [facility] ID Date Data Source [id number] 11/08/2020 08:40:00 AM EST [facility] FAX [phone] COULD NOT GIVE U RINE SAMPLE Name Value Range Interpretation Code Description Data [facility] rce(s) Supporting Document(s) WHITE BLOOD COUNT 8.6 K/mm3 4.0-10.0 [facility] al RED BLOOD COUNT 5.34 M/mm3 4.50-6.00 [facility] HEMOGLOBIN 15.4 gm/dL 14.0-18.0 [facility] HEMATOCRIT 46.4 % 42.0-54.0 [facility] MEAN CELL VOLUME 86.9 fl 80-96 [facility] MEAN CORPUSCULAR HEMOGLOBIN 28.8 pg 27.0-31.0 [facility] MEAN CORPUSCULAR HGB CONC 33.2 g/dl 32.0-36.0 [facility] RED CELL DISTRIBUTION WIDTH 15.1 % 10.0-14.5 H [facility] PLATELET COUNT 248 K/mm3 172-450 [facility] ID Date Data Source [id number] 10/05/2020 12:33:04 PM EST [facility] Name Value Range Interpretation Code Description Data [facility](s) Supporting Document(s) &PDF [facility] [id number] vci [file] [id number] ID Date Data Source [id number] 10/05/2020 10:49:07 AM EST [facility] INFORMATIONPatient MRN Name Date of Age Gend*PT [id number] Leah Bustos 1965 55 years M [facility] Location Admission Date/Time Visit ID Attending Provider10/05/20 0640 --- Jazmin Thomas MD([id number]) EPI ID CSN Admitting Provider [id number] Jazmin Thomas MD([id number])Inpatient History & PhysicalRobert Saba BustsoMRN:[id number]: AF Cryo ablation. Prior BRUNILDA clotPast Medical History:Past Medical History:Diagnosis Date Atrial fibrillation Cardiomyopathy CHF (congestive heart failure) COPD (chronic obstructive pulmonary disease) HypertensionPast Surgical History:Past Surgical History:Procedure Laterality Date CARDIOVERSION N/A 06/07/2018 Procedure: PACU CARDIOVERSION OP 2-7; Surgeon: Morro Nugent MD;Laterality: N/A; ECHOCARDIOGRAM TRANSESOPHAGEAL N/A 07/19/2020 Procedure: ECHO TRANSESOP HAGEAL; Surgeon: Jazmin Thomas MD; Laterality:N/A; EP STUDY N/A 07/19/2020 Procedure: ABLATION A-FIB- Cryo; Surgeon: Jazmin Thomas MD; Laterality:N/A; TRANSEPTAL IMPLANT LOOP RECORDER N/A 07/19/2020 Procedure: Loop insertion; Surgeon: Jazmin Thomas MD; Laterality: N/A;MEDTRONIC TONSILLECTOMYMedications:Medications Prior to AdmissionMedication Sig Dispense Refill Last Dose albuterol (PROVENTIL HFA;VENTOLIN HFA) 108 (90 Base) MCG/ACT inhaler Inhale 2puffs every 4 (four) hours as needed for wheezing Past Week at Unknown time furosemide (LASIX) 40 MG tablet Take 40 mg by mouth daily 07/18/2020 atUnknown time losartan (COZAAR) 100 MG tablet Take 100 mg by mouth daily 07/19/2020 atUnknown time metoprolol (LOPRESSOR) 50 MG tablet Take 200 mg by mouth daily 07/19/2020 atUnknown time pantoprazole (PROTONIX) 40 MG tablet Take 40 mg by mouth daily 07/18/2020 atUnknown time rivaroxaban (XARELTO) 20 MG TABS Take 20 mg by mouth daily 07/18/2020 atUnknown timeAllergies:Patient has no known drug allergies.Family History:No family history on file.Social History:Social HistoryTobacco Use Smoking status: Current Every Day Smoker Packs/day: 0.50 Types: Cigarettes Smokeless tobacco: Never UsedSubstance Use Topics Alcohol use: No Drug use: Yes Types: MethamphetaminesReview of Systems:Pertinent positives as mentioned in the HPI. Denies recent fever, chills, orchange in appetite. Denies unilateral weakness, numbness, slurred speech, orfacial droop. Denies any hematemesis, hematochezia, or melena. Denies nausea,vomiting, diarrhea, or abdominal pain. All other systems were reviewed and theremainder are negative.Physical Exam:General: Well-developed, well-nourished in NAD.HEENT: NC/AT, sclerae anicteric, moist mucous membranes.Neck: Supple. No thyromegaly was appreciated.Lungs: CTAB, without rales, rhonchi, or wheezes.CV: The JVP is <8 cm while sitting upright.Abd: Soft, NT, ND.Extremities: No pitting edema, cyanosis or clubbing.Skin: Warm & dry, without jaundice or bruising.Psych: A&O x3, affect appropriate.Assessment:Highly sx Persistent atrial fibrillationDCM: EF 20%OSAHTNNSVTCOPDETOH useILRLAA clotPlan:1. AF Cryo ablationProcedure was discussed with patient / family risks, benefits, andalternatives explained. Potential risks include but not limited to pain,bleeding, infection, injury to any body system or organ between the skin andheart (including the skin, subcutaneous tissue, blood vessels, abdominal organs,heart, and lungs), phrenic nerve injury and diaphragmatic paralysis, possibleneed for a heart surgery or pacemaker implantation, heart attack, stroke, oreven .Signature: Jazmin Thomas, MDDate: October 05, 2020Time: 7:13 AM Name Value Range Interpretation Code Description Data [facility] rce(s) Supporting Document(s) ID Date Data Source [id number] 10/05/2020 10:49:02 AM EST [facility] INFORMATIONPatient MRN Name Date of Age Gend*PT [id number] Leah Bustos 1965 55 years M [facility] Location Admission Date/Time Visit ID Attending Provider --- --- --- --- EPI ID CSN Admitting Provider [id number] ---Arterial Line PlacementPatient location during procedure: ORIndications for arterial line: multiple ABGs and hemodynamic monitoringStaffingPerformed by: RADHA Cortezompleted: patient identified, risks and benefits discussed, surgical consentobtained, anesthesia consent obtained, monitors and equipment checked, pre-opevaluation completed, timeout performed, patient was prepped and draped in usualsterile fashion,Arterial Line InsertionSite prep: chlorhexidineAnesthesia: noneLaterality: leftLocation: radial arteryNeedle gauge: 20 GTechnique: Seldinger technique usedNumber of attempts: 1AssessmentSutured: noDressing: dressing appliedPatient tolerance: tolerated well Name Value Range Interpretation Code Description Data [facility] rce(s) Supporting Document(s) ID Date Data Source [id number] 10/05/2020 10:48:31 AM EST [facility] NT INFORMATIONPatient MRN Name Date of Age Gend*PT [id number] Leah Bustos 1965 55 years M [facility] Location Admission Date/Time Visit ID Attending Provider --- --- --- --- EPI ID CSN Admitting Provider [id number] ---AirwayPatient location during procedure: ORUrgency: electiveDifficult airway: noAdvanced airway equipment used: noStaffingPerformed by: Hank Black CRNAAnesthesiologist: Cristy Oswald MDIndications and Patient ConditionIndications for airway management: anesthesiaPreoxygenated: yesPatient position: sniffingIn-line stabilization: noMask ventilation: 0 - not attemptedFinal Airway/ApproachesFinal airway type: ETTNumber of attempts at final approach: 1Number of other approaches attempted: 0Final Airway DetailsFinal ETT airway: ETT - singleCuffed: yesTechnique used for successful ETT placement: direct laryngoscopyCricoid pressure: noRSI: noInsertion site: oralBlade type/size: MAC 3.5ETT size: 8.0 mmMeasured from: lipsETT to lips: 24 c mPlacement verified by: chest auscultation and + [id number]: CTA and equal breath sounds bilateralGrade view: grade I - full view of glottis Name Value Range Interpretation Code Description Data [facility] rce(s) Supporting Document(s) ID Date Data Source [id number] 10/05/2020 10:12:58 AM EST [facility] SPEC EXP DATE 10/08/2020PATI ENT ABO/Rh B POSITIVEANTIBODY SCREEN NEGATIVETESTING SITE PERFORMED AT [address] [place] [address] [id number] BANK COMMENT BLOOD TYPE CONFIRMED. Name Value Range Interpretation Code Description Data [facility] rce(s) Supporting Document(s) TYPE AND SCREEN [facility] ID Date Data Source [id number] 10/05/2020 06:10:00 AM EST [facility] Name Value Range Interpretation Code Description Data [facility] rce(s) Supporting Document(s) SARS coronavirus 2 RNA [Presence] in Res piratory specimen by NIRMAL with probe detection [place] This lab was reported by [facility]. ID Date Data Source [id number] 10/05/2020 07:23:48 AM EST [facility] Name Value Range Interpretation Code Description Data [facility] rce(s) Supporting Document(s) SPECIMEN DESCRIPTION [facility] INFLUENZA A (NEG) [facility] INFLUENZA B (NEG) [facility] RSV (NEG) [facility] COMMENT [facility] UNDER AN EMERGENCY USE AUTHORIZATION(EUA ) FOR THE DETECTION AND/OR DIAGNOSISOF THE VIRUS THAT CAUSES COVID-19.PERFORMED AT [address] [place] [id number] COVID19 RESULT (NDET) [facility] THIS ASSAY AMPLIFIES AND DETECTSTHE TARG ET RNA USING REAL-TIME PCR.NEGATIVE 2019_NCOV RT-PCR RESULTS DONOT PRECLUDE 2019_NCOV INFECTION ANDSHOULD NOT BE USED THE SOLE BASISFOR PATIENT MANAGEMENT DECISIONS. FIRST TEST [facility] EMPLOYED IN HLTHCARE Lab [facility] n[facility] of [facility] SYMPTOMATIC [facility] DATE OF SYMPT ONSET Lab [facility] of [facility] HOSPITALIZED [facility] ICU [facility] CONGREGATE CARE SET [facility] ID Date Data Source HEPATITIS B CORE ANTIBODY IGG 10/04/2020 12:00:00 AM EST eCW 1 ([facility]) Name Value Range Interpretation Code Description Data [place] rce(s) Supporting Document(s) Positive Negative eCW1 ([facility]) ID Date Data Source HEPATITIS A IgG 10/04/2020 12:00:00 AM EST eCW1 ([facility]) Name Value Range Interpretation Code Description Data [place] rce(s) Supporting Document(s) Negative Negative eCW1 ([facility]) ID Date Data Source [id number] 10/04/2020 12:00:00 AM EST eCW1 ([facility]) Name Value Range Interpretation Code Description Data [place] rce(s) Supporting Document(s) eCW1 ([facility]) ID Date Data Source HEPATITIS B SURFACE ANTIGEN 10/04/2020 12:00:00 AM EST eCW1 ([facility]) Name Value Range Interpretation Code Description Data [facility] rce(s) Supporting Document(s) NEGATIVE NEGATIVE eCW1 ([facility]) ID Date Data Source HEPATITIS B SURFACE ANTIBODY 10/04/2020 12:00:00 AM EST eCW1 ([facility]) Name Value Range Interpretation Code Description Data [facility] rce(s) Supporting Document(s) POSITIVE POSITIVE eCW1 ([facility]) ID Date Data Source [id number] 10/01/2020 04:51:00 PM EST [facility] FAX [phone] Name Value Range Interpretation Code Description Data [facility] rce(s) Supporting Document(s) GLUCOSE 118 mg/dL 74-106 H [facility] BLOOD UREA NITROGEN 22 mg/dL 7-18 H [facility] ital CREATININE 2.0 mg/dL 0.7-1.3 H [facility] SODIUM 139 mmol/L 136-145 [facility] POTASSIUM 4.7 mmol/L 3.5-5.1 [facility] CHLORIDE 103 mmol/L 98-107 [facility] CO2 26 mmol/L 21-32 [facility] CALCIUM 9.3 mg/dL 8.5-10.1 [facility] ANION GAP 10.0 mmol/L 5-12 [facility] GLOMERULAR FILTRATION RATE 35 mL/min [facility] GFR IS CALCULATED IN mL/min/1.73m2 YARY L FUNCTION: >90MILDLY DECREASED: 60-89MILDY TO MODERATELY DECREASED: 45-59 MODERATELY TO SEVERELY DECREASED: 30-44SEVERELY DECREASED: 15-29RENAL FAILURE: <15 ID Date Data Source [id number] 10/01/2020 03:30:00 PM EST [facility] FA[facility] [phone] Name Value Range Interpretation Code Description Data [facility] rce(s) Supporting Document(s) WHITE BLOOD COUNT 10.2 K/mm3 4.0-10.0 [facility] RED BLOOD COUNT 4.92 M/mm3 4.50-6.00 [facility] HEMOGLOBIN 14.3 gm/dL 14.0-18.0 [facility] HEMATOCRIT 44.2 % 42.0-54.0 [facility] MEAN CELL VOLUME 89.8 fl 80-96 [facility] MEAN CORPUSCULAR HEMOGLOBIN 29.1 pg 27.0-31.0 [facility] MEAN CORPUSCULAR HGB CONC 32.4 g/dl 32.0-36.0 [facility] RED CELL DISTRIBUTION WIDTH 13.8 % 10.0-14.5 [facility] PLATELET COUNT 267 K/mm3 172-450 [facility] MEAN PLATELET VOLUME 10.0 fl 9.0-13.0 [facility] pital GRAN % 66.0 % 50-80.0 [facility] IG% 0.2 % 0.0-0.2 [facility] LYMPH % 26.9 % 25.0-50.0 [facility] MONO % 5.2 % 2.0-10.0 [facility] EOS % 1.4 % 0-5.0 [facility] BASO % 0.3 % 0.0-2.0 [facility] GRAN # 6.8 K/mm3 2.0-8.00 [facility] IG# 0.0 K/mm3 0.0-0.2 [facility] LYMPH # 2.8 K/mm3 1.0-5.0 [facility] MONO # 0.5 K/mm3 0.10-1.20 [facility] EOS # 0.1 K/mm3 0.0-0.5 [facility] BASO # 0.0 K/mm3 0.0-0.2 [facility] ID Date Data Source [id number] 09/22/2020 12:58:00 PM EST [facility] DATE OF EXAMINATION: 09/22/2020 12:44 ES T TECHNIQUE: 3 views of the right shoulder were obtained. HISTORY: Pain FINDINGS: No evidence of acute fracture or dislocation. Alignment is normal.Acromioclavicular joint is normal. No aggressive osseous lesions or erosions.Bone mineral density is unremarkable. Visualized lung is clear. Visualized softtissues are normal. IMPRESSION: No evidence of acute fracture or dislocation. Electronically signed in PS360 by: Mickey Greenberg M.D. 09/22/2020 12:53 EST Name Value Range Interpretation Code Description Data [facility] rce(s) Supporting Document(s) ID Date Data Source SHOULDER COMPLETE 09/22/2020 12:00:00 AM EST eCW1 ([facility]) Name Value Range Interpretation Code Description Data [place] rce(s) Supporting Document(s) SHOULDER COMPLETE eCW1 ([facility]) ID Date Data Source [id number] 09/13/2020 03:02:00 PM EST [facility] Patient: LEAH BUSTOS [facility]ation [facility] [id number] [place] [address] [phone], MRegistration Date/Time: 09/11/2020 12:24 Weight:90.7 kg (S). Height/Length:72 inches (S). BMI:27.1 PAST HISTORYProblems:Hepatitis C [Active].COPD - Chronic Obstructive Pulmonary Disease [Chronic].Atrial Fibrillation [Chronic].Congestive Heart Failure [Chronic].Gastroesophageal Reflux Disease [Chronic].Renal Failure [Chronic].Heart Disease [Chronic].Hypertension [Chronic].Dyspnea.Syncope. Additional Surgeries:Loop Recorder Placement.Tonsillectomy. Medications:Metoprolol Succinate ER Oral (Tablet Extended Release 24 Hour 200 mg) 1 tablet, daily, last dose today.Furosemide Oral 40 mg, daily, last dose last night (pt took two tablets last night).Losartan Potassium Oral 100 mg, daily, last dose today.Pantoprazole Sodium Oral 20 mg, daily, last dose today.Xarelto Oral (Tablet 20 mg), daily, last dose today. Allergies:No Known Drug Allergy. FAMILY HISTORYNegative. No significant family medical history. (Electronically signed by Candido Castano 09/11/2020 18:45) Addenda for LEAH BUSTOS VisitID: [id number] Date: 09/11/2020 09/13/2020 15:00LWBS/LWBT/AMA??? follow-up Spoke with pt via telephone in f/u. Pt reports that he has an appointment with film process operator on Sunday09/15/2020. Pt advised to return to the ED as needed and agrees.(Electronically signed by Kortney Reyes R.N. - 09/13/2020 15:00) Name Value Range Interpretation Code Description Data [facility] rce(s) Supporting Document(s) ID Date Data Source [id number] 09/11/2020 06:51:00 PM EST [facility] Patient: LEAH BUSTOS [facility]ation [facility] [id number] [place] [address] [phone], MRegistration Date/Time: 09/11/2020 12:24 Weight:90.7 kg (S). Height/Length:72 inches (S). BMI:27.1 PAST HISTORYProblems:Hepatitis C [Active].COPD - Chronic Obstructive Pulmonary Disease [Chronic].Atrial Fibrillation [Chronic].Congestive Heart Failure [Chronic].Gastroesophageal Reflux Disease [Chronic].Renal Failure [Chronic].Heart Disease [Chronic].Hypertension [Chronic].Dyspnea.Syncope. Additional Surgeries:Loop Recorder Placement.Tonsillectomy. Medications:Metoprolol Succinate ER Oral (Tablet Extended Release 24 Hour 200 mg) 1 tablet, daily, last dose today.Furosemide Oral 40 mg, daily, last dose last night (pt took two tablets last night).Losartan Potassium Oral 100 mg, daily, last dose today.Pantoprazole Sodium Oral 20 mg, daily, last dose today.Xarelto Oral (Tablet 20 mg), daily, last dose today. Allergies:No Known Drug Allergy. FAMILY HISTORYNegative. No significant family medical history. (Electronically signed by Candido Castano 09/11/2020 18:45) Name Value Range Interpretation Code Description Data [facility](s) Supporting Document(s) ID Date Data Source [id number] 09/11/2020 01:36:00 PM EST [facility] AP CHEST DATE OF EXAMINATION: 09/11/2020 12:39 EST CHEST 1 VIEW INDICATION: Chest COMPARISON: 04/24/2020 TECHNIQUE: A single AP film of the chest was obtained. FINDINGS: The chest wall and mediastinal structures are unremarkable. There isno pleural disease. The lungs are clear. IMPRESSION: No acute pulmonary disease Electronically signed in PS360 by: Willy Salomon M.D. 09/11/2020 13:31 EST Name Value Range Interpretation Code Description Data [facility] rce(s) Supporting Document(s) ID Date Data Source [id number] 09/18/2020 06:40:00 AM EST [facility] BLOOD CULTURE #2 Name Value Range Interpretation Code Description Data [facility] rce(s) Supporting Document(s) [facility] ID Date Data Source [id number] 09/18/2020 06:40:00 AM EST [facility] BLOOD CULTURE #1 Name Value Range Interpretation Code Description Data [place] rce(s) Supporting Document(s) [facility] ID Date Data Source [id number] 09/11/2020 01:44:00 PM EST [facility] TSYSORDER [id number] Name Value Range Interpretation Code Description Data [place] rce(s) Supporting Document(s) FREE T4 1.50 ng/dL 0.76-1.46 H [facility] ID Date Data Source [id number] 09/11/2020 01:44:00 PM EST [facility] TSYSORDER [id number] Name Value Range Interpretation Code Description Data [facility] rce(s) Supporting Document(s) TSH 1.22 uIU/mL 0.36-3.74 [facility] ID Date Data Source [id number] 09/11/2020 01:39:00 PM EST [facility] TSYSORDER [id number] Name Value Range Interpretation Code Description Data [place] rce(s) Supporting Document(s) MAGNESIUM 2.0 mg/dL 1.8-2.4 [facility] ID Date Data Source [id number] 09/11/2020 01:39:00 PM EST [facility] TSYSORDER [id number] Name Value Range Interpretation Code Description Data [facility] rce(s) Supporting Document(s) TROPONIN I < 0.017 ng/mL 0.0-0.056 [facility] ID Date Data Source [id number] 09/11/2020 01:39:00 PM EST [facility] TSYSORDER [id number] Name Value Range Interpretation Code Description Data [place] rce(s) Supporting Document(s) LIPASE 210 U/L 73-393 [facility] ID Date Data Source [id number] 09/11/2020 01:39:00 PM EST [facility] TSYSORDER [id number] Name Value Range Interpretation Code Description Data [facility] rce(s) Supporting Document(s) GLUCOSE 92 mg/dL 74-106 [facility] BLOOD UREA NITROGEN 16 mg/dL 7-18 [facility] ital CREATININE 1.4 mg/dL 0.7-1.3 H [facility] SODIUM 140 mmol/L 136-145 [facility] POTASSIUM 3.6 mmol/L 3.5-5.1 [facility] CHLORIDE 102 mmol/L 98-107 [facility] CO2 26 mmol/L 21-32 [facility] CALCIUM 9.1 mg/dL 8.5-10.1 [facility] ANION GAP 12.0 mmol/L 5-12 [facility] GLOMERULAR FILTRATION RATE 52 mL/min [facility] GFR IS CALCULATED IN mL/min/1.73m2 YARY L FUNCTION: >90MILDLY DECREASED: 60-89MILDY TO MODERATELY DECREASED: 45-59 MODERATELY TO SEVERELY DECREASED: 30-44SEVERELY DECREASED: 15-29RENAL FAILURE: <15 AST 98 U/L 15-37 H [facility] ALT 232 U/L 12-78 *H [facility] ALKALINE PHOSPHATASE 208 U/L 46-116 *H [facility] pital TOTAL BILIRUBIN 1.1 mg/dL 0.2-1.0 H [facility] TOTAL PROTEIN 8.3 g/dl 6.4-8.2 H [facility] ALBUMIN 3.4 gm/dL 3.4-5.0 [facility] ID Date Data Source [id number] 09/11/2020 01:30:00 PM EST [facility] TSYSORDER [id number] Name Value Range Interpretation Code Description Data [place] e(s) Supporting Document(s) LACTIC ACID 0.8 mmol/L 0.4-2.0 [facility] ID Date Data Source [id number] 09/11/2020 01:26:00 PM EST [facility] TSYSORDER [id number] Name Value Range Interpretation Code Description Data [facility] e(s) Supporting Document(s) PARTIAL THROMBOPLASTIN TIME 28.5 SECONDS 21.2-27.3 H [facility] ID Date Data Source [id number] 09/11/2020 01:26:[address] [facility] TSYSORDER [id number] Name Value Range Interpretation Code Description Data [place] rce(s) Supporting Document(s) PROTHROMBIN TIME (PATIENT) 14.3 SECONDS 9.1-11.6 H [facility] INR 1.38 0.87-1.06 H [facility] ID Date Data Source [id number] 09/11/2020 01:03:00 PM EST [facility] TSYSORDER [id number] Name Value Range Interpretation Code Description Data [facility] rce(s) Supporting Document(s) WHITE BLOOD COUNT 10.7 K/mm3 4.0-10.0 [facility] RED BLOOD COUNT 4.23 M/mm3 4.50-6.00 L [facility] l HEMOGLOBIN 12.7 gm/dL 14.0-18.0 L [facility] HEMATOCRIT 38.1 % 42.0-54.0 L [facility] MEAN CELL VOLUME 90.1 fl 80-96 [facility] MEAN CORPUSCULAR HEMOGLOBIN 30.0 pg 27.0-31.0 [facility] MEAN CORPUSCULAR HGB CONC 33.3 g/dl 32.0-36.0 [facility] RED CELL DISTRIBUTION WIDTH 14.1 % 10.0-14.5 [facility] PLATELET COUNT 217 K/mm3 172-450 [facility] MEAN PLATELET VOLUME 10.7 fl 9.0-13.0 [facility] pital GRAN % 74.5 % 50-80.0 [facility] IG% 0.3 % 0.0-0.2 H [facility] LYMPH % 18.3 % 25.0-50.0 L [facility] MONO % 6.0 % 2.0-10.0 [facility] EOS % 0.7 % 0-5.0 [facility] BASO % 0.2 % 0.0-2.0 [facility] GRAN # 8.0 K/mm3 2.0-8.00 [facility] IG# 0.0 K/mm3 0.0-0.2 [facility] LYMPH # 2.0 K/mm3 1.0-5.0 [facility] MONO # 0.6 K/mm3 0.10-1.20 [facility] EOS # 0.1 K/mm3 0.0-0.5 [facility] BASO # 0.0 K/mm3 0.0-0.2 [facility] ID Date Data Source [id number] 09/10/2020 08:10:00 AM EST [facility] Name Value Range Interpretation Code Description Data [place] rce(s) Supporting Document(s) SARS coronavirus 2 RNA [facility] This lab was ordered by [facility] and reported by [employer]. ID Date Data Source [id number] 09/11/2020 12:10:37 PM EST [facility] Name Value Range Interpretation Code Description Data [place] rce(s) Supporting Document(s) SARS-COV-2 NIR[facility]AL [facility] Not DetectedReference range: Not Detecte d Testing was performed using the oneal(R) SARS-CoV-2 test. This nucleic acid amplification test was developed and its performance characteristics determined by [facility]. Nucleic acid amplification tests include PCR and TMA. This test has not been FDA cleared or approved. This test has been authorized by FDA under an Emergency Use Authorization (EUA). This test is only authorized for the duration of time the declaration that circumstances exist justifying the authorization of the emergency use of in vitro diagnostic tests for detection of SARS-CoV-2 virus and/or diagnosis of COVID-19 infection under section 564(b)(1) of the Act, 21 U.S.C. 360bbb-3(b) (1), unless the authorization is terminated or revoked sooner. When diagnostic testing is negative, the possibility of a false negative result should be considered in the context of a patient's recent exposures and the presence of clinical signs and symptoms consistent with COVID-19. An individual without symptoms of COVID- 19 and who is not shedding SARS-CoV-2 virus would expect to have a negative (not detected) result in this assay. Performed At: [facility] [address] [id number] Fidel Alexander MD Ph:[phone] ID Date Data Source [id number] 09/08/2020 10:19:00 AM EST [facility] DATE OF EXAMINATION: 09/08/2020 8:43 EST ABD/PEL WITH ORAL AND IV HISTORY: Lower abdominal pain TECHNIQUE: This CT exam was performed using the following dose reduction techniques:automated exposure control, adjustment of mA and/or kV according to thepatient's size, and use of iterative reconstruction technique. Standard contiguous axial spiral imaging was obtained from the dome of thediaphragms through the symphysis pubis with oral contrast and with intravenouscontrast administration and with coronal reformatting. FINDINGS: Lower thorax: Unremarkable ABDOMEN: Liver: UnremarkableGallbladder and bile ducts: There is some pericholecystic fluid raising thepossibility of of cholecystitis. However, the gallbladder wall does not appearthickened and there are no radiopaque gallstonesPancreas: UnremarkableSpleen: UnremarkableAdrenals: UnremarkableKidneys and ureters: UnremarkableStomach and bowel: Grossly unremarkable, partially opacifiedAppendix: No appendicitis PELVIS: Bladder: Partially opacified, grossly unremarkableReproductive: Unremarkable Moderate degenerative changes of lumbar spine IMPRESSION: Some pericholecystic fluid is noted without gallbladder wall thickening or anydefinite gallstones. There is no biliary dilatation. This may be seen withcholecystitis. Hepatitis can also produce this finding. Electronically signed in PS360 by: Mickey Greenberg M.D. 09/08/2020 10:13 EST Name Value Range Interpretation Code Description Data [facility] rce(s) Supporting Document(s) ID Date Data Source CT ABD/PEL WITH ORAL AND IV - [id number] 09/08/2020 12:00:[address] eCW1 ([facility]) Name Value Range Interpretation Code Description Data [facility] rce(s) Supporting Document(s) CT ABD/PEL WITH ORAL AND IV - [id number] eCW1 ([facility]) ID Date Data Source [id number] 09/07/2020 08:33:00 AM EST [facility] DATE OF EXAMINATION: 09/07/2020 7:58 EST ABDOMEN LIMITED COMPARED TO: No priors HISTORY: Abnormal LFTs Real-time ultrasound imaging was performed utilizing B- mode/mares scale and colorDoppler imaging where applicable. Mild to moderate fatty infiltration of the liver with hepatomegaly at 18 cm isnoted.. There is no intra or extrahepatic biliary dilation. The gallbladderappears normal, revealing no signs of gallstones or gallbladder wall thickening.The common bile duct measures 3 mm. The right kidney measures 12.5 cm anddisplays normal echotexture without any hydronephrosis. Pancreas is obscured byoverlying bowel gas. IMPRESSION: Wpij-cb-vunokeps fatty infiltration of liver. Nonvisualization of the pancreas due to overlying bowel gas Electronically signed in PS360 by: Mickey Greenberg M.D. 09/07/2020 8:27 EST Name Value Range Interpretation Code Description Data [facility] rce(s) Supporting Document(s) ID Date Data Source [id number] 09/07/2020 08:32:00 AM EST [facility] DATE OF EXAMINATION: 09/07/2020 7:58 EST CHEST W/O IV CONTRAST HISTORY: Shortness of breath TECHNIQUE: This CT exam was performed using the following dose reduction techniques:automatic exposure control, adjustment of mA and/or kV according to thepatient's size, and use of iterative reconstruction technique. Standard contiguous axial spiral imaging was obtained from lung apices to thelung bases without intravenous contrast administration and with coronalreformatting. FINDINGS: Lungs: Moderate to severe emphysematous changes of both lungs are unchanged.There is no focal consolidation or mass.Pleural space: No pleural effusionMediastinum: Again identified are several mediastinal nodes largest and azygousnode measuring 1.8 x 1.5 cm (the unchanged in number size and contourBones/joints: Unremarkable No pericardial effusion IMPRESSION: Moderate to severe emphysematous changes of both lungs, severe calcifiedcoronary arterial plaque formation, several indeterminate mediastinal nodes allunchanged since the prior CT scan of 07/22/2018 Electronically signed in PS360 by: Mickey Greenberg M.D. 09/07/2020 8:26 EST Name Value Range Interpretation Code [facility]) ID Date Data Source CT CHEST W/O IV CONTRAST - [id number] 09/07/2020 12:00:00 AM EST eCW1 ([facility]) Name Value Range Interpretation Code Description [facility] CT CHEST W/O IV CONTRAST - [id number] eCW1 ([facility]) ID Date Data Source [id number] FIBROSURE 09/03/2020 06:05:00 AM EDT [facility] Name Value Range Interpretation Code Description Data [place] rce(s) Supporting Document(s) FIBROSIS SCORE 0.63 0.00-0.21 H [facility] FIBROSIS STAGE Comment . [facility] F3-Bridging fibrosis with many septa STEATOSIS SCORE 0.87 0.00-0.30 H [facility] STEATOSIS GRADE Comment . [facility] S3 - Marked or Severe Steato sis MCDANIEL SCORE 0.50 0.25 H [facility] MCDANIEL GRADE Comment . [facility] N1 - Borderline or probable MCDANIEL HEIGHT: 72 in . [facility] WEIGHT: 204 LBS . [facility] ALPHA 2-MACROGLOBULINS,QN 216 mg/dL 110-276 [facility] HAPTOGLOBIN 110 mg/dL 29-370 [facility] APOLIPOPROTEIN A-1 119 mg/dL 101-178 [facility] svetlana BILIRUBIN,TOTAL 0.8 mg/dL 0.0-1.2 [facility] GGT 139 IU/L 0-65 H [facility] ALT 496 IU/L 0-55 H [facility] AST 467 IU/L 0-40 H [facility] CHOLESTEROL 170 mg/dL 100-199 [facility] GLUCOSE 113 mg/dL 65-99 H [facility] TRIGLYCERIDES 113 mg/dL 0-149 [facility] INTERPRETATIONS: Comment . [facility] Quantitative results of 10 biochemicals in combination withage, gender, height, and weight, are analyzed using acomputational algorithm to provide a quantitative surrogatemarker (0.0-1.0) of liver fibrosis (Metavir F0-F4), hepaticsteatosis (0.0-1.0, S0-S3), and Non-Alcoholic Steato-Hepatitis (MCDANIEL) (0.0-0.75, N0-N2). The absence of steatosis(S<0.38) precludes the diagnosis of MCDANIEL.Fibrosis marker: In a study of 171 Non-Alcoholic FattyLiver Disease (NAFLD) patients where 23% had significantNAFLD fibrosis (Metavir F2-F4) and 11% had cirrhosis byliver biopsy, a fibrosis result of >0.3 yielded asensitivity of 83% and a specificity of 78% for thedetection of significant fibrosis(1).Steatosis Marker: In a population of 744 patients (583 HCV,18 HBV, 69 NAFLD, and 74 alcoholic disease patients), where36% had significant steatosis (>5%) on a liver biopsy, asteatosis score >0.5 had a sensitivity of 71% and aspecificity of 72% for identification of significantsteatosis(2).MCDANIEL marker: In a population of 257 NAFLD patients, where62% had at least some MCDANIEL by liver biopsy, a prediction ofNASH had a sensitivity of 88% for identifying MCDANIEL and aspecificity of 50%(3). FIBROSIS SCORING Comment . [facility] <0.21 = Stage F0 - No fibrosis0.21 - 0.27 = Stage F0 - F10.27 - 0.31 = Stage F1 - Portal fibrosis0.31 - 0.48 = Stage F1 - F20.48 - 0.58 = Stage F2 - Bridging fibrosis with few septa0.58 - 0.72 = Stage F3 - Bridging fibrosis with many septa0.72 - 0.74 = Stage F3 - F4 >0.74 = Stage F4 - Cirrhosis STEATOSIS GRADING: Comment . [facility] svetlana < 0.30 = S0 - No Steatosis0.30 to 0.38 = S0 - S10.38 to 0.48 = S1 - Minimal Steatosis0.48 to 0.57 = S1 - S20.57 to 0.67 = S2 - Moderate Steatosis0.67 to 0.69 = S2 - S3 > 0.69 = S3 - Marked or Severe Steatosis MCDANIEL SCORING Comment . [facility] 0.25 = N0 - Not NASH0.50 = N1 - Borderli ne or probable NASH0.75 = N2 - MCDANIEL LIMITATIONS: Comment . [facility] MCDANIEL FibroSure is recommended for patien ts with suspectednon-alcoholic fatty liver disease. It is not recommendedfor patients with other liver diseases. It is also notrecommended in patients with Gilbert Disease, acutehemolysis, acute viral hepatitis, drug induced hepatitis,genetic liver disease, autoimmune hepatitis and/or extra-hepatic cholestasis. Any of these clinical situations maylead to inaccurate quantitative predictions of fibrosis. COMMENT: Comment . [facility] This test was developed and its performa nce characteristics determinedby [facility]. It has not been cleared or approved by the Food and DrugAdministration. The FDA has determined that such clearance orapproval is not necessary.For questions regarding this report please contactcustomer service at .References:1. Freya Moran. et al. Diagnostic Value of Biochemical Markers (FibroTest) for the prediction of Liver Fibrosis in patients with Non-Alcoholic Fatty Liver Disease. BMC Gastroenterology 2006; 6:6.2. Juan Barrientos. et al. The Diagnostic Value of Biomarkers (Steato Test) for the Prediction of Liver Steatosis. Comparative Hepatol. 2005; 4:10.3. Juan Barrientos, Perri Pillai, et al. Diagnostic value of biochemical markers (MCDANIEL TEST) for the prediction of non alcohol steato hepatitis in patients with non- alcoholic fatty liver disease. BMC Gastroenterology 2006; 6:34 doi:10.1186/2739-525D-0-34.Performed at: [facility] [address] [place], [place] [id number] Director: Fiordaliza Caceres MD, Phone: [phone] ID Date Data Source [id number] 09/01/2020 08:06:00 AM EDT [facility] Name Value Range Interpretation Code Description Data [place] rce(s) Supporting Document(s) HEP A AB, IGM Negative Negative [facility] HEP B SURFACE ANTIGEN SCREEN Negative Negative R [facility] HEP B CORE AB, IGM Negative Negative [facility] svetlana HCV ANTIBODY >11.0 0.0-0.9 H [facility] INFCE Result Units: s/co ratio Negative: < 0.8 Indeterminate: 0.8 - 0.9 Positive: > 0.9 The CDC recommends that a positive HCV antibody result be followed up with a HCV Nucleic Acid Amplification test (488848).Performed at: [facility] [id number] Director: Renata Parra MD, Phone: [phone] ID Date Data Source [id number] 09/01/2020 08:06:00 AM EDT [facility] Name Value Range Interpretation Code Description Data [place] rce(s) Supporting Document(s) Hep A Ab, IgM Negative Negative [facility] HBsAg Screen Negative Negative [facility] Hep B Core Ab, IgM Negative Negative [facility] Hep C Virus Ab 0.0-0.9 Above high normal [facility] Negative: < 0.8 Indeterminate: 0.8 - 0.9 Positive: > 0.9 The CDC recommends that a positive HCV antibody result be followed up with a HCV Nucleic Acid Amplification test (660148). ID Date Data Source [id number] 09/03/2020 06:05:00 AM EDT [facility] Name Value Range Interpretation Code Description Data [place] rce(s) Supporting Document(s) Fibrosis Score 0.63 0.00-0.21 Above high normal [facility] Fibrosis Stage [facility] F3-Bridging fibrosis wit h many septa Steatosis Score 0.87 0.00-0.30 Above high normal [facility] Steatosis Grade [facility] S3 - Marked or Severe Steato sis MCDANIEL Score 0.50 0.25 Above high normal [facility] MCDANIEL Grade [facility] N1 - Borderline or probable MCDANIEL Height: 72 in [facility] Weight: 204 LBS [facility] Alpha 2-Macroglobulins, Qn 216 mg/dL 110-276 [facility] Haptoglobin 110 mg/dL 29-370 [facility] Apolipoprotein A-1 119 mg/dL 101-178 [facility] Bilirubin, Total 0.8 mg/dL 0.0-1.2 [facility] GGT 139 IU/L 0-65 Above high normal [facility] ALT (SGPT) P5P 496 IU/L 0-55 Above high normal [facility] AST (SGOT) P5P 467 IU/L 0-40 Above high normal [facility] Cholesterol, Total 170 mg/dL 100-199 [facility] Glucose, Serum 113 mg/dL 65-99 Above high normal [facility] Triglycerides 113 mg/dL 0-149 [facility] Interpretations: [facility] Quantitative results of 10 biochemicals in combination withage, gender, height, and weight, are analyzed using acomputational algorithm to provide a quantitative surrogatemarker (0.0-1.0) of liver fibrosis (Metavir F0-F4), hepaticsteatosis (0.0-1.0, S0-S3), and Non-Alcoholic Steato-Hepatitis (MCDANIEL) (0.0-0.75, N0-N2). The absence of steatosis(S<0.38) precludes the diagnosis of MCDANIEL. Fibrosis marker: In a study of 171 Non-Alcoholic FattyLiver Disease (NAFLD) patients where 23% had significantNAFLD fibrosis (Metavir F2-F4) and 11% had cirrhosis byliver biopsy, a fibrosis result of >0.3 yielded asensitivity of 83% and a specificity of 78% for thedetection of significant fibrosis(1). Steatosis Marker: In a population of 744 patients (583 HCV,18 HBV, 69 NAFLD, and 74 alcoholic disease patients), where36% had significant steatosis (>5%) on a liver biopsy, asteatosis score >0.5 had a sensitivity of 71% and aspecificity of 72% for identification of significantsteatosis(2). MCDANIEL marker: In a population of 257 NAFLD patients, where62% had at least some MCDANIEL by liver biopsy, a prediction ofNASH had a sensitivity of 88% for identifying MCDANIEL and aspecificity of 50%(3). Fibrosis Scoring: [facility] <0.21 = Stage F0 - No fibrosis0.21 - 0.27 = Stage F0 - F10.27 - 0.31 = Stage F1 - Portal fibrosis0.31 - 0.48 = Stage F1 - F20.48 - 0.58 = Stage F2 - Bridging fibrosis with few septa0.58 - 0.72 = Stage F3 - Bridging fibrosis with many septa0.72 - 0.74 = Stage F3 - F4 >0.74 = Stage F4 - Cirrhosis Steatosis Grading [facility] < 0.30 = S0 - No Steatosis0.30 to 0.38 = S0 - S10.38 to 0.48 = S1 - Minimal Steatosis0.48 to 0.57 = S1 - S20.57 to 0.67 = S2 - Moderate Steatosis0.67 to 0.69 = S2 - S3 > 0.69 = S3 - Marked or Severe Steatosis MCDANIEL Scoring [facility] 0.25 = N0 - Not NASH0.50 = N1 - Borderli ne or probable NASH0.75 = N2 - MCDANIEL Limitations: [facility] MCDANIEL FibroSure is recommended for patien ts with suspected non-alcoholic fatty liver disease. It is not recommended for patientswith other liver diseases. It is also not recommended in patientswith Gilbert Disease, acute hemolysis, acute viral hepatitis, druginduced hepatitis, genetic liver disease, autoimmune hepatitis and/orextra-hepatic cholestasis. Any of these clinical situations may leadto inaccurate quantitative predictions of fibrosis. Comment: [facility] This test was developed and its performa nce characteristics determinedby [employer] It has not been cleared or approved by the Food and DrugAdministration. The FDA has determined that such clearance orapproval is not necessary. For questions regarding this report please contactcustomer service at . References: 1. Freya Ball al. Diagnostic Value of Biochemical Markers (FibroTest) for the prediction of Liver Fibrosis in patients with Non-Alcoholic Fatty Liver Disease. BMC Gastroenterology 2006; 6:6.2. Kwaku Barrientos et al. The Diagnostic Value of Biomarkers (Steato Test) for the Prediction of Liver Steatosis. Comparative Hepatol. 2005; 4:10.3. Juan Barrientos, Perri Pillai, et al. Diagnostic value of biochemical markers (MCDANIEL TEST) for the prediction of non alcohol steato hepatitis in patients with non- alcoholic fatty liver disease. BMC Gastroenterology 2006; 6:34 doi:10.1186/6361-298P-4-34. ID Date Data Source [id number] 08/31/2020 10:11:00 AM EDT [facility] Name Value Range Interpretation Code Description Data [place] rce(s) Supporting Document(s) GLUCOSE 96 mg/dL 74-106 [facility] BLOOD UREA NITROGEN 21 mg/dL 7-18 H [facility] ital CREATININE 1.5 mg/dL 0.7-1.3 H [facility] SODIUM 140 mmol/L 136-145 [facility] POTASSIUM 3.9 mmol/L 3.5-5.1 [facility] CHLORIDE 103 mmol/L 98-107 [facility] CO2 29 mmol/L 21-32 [facility] CALCIUM 9.0 mg/dL 8.5-10.1 [facility] ANION GAP 8.0 mmol/L 5-12 [facility] GLOMERULAR FILTRATION RATE 48 mL/min [facility] GFR IS CALCULATED IN mL/min/1.73m2 YARY L FUNCTION: >90MILDLY DECREASED: 60-89MILDY TO MODERATELY DECREASED: 45-59 MODERATELY TO SEVERELY DECREASED: 30-44SEVERELY DECREASED: 15-29RENAL FAILURE: <15 AST 445 U/L 15-37 *H [facility] ALT 510 U/L 12-78 *H [facility] ALKALINE PHOSPHATASE 210 U/L 46-116 *H [facility] pital TOTAL BILIRUBIN 0.7 mg/dL 0.2-1.0 [facility] TOTAL PROTEIN 7.3 g/dl 6.4-8.2 [facility] ALBUMIN 3.4 gm/dL 3.4-5.0 [facility] ID Date Data Source [id number] 08/31/2020 12:34:00 PM EDT [facility] l Name Value Range Interpretation Code Description Data [place] rce(s) Supporting Document(s) LIPASE 376 U/L 73-393 [facility] ID Date Data Source [id number] 08/31/2020 12:34:00 PM EDT [facility] l Name Value Range Interpretation Code Description Data [place] rce(s) Supporting Document(s) AMYLASE 85 U/L 25-115 [facility] ID Date Data Source [id number] 08/31/2020 08:44:00 AM EDT [facility] Name Value Range Interpretation Code Description Data [place] rce(s) Supporting Document(s) WHITE BLOOD COUNT 7.8 K/mm3 4.0-10.0 [facility] RED BLOOD COUNT 4.13 M/mm3 4.50-6.00 L [facility] l HEMOGLOBIN 12.2 gm/dL 14.0-18.0 L [facility] HEMATOCRIT 38.1 % 42.0-54.0 L [facility] MEAN CELL VOLUME 92.3 fl 80-96 [facility] MEAN CORPUSCULAR HEMOGLOBIN 29.5 pg 27.0-31.0 [facility] MEAN CORPUSCULAR HGB CONC 32.0 g/dl 32.0-36.0 [facility] RED CELL DISTRIBUTION WIDTH 13.4 % 10.0-14.5 [facility] PLATELET COUNT 187 K/mm3 172-450 [facility] MEAN PLATELET VOLUME 10.7 fl 9.0-13.0 [facility] pital GRAN % 64.4 % 50-80.0 [facility] IG% 0.3 % 0.0-0.2 H [facility] LYMPH % 23.4 % 25.0-50.0 L [facility] MONO % 8.6 % 2.0-10.0 [facility] EOS % 2.7 % 0-5.0 [facility] BASO % 0.6 % 0.0-2.0 [facility] GRAN # 5.0 K/mm3 2.0-8.00 [facility] IG# 0.0 K/mm3 0.0-0.2 [facility] LYMPH # 1.8 K/mm3 1.0-5.0 [facility] MONO # 0.7 K/mm3 0.10-1.20 [facility] EOS # 0.2 K/mm3 0.0-0.5 [facility] BASO # 0.1 K/mm3 0.0-0.2 [facility] ID Date Data Source [id number] 08/31/2020 11:44:00 AM EDT [facility] l Name Value Range Interpretation Code Description Data [place] rce(s) Supporting Document(s) GAMMA GLUTAMYL TRANSPEPTIDASE 170 U/L 15-85 *H [facility] ID Date Data Source [id number] 08/31/2020 10:11:00 AM EDT [facility] Name Value Range Interpretation Code Description Data [place] rce(s) Supporting Document(s) B-TYPE NATRIURETIC PEPTIDE 3889 pg/ml 0-125 *H [facility] ID Date Data Source [id number] 08/31/2020 12:00:00 AM EDT eCW1 ([facility]) Name Value Range Interpretation Code Description Data [place] rce(s) Supporting Document(s) 7.8 4.0-10.0 WHITE BLOOD COUNT eCW1 ([facility]) 4.13 4.50-6.00 RED BLOOD COUNT eCW1 ([facility]) 12.2 14.0-18.0 HEMOGLOBIN eCW1 ([facility]) 92.3 80-96 MEAN CELL VOLUME eCW1 ([facility]) 38.1 42.0-54.0 HEMATOCRIT eCW1 ([facility]) 29.5 27.0-31.0 MEAN CORPUSCULAR HEMOGLOB IN eCW1 ([facility]) 187 172-450 PLATELET COUNT eCW1 ([facility]) 13.4 10.0-14.5 RED CELL DISTRIBUTION WID TH eCW1 ([facility]) 10.7 9.0-13.0 MEAN PLATELET VOLUME eCW1 ([facility]) 32.0 32.0-36.0 MEAN CORPUSCULAR HGB CONC eCW1 ([facility]) 64.4 50-80.0 GRAN % eCW1 ([facility]) 8.6 2.0-10.0 MONO % eCW1 ([facility]) 2.7 0-5.0 EOS % eCW1 ([facility]) 23.4 25.0-50.0 LYMPH % eCW1 ([facility]) 0.6 0.0-2.0 BASO % eCW1 ([facility]) 0.7 0.10-1.20 MONO # eCW1 ([facility]) 5.0 2.0-8.00 GRAN # eCW1 ([facility]) 1.8 1.0-5.0 LYMPH # eCW1 ([facility]) 0.2 0.0-0.5 EOS # eCW1 ([facility]) 0.1 0.0-0.2 BASO # eCW1 ([facility]) ID Date Data Source [id number] 08/18/2020 02:37:00 PM EDT [facility] Patient: LEAH BUSTOS Observation Report - [facility]VisitID: [id number] [place] [address] [phone], MRegistration Date/Time: 08/13/2020 07:35 Weight:91.6 kg (S). Height/Length:72 inches (S). BMI:27.4 FAMILY HISTORYMother: Cancer. Brother(s): Heart Disease. (Electronically signed by Anais Vazquez, Candido 08/13/2020 14:56) Addenda for LEAH BUSTOS VisitID: [id number] Date: 08/13/2020 08/14/2020 12:05Phoned pt regarding blood culture. No answer. No voicemail.(Electronically signed by Alma Turner R.N. - 08/14/2020 12:05) 08/17/2020 9:41AMA follow-up. Phoned pt regarding blood culture. Pt answered, relayed results of blood culture advised pt to return to ER with any fever/chills, return also as needed. Notified pt that he will be recieving another call if the second blood culture comes back positive. Flagged chart for today's provider to review in case antibiotics n eeded.(Electronically signed by Sameera Jimenez R.N. - 08/17/2020 9:41) 08/18/2020 8:48ER provider advises fax blood culture results to PCP and ensure close f/u. PCP is Dr. Bruno. Called the [facility] spoke to nurse Gordon. Pt has appointment today at 3pm, [facility] clinic nurse states she will call pt and urge him to keep his appointment. Culture results faxed to [phone] fax confirmation attached to chart. (Electronically signed by Sameera Jimenez R.N. - 08/18/2020 8:48) 08/18/2020 10:35[facility] stating they did not recieve culture. Hand delivered cultures to maría Lyons and pressed how pt has an appointment today at 3pm at clinic and needs close f/u. (Electronically signed by Sameera Jimenez R.N. - 08/18/2020 10:35) 08/18/2020 14:34Blood culture sensitvity resulted, faxed sensitivity to [facility] at [phone](Electronically signed by Sameera Jimenez R.N. - 08/18/2020 14:34) Name Value Range Interpretation Code Description Data Paradise rce(s) Supporting Document(s) ID Date Data Source [id number] 08/18/2020 10:47:00 AM EDT [facility] l Patient: LEAH BUSTOS Observation Report - [facility].VisitID: [id number] [place] [address] [phone], MRegistration Date/Time: 08/13/2020 07:35 Weight:91.6 kg (S). Height/Length:72 inches (S). BMI:27.4 FAMILY HISTORYMother: Cancer. Brother(s): Heart Disease. (Electronically signed by Anais Vazquez P.A. 08/13/2020 14:56) Addenda for LEAH BUSTOS VisitID: [id number] Date: 08/13/2020 08/14/2020 12:05Phoned pt regarding blood culture. No answer. No voicemail.(Electronically signed by Alma Turner R.N. - 08/14/2020 12:05) 08/17/2020 9:41AMA follow-up. Phoned pt regarding blood culture. Pt answered, relayed results of blood culture advised pt to return to ER with any fever/chills, return also as needed. Notified pt that he will be recieving another call if the second blood culture comes back positive. Flagged chart for today's provider to review in case antibiotics n eeded.(Electronically signed by Sameera Jimenez R.N. - 08/17/2020 9:41) 08/18/2020 8:48ER provider advises fax blood culture results to PCP and ensure close f/u. PCP is Dr. Bruno. Called the health center spoke to nurse Heidi. Pt has appointment today at 3pm, health clinic nurse states she will call pt and urge him to keep his appointment. Culture results faxed to [phone] fax confirmation attached to chart. (Electronically signed by Sameera Jimenez R.N. - 08/18/2020 8:48) 08/18/2020 10:35[facility] stating they did not recieve culture. Hand delivered cultures to maría Lyons and pressed how pt has an appointment today at 3pm at clinic and needs close f/u. (Electronically signed by Sameera Jimenez R.N. - 08/18/2020 10:35) Name Value Range Interpretation Code Description Data Paradise rce(s) Supporting Document(s) ID Date Data Source [id number] 08/18/2020 08:49:00 AM EDT [facility] Patient: LEAH BUSTOS Observation Report - [facility].VisitID: [id number] [place] [address] [phone], MRegistration Date/Time: 08/13/2020 07:35 Weight:91.6 kg (S). Height/Length:72 inches (S). BMI:27.4 FAMILY HISTORYMother: Cancer. Brother(s): Heart Disease. (Electronically signed by Anais Vazquez P.A. 08/13/2020 14:56) Addenda for LEAH BUSTOS VisitID: [id number] Date: 08/13/2020 08/14/2020 12:05Phoned pt regarding blood culture. No answer. No voicemail.(Electronically signed by Alma Turner R.N. - 08/14/2020 12:05) 08/17/2020 9:41AMA follow-up. Phoned pt regarding blood culture. Pt answered, relayed results of blood culture advised pt to return to ER with any fever/chills, return also as needed. Notified pt that he will be recieving another call if the second blood culture comes back positive. Flagged chart for today's provider to review in case antibiotics n eeded.(Electronically signed by Sameera Jimenez R.N. - 08/17/2020 9:41) 08/18/2020 8:48ER provider advises fax blood culture results to PCP and ensure close f/u. PCP is Dr. Bruno. Called the [facility] spoke to nurse Heidi. Pt has appointment today at 3pm, [facility] nurse states she will call pt and urge him to keep his appointment. Culture results faxed to [phone] fax confirmation attached to chart. (Electronically signed by Sameera Jimenez R.N. - 08/18/2020 8:48) Name Value Range Interpretation Code Description Data Paradise rce(s) Supporting Document(s) ID Date Data Source [id number] 08/17/2020 09:44:00 AM [facility] Patient: LEAH BUSTOS Observation Report - [facility].VisitID: [id number] [place] [address] [phone], MRegistration Date/Time: 08/13/2020 07:35 Weight:91.6 kg (S). Height/Length:72 inches (S). BMI:27.4 FAMILY HISTORYMother: Cancer. Brother(s): Heart Disease. (Electronically signed by Anais Vazquez PKaruna 08/13/2020 14:56) Addenda for LEAH BUSTOS VisitID: [id number] Date: 08/13/2020 08/14/2020 12:05Phoned pt regarding blood culture. No answer. No voicemail.(Electronically signed by Alma Turner R.N. - 08/14/2020 12:05) 08/17/2020 9:41AMA follow-up. Phoned pt regarding blood culture. Pt answered, relayed results of blood culture advised pt to return to ER with any fever/chills, return also as needed. Notified pt that he will be recieving another call if the second blood culture comes back positive. Flagged chart for today's provider to review in case antibiotics n eeded.(Electronically signed by Sameera Jimenez R.N. - 08/17/2020 9:41) Name Value Range Interpretation Code Description Data Paradise rce(s) Supporting Document(s) ID Date Data Source [id number] 08/14/2020 12:06:00 PM [facility] Patient: LEAH BUSTOS [id number] [place] [address] [phone], MRegistration Date/Time: 08/13/2020 07:35 Weight:91.6 kg (S). Height/Length:72 inches (S). BMI:27.4 FAMILY HISTORYMother: Cancer. Brother(s): Heart Disease. (Electronically signed by Anais Vazquez, P.A. 08/13/2020 14:56) Addenda for LEAH BUSTOS VisitID: [id number] Date: 08/13/2020 08/14/2020 12:05Phoned pt regarding blood culture. No answer. No voicemail.(Electronically signed by Alma Turner R.N. - 08/14/2020 12:05) Name Value Range Interpretation Code Description Data Paradise rce(s) Supporting Document(s) ID Date Data Source [id number] 08/13/2020 03:13:00 PM [facility] Patient: LEAH BUSTOS [facility] [id number] [place] [address] [phone], MRegistration Date/Time: 08/13/2020 07:35 Weight:91.6 kg (S). Height/Length:72 inches (S). BMI:27.4 FAMILY HISTORYMother: Cancer. Brother(s): Heart Disease. (Electronically signed by Anais Vazquez, P.A. 08/13/2020 14:56) Name Value Range Interpretation Code Description Data Paradise rce(s) Supporting Document(s) ID Date Data Source [id number] 08/13/2020 08:40:00 AM EDT [facility] Name Value Range Interpretation Code Description Data Paradise rce(s) Supporting Document(s) SARS COV2 TRP [facility] This lab was ordered by [facility] and reported by [facility] Laboratory. ID Date Data Source [id number] 08/13/2020 09:47:00 AM EDT [facility] TSYSORDER [id number] Name Value Range Interpretation Code Description Data Paradise rce(s) Supporting Document(s) Adenovirus Not Detected Detected Not [facility] ospital Coronavirus 229E Not Detected Detected Not [facility] Coronavirus HKU1 Not Detected Detected Not [facility] Coronavirus NL63 Not Detected Detected Not [facility] Coronavirus OC43 Not Detected Detected Not [facility] Sars Cov 2 Not Detected Detected Not [facility] Metapneumovirus Not Detected Detected Not [facility] Human Rhinovirus Not Detected Detected Not [facility] Influenza A Not Detected Detected [facility] Influenza B Not Detected Detected Not [facility] Parainfluenza Virus 1 Not Detected Detected Not [facility] Parainfluenza Virus 2 Not Detected Detected Not [facility] Parainfluenza Virus 3 Not Detected Detected Not [facility] Parainfluenza Virus 4 Not Detected Detected Not [facility] Respiratory Syncytial Virus Not Detected Detected Not [facility] Bordetella parapertus ([id number]) Not Detected Detected Not [facility] Bordetella pertussis (ptxP) Not Detected Detected Not [facility] Chlamydia pneumoniae Not Detected Detected Not [facility] Mycoplasma pneumoniae Not Detected Detected Not [facility] The Above results have been determined b y using the [employer] FilmArray system.FilmArray is an automated in vitro diagnostic system thatutilizes nested multiplex Polymerase Chain Reaction (PCR)and high-resolution melting analysis to detect and identifymultiple nucleic acid targets from clinical specimens. ID Date Data Source [id number] 08/19/2020 10:27:00 AM EDT [facility] Name Value Range Interpretation Code Description Data Paradise rce(s) Supporting Document(s) [facility] ID Date Data Source [id number] 08/18/2020 10:28:00 AM EDT [facility] Name Value Range Interpretation Code Description Data Paradise rce(s) Supporting Document(s) ORGANISM [facility] COLONY COUNT N [facility] ID Date Data Source [id number] 08/18/2020 10:28:00 AM EDT [facility] Name Value Range Interpretation Code Description Data Paradise rce(s) Supporting Document(s) GRAM STAIN [facility] GRAM STAIN N [facility] ID Date Data Source [id number] 08/15/2020 12:41:00 AM EDT [facility] Name Value Range Interpretation Code Description Data Paradise rce(s) Supporting Document(s) GRAM STAIN [facility] GRAM STAIN N [facility] ID Date Data Source [id number] 08/14/2020 04:19:00 AM EDT [facility] Name Value Range Interpretation Code Description Data Paradise rce(s) Supporting Document(s) KPC (carb resi) Not Detected Detected Not N [facility] Enterococcus Not Detected Detected Not [facility] Listeria mono Not Detected Detected Not N [facility] Staphylococcus Not Detected Detected Not [facility] Staph aureus Not Detected Detected Not [facility] Streptococcus Not Detected Detected Not N [facility] Strep Grp B Not Detected Detected Not [facility] Strep pneumo Not Detected Detected Not N [facility] Strep pyogenes Not Detected Detected Not [facility] Acineto baumani Not Detected Detected Not N [facility] Enterobacteriac DETECTED Detected Not Very abnormal (applies to non-numeric units [facility] Enterob cloacae Not Detected Detected Not N [facility] Escherichia col Not Detected Detected Not N [facility] Klebsiella oxyt Not Detected Detected Not N [facility] Kleb pneumoniae Not Detected Detected Not N [facility] Proteus Not Detected Detected Not N [facility] Serratia marces DETECTED Detected Not Very abnormal (applies to non-numeric units [facility] Haemophilus inf Not Detected Detected Not N [facility] Neisseria menin Not Detected Detected Not N [facility] Pseudomonas aer Not Detected Detected Not N [facility] Ciara albican Not Detected Detected Not N [facility] Ciara glabrat Not Detected Detected Not N [facility] Ciara krusei Not Detected Detected Not [facility] Ciara parapsi Not Detected Detected Not N [facility] Ciara tropica Not Detected Detected Not N [facility] The above results have been determined by using the [employer]baGroupArray system.FilmArray is an automated in vitro diagnostic system thatutilizes nested multiplex Polymerase Chain Reaction (PCR)and high-resolution melting analysis to detect and identifymultiple nucleic acid targets from clinical specimens. ID Date Data Source [id number] 08/13/2020 09:18:00 AM T [facility] l TSYSORDER [id number] Results called to [employer] on 08/13/20 by.GRACE. Name Value Range Interpretation Code Description Data Paradise rce(s) Supporting Document(s) B-TYPE NATRIURETIC PEPTIDE 9729 pg/ml 0-125 *H [facility] ID Date Data Source [id number] 08/13/2020 09:18:00 AM EDT [facility] l TSYSORDER [id number] Results called to [employer] on 08/13/20 by.GRACE. Name Value Range Interpretation Code Description Data Paradise rce(s) Supporting Document(s) TROPONIN I < 0.017 ng/mL 0.0-0.056 [facility] ID Date Data Source [id number] 08/13/2020 09:18:00 AM T [facility] l TSYSORDER [id number] Results called to [employer] on 08/13/20 [facility] Name Value Range Interpretation Code Description Data Paradise rce(s) Supporting Document(s) GLUCOSE 94 mg/dL 74-106 [facility] BLOOD UREA NITROGEN 27 mg/dL 7-18 H [facility] ital CREATININE 1.9 mg/dL 0.7-1.3 H [facility] SODIUM 145 mmol/L 136-145 [facility] POTASSIUM 3.3 mmol/L 3.5-5.1 L [facility] CHLORIDE 105 mmol/L 98-107 [facility] CO2 27 mmol/L 21-32 [facility] CALCIUM 9.4 mg/dL 8.5-10.1 [facility] ANION GAP 13.0 mmol/L 5-12 H [facility] GLOMERULAR FILTRATION RATE 37 mL/min [facility] GFR IS CALCULATED IN mL/min/1.73m2 YARY L FUNCTION: >90MILDLY DECREASED: 60-89MILDY TO MODERATELY DECREASED: 45-59 MODERATELY TO SEVERELY DECREASED: 30-44SEVERELY DECREASED: 15-29RENAL FAILURE: <15 AST 33 U/L 15-37 [facility] ALT 27 U/L 12-78 [facility] ALKALINE PHOSPHATASE 193 U/L 46-[address] [facility] pital TOTAL BILIRUBIN 1.4 mg/dL 0.2-1.0 H [facility] TOTAL PROTEIN 7.8 g/dl 6.4-8.2 [facility] ALBUMIN 4.1 gm/dL 3.4-5.0 [facility] ID Date Data Source [id number] 08/13/2020 09:12:00 AM EDT [facility] ital TSYSORDER [id number] Name Value Range Interpretation Code Description Data Paradise rce(s) Supporting Document(s) URINE COLOR. PALE [facility] URINE APPEARANCE CLEAR [facility] URINE GLUCOSE (UA) NEGATIVE mg/dL NEGATIVE [facility] URINE BILIRUBIN NEGATIVE NEGATIVE [facility] URINE KETONE NEGATIVE mg/dL NEGATIVE [facility] SPECIFIC GRAVITY,URINE 1.015 1.001-1.035 [facility] URINE BLOOD NEGATIVE NEGATIVE [facility] PH,URINE 5.0 5.0-9.0 [facility] URINE PROTEIN NEGATIVE mg/dL NEGATIVE [facility]ana URINE UROBILINOGEN NORMAL(0.2-1) mg/dL 0-1 [facility] URINE NITRATE NEGATIVE NEGATIVE [facility] URINE LEUKOCYTE ESTERASE NEGATIVE NEGATIVE [facility] ID Date Data Source [id number] 08/13/2020 09:11:00 AM EDT [facility] l TSYSORDER [id number] Name Value Range Interpretation Code Description Data Paradise rce(s) Supporting Document(s) LACTIC ACID 2.3 mmol/L 0.4-2.0 H [facility] ID Date Data Source [id number] 08/13/2020 09:00:00 AM EDT [facility] l TSYSORDER [id number] Name Value Range Interpretation Code Description Data Paradise rce(s) Supporting Document(s) WHITE BLOOD COUNT 4.6 K/mm3 4.0-10.0 [facility] al RED BLOOD COUNT 4.12 M/mm3 4.50-6.00 L [facility] HEMOGLOBIN 12.6 gm/dL 14.0-18.0 L [facility] HEMATOCRIT 37.6 % 42.0-54.0 L [facility] MEAN CELL VOLUME 91.3 fl 80-96 [facility] MEAN CORPUSCULAR HEMOGLOBIN 30.6 pg 27.0-31.0 [facility] MEAN CORPUSCULAR HGB CONC 33.5 g/dl 32.0-36.0 [facility] RED CELL DISTRIBUTION WIDTH 14.0 % 10.0-14.5 [facility] PLATELET COUNT 206 K/mm3 172-450 [facility] MEAN PLATELET VOLUME 11.1 fl 9.0-13.0 [facility] pital GRAN % 87.2 % 50-80.0 H [facility] IG% 0.0 % 0.0-0.2 [facility] LYMPH % 11.2 % 25.0-50.0 L [facility] MONO % 0.2 % 2.0-10.0 L [facility] EOS % 0.7 % 0-5.0 [facility] BASO % 0.7 % 0.0-2.0 [facility] GRAN # 4.0 K/mm3 2.0-8.00 [facility] IG# 0.0 K/mm3 0.0-0.2 [facility] LYMPH # 0.5 K/mm3 1.0-5.0 L [facility] MONO # 0.0 K/mm3 0.10-1.20 L [facility] EOS # 0.0 K/mm3 0.0-0.5 [facility] BASO # 0.0 K/mm3 0.0-0.2 [facility] ID Date Data Source [id number] 08/13/2020 12:00:00 AM EDT [facility] Name Value Range Interpretation Code Description Data Paradise rce(s) Supporting Document(s) 2019 Novel Coronavirus RNA [facility] This lab was ordered by [facility] L aboratory and reported by [facility] Laboratory. ID Date Data Source [id number] 08/09/2020 09:37:00 AM EDT [facility] DATE OF EXAMINATION: 08/09/2020 8:56 EDT TECHNIQUE: 3 views of the left shoulder were obtained. HISTORY: Pain FINDINGS: No evidence of acute fracture or dislocation. Alignment is normal.Acromioclavicular joint is normal. No aggressive osseous lesions or erosions.Bone mineral density is unremarkable. Visualized lung is clear. Visualized softtissues are normal. IMPRESSION: Mild osteoarthritis of acromioclavicular joint. Electronically signed in PS[employer] by: Mickey Greenberg M.D. 08/09/2020 9:31 EDT Name Value Range Interpretation Code Description Data Paradise rce(s) Supporting Document(s) ID Date Data Source [id number] 07/19/2020 10:54:16 AM EDT [facility] Name Value Range Interpretation Code Description Data Paradise rce(s) Supporting Document(s) &PDF [facility] [id number] vci [file] [id number] ID Date Data Source [id number] 07/19/2020 10:55:29 AM EDT [facility]FORMATIONPatient [facility] Name Date of Age Gend*PT [id number] Leah Bustos 1965 54 years M HOPPT Location Admission Date/Time Visit ID Attending [id number] 07/19/20 0756 --- M Robert Thomas MD([id number]) EPI ID CSN Admitting Provider [id number] Jazmin Robert Thomas MD([id number])Inpatient History & PhysicalRobert Saba BustosMRN:[id number]: sx af for ablationPast Medical History:Past Medical History:Diagnosis Date Atrial fibrillation Cardiomyopathy CHF (congestive heart failure) COPD (chronic obstructive pulmonary disease) HypertensionPast Surgical History:Past Surgical History:Procedure Laterality Date CARDIOVERSION N/A 06/07/2018 Procedure: PACU CARDIOVERSION OP 2-7; Surgeon: Morro Nugent MD;Laterality: N/A; TONSILLECTOMYMedications:No medications prior to admission.Allergies:Patient has no known drug allergies.Family History:No family history on file.Social History:Social HistoryTobacco Use Smoking status: Current Every Day Smoker Packs/day: 1.00 Types: Cigarettes Smokeless tobacco: Never UsedSubstance Use Topics Alcohol use: No Drug use: NoReview of Systems:Pertinent positives as mentioned in the HPI. Denies recent fever, chills, orchange in appetite. Denies unilateral weakness, numbness, slurred speech, orfacial droop. Denies any hematemesis, hematochezia, or melena. Denies nausea,vomiting, diarrhea, or abdominal pain. All other systems were reviewed and theremainder are negative.Physical Exam:Vital Signs:A 9 body area/organ physical examination was performed.General: Well-developed, well-nourished, patient in NAD.HEENT: NC/AT, sclerae anicteric, moist mucous membranes.Neck: Supple. No thyromegaly was appreciated.Lungs: CTAB, without rales, rhonchi, or wheezes.CV: Irregular rate & rhythm, no murmurs, rubs, or gallops. Variable S1/S2.The JVP is <8 cm while sitting upright.Abd: Soft, NT, ND.Extremities: No pitting edema, cyanosis or clubbing.Skin: Warm & dry, without jaundice or bruising.Psych: A&O x3, affect appropriate.As sessment:Principal Problem: Persistent atrial fibrillationDCMOSAHTNNSVTCOPDETOH usePlan:1. AF cyo ablation, ILRProcedure was discussed with patient / family risks, benefits, andalternatives explained. Potential risks include but not limited to pain,bleeding, infection, injury to any body system or organ between the skin andheart (including the skin, subcutaneous tissue, blood vessels, abdominal organs,heart, and lungs), possible need for a heart surgery or pacemaker implantation,heart attack, stroke, or even .Signature: Jazmin Thomas, MDDate: July 19, 2020Time: 7:40 AM Name Value Range Interpretation Code Description Data [place] rce(s) Supporting Document(s) ID Date Data Source [id number] 07/19/2020 10:06:36 AM EDT [facility]FORMATIONPatient MRN Name Date of Age Gend*PT [id number] Leah Bustos 1965 54 years M HOPPT Location Admission Date/Time Visit ID Attending Provider --- --- --- --- EPI ID CSN Admitting Provider [id number] ---Arterial Line PlacementPatient location during procedure: ORIndications for arterial line: multiple ABGs and hemodynamic monitoringStaffingPerformed by: Hank Black CRNAApproved by: RADHA Resendezompleted: patient identified, risks and benefits discussed, surgical consentobtained, anesthesia consent obtained, monitors and equipment checked, pre-opevaluation completed, timeout performed, patient was prepped and draped in usualsterile fashion,Arterial Line InsertionSite prep: chlorhexidineAnesthesia: noneLaterality: leftLocation: radial arteryNeedle gauge: 20 GTechnique: Seldinger technique usedNumber of attempts: 1AssessmentSutured: noDressing: dressing appliedPatient tolerance: tolerated well Name Value Range Interpretation Code Description Data [place] rce(s) Supporting Document(s) ID Date Data Source [id number] 07/19/2020 10:06:21 AM EDT [facility] INFORMATIONPatient MRN Name Date of Age Gend*PT [id number] Leah Bustos 1965 54 years M HOPPT Location Admission Date/Time Visit ID Attending Provider --- --- --- --- EPI ID CSN Admitting Provider [id number] ---AirwayPatient location during procedure: ORUrgency: electiveDifficult airway: noAdvanced airway equipment used: noStaffingPerformed by: Hank Black CRNAAnesthesiologist: Anthony Laguerre MDIndications and Patient ConditionIndications for airway management: anesthesiaPreoxygenated: yesPatient position: sniffingIn-line stabilization: noMask ventilation: 0 - not attemptedFinal Airway/ApproachesFinal airway type: ETTNumber of attempts at final approach: 1Number of other approaches attempted: 0Final Airway DetailsFinal ETT airway: ETT - singleCuffed: yesTechnique used for successful ETT placement: direct laryngoscopyCricoid pressure: noRSI: noInsertion site: oralBlade type/size: MAC 3.5ETT size: 8.0 mmMeasured from: lipsETT to lips: 24 cmPlacement verified by: chest auscultation and + [id number]: CTA and equal breath sounds bilateralGrade view: grade I - full view of glottis Name Value Range Interpretation Code Description Data Paradise rce(s) Supporting Document(s) ID Date Data Source [id number] 07/19/2020 10:07:00 AM EDT [facility] HERNANDEZ SPEC EXP DATE 07/22/2020PATI ENT ABO/Rh B POSITIVEANTIBODY SCREEN NEGATIVETESTING SITE PERFORMED AT [address] [place] [id number] Name Value Range Interpretation Code Description Data Paradise rce(s) Supporting Document(s) TYPE AND SCREEN [facility] ID Date Data Source [id number] 07/19/2020 09:06:15 AM EDT [facility] Name Value Range Interpretation Code Description Data Paradise rce(s) Supporting Document(s) WBC 8.9 10*3/uL (4.1-11.0) [facility] [place] RBC 4.56 10*6/uL (4.60-6.10) L [facility] HGB 13.6 g/dL (13.5-18.0) [facility] HCT 41.9 % (41.0-53.0) [facility] PERFORMED AT [address] [place] [address] [place] [id number] MCV 91.8 fL (80.0-95.0) [facility] MCH 29.9 pg (27.0-32.0) [facility] MCHC 32.5 g/dL (32.0-36.0) [facility] RDW 15.7 % (10.5-14.5) H [facility] PLT 241 10*3/uL (150-450) [facility] MPV 8.5 fL (7.1-10.7) [facility] ID Date Data Source [id number] 07/14/2020 08:30:00 AM EDT [facility] Name Value Range Interpretation Code Description Data Paradise rce(s) Supporting Document(s) SARS coronavirus 2 RNA [facility] This lab was ordered by [facility] and reported by [facility]. ID Date Data Source [id number] 07/15/2020 11:07:00 AM EDT [facility] svetlana Performed at: RN - [facility] [address] [id number] Director: Renata Parra MD, Phone: [phone] Name Value Range Interpretation Code Description Data Paradise rce(s) Supporting Document(s) SARS-CoV-2, NIRMAL Not Detected Not Detected [facility] This nucleic acid amplification test was developed and itsperformance characteristics determined by [facility]. Nucleic acid amplification tests include PCRand TMA. This test has not been FDA cleared or approved.This test has been authorized by FDA under an Emergency UseAuthorization (EUA). This test is only authorized forthe duration of time the declaration that circumstancesexist justifying the authorization of the emergency use ofin vitro diagnostic tests for detection of SARS-CoV-2 virusand/or diagnosis of COVID-19 infection under [id number](b)(1) of the Act, 21 U.S.C. 360bbb-3(b) (1), unless theauthorization is terminated or revoked sooner.When diagnostic testing is negative, the possibility of afalse negative result should be considered in the contextof a patient's recent exposures and the presence ofclinical signs and symptoms consistent with COVID-19. Anindividual without symptoms of COVID-19 and who is notshedding SARS-CoV-2 virus would expect to have a negative(not detected) result in this assay.Methodology: Nucleic Acid Amplification (NIRMAL) Procedure Social History Code Duration Value Status Description Data Source(s ) Smoking 08/16/2021 12:00:00 AM EDT Current Smoker completed Curre nt Smoker eCW1 ([facility]) Smoking 08/16/2021 12:00:00 AM EDT Current Smoker completed Curre nt Smoker eCW1 ([facility]) Smoking 08/16/2021 12:00:00 AM EDT Current Smoker completed Curre nt Smoker eCW1 ([facility]) Smoking 05/26/2021 12:00:00 AM EDT Current Smoker completed Curre nt Smoker eCW1 ([facility]) Smoking 05/26/2021 12:00:00 AM EDT Current Smoker completed Curre nt Smoker eCW1 ([facility]) Smoking 02/03/2021 12:00:00 AM EDT Current Smoker completed Curre nt Smoker eCW1 ([facility]) Smoking 01/24/2021 12:00:00 AM EDT Current Smoker completed Curre nt Smoker eCW1 ([facility]) Smoking 01/24/2021 12:00:00 AM EDT Current Smoker completed Curre nt Smoker eCW1 ([facility]) Smoking 01/24/2021 12:00:00 AM EDT Current Smoker completed Curre nt Smoker eCW1 ([facility]) Smoking 01/03/2021 12:00:00 AM EST Current Smoker completed Curre nt Smoker eCW1 ([facility]) Smoking 01/03/2021 12:00:00 AM EST Current Smoker completed Curre nt Smoker eCW1 ([facility]) Smoking 01/03/2021 12:00:00 AM EST Current Smoker completed Curre nt Smoker eCW1 ([facility]) Smoking 12/05/2020 12:00:00 AM EST Current Smoker completed Curre nt Smoker eCW1 ([facility]) Smoking 12/05/2020 12:00:00 AM EST Current Smoker completed Curre nt Smoker eCW1 ([facility]) Smoking 10/08/2020 12:00:00 AM EST Current Smoker completed Curre nt Smoker eCW1 ([facility]) Smoking 10/08/2020 12:00:00 AM EST Current Smoker completed Curre nt Smoker eCW1 ([facility]) Alcohol intake 10/06/2020 12:00:00 AM EST Ex-drinker (finding) comp leted Ex- drinker (finding) [facility] Alcohol intake 10/05/2020 12:00:00 AM EST Not Currently completed [facility] Cigarettes smoked current (pack per day) - Reported 10/05/20 12:00:00 AM EST UNK completed [facility] Smoking 10/05/2020 12:00:00 AM EST Current every day smoker co mpleted Current every day smoker [facility] Smoking 10/04/2020 12:00:00 AM EST Current Smoker completed Curre nt Smoker eCW1 ([facility]) Smoking 10/04/2020 12:00:00 AM EST Current Smoker completed Curre nt Smoker eCW1 ([facility]) Smoking 10/04/2020 12:00:00 AM EST Current Smoker completed Curre nt Smoker eCW1 ([facility]) Smoking 10/04/2020 12:00:00 AM EST Current Smoker completed Curre nt Smoker eCW1 ([facility]) Smoking 10/04/2020 12:00:00 AM EST Current Smoker completed Curre nt Smoker eCW1 ([facility]) Smoking 09/28/2020 12:00:00 AM EST Current Smoker completed Curre nt Smoker eCW1 ([facility]) Smoking 09/28/2020 12:00:00 AM EST Current Smoker completed Curre nt Smoker eCW1 ([facility]) Smoking 09/23/2020 12:00:00 AM EST Current Smoker completed Curre nt Smoker eCW1 ([facility]) Smoking 09/22/2020 12:00:00 AM EST Current Smoker completed Curre nt Smoker eCW1 ([facility]) Smoking 08/31/2020 12:00:00 AM EDT Current Smoker completed Curre nt Smoker eCW1 ([facility]) Smoking 08/31/2020 12:00:00 AM EDT Current Smoker completed Curre nt Smoker eCW1 ([facility]) Smoking 08/31/2020 12:00:00 AM EDT Current Smoker completed Curre nt Smoker eCW1 ([facility]) Smoking 08/09/2020 12:00:00 AM EDT Current Smoker completed Curre nt Smoker eCW1 ([facility]) Smoking 08/09/2020 12:00:00 AM EDT Current Smoker completed Curre nt Smoker eCW1 ([facility]) Alcohol intake 07/20/2020 12:00:00 AM EDT No completed [facility] Cigarettes smoked current (pack per day) - Reported 07/20/20 12:00:00 AM EDT UNK completed [facility] Smoking 07/20/2020 12:00:00 AM EDT Current every day smoker co mpleted Current every day smoker [facility] Alcohol intake 07/19/2020 12:00:00 AM EDT No completed [facility] Cigarettes smoked current (pack per day) - Reported 07/19/20 12:00:00 AM EDT UNK completed [facility] Smoking 07/19/2020 12:00:00 AM EDT Current every day smoker co mpleted Current every day smoker [facility] Vital Signs ID Date Data Source UNK Name Value Range Interpretation Code Description Data Source(s) Heart rate 65 /min 65 /min eCW1 ([facility]) Body height 72 [in_i] 72 [in_i] eCW1 ([facility]) Body weight 181.6 [lb_av] 181.6 [lb_av] eCW1 ([facility]) Body mass index (BMI) [Ratio] 24.63 kg/m2 24.63 kg/m2 eCW1 ([facility]) Respiratory rate 18 /min 18 /min eCW1 ([facility]) Oxygen saturation in Arterial blood by Pulse oximetry 100 % 100 % eCW1 ([facility]) Body temperature 98.0 [degF] 98.0 [degF] eCW1 ( [facility]) Body weight 178 [lb_av] 178 [lb_av] eCW1 ([facility]) Body height 72 [in_i] 72 [in_i] eCW1 ([facility]) Body mass index (BMI) [Ratio] 24.14 kg/m2 24.14 kg/m2 eCW1 ([facility]) Heart rate 103 /min 103 /min eCW1 ([facility]) Respiratory rate 18 /min 18 /min eCW1 ([facility]) Body temperature 97.6 [degF] 97.6 [degF] eCW1 ( [facility]) Systolic blood pressure 132 mm[Hg] 132 mm[Hg] e CW1 ([facility]) Diastolic blood pressure 72 mm[Hg] 72 mm[Hg] eCW1 ([facility]) Body height 72 [in_i] 72 [in_i] MEDENT ([facility] 6'0" Diastolic blood pressure--sitting 84 mm[Hg] 84 mm[Hg] MEDENT ([facility]) Systolic blood pressure--sitting 128 mm[Hg] 128 mm[Hg] MEDENT ([facility]) Heart rate 80 /min 80 /min [facility] ([facility] Oxygen saturation in Arterial blood by Pulse oximetry 99 % 99 % [facility] ([facility]) Body surface area Derived from formula 2.06 m2 2.06 m2 MEDENT ([facility]) Body weight 184.50 [lb_av] 184.50 [lb_av] MEDEN T ([facility]) Body mass index (BMI) [Ratio] 25.0 kg/m2 25.0 k g/m2 MEDENT ([facility]) Oxygen saturation in Arterial blood by Pulse oximetry 99 % 99 % MEDENT ([facility]) Heart rate 63 /min 63 /min [facility] ([facility] Body surface area Derived from formula 2.08 m2 2.08 m2 MEDENT ([facility]) Body height 72 [in_i] 72 [in_i] MEDENT ([facility] 6'0" Systolic blood pressure 122 mm[Hg] 122 mm[Hg] M EDENT ([facility]) Diastolic blood pressure 80 mm[Hg] 80 mm[Hg] MEDENT ([facility]) Body weight 189.38 [lb_av] 189.38 [lb_av] MEDEN T ([facility]) Body mass index (BMI) [Ratio] 25.7 kg/m2 25.7 k g/m2 MEDENT ([facility]) Systolic blood pressure 124 mm[Hg] 124 mm[Hg] M EDENT ([facility]) Diastolic blood pressure 92 mm[Hg] 92 mm[Hg] MEDENT ([facility]) Heart rate 71 /min 71 /min MEDENT ([facility] Body weight 183.00 [lb_av] 183.00 [lb_av] MEDEN T ([facility]) Body height 72 [in_i] 72 [in_i] MEDENT ([facility] 6'0" Body mass index (BMI) [Ratio] 24.8 kg/m2 24.8 k g/m2 MEDENT ([facility]) Oxygen saturation in Arterial blood by Pulse oximetry 95 % 95 % MEDENT ([facility]) Body surface area Derived from formula 2.05 m2 2.05 m2 MEDENT ([facility]) Body height 72 [in_i] 72 [in_i] eCW1 ([facility]) Body weight 190 [lb_av] 190 [lb_av] eCW1 ([facility]) Body mass index (BMI) [Ratio] 25.77 kg/m2 25.77 kg/m2 eCW1 ([facility]) Body temperature 98.1 [degF] 98.1 [degF] eCW1 ( [facility]) Heart rate 66 /min 66 /min eCW1 ([facility]) Respiratory rate 18 /min 18 /min eCW1 ([facility]) Oxygen saturation in Arterial blood by Pulse oximetry 99 % 99 % eCW1 ([facility]) Body weight 191 [lb_av] 191 [lb_av] eCW1 ([facility]) Body height 72 [in_i] 72 [in_i] eCW1 ([facility]) Respiratory rate 18 /min 18 /min eCW1 ([facility]) Body temperature 98.2 [degF] 98.2 [degF] eCW1 ( [facility]) Body mass index (BMI) [Ratio] 25.90 kg/m2 25.90 kg/m2 eCW1 ([facility]) Heart rate 78 /min 78 /min eCW1 ([facility]) Systolic blood pressure 142 mm[Hg] 142 mm[Hg] e CW1 ([facility]) Diastolic blood pressure 68 mm[Hg] 68 mm[Hg] eCW1 ([facility]) Body weight 190 [lb_av] 190 [lb_av] eCW1 ([facility]) Body height 72 [in_i] 72 [in_i] eCW1 ([facility]) Body mass index (BMI) [Ratio] 25.77 kg/m2 25.77 kg/m2 eCW1 ([facility]) Heart rate 88 /min 88 /min eCW1 ([facility]) Respiratory rate 16 /min 16 /min eCW1 ([facility]) Body temperature 98.3 [degF] 98.3 [degF] eCW1 ( [facility]) Systolic blood pressure 140 mm[Hg] 140 mm[Hg] e CW1 ([facility]) Diastolic blood pressure 88 mm[Hg] 88 mm[Hg] eCW1 ([facility]) Systolic blood pressure 137 mm[Hg] 137 mm[Hg] [facility] Diastolic blood pressure 91 mm[Hg] 91 mm[Hg] [facility] Heart rate 126 /min 126 /min [facility] Oxygen saturation in Arterial blood by Pulse oximetry 91 % 91 % [facility] Body temperature 36.33 Ivy 36.33 Ivy [facility] Respiratory rate 12 /min 12 /min [facility] Body height 182.9 cm 182.9 cm [facility] Body weight 88.451 kg 88.451 kg [facility] Body mass index (BMI) [Ratio] 26.45 kg/m2 26.45 kg/m2 [facility] Body weight 193 [lb_av] 193 [lb_av] eCW1 ([facility]) Body height 72 [in_i] 72 [in_i] eCW1 ([facility]) Body mass index (BMI) [Ratio] 26.17 kg/m2 26.17 kg/m2 eCW1 ([facility]) Heart rate 86 /min 86 /min eCW1 ([facility]) Respiratory rate 18 /min 18 /min eCW1 ([facility]) Body temperature 98.7 [degF] 98.7 [degF] eCW1 ( [facility]) Systolic blood pressure 124 mm[Hg] 124 mm[Hg] e CW1 ([facility]) Diastolic blood pressure 68 mm[Hg] 68 mm[Hg] eCW1 ([facility]) Body height 72 [in_i] 72 [in_i] eCW1 ([facility]) Body weight 195.2 [lb_av] 195.2 [lb_av] eCW1 ([facility]) Body mass index (BMI) [Ratio] 26.47 kg/m2 26.47 kg/m2 eCW1 ([facility]) Body temperature 97.9 [degF] 97.9 [degF] eCW1 ( [facility]) Heart rate 87 /min 87 /min eCW1 ([facility]) Respiratory rate 17 /min 17 /min eCW1 ([facility]) Oxygen saturation in Arterial blood by Pulse oximetry 99 % 99 % eCW1 ([facility]) Oxygen saturation in Arterial blood by Pulse oximetry 99 % 99 % eCW1 ([facility]) Body height 72 [in_i] 72 [in_i] eCW1 ([facility]) Body weight 199.4 [lb_av] 199.4 [lb_av] eCW1 ([facility]) Body mass index (BMI) [Ratio] 27.04 kg/m2 27.04 kg/m2 eCW1 ([facility]) Body temperature 98.4 [degF] 98.4 [degF] eCW1 ( [facility]) Heart rate 64 /min 64 /min eCW1 ([facility]) Respiratory rate 20 /min 20 /min eCW1 ([facility]) Body height 72 [in_i] 72 [in_i] eCW1 ([facility]) Body weight 197.4 [lb_av] 197.4 [lb_av] eCW1 ([facility]) Body mass index (BMI) [Ratio] 26.77 kg/m2 26.77 kg/m2 eCW1 ([facility]) Body temperature 98.6 [degF] 98.6 [degF] eCW1 ( [facility]) Heart rate 60 /min 60 /min eCW1 ([facility]) Respiratory rate 20 /min 20 /min eCW1 ([facility]) Oxygen saturation in Arterial blood by Pulse oximetry 99 % 99 % eCW1 ([facility]) Body height 72 [in_i] 72 [in_i] eCW1 ([facility]) Body weight 205 [lb_av] 205 [lb_av] eCW1 ([facility]) Body mass index (BMI) [Ratio] 27.80 kg/m2 27.80 kg/m2 eCW1 ([facility]) Body temperature 98.4 [degF] 98.4 [degF] eCW1 ( [facility]) Heart rate 90 /min 90 /min eCW1 ([facility]) Respiratory rate 19 /min 19 /min eCW1 ([facility]) Oxygen saturation in Arterial blood by Pulse oximetry 98 % 98 % eCW1 ([facility]) Body height 72 [in_i] 72 [in_i] eCW1 ([facility]) Body weight 204.4 [lb_av] 204.4 [lb_av] eCW1 ([facility]) Body mass index (BMI) [Ratio] 27.72 kg/m2 27.72 kg/m2 eCW1 ([facility]) Body temperature 98.4 [degF] 98.4 [degF] eCW1 ( [facility]) Heart rate 92 /min 92 /min eCW1 ([facility]) Respiratory rate 18 /min 18 /min eCW1 ([facility]) Oxygen saturation in Arterial blood by Pulse oximetry 98 % 98 % eCW1 ([facility]) Heart rate 80 /min 80 /min eCW1 ([facility]) Body height 72 [in_i] 72 [in_i] eCW1 ([facility]) Body weight 201.6 [lb_av] 201.6 [lb_av] eCW1 ([facility]) Body mass index (BMI) [Ratio] 27.34 kg/m2 27.34 kg/m2 eCW1 ([facility]) Body temperature 98.0 [degF] 98.0 [degF] eCW1 ( [facility]) Respiratory rate 18 /min 18 /min eCW1 ([facility]) Oxygen saturation in Arterial blood by Pulse oximetry 98 % 98 % eCW1 ([facility]) Systolic blood pressure 160 mm[Hg] 160 mm[Hg] [facility] Diastolic blood pressure 96 mm[Hg] 96 mm[Hg] [facility] Heart rate 73 /min 73 /min [facility] Body temperature 36.67 Ivy 36.67 Ivy [facility] Respiratory rate 16 /min 16 /min [facility] Oxygen saturation in Arterial blood by Pulse oximetry 96 % 96 % [facility] Body height 182.9 cm 182.9 cm [facility] Body weight 86.183 kg 86.183 kg [facility] Body mass index (BMI) [Ratio] 25.77 kg/m2 25.77 kg/m2 [facility] ID Date Data Source [id number] 09/05/2021 01:21:03 PM EDT [facility] Name Value Range Interpretation Code Description Data Source(s) TRANSFER FROM [facility] Patient Treatment Plan of Care Planned Activity Planned Date Details Description Data Source (s) Fluticasone Propionate 50 MCG/ACT 01/24/2021 12:00:00 AM EDT eCW1 ([facility]) Fexofenadine hydrochloride 180 MG Oral Tablet 01/24/2021 12:00:00 A M EDT eCW1 ([facility]) Fluticasone Propionate 50 MCG/ACT 01/24/2021 12:00:00 AM EDT eCW1 ([facility]) Fexofenadine hydrochloride 180 MG Oral Tablet 01/24/2021 12:00:00 A M EDT eCW1 ([facility]) Fluticasone Propionate 50 MCG/ACT 01/24/2021 12:00:00 AM EDT eCW1 ([facility]) Fexofenadine hydrochloride 180 MG Oral Tablet 01/24/2021 12:00:00 A M EDT eCW1 ([facility]) Epclusa 400-100 MG 12/05/2020 12:00:00 AM EST eCW1 ([facility]) Epclusa 400-100 MG 12/05/2020 12:00:00 AM EST eCW1 ([facility]) Epclusa 400-100 MG 10/04/2020 12:00:00 AM EST eCW1 ([facility]) Epclusa 400-100 MG 10/04/2020 12:00:00 AM EST eCW1 ([facility]) Epclusa 400-100 MG 10/04/2020 12:00:00 AM EST eCW1 ([facility]) Epclusa 400-100 MG 10/04/2020 12:00:00 AM EST eCW1 ([facility]) AirDuo RespiClick 55/14 55-14 MCG/ACT 09/23/2020 12:00:00 AM EST eCW1 ([facility]) Cyclobenzaprine hydrochloride 10 MG Oral Tablet 09/22/2020 12:00:00 AM EST eCW1 ([facility]) physical therapy eval and tx - 08/09/2020 12:00:00 AM EDT eCW1 ([facility]) physical therapy eval and tx - 08/09/2020 12:00:00 AM EDT eCW1 ([facility]) Furosemide 40 MG Oral Tablet [Lasix] 07/20/2020 12:00:00 AM EDT eCW1 ([facility]) Furosemide 40 MG Oral Tablet [Lasix] 07/20/2020 12:00:00 AM EDT eCW1 ([facility]) Amiodarone hydrochloride 200 MG Oral Tablet [facility]
--- OUTSIDE RECORDS SUMMARY | 2021-09-07 17:50 | CCD ---
Author Author [facility] Organization [facility] Address Unknown Phone Unavailable Care Team Providers Care Relay Telegrapher Name Role Phone Dean Neri MD Unavailable Unavailable Dean Neir MD Unavailable Unavailable Dean Neri MD Unavailable [...] Unavailable Dean Neri MD Unavailable Unavailable Dombek-Lang, Dean SnellAracelis MD Unavailable Unavailable Dombek-Lang, V Aracelis MD [...] Unavailable Dombek-Lang, V Aracelis MD Unavailable Unavailable Alfonsobek-Lang, Dean SnellAracelis MD Unavailable Unavailable Dombek-Lang, V Aracelis MD Unavailable Unavailable Dombek-Lang, Dean SnellAracelis MD Unavailable Unavailable Dombek-Lang, Dean SnellAracelis MD Unavailable Unavailable Dombek-Lang, Dean SnellAracelis MD Unavailable Unavailable Daljit Dumont MD Unavailable [...] Unavailable Unavailable Daljit Dumont MD Unavailable Unavailable KaDaljit streeter MD Unavailable Unavailable Kabbcandy, Daljit Segal MD Unavailable Unavailable Kabbcandy, Daljit Segal MD Unavailable Unavailable Kabbcandy, Daljit Segal MD Unavailable Unavailable Kabbcandy, Daljit [...] Unavailable Kaferdinand, Daljit Segal MD Unavailable Unavailable Julia, Daljit Segal MD Unavailable Unavailable Kaferdinand, Daljit Segal MD Unavailable Unavailable Westdale, C Serena DO Unavailable Unavailable Westdale, C Serena DO Unavailable Unavailable Garcia, C Serena DO Unavailable Unavailable Garcia, C Serena DO Unavailable Unavailable Garcia, C Serena DO Unavailable Unavailable Garcia, C Serena DO Unavailable Unavailable Westdale, C Serena DO Unavailable Unavailable Garcia, C Serena DO Unavailable Unavailable Westdale, C Serena DO Unavailable Unavailable Garcia, C Serena DO Unavailable Unavailable [place]dale, C Serena DO Unavailable Unavailable Garcia, C Serena DO Unavailable Unavailable [place]dale, C Serena DO Unavailable Unavailable [place]dale, C Serena DO Unavailable Unavailable Garcia, C Serena DO Unavailable Unavailable Garcia, C Serena DO Unavailable Unavailable Westdale, C Serena DO Unavailable Unavailable Garcia, C Serena DO Unavailable Unavailable Garcia, C Serena DO Unavailable Unavailable Garcia, C Serena DO Unavailable Unavailable Westdale, C Serena DO Unavailable Unavailable [place], C Serena DO Unavailable Unavailable Garcia, C Serena DO Unavailable Unavailable Garcia, C Serena DO Unavailable Unavailable [place]dale, C Serena DO Unavailable Unavailable Garcia, C Serena DO Unavailable Unavailable [place]dale, C Serena DO Unavailable Unavailable Garcia, C Serena DO Unavailable Unavailable [place]dale, C Serena DO Unavailable Unavailable [place]dale, C Serena DO Unavailable Unavailable Garcia, C Serena DO Unavailable Unavailable [place]dale, C Serena DO Unavailable Unavailable [place]dale, C Serena DO Unavailable Unavailable [place], C Serena DO Unavailable Unavailable Garcia, C [...] Mohammad Unavailable Unavailable Malick-Leon, Mohammad Unavailable Unavailable WINTER, M BRANDON MACHINE HEDDLE CLEANER Unavailable Unavailable WINTER, M BRANDON MACHINE HEDDLE CLEANER Unavailable Unavailable WINTER, M BRANDON MACHINE HEDDLE CLEANER Unavailable Unavailable WINTER, M BRANDON MACHINE HEDDLE CLEANER Unavailable Unavailable WINTER, M BRANDON MACHINE HEDDLE CLEANER Unavailable Unavailable WINTER, M BRANDON MACHINE HEDDLE CLEANER Unavailable Unavailable WINTER, M BRANDON MACHINE HEDDLE CLEANER Unavailable Unavailable WINTER, M BRANDON MACHINE HEDDLE CLEANER Unavailable Unavailable WINTER, M BRANDON MACHINE HEDDLE CLEANER Unavailable Unavailable WINTER, M BRANDON MACHINE HEDDLE CLEANER Unavailable Unavailable WINTER, M BRANDON MACHINE HEDDLE CLEANER Unavailable Unavailable WINTER, M BRANDON MACHINE HEDDLE CLEANER Unavailable Unavailable WINTER, M BRANDON MACHINE HEDDLE CLEANER Unavailable Unavailable WINTER, M BRANDON MACHINE HEDDLE CLEANER Unavailable Unavailable WINTER, M BRANDON MACHINE HEDDLE CLEANER Unavailable Unavailable WINTER, M BRANDON MACHINE HEDDLE CLEANER Unavailable Unavailable WINTER, M BRANDON MACHINE HEDDLE CLEANER Unavailable Unavailable WINTER, M BRANDON MACHINE HEDDLE CLEANER Unavailable Unavailable WINTER, M BRANDON MACHINE HEDDLE CLEANER Unavailable Unavailable WINTER, M BRANDON MACHINE HEDDLE CLEANER Unavailable Unavailable WINTER, M BRANDON MACHINE HEDDLE CLEANER Unavailable Unavailable WINTER, M BRANDON MACHINE HEDDLE CLEANER Unavailable Unavailable WINTER, M BRANDON MACHINE HEDDLE CLEANER Unavailable Unavailable WINTER, M BRANDON MACHINE HEDDLE CLEANER Unavailable Unavailable WINTER, M BRANDON MACHINE HEDDLE CLEANER Unavailable Unavailable WINTER, M BRANDON MACHINE HEDDLE CLEANER Unavailable Unavailable WINTER, M BRANDON MACHINE HEDDLE CLEANER Unavailable Unavailable WINTER, M BRANDON MACHINE HEDDLE CLEANER Unavailable Unavailable WINTER, M BRANDON MACHINE HEDDLE CLEANER Unavailable Unavailable WINTER, M BRANDON MACHINE HEDDLE CLEANER Unavailable Unavailable WINTER, M BRANDON MACHINE HEDDLE CLEANER Unavailable Unavailable WINTER, M BRANDON MACHINE HEDDLE CLEANER Unavailable Unavailable WINTER, M BRANDON MACHINE HEDDLE CLEANER Unavailable Unavailable ANTONIO ARANA MD Unavailable Unavailable ANTONIO ARANA MD Unavailable Unavailable ANTONIO ARANA MD Unavailable Unavailable ANTONIO ARANA MD Unavailable Unavailable Marcos, Reginah W Dorota HEARING AID DISPENSER-C Unavailable Unavailabl e Marcos, Reginah W Dorota HEARING AID DISPENSER-C Unavailable Unavailabl e Marcos, Reginah W Dorota HEARING AID DISPENSER-C Unavailable Unavailabl e Marcos, Reginah W Dorota HEARING AID DISPENSER-C Unavailable Unavailabl e Marcos, Reginah W Dorota HEARING AID DISPENSER-C Unavailable Unavailabl e Marcos, Reginah W Dorota HEARING AID DISPENSER-C Unavailable Unavailabl e Marcos, Reginah W Dorota HEARING AID DISPENSER-C Unavailable Unavailabl e Marcos, Reginah W Dorota HEARING AID DISPENSER-C Unavailable Unavailabl e Marcos, Lisset Martineze HEARING AID DISPENSER-C Unavailable Unavailabl e Marcos, Lisset W Dorota HEARING AID DISPENSER-C Unavailable Unavailabl e Marcos, Lisset W Dorota HEARING AID DISPENSER-C Unavailable Unavailabl e Marcos, Lisset W Dorota HEARING AID DISPENSER-C Unavailable Unavailabl e Marcos, Lisset W Dorota HEARING AID DISPENSER-C Unavailable Unavailabl e Marcos, Lisset W Dorota HEARING AID DISPENSER-C Unavailable Unavailabl e Marcos, Lisset W Dorota HEARING AID DISPENSER-C Unavailable Unavailabl e Marcos, Lisset W Dorota HEARING AID DISPENSER-C Unavailable Unavailabl e Marcos, Lisset W Dorota HEARING AID DISPENSER-C Unavailable Unavailabl e Marcos, Lisset W Dorota HEARING AID DISPENSER-C Unavailable Unavailabl e Marcos, Lisset W Dorota HEARING AID DISPENSER-C Unavailable Unavailabl e Marcos, Lisset W Dorota HEARING AID DISPENSER-C Unavailable Unavailabl e Marcos, Lisset W Dorota HEARING AID DISPENSER-C Unavailable Unavailabl e Marcos, Lisset W Dorota HEARING AID DISPENSER-C Unavailable Unavailabl e Marcos, Lisset W Dorota HEARING AID DISPENSER-C Unavailable Unavailabl e Marcos, Lisset W Dorota HEARING AID DISPENSER-C Unavailable Unavailabl e Marcos, Lisset W Dorota HEARING AID DISPENSER-C Unavailable Unavailabl e Marcos, Lisset W Dorota HEARING AID DISPENSER-C Unavailable Unavailabl e Marcos, Lisset W Dorota HEARING AID DISPENSER-C Unavailable Unavailabl e Marcos, Lisset W Dorota HEARING AID DISPENSER-C Unavailable Unavailabl e Marcos, Lisset W Dorota HEARING AID DISPENSER-C Unavailable Unavailabl e Marcos, Regprincess W Dorota HEARING AID DISPENSER-C Unavailable Unavailabl e Marcos, Regprincess W Dorota HEARING AID DISPENSER-C Unavailable Unavailabl e Marcos, Regprincess W Dorota HEARING AID DISPENSER-C Unavailable Unavailabl e PETROFF, ANAIS Unavailable Unavailable Benjamin Noonan DO Unavailable Unavailable Benjamin Noonan DO Unavailable Unavailable Benjamin Noonan DO Unavailable Unavailable Noonan, B Morgan DO [...] KENNEDY PA Unavailable Unavailable Jaclyn, A Greer HEARING AID DISPENSER Unavailable Unavailable Jaclyn, A Greer HEARING AID DISPENSER Unavailable Unavailable Jaclyn, A Greer HEARING AID DISPENSER Unavailable Unavailable Jaclyn, A Greer HEARING AID DISPENSER Unavailable Unavailable Jaclyn, A Greer HEARING AID DISPENSER Unavailable Unavailable Jaclyn, A Greer HEARING AID DISPENSER Unavailable Unavailable Jaclyn, A Greer HEARING AID DISPENSER Unavailable Unavailable Jaclyn, A Greer HEARING AID DISPENSER Unavailable Unavailable Jaclyn, A Greer HEARING AID DISPENSER Unavailable Unavailable Jaclyn, A Greer HEARING AID DISPENSER Unavailable Unavailable Jaclyn, A Greer HEARING AID DISPENSER Unavailable Unavailable Jaclyn, A Greer HEARING AID DISPENSER Unavailable Unavailable Jaclyn, A Greer HEARING AID DISPENSER Unavailable Unavailable Jaclyn, A Greer HEARING AID DISPENSER Unavailable Unavailable Jaclyn, A Greer HEARING AID DISPENSER Unavailable Unavailable Jaclyn, A Greer HEARING AID DISPENSER Unavailable Unavailable Jaclyn, A Greer HEARING AID DISPENSER Unavailable Unavailable Jaclyn, A Greer HEARING AID DISPENSER Unavailable Unavailable Jaclyn, A Greer HEARING AID DISPENSER Unavailable Unavailable Jaclyn, A Greer HEARING AID DISPENSER Unavailable Unavailable Jaclyn, A Greer HEARING AID DISPENSER Unavailable Unavailable Jaclyn, A Greer HEARING AID DISPENSER Unavailable Unavailable Jaclyn, A Greer HEARING AID DISPENSER Unavailable Unavailable Jaclyn, A Greer HEARING AID DISPENSER Unavailable Unavailable Jaclyn, A Greer HEARING AID DISPENSER Unavailable Unavailable Jaclyn, A Greer HEARING AID DISPENSER Unavailable Unavailable Jaclyn, A Greer HEARING AID DISPENSER Unavailable Unavailable Jaclyn, A Greer HEARING AID DISPENSER Unavailable Unavailable Jaclyn, A Greer HEARING AID DISPENSER Unavailable Unavailable Jaclyn, A Greer HEARING AID DISPENSER Unavailable Unavailable Jaclyn, A Greer HEARING AID DISPENSER Unavailable Unavailable Jaclyn, A Greer HEARING AID DISPENSER Unavailable Unavailable Jaclyn, A Greer HEARING AID DISPENSER Unavailable Unavailable Jaclyn, A Greer HEARING AID DISPENSER Unavailable Unavailable Jaclyn, A Greer HEARING AID DISPENSER Unavailable Unavailable Jaclyn, A Greer HEARING AID DISPENSER Unavailable Unavailable Jaclyn, A Greer HEARING AID DISPENSER Unavailable Unavailable Jaclyn, A Greer HEARING AID DISPENSER Unavailable Unavailable Jaclyn, A Greer HEARING AID DISPENSER Unavailable Unavailable Jaclyn, A Greer HEARING AID DISPENSER Unavailable Unavailable Jaclyn, A Greer HEARING AID DISPENSER Unavailable Unavailable Jaclyn, A Greer HEARING AID DISPENSER Unavailable Unavailable Jaclyn, A Greer HEARING AID DISPENSER Unavailable Unavailable Jaclyn, A Greer HEARING AID DISPENSER Unavailable Unavailable Jaclyn, A Greer HEARING AID DISPENSER Unavailable Unavailable Jaclyn, A Greer HEARING AID DISPENSER Unavailable Unavailable Jaclyn, A Greer HEARING AID DISPENSER Unavailable Unavailable Jaclyn, A Greer HEARING AID DISPENSER Unavailable Unavailable Jaclyn, A Greer HEARING AID DISPENSER Unavailable Unavailable Jaclyn, A Greer HEARING AID DISPENSER Unavailable Unavailable Jaclyn, A Greer HEARING AID DISPENSER Unavailable Unavailable Jaclyn, A Greer HEARING AID DISPENSER Unavailable Unavailable Jaclyn, A Greer HEARING AID DISPENSER Unavailable Unavailable Jaclyn, A Greer HEARING AID DISPENSER Unavailable Unavailable ROEL FARMER MD Unavailable Unavailable [...] Kati Dhaliwalony Unavailable Kati Dhaliwalony Unavailable Kati Dhaliwal Lawrence Unavailable PETROFF, ANAIS PA Unavailable Unavailable PETROFF, [...] LIDIA S ZEENAT PATEL Unavailable Unavailable OLGA LIDIA S ZEENAT PATEL Unavailable Unavailable OLGA LIDIA S ZEENAT PATEL [...] ZEENAT KONG MD Unavailable Unavailable BRUNO SR, ZEENTA KONG MD Unavailable Unavailable BRUNO SR, ZEENAT [...] Donte, G Zeenat PATEL Unavailable Unavailable Donte, Toyna Lundberg MD Unavailable Unavailable Donte, G Zeenat [...] Unavailable Donte, G Zeenat PATEL Unavailable Unavailable Macedon, Julisa RPA-C Unavailable Unavailable Macedon, Julisa RPA-C Unavailable Unavailable Macedon, Julisa RPA-C Unavailable Unavailable Macedon, Julisa RPA-C Unavailable Unavailable Macedon, Julisa RPA-C Unavailable Unavailable Macedon, Julisa RPA-C Unavailable Unavailable Macedon, Julisa RPA-C Unavailable Unavailable Macedon, Julisa RPA-C Unavailable Unavailable Macedon, Julisa RPA-C Unavailable Unavailable Macedon, Julisa RPA-C Unavailable Unavailable Macedon, Julisa RPA-C Unavailable Unavailable Macedon, Julisa RPA-C Unavailable Unavailable Macedon, Julisa RPA-C Unavailable Unavailable Macedon, Julisa RPA-C Unavailable Unavailable Macedon, Julisa RPA-C Unavailable Unavailable Macedon, Julisa RPA-C Unavailable Unavailable Macedon, Julisa RPA-C Unavailable Unavailable Macedon, Julisa RPA-C Unavailable Unavailable Jazmin NORRIS MD Unavailable Unavailable Jazmin NORRIS MD Unavailable Unavailable Jazmin NORRIS MD Unavailable Unavailable Jazmin NORRIS MD Unavailable Unavailable Jazmin NORRIS MD Unavailable Unavailable Jazmin NORRIS MD Unavailable Unavailable Jazmin NORRIS MD Unavailable Unavailable Jazmin NORRIS MD Unavailable Unavailable BEJazmin RAMIREZ MD Unavailable Unavailable Jazmin NORRIS MD Unavailable [...] e Ranjbaran-Jahromi, Morro MD Unavailable Unavailabl e Rankatibaran-Jahromi, Morro MD Unavailable Unavailabl e Aysebaran-Jahromi, Moror MD Unavailable Unavailabl e Ranjbaran-Jahromi, Morro MD Unavailable Unavailabl e Ranjbaran-Jahromi, Morro MD Unavailable Unavailabl e Aysebaran-Jahromi Morro MD Unavailable Unavailabl e Aysebaran-Jahromi Morro MD Unavailable Unavailabl e Rankatibaran-Jahromi, Morro MD Unavailable Unavailabl e Ranjbaran-Jahromi, Morro MD Unavailable Unavailabl e Aysebaran-Jahromi Morro MD Unavailable Unavailabl e Aysebaran-Jahromi Morro MD Unavailable Unavailabl e Vicentejbaran-Jahromi Morro MD Unavailable Unavailabl e Aysebaran-Jahromi Morro MD Unavailable Unavailabl e Aysebarlinda-Jahromi Morro MD Unavailable Unavailabl e Aysebaran-Jahromi Morro MD Unavailable Unavailabl e Aysebaran-Jahromi Morro MD Unavailable Unavailabl e Maryam-Warrenhromi Morro MD Unavailable Unavailabl e Maryam-Warrenhromi Morrotc PATEL Unavailable Unavailabl e Maryam-Jahromi Morro MD Unavailable Unavailabl e Maryam-Jahromi Morro MD Unavailable Unavailabl e Maryam-Jahromi Morrotc PATEL Unavailable Unavailabl e Maryam-Warrenhromi Morro MD Unavailable Unavailabl e Aysebaran-Jahromi Morro MD Unavailable Unavailabl e Aysebaran-Jahromi Morro MD Unavailable Unavailabl e Maryam-Jahromi Morro Unavailable Unavailabl e Maryam-Warrenhromi Morrotc PATEL Unavailable Unavailabl e Francinean-Jahromi Morro MD Unavailable Unavailabl e Francinean-Jahromi Morro MD Unavailable Unavailabl e Maryam-Jahromi Morrotc PATEL Unavailable Unavailabl e Maryam-Warrenhromi Morro MD Unavailable Unavailabl e Ranjbaran-Jahromi, Morro MD Unavailable Unavailabl e Rankatibaran-Jahromi Morro MD Unavailable Unavailabl e Ranjbaran-Jahromi Morro MD Unavailable Unavailabl e Ranjbaran-Jahromi, Morro MD Unavailable Unavailabl e Ranjbaran-Jahromi Morro MD Unavailable Unavailabl e Rankatibaran-Jahromi Morro MD Unavailable Unavailabl e Ranjbaran-Jahromi Morro MD Unavailable Unavailabl e Ranjbaran-Jahromi Morro MD Unavailable Unavailabl e Vicentejbaran-Jahromi Morro MD Unavailable Unavailabl e Vicentejbaran-Jahromi Morro MD Unavailable Unavailabl e Ranjbaran-Jahromi Morro MD Unavailable Unavailabl e Aysebaran-Jahromi Morro MD Unavailable Unavailabl e Aysebaran-Jahromi Morro MD Unavailable Unavailabl e Aysebaran-Jahromi Morro MD Unavailable Unavailabl e Ranjbaran-Jahromi Morro MD Unavailable Unavailabl e Francinean-Jahromi Morro MD Unavailable Unavailabl e Maryam-Jahromi Morrotc PATEL Unavailable Unavailabl e Francinean-Jahromi Morro MD Unavailable Unavailabl e Francinean-Jahromi Morrotc PATEL Unavailable Unavailabl e Maryam-Jahromi Morro MD Unavailable Unavailabl e Francinean-Jahromi Morrotc PATEL Unavailable Unavailabl e Rankatibaran-Jahromi Morro MD Unavailable Unavailabl e Rankatibaran-Jahromi Morro MD Unavailable Unavailabl e Francinean-Jahromi Morro MD Unavailable Unavailabl e Francinean-Jahromi Morro MD Unavailable Unavailabl e Aysebaran-Jahromi Morro MD Unavailable Unavailabl e Aysebaran-Jahromi Morrotc PATEL Unavailable Unavailabl e Francinean-Jahromi Morrotc PATEL Unavailable Unavailabl e Francinean-Jahromi Morrotc PATEL Unavailable Unavailabl e Ranjbaran-Jahromi, Morro MD [...] e Ranjbarlinda-Jahromi, Morro MD Unavailable Unavailabl e Rankatibarlinda-Jahromi, Morro MD Unavailable Unavailabl e Ranjbarlinda-Jahromi, Morro MD Unavailable Unavailabl e Rankatibarlinda-Jahromi, Morro MD Unavailable Unavailabl e Rankatibaran-Jahromi, Morro Unavailable Unavailabl e Ranjbaran-Jahromi, Morro Unavailable Unavailabl e ANNA MARIE ARCE Unavailable [...] YAZMIN, ANNA MARIE THAI PA Unavailable Unavailable MigRobert riley MD Unavailable Unavaila ble MigeedRobert MD Unavailable [...] MD Unavailable Unavaila ble Michael HOROWITZ Unavailable [phone] Michael HOROWITZ Unavailable [phone] Michael HOROWITZ Unavailable [phone] Michael HOROWITZ Unavailable [phone] Michael HOROWITZ Unavailable [phone] Robert Thomas MD Unavailable Unavaila ble MigeedRobert [...] MD Unavailable Unavaila ble RANK, L APRYL MACHINE HEDDLE CLEANER Unavailable Unavailable RANK, L APRYL MACHINE HEDDLE CLEANER Unavailable Unavailable Re-disclosure Warning The records that [...] is protected by Article 27-F of the [facility] Public Health law. If you continue you may have access to information: Regarding HIV / AIDS; Provided by facilities licensed or operated by the [facility] Office of Mental Health; or Provided by the [facility] Office for People With Developmental Disabilities. If such information is present, then the following [facility] mandated warning applies: This information has [...] law may result in a fine or longterm sentence or both. A general authorization for the release of medical or other information is NOT sufficient authorization for further disc losure. Allergies and Adverse Reactions Type Description Substance Reaction Status Data Source(s ) Propensity to adverse reactions NO KNOWN ALLERGIES NO KNOWN ALLERGIES [facility] Propensity to adverse reactions Wellbutrin 06897 lethargic Acti ve eCW1 ([facility]) Propensity to adverse reactions Wellbutrin 45635 lethargic Acti ve eCW1 ([facility]) Propensity to adverse reactions Wellbutrin Drug allergy lethargic Ac tive eCW1 ([facility]) Propensity to adverse reactions Wellbutrin Drug allergy lethargic Ac tive eCW1 ([facility]) Propensity to adverse reactions Wellbutrin Drug allergy lethargic Ac tive eCW1 ([facility]) Propensity to adverse reactions Wellbutrin Drug allergy lethargic Ac tive eCW1 ([facility]) Propensity to adverse reactions Wellbutrin Drug allergy lethargic Ac tive eCW1 ([facility]) Propensity to adverse reactions Wellbutrin Drug allergy lethargic Ac tive eCW1 ([facility]) Propensity to adverse reactions Wellbutrin Drug allergy lethargic Ac tive eCW1 ([facility]) Propensity to adverse reactions Wellbutrin Drug allergy lethargic Ac tive eCW1 ([facility]) Propensity to adverse reactions Wellbutrin Drug allergy lethargic Ac tive eCW1 ([facility]) Encounters Encounter Providers Location Date Indications Data Source(s ) Outpatient [facility] 09/05/2021 12:00:00 AM EDT eCW1 ([facility]) Emergency Attender: Morgan Wright: Mary AKYP EMERGENCY ROOM-ER 08/29/2021 07:41:00 AM EDT - 08/29/2021 11:00:00 AM EDT [facility] Patient discharged. Inpatient Attender: Serena VERNON ttender: ALIN NORRIS MDAttender: ANTONIO ARANA MDAttender: Lawrence Marder: LAWRENCE DHALIWAL IIIAdmitter: ANTONIO ARANA MDReferrer: APRYL JONES NPConsultant: Serena Zelaya DO [id number] 08/29/2021 12:00:00 AM EDT - 09/03/2021 01:33:00 PM EDT [facility] Patient discharged. Outpatient Attender: Greer Anaya FNPReferrer: Greer Anaya [facility] 08/16/2021 11:00:00 AM EDT - 08/16/2021 11:00:00 AM EDT [facility] Outpatient [facility] 08/16/2021 12:00:00 AM EDT eCW1 ([facility]) Outpatient [facility] 08/16/2021 12:00:00 AM EDT eCW1 ([facility]) Outpatient Attender: Fantasma Thomas MDAdmitter: Fantasma allen MD [id number].CVAU 07/13/2021 03:12:29 PM [facility] [place] [address] [address] 06/03/2021 12:00:00 AM EDT eCW1 ([facility]) [place] [address] [address] 05/26/2021 12:00:00 AM EDT eCW1 ([facility]) Outpatient Attender: Adri Blanco MDReferrer: Magali KAYP EMERGENCY ROOM-LABOTHPROV 05/23/2021 06:48:00 AM EDT - 05/23/2021 06:48:00 AM EDT [facility] Outpatient Referrer: Fantasma Thomas MD 05/06/2021 08:17:5 9 AM EDT [facility] Outpatient Attender: Fantasma Thomas MD Attender: INFO NEEDED NEEDEDReferrer: Greer ALVARADO EMERGENCY ROOM-LABOTHPROV 05/03/2021 11:48:00 AM EDT - 05/03/2021 11:48:00 AM EDT [facility] Outpatient Referrer: Fantasma Thomas MD 04/25/2021 01:28:3 3 PM EDT [facility] Outpatient Referrer: Fantasma Thomas MD 04/25/2021 11:26:5 3 AM EDT [facility] Outpatient Attender: Fantasma Thomas MDAdmitter: Fantasma allen MD [id number].CVAU 04/21/2021 03:18:34 PM EDT [facility] Outpatient Referrer: Fantasma Thomas MD 03/30/2021 10:30:4 3 AM EDT [facility] Outpatient Attender: Fantasma Thomas MD [facility] 03/24/2021 01:45:00 PM EDT [facility] ([facility]) Outpatient [facility] 03/09/2021 12:00:00 AM EDT eCW1 ([facility]) [address] [address] 03/07/2021 12:00:00 AM EDT eCW1 ([facility]) Outpatient Attender: BRANODN BOYD NP [facility] 02/18/2021 04:30:00 PM EDT [facility] ([facility]) Outpatient Attender: BRANDON BOYD NP [facility] 02/11/2021 10:30:00 AM EDT [facility] ([facility] Outpatient [facility] 02/01/2021 12:00:00 AM EDT eCW1 ([facility]) Outpatient [facility] 01/25/2021 12:00:00 AM EDT eCW1 ([facility]) Outpatient Attender: Greer ALVARADO 01/24/2021 08:55 :00 AM EDT [facility] (TCM) TCM/Hospital Follow Up [facility] 01/24/2021 12:00:00 AM EDT eCW1 ([facility]) Outpatient [facility] 01/13/2021 12:00:00 AM EST eCW1 ([facility]) Outpatient [facility] 01/13/2021 12:00:00 AM EST eCW1 ([facility]) [place] [address] [address] 01/10/2021 12:00:00 AM [facility] Emergency Attender: RINA CONDON MDAt tender: RINA CONDONReferrer: Greer Anaya [facility] EMERGENCY ROOM-ER 01/09/2021 01:37:00 AM EST - 01/09/2021 03:00:00 AM EST [facility] Patient discharged. [place] [address] [address] 01/03/2021 12:00:00 AM EST eCW1 ([facility]) [place] [address] [address] 12/03/2020 12:00:00 AM EST eCW1 ([facility]) [place] [address] [address] 11/25/2020 12:00:00 AM EST eCW1 ([facility]) Unknown [address] [address] 11/15/2020 12:00:00 AM EST eCW1 ([facility]) Outpatient Attender: ZEENAT DUGGAN MDReferrer: Me oren Anaya [facility] EMERGENCY ROOM-LABOTHPROV 11/08/2020 08:17:00 AM EST - 11/08/2020 08:17:00 AM EST [facility] Unknown [address] [address] 10/08/2020 12:00:00 AM EST eCW1 ([facility]) Outpatient Attender: Fantasma Thomas MDAdmitter: Fantasma allen MD [id number].CVAU 10/05/2020 06:40:00 AM EST - 10/05/2020 04:10:00 PM EST [facility] Patient discharged. Out[place] [address] [address] 10/04/2020 12:00:00 AM EST eCW1 ([facility]) Outpatient Attender: Fantasma Thomas MDReferrer: Me oren ALVARADO EMERGENCY ROOM-LABOTHPROV 10/01/2020 03:13:00 PM EST - 10/01/2020 03:13:00 PM [facility] Outpatient Attender: Zeenat Kent MD 09/28/2020 02:16:00 P [facility] Outpatient [facility] 09/28/2020 12:00:00 AM EST eCW1 ([facility]) Outpatient Attender: Greer KAYP 09/23/2020 08:06 :00 AM [facility] 09/23/2020 12:00:00 AM EST eCW1 ([facility]) Outpatient Attender: Julisa Jones RPA-CReferrer: Greer ALVARADO 09/22/2020 11:20:00 AM EST - 09/22/2020 11:20:00 AM [facility] 09/22/2020 12:00:00 AM EST eCW1 ([facility]) Outpatient Attender: Greer ALVARADO 09/16/2020 08:30 :00 AM [facility] Unknown [address] [address] 09/16/2020 12:00:00 AM EST eCW1 ([facility]) Outpatient Attender: KENNEDY MCPHERSON PAConsultant: [facility] [id number] 09/11/2020 12:57:00 PM [facility] Emergency Attender: KENNEDY Villafuerte: Mary ALVARADO EMERGENCY ROOM-ER 09/11/2020 12:43:00 PM EST - 09/11/2020 03:17:00 PM [facility] Patient discharged. Outpatient Referrer: Fantasma Thomas MD MOB-MOB.PAT 04/2020 11:50:05 AM EST - 09/10/2020 11:50:10 AM EST [facility] Outpatient [facility] 09/10/2020 12:00:00 AM EST eCW1 ([facility]) Outpatient Attender: Greer Anaya FNPReferrer: Greer KAYP 09/08/2020 08:42:00 AM EST - 09/08/2020 08:42:00 AM [facility] Outpatient Attender: Greer Anaya FNPReferrer: Greer KAYP 09/07/2020 08:00:00 AM [facility] Outpatient Attender: LUANN BRUNO SR 09/05/2020 10:31:00 AM [facility] Outpatient Attender: Zeenat Kent MD 08/31[facility]: Greer Anaya FNPReferrer: Greer Anaya [facility] EMERGENCY ROOM-[facility] 08/31/2020 07:10:00 AM EDT - 08/31/2020 07:10:00 AM EDT [facility] Outpatient [facility] 08/31/2020 12:00:00 AM EDT eCW1 ([facility]) Outpatient [facility] 08/31/2020 12:00:00 AM EDT eCW1 ([facility]) Outpatient [facility] 08/31/2020 12:00:00 AM EDT eCW1 ([facility]) Outpatient [facility] 08/31/2020 12:00:00 AM EDT eCW1 ([facility]) Outpatient Attender: LUANN BRUNO SR 08/18 01:42:00 PM EDT - 09/01/2020 10:31:00 AM EDT [facility] Patient discharged. Outpatient [facility] 08/18/2020 12:00:00 AM EDT eCW1 ([facility]) Outpatient Attender: Luzma Dumont MDAdmitter: Luzma Dumont MD [id number].CVAU 08/16/2020 02:58:15 PM EDT [facility] Outpatient Attender: ANAIS Reed evi: ANAIS Saucedasultant: [facility] [id number] 08/13/2020 08:30:00 AM EDT [facility] Emergency Attender: ANAIS VAZQUEZ PAReferrer: LUANN BRUNO EMERGENCY ROOM-ER 08/13/2020 08:08:00 AM EDT - 08/13/2020 09:07:00 AM EDT [facility] Patient discharged. Outpatient Attender: Fantasma Thomas MDAdmitter: Fantasma allen MD [id number].CVAU 08/12/2020 03:50:20 PM EDT [facility] Outpatient Attender: LUANN BRUNO SRReferrer: LUANN Walter SR 08/09/2020 08:01:00 AM EDT - 08/09/2020 08:01:00 AM [facility] 08/09/2020 12:00:00 AM EDT eCW1 ([facility]) Outpatient [facility] 07/21/2020 12:00:00 AM EDT eCW ([facility]) Outpatient [facility] 07/20/2020 12:00:00 AM EDT eCW1 ([facility]) Outpatient Attender: Fantasma Thomas MD Admitter: Fantasma Thomas MDReferrer: Fantasma Thomas MD [id number].CVAU 07/19/2020 07:56:00 AM EDT - 07/19/2020 12:37:00 PM EDT [facility] Patient discharged. Outpatient Attender: Fantasma Thomas MD Attender: Avery CastrejonAttender: OTHER PHYSICIAN ER-HICCS 07/14/2020 08:18:00 AM EDT [facility] Outpatient Attender: Fantasma Thomas MDReferrer: CHRISTIN BRUNO EMERGENCY ROOM-LABOTHPROV 06/14/2020 07:06:00 AM EDT - 06/14/2020 07:06:00 AM EDT [facility] Emergency Attender: Zi Caruso PAReferrer: LUANN Walter SR 05/07/2020 11:59:00 AM EDT - 05/07/2020 12:30:00 PM EDT [facility] Patient [facility] Emergency Attender: Zi MATOS 05/07 09:36:00 AM EDT - 05/07/2020 10:40:00 AM [facility] Patient discharged. Outpatient Attender: LUANN BRUNO SRReferrer: ALEJANDRO BRUNO EMERGENCY ROOM-[facility] 04/28/2020 09:25:00 AM EDT - 04/28/2020 09:25:00 AM [facility] Emergency Attender: THAI ARCE PAReferrer: Minh BRUNO EMERGENCY ROOM-ER 04/24/2020 02:18:00 PM EDT - 04/24/2020 06:00:00 PM [facility] Patient discharged. Emergency Attender: MO BARNHARTeferrer : LUANN BRUNO EMERGENCY ROOM-ER 11/10/2019 06:08:00 AM EST - 11/10/2019 08:43:00 AM [facility] Patient discharged. Emergency Attender: ANAIS VAZQUEZ PAReferrer: LUANN BRUNO EMERGENCY ROOM-ER 07/18/2019 03:43:00 PM EDT - 07/18/2019 06:13:00 PM [facility] Patient discharged. Emergency Attender: Roel Farmer MDAttender: ROEL FARMER MD ER-ER 07/02/2019 02:56:00 PM EDT - 07/02/2019 05:09:00 PM EDT [facility] Patient discharged. Outpatient Attender: LUANN BRUNO SRReferrer: ALEJANDRO BRUNO EMERGENCY ROOM-[facility] 04/25/2019 11:35:00 AM EDT - 04/25/2019 11:35:00 AM [facility] Outpatient Attender: ZEENAT DUGGAN MDReferrer: LUANN CRISTINA ACE 10/03/2018 12:00:00 PM EST - 10/03/2018 12:00:00 PM [facility] Outpatient Attender: ZEENAT DUGGAN MDReferrer: LUANN CRISTINA ACE, SR 10/02/2018 01:00:00 PM EST - 10/02/2018 01:00:00 PM EST [facility] Outpatient Attender: Morro Nugent MDReferrer: Minh BRUNO 08/28/2018 03:28:00 PM EDT - 08/28/2018 03:28:00 PM EDT [facility] Emergency Attender: THAI ARCE PAReferrer: Minh BRUNO EMERGENCY ROOM-ER 07/22/2018 12:33:00 PM EDT - 07/22/2018 [facility]: THAI ARCE PAReferrer: Minh BRUNO EMERGENCY ROOM-ER 05/30/2018 08:05:00 AM EDT - 05/30/2018 12:01:00 PM EDT [facility] Emergency Attender: THAI Earl AAttender: Dorota Rodríguez [facility]-CAdmitter: LEAH HOROWITZReferrer: LUANN BRUNO EMERGENCY ROOM-ER 02/08/2018 10 :56:00 AM EDT - 02/08/2018 04:[facility]: THAI MATOS EMERGENCY ROOM-ER 01/23/2018 04:08:00 PM EDT - 01/23/2018 09:30:[facility]: KENNEDY MATOS EMERGENCY ROOM-ER 04:45:00 AM EDT - 01/23/2018 04:48:00 AM [facility] Inpatient Attender: THAI Earl AAttender: KENNEDY MCPHERSON PAAdmitter: Aracelis Neri MD EMERGENCY ROOM-2N 11/19/2017 10:23:00 AM [facility] - 10/26/2017 06:59:00 AM [facility] Emergency Attender: Aracelis Neri MD EMERGENCY ROOM-E R 11/27/2016 07:06:00 AM [facility] - 11/27/2016 11:30:00 AM [facility] Immunizations Vaccine Date Status Description Data Source(s) New in 2011. IIV4 08/16/2021 11:28:00 AM EDT completed eCW1 ([facility]) New in 2011. IIV4 08/16/2021 11:28:00 AM EDT completed eCW1 ([facility]) New in 2011. IIV4 08/16/2021 11:28:00 AM EDT completed eCW1 ([facility]) Hep A, adult 05/26/2021 01:17:00 PM EDT completed e CW1 ([facility]) Hep A, adult 05/26/2021 01:17:00 PM EDT completed e CW1 ([facility]) 208 01/24/2021 12:00:00 AM EDT completed <td I D="[id number]">Covid-19 (Pfizer)</td><td>01/24/2021, 01/04/2021</td><td></td> [facility] COVID-19 VACCINE Pfizer 01/24/2021 12:00:00 AM EDT completed [facility] Vaccine Series Complete: YESThis Data wa s Submitted to [facility] Via [employer]. 208 01/04/2021 12:00:00 AM EST completed <td I D="[id number]">Covid-19 (Pfizer)</td><td>01/24/2021, 01/04/2021</td><td></td> [facility] COVID-19 VACCINE Pfizer 01/03/2021 12:00:00 AM EST completed [facility]IS Vaccine Series Complete: NOThis Data was Submitted to [facility] Via [employer]. Hep A, adult 11/25/2020 11:09:00 AM EST completed e CW1 ([facility]) Hep A, adult 11/25/2020 11:09:00 AM EST completed e CW1 ([facility]) Hep A, adult 11/25/2020 11:09:00 AM EST completed e CW1 ([facility]) Hep A, adult 11/25/2020 11:09:00 AM EST completed e CW1 ([facility]) Hep A, adult 11/25/2020 11:09:00 AM EST completed e CW1 ([facility]) Hep A, adult 11/25/2020 11:09:00 AM EST completed e CW1 ([facility]) Hep A, adult 11/25/2020 11:09:00 AM EST completed e CW1 ([facility]) 08/31/2020 02:46:00 PM EDT completed e CW1 ([facility]) 08/31/2020 02:46:00 PM EDT completed e CW1 ([facility]) 08/31/2020 02:46:00 PM EDT completed e CW1 ([facility]) 08/31/2020 02:46:00 PM EDT completed e CW1 ([facility]) 08/31/2020 02:46:00 PM EDT completed e CW1 ([facility]) 08/31/2020 02:46:00 PM EDT completed e CW1 ([facility]) 08/31/2020 02:46:00 PM EDT completed e CW1 ([facility]) 08/31/2020 02:46:00 PM EDT completed e CW1 ([facility]) 08/31/2020 02:46:00 PM EDT completed e CW1 ([facility]) 08/31/2020 02:46:00 PM EDT completed e CW1 ([facility]) 08/31/2020 02:46:00 PM EDT completed e CW1 ([facility]) 08/31/2020 02:46:00 PM EDT completed e CW1 ([facility]) 08/31/2020 02:46:00 PM EDT completed e CW1 ([facility]) 08/31/2020 02:46:00 PM EDT completed e CW1 ([facility]) 08/31/2020 02:46:00 PM EDT completed e CW1 ([facility]) 08/31/2020 02:46:00 PM EDT completed e CW1 ([facility]) 08/31/2020 02:46:00 PM EDT completed e CW1 ([facility]) 08/31/2020 02:46:00 PM EDT completed e CW1 ([facility]) 08/31/2020 02:46:00 PM EDT completed e CW1 ([facility]) 08/31/2020 02:46:00 PM EDT completed e CW1 ([facility]) 08/31/2020 02:46:00 PM EDT completed e CW1 ([facility]) 08/31/2020 02:46:00 PM EDT completed e CW1 ([facility]) 08/31/2020 02:46:00 PM EDT completed e CW1 ([facility]) 08/31/2020 02:46:00 PM EDT completed e CW1 ([facility]) 08/31/2020 02:46:00 PM EDT completed e CW1 ([facility]) 08/31/2020 02:46:00 PM EDT completed e CW1 ([facility]) 08/31/2020 02:46:00 PM EDT completed e CW1 ([facility]) 08/31/2020 02:46:00 PM EDT completed e CW1 ([facility]) 08/31/2020 02:46:00 PM EDT completed e CW1 ([facility]) 08/31/2020 02:46:00 PM EDT completed e CW1 ([facility]) 08/31/2020 02:46:00 PM EDT completed e CW1 ([facility]) 08/31/2020 02:46:00 PM EDT completed e CW1 ([facility]) 08/31/2020 02:44:00 PM EDT completed e CW1 ([facility]) 08/31/2020 02:44:00 PM EDT completed e CW1 ([facility]) 08/31/2020 02:44:00 PM EDT completed e CW1 ([facility]) 08/31/2020 02:44:00 PM EDT completed e CW1 ([facility]) 08/31/2020 02:44:00 PM EDT completed e CW1 ([facility]) 08/31/2020 02:44:00 PM EDT completed e CW1 ([facility]) 08/31/2020 02:44:00 PM EDT completed e CW1 ([facility]) 08/31/2020 02:44:00 PM EDT completed e CW1 ([facility]) 08/31/2020 02:44:00 PM EDT completed e CW1 ([facility]) 08/31/2020 02:44:00 PM EDT completed e CW1 ([facility]) 08/31/2020 02:44:00 PM EDT completed e CW1 ([facility]) 08/31/2020 02:44:00 PM EDT completed e CW1 ([facility]) 08/31/2020 02:44:00 PM EDT completed e CW1 ([facility]) 08/31/2020 02:44:00 PM EDT completed e CW1 ([facility]) 08/31/2020 02:44:00 PM EDT completed e CW1 ([facility]) 08/31/2020 02:44:00 PM EDT completed e CW1 ([facility]) 08/31/2020 02:43:00 PM EDT completed e CW1 ([facility]) 08/31/2020 02:43:00 PM EDT completed e CW1 ([facility]) 08/31/2020 02:43:00 PM EDT completed e CW1 ([facility]) 08/31/2020 02:43:00 PM EDT completed e CW1 ([facility]) 08/31/2020 02:43:00 PM EDT completed e CW1 ([facility]) 08/31/2020 02:43:00 PM EDT completed e CW1 ([facility]) 08/31/2020 02:43:00 PM EDT completed e CW1 ([facility]) 08/31/2020 02:43:00 PM EDT completed e CW1 ([facility]) 08/31/2020 02:43:00 PM EDT completed e CW1 ([facility]) 08/31/2020 02:43:00 PM EDT completed e CW1 ([facility]) 08/31/2020 02:43:00 PM EDT completed e CW1 ([facility]) 08/31/2020 02:43:00 PM EDT completed e CW1 ([facility]) 08/31/2020 02:43:00 PM EDT completed e CW1 ([facility]) 08/31/2020 02:43:00 PM EDT completed e CW1 ([facility]) 08/31/2020 02:43:00 PM EDT completed e CW1 ([facility]) 08/31/2020 02:43:00 PM EDT completed e CW1 ([facility]) 08/31/2020 02:43:00 PM EDT completed e CW1 ([facility]) 08/31/2020 02:43:00 PM EDT completed e CW1 ([facility]) 08/31/2020 02:43:00 PM EDT completed e CW1 ([facility]) 08/31/2020 02:43:00 PM EDT completed e CW1 ([facility]) 08/31/2020 02:43:00 PM EDT completed e CW1 ([facility]) 08/31/2020 02:43:00 PM EDT completed e CW1 ([facility]) 08/31/2020 02:43:00 PM EDT completed e CW1 ([facility]) 08/31/2020 02:43:00 PM EDT completed e CW1 ([facility]) 08/31/2020 02:43:00 PM EDT completed e CW1 ([facility]) 08/31/2020 02:43:00 PM EDT completed e CW1 ([facility]) 08/31/2020 02:43:00 PM EDT completed e CW1 ([facility]) 08/31/2020 02:43:00 PM EDT completed e CW1 ([facility]) 08/31/2020 02:43:00 PM EDT completed e CW1 ([facility]) 08/31/2020 02:43:00 PM EDT completed e CW1 ([facility]) 08/31/2020 02:43:00 PM EDT completed e CW1 ([facility]) 08/31/2020 02:43:00 PM EDT completed e CW1 ([facility]) New in 2011. IIV4 08/31/2020 07:57:00 AM EDT completed eCW1 ([facility]) New in 2011. IIV4 08/31/2020 07:57:00 AM EDT completed eCW1 ([facility]) New in 2011. IIV4 08/31/2020 07:57:00 AM EDT completed eCW1 ([facility]) New in 2011. IIV4 08/31/2020 07:57:00 AM EDT completed eCW1 ([facility]) New in 2011. IIV4 08/31/2020 07:57:00 AM EDT completed eCW1 ([facility]) New in 2011. IIV4 08/31/2020 07:57:00 AM EDT completed eCW1 ([facility]) New in 2011. IIV4 08/31/2020 07:57:00 AM EDT completed eCW1 ([facility]) New in 2011. IIV4 08/31/2020 07:57:00 AM EDT completed eCW1 ([facility]) New in 2011. IIV4 08/31/2020 07:57:00 AM EDT completed eCW1 ([facility]) New in 2011. IIV4 08/31/2020 07:57:00 AM EDT completed eCW1 ([facility]) New in 2011. IIV4 08/31/2020 07:57:00 AM EDT completed eCW1 ([facility]) New in 2011. IIV4 08/31/2020 07:57:00 AM EDT completed eCW1 ([facility]) New in 2011. IIV4 08/31/2020 07:57:00 AM EDT completed eCW1 ([facility]) New in 2011. IIV4 08/31/2020 07:57:00 AM EDT completed eCW1 ([facility]) New in 2011. IIV4 08/31/2020 07:57:00 AM EDT completed eCW1 ([facility]) New in 2011. IIV4 08/31/2020 07:57:00 AM EDT completed eCW1 ([facility]) New in 2011. IIV4 08/31/2020 07:57:00 AM EDT completed eCW1 ([facility]) Tdap 08/09/2020 08:46:00 AM EDT completed e CW1 ([facility]) Tdap 08/09/2020 08:46:00 AM EDT completed e CW1 ([facility]) Tdap 08/09/2020 08:46:00 AM EDT completed e CW1 ([facility]) Tdap 08/09/2020 08:46:00 AM EDT completed e CW1 ([facility]) Tdap 08/09/2020 08:46:00 AM EDT completed e CW1 ([facility]) Tdap 08/09/2020 08:46:00 AM EDT completed e CW1 ([facility]) Tdap 08/09/2020 08:46:00 AM EDT completed e CW1 ([facility]) Tdap 08/09/2020 08:46:00 AM EDT completed e CW1 ([facility]) Tdap 08/09/2020 08:46:00 AM EDT completed e CW1 ([facility]) Tdap 08/09/2020 08:46:00 AM EDT completed e CW1 ([facility]) Tdap 08/09/2020 08:46:00 AM EDT completed e CW1 ([facility]) Tdap 08/09/2020 08:46:00 AM EDT completed e CW1 ([facility]) Tdap 08/09/2020 08:46:00 AM EDT completed e CW1 ([facility]) Tdap 08/09/2020 08:46:00 AM EDT completed e CW1 ([facility]) Tdap 08/09/2020 08:46:00 AM EDT completed e CW1 ([facility]) Tdap 08/09/2020 08:46:00 AM EDT completed e CW1 ([facility]) Tdap 08/09/2020 08:46:00 AM EDT completed e CW1 ([facility]) Tdap 08/09/2020 08:46:00 AM EDT completed e CW1 ([facility]) Tdap 08/09/2020 08:46:00 AM EDT completed e CW1 ([facility]) This CVX code allows reporting of a vacc ination when formulation is unknown (for example, when recording a Influenza vaccination when noted on a vaccination card) 08/05/2020 10:27:00 AM EDT completed MEDEN T ([facility]) Medications Medication Brand Name [...] 02/18/2021 12:00:00 AM EDT ORAL active MEDENT ([facility]) 24 HR Diltiazem Hydrochloride 240 MG Extended Release Oral Capsule [Cardizem] Cardizem CD 02/11/2021 12:00:00 AM EDT ORAL completed MEDENT ([facility]) 24 HR Diltiazem Hydrochloride [...] {tablet} active Fexofenadine HCl 180 MG eCW1 ([facility]) Fluticasone Propionate 50 MCG/ACT Fluticasone Propionate 50 MCG/ACT 01/24/2021 12:00:00 AM EDT 1.0 {spray_in_each_nostril} acti ve Fluticasone Propionate 50 MCG/ACT eCW1 ([facility]) Fluticasone Propionate 50 MCG/ACT Fluticasone Propionate 50 MCG/ACT 01/24/2021 12:00:00 AM EDT 1.0 {spray_in_each_nostril} acti ve Fluticasone Propionate 50 MCG/ACT [facility] Fexofenadine hydrochloride 180 MG Oral Tablet Fexofena dine HCl 180 MG Fexofenadine HCl 180 MG 01/24/2021 12:00:00 AM EDT 1.0 {tablet} active Fexofenadine HCl 180 MG eCW1 ([facility]) Fluticasone Propionate 50 MCG/ACT Fluticasone Propionate 50 MCG/ACT 01/24/2021 12:00:00 AM EDT 1.0 {spray_in_each_nostril} acti ve Fluticasone Propionate 50 MCG/ACT [facility] Covid-19 vaccine, Unspecified 01/24/2021 12:00:00 AM EDT completed MEDENT ([facility]) Medication administered onsite Fexofenadine hydrochloride 180 MG Oral Tablet Fexofena dine HCl 180 MG Fexofenadine HCl 180 MG 01/24/2021 12:00:00 AM EDT 1.0 {tablet} active Fexofenadine HCl 180 MG eCW1 ([facility]) Covid-19 vaccine, Unspecified 01/03/2021 12:00:00 AM EST completed MEDENT ([facility]) Medication administered onsite Epclusa 400-100 MG Epclusa 400-100 MG 12/05/2020 12:00:00 AM EST 1.0 {tablet} active Epclusa 400-100 MG e CW1 ([facility]) Epclusa 400-100 MG Epclusa 400-100 MG 12/05/2020 12:00:00 AM EST 1.0 {tablet} active Epclusa 400-100 MG e CW1 ([facility]) Epclusa 400-100 MG Epclusa 400-100 MG 12/05/2020 12:00:00 AM EST 1.0 {tablet} suspended Epclusa 400-100 MG e CW1 ([facility]) Epclusa 400-100 MG Epclusa 400-100 MG 12/05/2020 12:00:00 AM EST 1.0 {tablet} active Epclusa 400-100 MG e CW1 ([facility]) Epclusa 400-100 MG Epclusa 400-100 MG 12/05/2020 12:00:00 AM EST 1.0 {tablet} active Epclusa 400-100 MG e CW1 ([facility]) Epclusa 400-100 MG Epclusa 400-100 MG 12/05/2020 12:00:00 AM EST 1.0 {tablet} suspended Epclusa 400-100 MG e CW1 ([facility]) Epclusa 400-100 MG Epclusa 400-100 MG 12/05/2020 12:00:00 AM EST 1.0 {tablet} active Epclusa 400-100 MG e CW1 ([facility]) normal saline flush 0.9 % injection 3 mL [id number] 10/05/2020 02:00:00 PM EST 3 mL Intravenous active 3 mL , Intravenous, PROTOCOL, First dose on Sun10/05/20 at 1400, Post-op
flush per protocol, D/C Main IV fluid if appropriate
[facility] Medication administered onsite ondansetron (ZOFRAN) injection 4 mg [id number] 10/05/2020 01:49:2 9 PM EST 4 mg Intravenous active 4 mg, In travenous, Every 8 hours PRN, nausea, vomiting, Starting Sun10/05/20 at 1349, Post-op [facility] Medication administered onsite Acetaminophen 325 MG / [...] Sun10/05/20 at 1349, For 7 days, Post-op [facility] Medication administered onsite Acetaminophen 325 MG Oral Tablet acetaminophen (TYLENO L) 325 MG tablet 650 mg acetaminophen (TYLENOL) 325 MG tablet 650 mg 10/05/2020 01:49:29 PM EST 650 mg Oral active 650 mg, Or al, Every 6 hours PRN, mild pain (1-3), Starting Sun10/05/20 at 1349, Post-op
"Maximum dose of acetaminophen is 4,000 mg from all sources in 24 hours."
[facility] Medication administered onsite Acetaminophen 325 MG / Oxycodone Hydroch loride 5 MG Oral Tablet oxyCODONE- acetaminophen (PERCOCET) 5-325 MG 1-2 tablet oxyCODONE-acetaminophen (PERCOCET) 5-325 MG 1-2 tablet 10/05/2020 01:01:41 PM EST Oral active 1-2 tablet, Oral, Every 4 hours PRN, moderate pain (4-6), severe pain (7-10), Starting Sun10/05/20 at 1301, For 7 days, Post-op [facility] Medication administered onsite protamine injection [id number] 10/05/2020 12:16:59 PM EST active As needed, Starting Sun10/05/20 at 1216, Intra-Procedu re [facility] Medication administered onsite 1 ML heparin sodium, porcine 1000 UNT/ML Injection hep faiza (porcine) injection heparin (porcine) injection 10/05/2020 11:21:48 AM EST active As needed, Starting Sun10/05/20 at 1121, Intra-Procedure [facility] Medication administered onsite Epclusa 400-100 MG Epclusa 400-100 MG 10/04/2020 12:00:00 AM EST 1.0 {tablet} active Epclusa 400-100 MG e CW1 ([facility]) Epclusa 400-100 MG Epclusa 400-100 MG 10/04/2020 12:00:00 AM EST 1.0 {tablet} active Epclusa 400-100 MG e CW1 ([facility]) Epclusa 400-100 MG Epclusa 400-100 MG 10/04/2020 12:00:00 AM EST 1.0 {tablet} active Epclusa 400-100 MG e CW1 ([facility]) Epclusa 400-100 MG Epclusa 400-100 MG 10/04/2020 12:00:00 AM EST 1.0 {tablet} suspended Epclusa 400-100 MG e CW1 ([facility]) Epclusa 400-100 MG Epclusa 400-100 MG 10/04/2020 12:00:00 AM EST 1.0 {tablet} suspended Epclusa 400-100 MG e CW1 ([facility]) Epclusa 400-100 MG Epclusa 400-100 MG 10/04/2020 12:00:00 AM EST 1.0 {tablet} suspended Epclusa 400-100 MG e CW1 ([facility]) Epclusa 400-100 MG Epclusa 400-100 MG 10/04/2020 12:00:00 AM EST 1.0 {tablet} active Epclusa 400-100 MG e CW1 ([facility]) pantoprazole 40 MG Delayed Release Oral Tablet PANTOPRAZOLE SODIUM 10/04/2020 12:00:00 AM EST tablet,delayed release (DR/EC) 90 T PATRICIA 1 TABLET BY MOUTH ONCE A DAY TAKE 1 TABLET BY MOUTH ONCE A DAY SOLD: 10/08/2020 [facility] Epclusa 400-100 MG Epclusa 400-100 MG 10/04/2020 12:00:00 AM EST 1.0 {tablet} suspended Epclusa 400-100 MG e CW1 ([facility]) Epclusa 400-100 MG Epclusa 400-100 MG 10/04/2020 12:00:00 AM EST 1.0 {tablet} suspended Epclusa 400-100 MG e CW1 ([facility]) 55-14 mcg/actuation 09/28/2020 12:00:00 AM EST aerosol [...] active [employer] 55/14 55-14 MCG/ACT eCW1 ([facility]) [employer] 55/14 55-14 MCG/ACT [employer] 55/1 4 55-14 MCG/ACT 09/23/2020 12:00:00 AM EST 1.0 {puff} suspended [employer] 55/14 55-14 MCG/ACT eCW1 ([facility]) [employer] 55/14 55-14 MCG/ACT [employer] 55/1 4 55-14 MCG/ACT 09/23/2020 12:00:00 AM EST 1.0 {puff} active [employer] 55/14 55-14 MCG/ACT eCW1 ([facility]) [employer] 55/14 55-14 MCG/ACT [employer] 55/1 4 55-14 MCG/ACT 09/23/2020 12:00:00 AM EST 1.0 {puff} suspended [employer] 55/14 55-14 MCG/ACT eCW1 ([facility]) [employer] 55/14 55-14 MCG/ACT [employer] 55/1 4 55-14 MCG/ACT 09/23/2020 12:00:00 AM EST 1.0 {puff} suspended [employer] 55/14 55-14 MCG/ACT eCW1 ([facility]) [employer] 55/14 55-14 MCG/ACT [employer] 55/1 4 55-14 MCG/ACT 09/23/2020 12:00:00 AM EST 1.0 {puff} suspended [employer] 55/14 55-14 MCG/ACT eCW1 ([facility]) [employer] 55/14 55-14 MCG/ACT [employer] 55/1 4 55-14 MCG/ACT 09/23/2020 12:00:00 AM EST 1.0 {puff} suspended [employer] 55/14 55-14 MCG/ACT eCW1 ([facility]) [employer] 55/14 55-14 MCG/ACT [employer] 55/1 4 55-14 MCG/ACT 09/23/2020 12:00:00 AM EST 1.0 {puff} active [employer] 55/14 55-14 MCG/ACT eCW1 ([facility]) [employer] 55/14 55-14 MCG/ACT [employer] 55/1 4 55-14 MCG/ACT 09/23/2020 12:00:00 AM EST 1.0 {puff} suspended [employer] 55/14 55-14 MCG/ACT eCW1 ([facility]) [employer] 55/14 55-14 MCG/ACT [employer] 55/1 4 55-14 MCG/ACT 09/23/2020 12:00:00 AM EST 1.0 {puff} active [employer] 55/14 55-14 MCG/ACT eCW1 ([facility]) [employer] 55/14 55-14 MCG/ACT [employer] 55/1 4 55-14 MCG/ACT 09/23/2020 12:00:00 AM EST 1.0 {puff} suspended [employer] 55/14 55-14 MCG/ACT eCW1 ([facility]) [employer] 55/14 55-14 MCG/ACT [employer] 55/1 4 55-14 MCG/ACT 09/23/2020 12:00:00 AM EST 1.0 {puff} suspended [employer] 55/14 55-14 MCG/ACT eCW1 ([facility]) [employer] 55/14 55-14 MCG/ACT [employer] 55/1 4 55-14 MCG/ACT 09/23/2020 12:00:00 AM EST 1.0 {puff} suspended [employer] 55/14 55-14 MCG/ACT eCW1 ([facility]) Cyclobenzaprine hydrochloride 10 MG Oral Tablet CYCLOBENZAPR INE HCL 09/22/2020 12:00:00 AM EST tablet 14 TAKE ONE TABLET BY MOUTH TWICE A DAY FOR 7 DAYS TAKE ONE TABLET BY MOUTH TWICE A DAY FOR 7 DAYS SOLD: 09/22/2020 [facility] Cyclobenzaprine hydrochloride 10 MG Oral Tablet Cyclob enzaprine HCl 10 MG Cyclobenzaprine HCl 10 MG 09/22/2020 12:00:00 AM EST active Cyclobenzaprine HCl 10 MG eCW1 ([facility]) 100 mg 09/06/2020 12:00:00 AM EST tablet 30 TAKE 1 TABLET BY MOUTH ONCE A DAY TAKE 1 TABLET BY MOUTH ONCE A DAY SOLD: 12/11/2020 [facility] 100 mg 09/06/2020 12:00:00 AM EST [...] physical therapy eval and tx - eCW1 ([facility]) 24 HR metoprolol succinate 200 MG Extended Release Ora l Tablet Metoprolol Succinate ER 08/09/2020 12:00:00 AM EDT active MEDENT ([facility]) 200 mg 08/09/2020 12:00:00 [...] physical therapy eval and tx - eCW1 ([facility]) 40 mg 07/21/2020 12:00:00 AM EDT tablet 90 TAKE ONE TABLET BY MOUTH EVERY DAY TAKE ONE TABLET BY MOUTH EVERY DAY SOLD: 07/22/2020 [facility] Furosemide 40 MG Oral Tablet [Lasix] Lasix 40 MG Lasix 40 MG 07/20/2020 12:00:00 AM EDT 1.0 {tablet} active Lasix 40 M G eCW1 ([facility]) Furosemide 40 MG Oral Tablet [Lasix] Lasix 40 MG Lasix 40 MG 07/20/2020 12:00:00 AM EDT 1.0 {tablet} suspended Lasix 4 0 MG eCW1 ([facility]) Furosemide 40 MG Oral Tablet [Lasix] Lasix 40 MG Lasix 40 MG 07/20/2020 12:00:00 AM EDT 1.0 {tablet} suspended Lasix 4 0 MG eCW1 ([facility]) Furosemide 40 MG Oral Tablet [Lasix] Lasix 40 MG Lasix 40 MG 07/20/2020 12:00:00 AM EDT 1.0 {tablet} suspended Lasix 4 0 MG eCW1 ([facility]) Furosemide 40 MG Oral Tablet [Lasix] Lasix 40 MG Lasix 40 MG 07/20/2020 12:00:00 AM EDT 1.0 {tablet} suspended Lasix 4 0 MG eCW1 ([facility]) Furosemide 40 MG Oral Tablet [Lasix] Lasix 40 MG Lasix 40 MG 07/20/2020 12:00:00 AM EDT 1.0 {tablet} active Lasix 40 M G eCW1 ([facility]) Furosemide 40 MG Oral Tablet [Lasix] Lasix 40 MG Lasix 40 MG 07/20/2020 12:00:00 AM EDT 1.0 {tablet} active Lasix 40 M G eCW1 ([facility]) Furosemide 40 MG Oral Tablet [Lasix] Lasix 40 MG Lasix 40 MG 07/20/2020 12:00:00 AM EDT 1.0 {tablet} active Lasix 40 M G eCW1 ([facility]) Furosemide 40 MG Oral Tablet [Lasix] Lasix 40 MG Lasix 40 MG 07/20/2020 12:00:00 AM EDT 1.0 {tablet} suspended Lasix 4 0 MG eCW1 ([facility]) Furosemide 40 MG Oral Tablet [Lasix] Lasix 40 MG Lasix 40 MG 07/20/2020 12:00:00 AM EDT 1.0 {tablet} active Lasix 40 M G eCW1 ([facility]) Furosemide 40 MG Oral Tablet [Lasix] Lasix 40 MG Lasix 40 MG 07/20/2020 12:00:00 AM EDT 1.0 {tablet} active Lasix 40 M G eCW1 ([facility]) Furosemide 40 MG Oral Tablet [Lasix] Lasix 40 MG Lasix 40 MG 07/20/2020 12:00:00 AM EDT 1.0 {tablet} active Lasix 40 M G eCW1 ([facility]) Furosemide 40 MG Oral Tablet [Lasix] Lasix 40 MG Lasix 40 MG 07/20/2020 12:00:00 AM EDT 1.0 {tablet} suspended Lasix 4 0 MG eCW1 ([facility]) Furosemide 40 MG Oral Tablet [Lasix] Lasix 40 MG Lasix 40 MG 07/20/2020 12:00:00 AM EDT 1.0 {tablet} suspended Lasix 4 0 MG eCW1 ([facility]) Furosemide 40 MG Oral Tablet [Lasix] Lasix 40 MG Lasix 40 MG 07/20/2020 12:00:00 AM EDT 1.0 {tablet} active Lasix 40 M G eCW1 ([facility]) Furosemide 40 MG Oral Tablet [Lasix] Lasix 40 MG Lasix 40 MG 07/20/2020 12:00:00 AM EDT 1.0 {tablet} suspended Lasix 4 0 MG eCW1 ([facility]) Furosemide 40 MG Oral Tablet [Lasix] Lasix 40 MG Lasix 40 MG 07/20/2020 12:00:00 AM EDT 1.0 {tablet} active Lasix 40 M G eCW1 ([facility]) Furosemide 40 MG Oral Tablet [Lasix] Lasix 40 MG Lasix 40 MG 07/20/2020 12:00:00 AM EDT 1.0 {tablet} active Lasix 40 M G eCW1 ([facility]) Furosemide 40 MG Oral Tablet [Lasix] Lasix 40 MG Lasix 40 MG 07/20/2020 12:00:00 AM EDT 1.0 {tablet} suspended Lasix 4 0 MG eCW1 ([facility]) Furosemide 40 MG Oral Tablet [Lasix] Lasix 40 MG Lasix 40 MG 07/20/2020 12:00:00 AM EDT 1.0 {tablet} active Lasix 40 M G eCW1 ([facility]) Furosemide 40 MG Oral Tablet [Lasix] Lasix 40 MG Lasix 40 MG 07/20/2020 12:00:00 AM EDT 1.0 {tablet} active Lasix 40 M G eCW1 ([facility]) normal saline flush 0.9 % injection 3 mL [id number] 07/19/2020 02:00:00 PM EDT 3 mL Intravenous active 3 mL , Intravenous, Every 8 hours (scheduled), First dose on Sun07/19/20 at 1400, PACU (only)
flush per protocol, D/C Main IV fluid if appropriate
[facility] Medication administered onsite lidocaine (PF) (XYLOCAINE-MPF) 1 % injection [id number] 10:41:12 AM EDT active As needed, Start ing Sun07/19/20 at 1041, Intra-Procedure [facility] Medication administered onsite ondansetron (ZOFRAN) injection 4 mg [id number] 07/19/2020 10:23:0 1 AM EDT 4 mg Intravenous active 4 mg, In travenous, Once as needed, nausea, vomiting, if not given in last 4 hours, Starting Sun07/19/20 at 1023, For 1 dose, PACU (only) [facility] Medication administered onsite Hydralazine Hydrochloride 20 MG/ML [...] PACU (only)
Max dose of 20 mg
[facility] Medication administered onsite 4 ML Labetalol hydrochloride [...] MG, hold for HR less than 60
[facility] Medication administered onsite fentaNYL Citrate (PF) (SUBLIMAZE) injection 25 mcg [id number] 07/19/2020 10:23:01 AM EDT 25 ug Intravenous active 25 mcg, Intravenous, Every 5 min PRN, moderate pain (4 to 6), Starting Sun07/19/20 at 1023, For 1 day, PACU (only) [facility] Medication administered onsite Albuterol 0.83 MG/ML Inhalant Solution a lbuterol (PROVENTIL) nebulizer solution 2.5 mg albuterol (PROVENTIL) nebulizer solution 2.5 mg 2019 10:23:00 AM EDT 2.5 mg active 2.5 mg, Nebulization, Once as needed, wheezing, Starting Sun07/19/20 at 1023, For 1 dose, PACU (only) [facility] Medication administered onsite 10 ML Atropine Sulfate [...] or 0.04 mg/kg. Max of 6 doses
[facility] Medication administered onsite normal saline flush 0.9 % injection 3 mL [id number] 07/19/2020 09:00:00 AM EDT 3 mL Intravenous active 3 mL , Intravenous, Every 8 hours (scheduled), First dose on Sun07/19/20 at 0900, Pre-op
Rapid push positive pressure flushing shall be performed with a 10 cc normal saline syringe to check the PATENCY of a PIV site prior to any infusion therapy initiation unless resistance is met.
[facility] Medication administered onsite Magnesium Chloride 0.55826 MEQ/ML / Pota ssium Chloride 0.0497 MEQ/ML / Sodium Acetate 0.0163 MEQ/ML / Sodium Chloride 0.0899 MEQ/ML / Sodium gluconate 5.02 MG/ML Injectable Solution [Normosol-R] electrolyte-R (NORMOSOL-R/PLASMALYTE-R) solution electrolyte-R (NORMOSOL-R/PLASMALYTE-R) solution 07/19 09:00:00 AM EDT Intravenous active at 1 00 mL/hr, Intravenous, Continuous, Starting 07/19/20 at 0900, Pre-op [facility] Medication administered onsite 20 mg 07/14/2020 12:00:00 AM EDT tablet 90 TAKE ONE TABLET BY MOUTH ONCE A DAY TAKE ONE TABLET BY MOUTH ONCE A DAY SOLD: 07/16/2020 [facility] 20 mg 07/14/2020 12:00:00 AM EDT tablet 30 TAKE ONE TABLET BY MOUTH ONCE A DAY TAKE ONE TABLET BY MOUTH ONCE A DAY SOLD: 05/11/2021 [facility] 20 mg 07/14/2020 12:00:00 AM [...] orted Take 200 mg by mouth daily [facility] Insurance Providers Payer name Policy type / Coverage type Policy ID Covered green party ID Covered green party's relationship to simons Policy Simons Plan Information [facility] MEDICAID [id number] xxxxxxxxx [id number] [facility] MEDICAID [id number] Tena [id number] MEDICAID [id number] S [id number] [facility] MEDICAID [id number] S [id number] [facility] MEDICAID [id number] S [id number] MEDICAID [id number] Tena [id number] [facility] MEDICAID [id number] S [id number] [facility] MEDICAID [id number] S [id number] [facility] MEDICAID [id number] S [id number] [facility] MEDICAID [id number] S [id number] INSURANCE COVID-19 [id number] [id number] INSURANCE COVID-19 COVID Tena C OVID [facility] I [id number] Self [id number] [facility] [id number] SP [id number] [facility] MEDICAID [id number] S [id number] [facility] I [id number] Self [id number] [facility] [id number] [facility] [id number] [facility] [id number] ANSI-Medicaid [id number] ANSI-Medicaid [id number] ANSI-Medicaid [id number] ANSI-Medicaid [id number] ANSI-Medicaid [id number] [facility] MEDICAID PI PI COMMERCIAL GENERIC PI P I SELF PAY SP [id number] S [id number] UN COMMUNITY PLAN MCDO [id number] SP [id number] [facility] MEDICAID [id number] S [id number] MEDICAID [id number] S [id number] MEDICAID [id number] S [id number] [facility] [id number] S [id number] COMMERCIAL GENERIC [id number] Tena [id number] [facility](MCAID) O [id number] S [id number] [facility] MEDICAID [id number] S [id number] UN COMMUNITY PLAN MCDO [id number] SP [id number] [facility] DIVYA UNAVAILABLE S UNAVAILABLE ANSI-Medicaid [id number] ANSI-Medicaid [id number] [facility] Community Plan Commercial [id number] Self [id number] ANSI-Medicaid [id number] ANSI-Medicaid [id number] Problems, Conditions, and Diagnoses Code Display Name Description Problem Type Effective Dates Data Source(s) Z79.899 Other senior living (current) drug therapy 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) DRUG THERAPY Diagnosis 08/29/2021 07:41:00 AM [facility] Z79.01 nursing home (current) use of anticoagulant s RETIREMENT (CURRENT) USE OF ANTICOAGULANTS Diagnosis 08/29/2021 07:41:00 AM [facility] Z20.822 CONTACT WITH AND (SUSPECTED) EXPOSURE TO COVID-19 CONTACT WITH AND (SUSPECTED) EXPOSURE TO COVID-19 Diagnosis 08/29/2021 07:41:00 AM [facility] F17.210 Nicotine dependence, cigarettes, uncompl icated NICOTINE DEPENDENCE, CIGARETTES, UNCOMPLICATED Diagnosis 08/29/2021 07:41:00 AM [facility] I50.9 Heart failure, unspecified HEART FAILURE, UNSPECIFIED Diagnosis 08/29/2021 07:41:00 AM [facility] N18.9 Chronic kidney disease, unspecified CHRONIC KIDN EY DISEASE, UNSPECIFIED Diagnosis 08/29/2021 07:41:00 AM [facility] I13.0 Hypertensive heart and chron ic kidney disease with heart failure and stage 1 through stage 4 chronic kidney disease, or unspecified chronic kidney disease HYP HRT CHR KDNY DIS W HRT FAIL AND STG 1-4/UNSP Diagnosis 07:41:00 AM [facility] J44.9 Chronic obstructive pulmonary disease, u nspecified CHRONIC OBSTRUCTIVE PULMONARY DISEASE, UNSPECIFIED Diagnosis 08/29/2021 07:41:00 AM [facility] I61.9 Nontraumatic intracerebral hemorrhage, u nspecified NONTRAUMATIC INTRACEREBRAL HEMORRHAGE, UNSPECIFIED Diagnosis 08/29/2021 07:41:00 AM [facility] R20.2 Paresthesia of skin PARESTHESIA OF SKIN Diagnosis 1 07:41:00 AM [facility] R06.02 Shortness of breath SHORTNESS OF BREATH Diagnosis 1 11:00:00 AM [facility] I48.0 Paroxysmal atrial fibrillation Paroxysmal atrial fibri llation Diagnosis 07/29/2021 12:57:22 PM T [facility] B18.2 Chronic viral hepatitis C CHRONIC VIRAL HEPATITIS C Di agnosis 05/23/2021 06:48:00 AM [facility] Z01.810 Encounter for preprocedural cardiovascul ar examination ENCOUNTER FOR PREPROCEDURAL CARDIOVASCUL Diagnosis 05/03/2021 11:48:00 AM [facility] I48.0 Paroxysmal atrial fibrillation PAROXYSMAL ATRIAL FIBRI LLATION Diagnosis 05/03/2021 11:48:00 AM [facility] I42.9 Cardiomyopathy, unspecified CARDIOMYOPATHY, UNSPECIFIE D Diagnosis 01/24/2021 08:55:00 AM [facility] F19.90 Other psychoactive substance use, unspec ified, uncomplicated OTHER PSYCHOACTIVE SUBSTANCE USE, UNSPECIFIED, UN[facility] Diagnosis 08:55:00 AM [facility] J30.2 Other seasonal allergic rhinitis OTHER SEASONAL ALLERGIC RHINITIS Diagnosis 01/24/2021 08:55:00 AM [facility] N18.30 CHRONIC KIDNEY DISEASE, STAGE 3 UNSPECIF IED CHRONIC KIDNEY DISEASE, STAGE 3 UNSPECIFIED Diagnosis 01/24/2021 08:55:00 [facility] I12.9 Hypertensive chronic kidney disease with stage 1 through stage 4 chronic kidney disease, or unspecified chronic kidney disease HYPERTENSIVE CHRONIC KIDNEY DISEASE W STG 1-4/UNSP Diagnosis 01/24/2021 08:55:00 AM [facility] 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, cervical region SPONDYLOSIS W/O MYELOPATHY OR RADICULOPATHY, CERVI Diagnosis 08:55:00 AM [facility] M54.12 Radiculopathy, cervical region RADICULOPATHY, CERVICAL REGION Diagnosis 01/24/2021 08:55:00 AM [facility] M50.30 Other cervical disc degeneration, unspec ified cervical region OTHER CERVICAL DISC DEGENERATION, UNSP CERVICAL RE Diagnosis 08:55:00 AM [facility] S16.1XXA Strain of muscle, fascia and tendon at n ronit level, initial encounter STRAIN OF MUSCLE, FASCIA AND TENDON AT NECK LEVEL, Diagnosis 05/2021 01:37:00 AM [facility] U07.1 COVID-19 COVID-19 Diagnosis 01/09/2021 01:37:00 AM [facility] R05 Cough COUGH Diagnosis 01/09/2021 01:37:00 AM [facility] Y93.89 Activity, other specified ACTIVITY, OTHER SPECIFIED Di agnosis 01/09/2021 01:37:00 AM [facility] Y92.[address] the place of o ccurrence of the external cause OTH PLACES THE PLACE OF OCCURRENCE OF THE EXTER Diagnosis 05/2021 01:37:00 AM [facility] X58.XXXA Exposure to other specified factors, ini tial encounter EXPOSURE TO OTHER SPECIFIED FACTORS, INITIAL ENCOU Diagnosis 01/09/2021 01:37:00 A M [facility] I48.19 Other persistent atrial fibrillation Oth er persistent atrial fibrillation Diagnosis 10/05/2020 06:40:00 AM [facility] Z71.2 Person consulting for explanation of exa mination or test findings PERSON CONSULTING FOR EXPLANATION OF EXAM OR TEST Diagnosis 09/23/2020 08:06: 00 AM [facility] K74.00 HEPATIC FIBROSIS, UNSPECIFIED HEPATIC FIBROSIS, UNSPEC IFIED Diagnosis 09/23/2020 08:06:00 AM [facility] I10 Essential (primary) hypertension ESSENTIAL (PRIMARY) H YPERTENSION Diagnosis 09/22/2020 11:20:00 AM [facility] M43.6 Torticollis TORTICOLLIS Diagnosis 09/22/2020 11:20:00 AM [facility] M25.511 Pain in right shoulder PAIN IN RIGHT SHOULDER Diagnosi s 09/22/2020 11:20:00 AM [facility] Z53.20 Procedure and treatment not carried out because of patient's decision for unspecified reasons PROC/TRTMT NOT CRD OUT BEC PT DECISION FOR UNSP RE Gloria gnosis 09/11/2020 12:43:00 PM [facility] I16.9 HYPERTENSIVE CRISIS, UNSPECIFIED HYPERTENSIVE CR KHUSHBOO, UNSPECIFIED Diagnosis 09/11/2020 12:43:00 PM [facility] L02.413 Cutaneous abscess of right upper limb CU TANEOUS ABSCESS OF RIGHT UPPER LIMB Diagnosis 09/11/2020 12:43:00 PM [facility] I48.20 CHRONIC ATRIAL FIBRILLATION, UNSPECIFIED CHRONIC ATRIAL FIBRILLATION, UNSPECIFIED Diagnosis 09/11/2020 12:43:00 PM [facility] J44.1 Chronic obstructive pulmonary disease wi th (acute) exacerbation CHRONIC OBSTRUCTIVE PULMONARY DISEASE W (ACUTE) EX Diagnosis 09/11/2020 12:43: 00 PM [facility] R06.00 Dyspnea, unspecified DYSPNEA, UNSPECIFIED Diagnosis 09/11/2020 12:43:00 PM [facility] I51.3 Intracardiac thrombosis, not elsewhere c lassified Intracardiac thrombosis, not elsewhere c Diagnosis 09/10/2020 02:14:24 PM [facility] U07.1 COVID-19 COVID-19 Diagnosis 09/10/2020 11:50:05 AM [facility] K82.9 Disease of gallbladder, unspecified DISEASE OF G ALLBLADDER, UNSPECIFIED Diagnosis 09/08/2020 08:42:00 AM [facility] R10.30 Lower abdominal pain, unspecified LOWER ABDOMINA L PAIN, UNSPECIFIED Diagnosis 09/08/2020 08:42:00 AM [facility] K76.0 Fatty (change of) liver, not elsewhere c lassified FATTY (CHANGE OF) LIVER, NOT ELSEWHERE CLASSIFIED Diagnosis 09/07/2020 08:30:00 AM [facility] I25.84 Coronary atherosclerosis due to calcifie d coronary lesion CORONARY ATHEROSCLEROSIS DUE TO CALCIFIED CORONARY Diagnosis 09/07/2020 08:30:0 0 AM [facility] J43.9 Emphysema, unspecified EMPHYSEMA, UNSPECIFIED Diagnosi s 09/07/2020 08:30:00 AM [facility] R79.89 Other specified abnormal findings of blo od chemistry OTHER SPECIFIED ABNORMAL FINDINGS OF BLOOD CHEMISTRY Diagnosis 09/07/2020 08:30:00 AM [facility] M75.102 Unspecified rotator cuff tea r or rupture of left shoulder, not specified as traumatic UNSP ROTATR-CUFF TEAR/RUPTR OF LEFT SHOULDER, NOT Diagnosis 08/31/2020 01:51:00 PM [facility] M75.42 Impingement syndrome of left shoulder IM PINGEMENT SYNDROME OF LEFT SHOULDER Diagnosis 08/31/2020 01:51:00 PM [facility] l Z76.89 Persons encountering health services in other specified circumstances PERSONS ENCOUNTERING HEALTH SERVICES IN OT CIRCUM Diagnosis 07:10:00 AM [facility] F41.9 Anxiety disorder, unspecified ANXIETY DISORDER, UNSPEC IFIED Diagnosis 08/31/2020 07:10:00 AM [facility] Z20.828 Contact with and (suspected) exposure to other viral communicable diseases CONTACT W AND EXPOSURE TO [facility] Diagnosis 08/13/2020 08:08:00 AM [facility] I48.91 Unspecified atrial fibrillation UNSPECIFIED ATRI AL FIBRILLATION Diagnosis 08/13/2020 08:08:00 AM [facility] I11.0 Hypertensive heart disease with heart fa ilure HYPERTENSIVE HEART DISEASE WITH HEART FAILURE Diagnosis 08/13/2020 08:08:00 AM [facility] Z12.11 Encounter for screening for malignant ne oplasm of colon ENCOUNTER FOR SCREENING FOR MALIGNANT NEOPLASM OF Diagnosis 08/09/2020 08:01:00 AM [facility] Z71.89 Other specified counseling OTHER SPECIFIED COUNSELING Diagnosis 08/09/2020 08:01:00 AM [facility] Z23 Encounter for immunization ENCOUNTER FOR IMMUNIZATION Diagnosis 08/09/2020 08:01:00 AM [facility] G89.29 Other chronic pain OTHER CHRONIC PAIN Diagnosis 03/2020 08:01:00 AM [facility] M25.512 Pain in left shoulder PAIN IN LEFT SHOULDER Diagnosis 08/09/2020 08:01:00 AM [facility] Z20.828 Contact with and (suspected) exposure to other viral communicable diseases CONTACT W AND EXPOSURE TO [facility] Diagnosis 07/14/2020 08:18:00 AM [facility] Z01.812 Encounter for preprocedural laboratory e xamination ENCOUNTER FOR PREPROCEDURAL LABORATORY EXAMINATION Diagnosis 07/14/2020 08:18:00 AM [facility] I63.9 [id number] Cerebrovascular accident (CVA), unspecifi ed mechanism Problem 09/05/2021 12:00:00 AM EDT eCW1 ([facility]) E55.9 [id number] Vitamin D deficiency Problem 08/16/2021 12:0 0:00 AM EDT eCW1 ([facility]) G47.10 [id number] Hypersomnia Problem 08/16/2021 12:00:00 AM E DT eCW1 ([facility]) R53.82 [id number] Chronic fatigue Problem 08/16/2021 12:00:00 AM EDT eCW1 ([facility]) K75.81 [id number] MCDANIEL (nonalcoholic steatohepatitis) Probl em 08/16/2021 12:00:00 AM EDT eCW1 ([facility]) L60.1 [id number] Onycholysis Problem 05/26/2021 12:00:00 AM E DT eCW1 ([facility]) R21 [id number] Rash and nonspecific skin eruption Proble m 05/26/2021 12:00:00 AM EDT eCW1 ([facility]) R94.31 Electrocardiogram abnormal Electrocardiogram abnormal Problem 02/18/2021 12:00:00 AM EDT MEDENT ([facility]) M50.30 [id number] DDD (degenerative disc disease), cervical Problem 01/24/2021 12:00:00 AM EDT eCW1 ([facility]) J30.2 [id number] Seasonal allergic rhinitis, 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 Problem 01/24/2021 12:00:00 AM EDT eCW1 ([facility]) M47.812 [id number] Cervical spondylosis Problem 01/24/2021 12:0 0:00 AM EDT eCW1 ([facility]) K21.9 [id number] Gastroesophageal reflux disease without e sophagitis Problem 10/04/2020 12:00:00 AM EST eCW1 ([facility]) B18.2 [id number] Chronic hepatitis C without hepatic coma Problem 10/04/2020 12:00:00 AM EST eCW1 ([facility]) I50.22 599363539 Chronic systolic congestive heart failure Problem 10/04/2020 12:00:00 AM EST eCW1 ([facility]) F19.90 [id number] IVDU (intravenous drug user) Problem 10/04/2020 12:00:00 AM EST eCW1 ([facility]) F15.10 [id number] Methamphetamine abuse Problem 10/04/2020 12: 00:00 AM EST eCW1 ([facility]) I48.19 [id number] Persistent atrial fibrillation Problem 10/04/2020 12:00:00 AM EST eCW1 ([facility]) J44.9 [id number] Chronic obstructive pulmonary di sease, unspecified COPD type Problem 09/23/2020 12:00:00 AM EST eCW1 ([facility]) J43.9 [id number] Pulmonary emphysema, unspecified emphysem a type Problem 09/10/2020 12:00:00 AM EST eCW1 ([facility]) M75.102 [id number] Nontraumatic tear of left rotator cuff, unspecified tear extent Problem 08/31/2020 12:00:00 AM EDT eCW1 ([facility]) I50.9 Heart failure Chronic congestive h eart failure, unspecified heart failure type Problem 08/31/2020 12:00:00 AM EDT eCW1 ([facility]) G89.29 [id number] Other chronic pain Problem 08/09/2020 12:00: 00 AM EDT eCW1 ([facility]) I51.3 Atrial thrombus Atrial thrombus [id number] 07/21/2020 12:0 0:00 AM EDT [facility] Surgeries/Procedures Procedure Description Date Indications Data Source(s) Loop - Interrogation Remote 07/05/2021 12:00:00 AM EDT MED[facility] ([facility]) HEPATITIS A VACCINE ADULT FOR INTRAMUSCULAR USE 2020 12:00:00 AM EDT eCW1 ([facility]) Loop - Interrogation Remote 05/13/2021 12:00:00 AM EDT MED[facility] ([facility]) Complete ECHO 04/12/2021 12:00:00 AM EDT [facility] ([facility]) Loop - Interrogation Remote 03/28/2021 12:00:00 AM EDT [facility] ([facility]) Electrocardiogram Complete 03/24/2021 12:00:00 AM EDT MED[facility] ([facility]) OFFICE OUTPATIENT VISIT 40 MINUTES 03/24/2021 12:00:00 AM EDT MED[facility] ([facility]) Electrocardiogram Complete 02/18/2021 12:00:00 AM EDT MED[facility] ([facility]) OFFICE OUTPATIENT VISIT 25 MINUTES 02/18/2021 12:00:00 AM EDT MED[facility] ([facility]) Electrocardiogram Complete 02/11/2021 12:00:00 AM EDT [facility] ([facility] OFFICE OUTPATIENT VISIT 25 MINUTES 02/11/2021 12:00:00 AM EDT [facility] ([facility]) Loop - Interrogation Remote 02/07/2021 12:00:00 AM EDT [facility] ([facility]) Loop - Interrogation Remote 12/24/2020 12:00:00 AM EST [facility] ([facility] HEPATITIS A VACCINE ADULT FOR INTRAMUSCULAR USE 2020 12:00:00 AM EST eCW1 ([facility]) Loop - Interrogation Remote 11/16/2020 12:00:00 AM EST [facility] ([facility]) EP STUDY <td>EP STUDY</td><td>Routine </td><td>10/05/2020 12:18 PM EST</td><td> Persistent atrial fibrillation</td><td> </td> 10/05/2020 05:18:58 PM EST Persistent atrial fibrillation [facility] Persistent atrial fibrillation BLOOD TYPING ABO <td>TYPE AND SCREEN</td><td> Routine</td><td>10/05/2020 8:00 AM EST</td><td></td><td> </td> 10/05/2020 01:00:00 PM EST [facility] COVID/FLU AB/RSV PCR <td>COVID/FLU AB/RSV PCR</td ><td>STAT</td><td>10/05/2020 6:10 AM EST</td><td></td><td> </td> 10/05/2020 11:10:00 AM EST [facility] Loop - Interrogation Remote 10/04/2020 12:00:00 AM EST [facility] ([facility]) Loop - Interrogation Remote 08/24/2020 12:00:00 AM EDT [facility] ([facility] EP STUDY <td>EP STUDY</td><td>Routine </td><td>07/19/2020 10:44 AM EDT</td><td> Persistent atrial fibrillation</td><td> </td> 07/19/2020 02:44:39 PM EDT Persistent atrial fibrillation [facility] Persistent atrial fibrillation BLOOD COUNT COMPLETE AUTOMATED <td>CBC</td><td>STAT</t d><td>07/19/2020 8:10 AM EDT</td><td></td><td> </td> 07/19/2020 12:10:00 PM EDT [facility] BLOOD TYPING ABO <td>TYPE AND SCREEN</td><td> Routine</td><td>07/19/2020 8:10 AM EDT</td><td></td><td> </td> 07/19/2020 12:10:00 PM EDT [facility] Results ID Date Data Source [id number] 09/05/2021 08:00:59 AM EDT [facility] Name Value Range Interpretation Code Description Data [place] rce(s) Supporting Document(s) Consultation [facility] RMFQDb5dCjVBCvGf00/BLOagQKTmm8HjRDypVUr2QYhaPMPbZ8ZsJFE3uT2yCRF4GTtZNkQuNuApJZOi [facility] [file] ICAgICAgICAgICAgICAgICAgICAgICAgICAgICAgICAgICAgICAgICAgICAgICAgICAgICAgICAgICAg ICAgICAgICAgICAgICANCiAgICAgICAgICAgICAgICAgICAgICAgICAgICAgICAgICAgICAgICAgICAg ICAgICAgICAgICAgICAgICAgICAgICAgICAgICAgIC AgICAgICAgICAgICAgICAgICAgICAgICANCiAgICAgICAgICAgICAgICAgICAgICAgICAgICAgICAgIC AgICAgICAgICAgICAgICAgICAgICAgICAgICAgICAgICAgICAgICAgICAgICAgICAgICAgICAgICAgIC AgICAgICANCiAgICAgICAgICAgICAgICAgICAgICAg ICAgICAgICAgICAgICAgICAgICAgICAgICAgICAgICAgICAgICAgICAgICAgICAgICAgICAgICAgICAg ICAgICAgICAgICAgICAgICANCiAgICAgICAgICAgICAgICAgICAgICAgICAgICAgICAgICAgICAgICAg ICAgICAgICAgICAgICAgICAgICAgICAgICAgICAgIC AgICAgICAgICAgICAgICAgICAgICAgICAgICANCiAgICAgICAgICAgICAgICAgICAgICAgICAgICAgIC AgICAgICAgICAgICAgICAgICAgICAgICAgICAgICAgICAgICAgICAgICAgICAgICAgICAgICAgICAgIC AgICAgICAgICANCiAgICAgICAgICAgICAgICAgICAg ICAgICAgICAgICAgICAgICAgICAgICAgICAgICAgICAgICAgICAgICAgICAgICAgICAgICAgICAgICAg ICAgICAgICAgICAgICAgICAgICANCiAgICAgICAgICAgICAgICAgICAgICAgICAgICAgICAgICAgICAg ICAgICAgICAgICAgICAgICAgICAgICAgICAgICAgIC AgICAgICAgICAgICAgICAgICAgICAgICAgICAgICANCiAgICAgICAgICAgICAgICAgICAgICAgICAgIC AgICAgICAgICAgICAgICAgICAgICAgICAgICAgICAgICAgICAgICAgICAgICAgICAgICAgICAgICAgIC AgICAgICAgICAgICANCiAgICAgICAgICAgICAgICAg ICAgICAgICAgICAgICAgICAgICAgICAgICAgICAgICAgICAgICAgICAgICAgICAgICAgICAgICAgICAg ICAgICAgICAgICAgICAgICAgICAgICANCjw/aHKiG2epkGYgkbT1J1qrJd4HOz4AFE3jg8DsLYXyDCjw okFxNckEUhWrTUImWgpOUem8IEkkMA6NmPQnO7UhO9 FlCJbqXK9NQQJyLMQfgKYrRQYdKUSgJbK3VATgUGlsRJ7YtUWbRCedXTOuTGKwKrNcESVhQYEoRPNuKG HfBYVLFADoGSQuPwLlTTGeCONzWM2UTDEbZ626gfIxJh6GKq9QMdOaOT8vcu2CKjBcGUAqMdiTJgb8KA xbPH7JlNJwySDpNyVoGHSUSbNbD3yec7XlTsCnBBWA KBtkXN5Ho5EutQKyWNj+Hr5GHG0oy3IyDWnjItPaGO8qym2JIBgDIdKvW0CebXzkNIMjhqN3qKOfRFI7 QQ9cbqZoYFFhG7D5buqbDPNDUpMwlYVrTZ8fLL2pUOFxFHLvQcA9ZFWRZM7KGUKxJLWdsFOgNYSrSXRA OW9FECiiOMK7AYIdznPttTGuLCfpPK2UIXFbmvXeWm UgMCBSDQo+Sl1HJY7dy6DpEPamMhJtHV2zfg6NAEbIVwKlG1H9bMGjL1K2CEzhSg4MRUZvDHCgUcNxBI HDTFjnYF9WLW1hetP4ZP9EcSBiQBZiHTPatOBtWKo3D49noJGxPVmuZY4HHCB+Magdy+Wp0AHBYfZLDsRQ CnJoOxLCQBTbEnS4RvF9AVf3YqV1RwCK17sRsggmUi RVxcRS7TAJ7rNVRmJDQUHH6CcWZdgM5ddjXrAGGzPEOOShGgO24imDEmHTMnKVW1UAKwFi7GFNRgL4Kp xtFlnAtzlnDuLBLnEFXYIT8WEKfcgaCahMJhuSdcGA98kZgtQR5XOr6LYjXqOS7uve6AaMSyRs2HFKCb DP9ULCGpARBtDTMwWMD5CWVbJbTmSRfqRJDgKUYeHV G6AUTgQHQeMZ5IHiOdCKRwFtJ3VwlfALBbILQsls8XINBpQVCsMAV1SSWcFXZeVWTlURewGJZkKLDhGC K2GAReEILvTZ4PJpSgFVYaQBZ1TQhoRBRaUCEpyg9HTVFyTJWyCuotYrLcUSBrFFUvYIvhPJWvITF7Hx baHVLcAEJmAZ3MLyNdGDXvIHE7NbWoXTJrOLGldf1F VJYwJPFyYDQ3KgKyLAKwBSPnJZpeHHHwXQR1UXLcQPLzLRVgMO0TBcRoZPCtUDC0UOMuTOWcASYfqd7P PHPnVTIjFgD9WkHaRKKoLFRaNCflDJAqAIY1QMX4TGTcFBUwNP1YAxAaUCFiWVGrUpEmDSAxWEGkgb7Q BBAcXHZaBHbtESNpXVXyZRRiDLfhNODiVDB3HGRhAV QiPMFrFR4SOfAbNFDuFYqaJPFcDVVsNDSsoq2NHLAvKYZlAmE4NhYfMXViPNFrCZloSWQnNHU0HKwvBR NvWAOaLC6XSdYaTJUsQNm9CvkfURElOKBdql4ERWWrDYFwXEWcKPZnNUOeVCHqRWpuWPKvSUP6MHC3CV IaWIGeUB8DPnUlZTKnKNg2BdoeEDAvJRAnra6VRYFb KHMoKUf2TjEgDFGfSTZzFNubGNKdVWGpBMJ8ILBmVCBhAE1EPeHoKNSjAjIkQVlxDTXgDXEcly4XTFHr OEStHKPsHHNxWNZcYCScSMymXBUyRBVmAKC8KMXxWXFeTZ2HNkVtOROjSiR0ZQOnWJJfOYZiaj9JBNAq MDAzMzIxMSAwMDAwMCBuDQowMDAwMDMzNDIwIDAwMD CkAE7GHlGdUUBwBbS6XRdjQBCqVFTtws0UKBHxRMRjAhneZMGcVZEgAFEoMIdkICBaUCO8BoQ9KRTjKM DoTP9TRcLwRWWgHzO0PNwpXIRpLIZvfj9NSDVoQGErGSi1KOJdZEIbHTYjZAzzRJYsPRI2HZW6CVVcOM WlZK9FFdNsUGwgAQZTEep1ELfwO8f2FOYxJT8WJ7Pf u9SfTehzRLKOZOvhDN3qteRiDWKzAh9OP0uKEasiFPg5BWQ5N6T2AGJiJURvGMWzCBMoWrY9RzSzANXf Pp4dNCZ9GvHpJWTtFsJ7SOGdMMNwAiP1IDW7EJSzDIA4WjGtBxNfID7ZKo0TKsM4DMS8uBXlFd0GTiAi AlbLCnJjKK4PBQv= ID Date Data Source [id number] 09/03/2021 03:40:56 AM EDT [facility] Name Value Range Interpretation Code Description Data [place] rce(s) Supporting Document(s) Leukocytes [#/volume] in Blood by Automated count 8.7 10*3/uL 4-10 [facility] Erythrocytes [#/volume] in Blood by Automated count 4.98 10*6/uL 4.6- 6.1 [facility] Hemoglobin [Mass/volume] in Blood 15.3 g/dL 13.5-18 [facility] Hematocrit [Volume Fraction] of Blood by Automated count 46.0 % 4 1-53 [facility] Erythrocyte mean corpuscular volume [Entitic volume] by Auto mated count 92.4 fL 80-96 [facility] Erythrocyte mean corpuscular hemoglobin [Entitic mass] by Automated count 30.6 pg 27-33 [facility] Erythrocyte mean corpuscular hemoglobin concentration [Mass/volume] by Automated count 33.2 g[facility] distribution width [Ratio] by Automated count 15.1 % 11.5-14.5 H [facility] Platelets [#/volume] in Blood by Automated count 247 10*3/uL 150-400 [facility] Differential cell count method - Blood [facility] Neutrophils/100 leukocytes in Blood by Automated count 63 % [facility] Lymphocytes/100 leukocytes in Blood by Automated count 26 % [facility] Monocytes/100 leukocytes in Blood by Automated count 8 % [facility] Eosinophils/100 leukocytes in Blood by Automated count 2 % [facility] Basophils/100 leukocytes in Blood by Automated count 1 % [facility] Neutrophils [#/volume] in Blood by Automated count 5.46 10*3/uL 1.8-7 .0 [facility] Lymphocytes [#/volume] in Blood by Automated count 2.30 10*3/uL 1.2-4 .0 [facility] Monocytes [#/volume] in Blood by Automated count 0.74 10*3/uL 0-0.8 [facility] Eosinophils [#/volume] in Blood by Automated count 0.16 10*3/uL 0-0.5 [facility] Basophils [#/volume] in Blood by Automated count 0.07 10*3/uL 0-0.2 [facility] Nucleated erythrocytes/100 leukocytes [Ratio] in Blood by Automated count 0 /100{WBCs} 0-0 [facility] ID Date Data Source [id number] 09/03/2021 03:52:[address] [facility] Name Value Range Interpretation Code Description Data [place] rce(s) Supporting Document(s) Bicarbonate [Moles/volume] in Serum 18 mmol/L 22-29 L [facility] Chloride [Moles/volume] in Serum or Plasma 105 mmol/L 98-107 [facility] Creatinine [Mass/volume] in Serum or Plasma 1.56 mg/dL 0.70-1.20 H [facility] Glucose [Mass/volume] in Serum or Plasma 112 mg/dL 70-140 [facility] Potassium [Moles/volume] in Serum or Plasma 3.9 mmol/L 3.4-5.1 [facility] Hemolyzed Sodium [Moles/volume] in Serum or Plasma 136 mmol/L 136-145 [facility] Urea nitrogen [Mass/volume] in Serum or Plasma 36 mg/dL 6-20 H [facility] Anion gap 3 in Serum or Plasma 13 mmol/L 8-15 [facility] Osmolality of Serum or Plasma by calculation 291 mosm/kg 275-300 [facility] Creatinine/Urea nitrogen [Mass Ratio] in Serum or Plasma 23 [facility] Calcium [Mass/volume] in Serum or Plasma 8.8 mg/dL 8.6-10.0 [facility] Glomerular filtration rate/1.73 sq M pre dicted among non-blacks [Volume Rate/Area] in Serum or Plasma by Creatinine-based formula (MDRD) 48 mL/min/1.73m2 >60 L [facility] Glomerular filtration rate/1.73 sq M pre dicted among blacks [Volume Rate/Area] in Serum or Plasma by Creatinine-based formula (MDRD) 55 mL/min/1.73m2 >60 L [facility] ID Date Data Source [id number] 09/02/2021 11:51:18 PM EDT [facility] MR BRAIN WITHOUT CONTRAST [id number] RES ULTInterpreted by:Bill Whittington MDINDICATION: Neuro deficit, [...] rce(s) Supporting Document(s) ID Date Data Source [id number] 09/02/2021 01:42:39 PM [facility] Name Value Range Interpretation Code Description Data [place] rce(s) Supporting Document(s) Bicarbonate [Moles/volume] in Serum 19 mmol/L 22-29 L [facility] Chloride [Moles/volume] in Serum or Plasma 104 mmol/L 98-107 [facility] Creatinine [Mass/volume] in Serum or Plasma 1.81 mg/dL 0.70-1.20 H [facility] Glucose [Mass/volume] in Serum or Plasma 104 mg/dL 70-140 [facility] Potassium [Moles/volume] in Serum or Plasma 4.6 mmol/L 3.4-5.1 [facility] Sodium [Moles/volume] in Serum or Plasma 135 mmol/L 136-145 L [facility] Urea nitrogen [Mass/volume] in Serum or Plasma 29 mg/dL 6-20 H [facility] Anion gap 3 in Serum or Plasma 12 mmol/L 8-15 [facility] Osmolality of Serum or Plasma by calculation 286 mosm/kg 275-300 [facility] Creatinine/Urea nitrogen [Mass Ratio] in Serum or Plasma 16 [facility] Calcium [Mass/volume] in Serum or Plasma 9.4 mg/dL 8.6-10.0 [facility] Glomerular filtration rate/1.73 sq M pre dicted among non-blacks [Volume Rate/Area] in Serum or Plasma by Creatinine-based formula (MDRD) 40 mL/min/1.73m2 >60 L [facility] Glomerular filtration rate/1.73 sq M pre dicted among blacks [Volume Rate/Area] in Serum or Plasma by Creatinine-based formula (MDRD) 46 mL/min/1.73m2 >60 L [facility] ID Date Data Source [id number] 09/02/2021 05:33:[address] [facility] Name Value Range Interpretation Code Description Data [place] rce(s) Supporting Document(s) Bicarbonate [Moles/volume] in Serum 19 mmol/L 22-29 L [facility] Chloride [Moles/volume] in Serum or Plasma 106 mmol/L 98-107 [facility] Creatinine [Mass/volume] in Serum or Plasma 1.42 mg/dL 0.70-1.20 H [facility] Glucose [Mass/volume] in Serum or Plasma 103 mg/dL 70-140 [facility] Potassium [Moles/volume] in Serum or Plasma 4.3 mmol/L 3.4-5.1 [facility] Sodium [Moles/volume] in Serum or Plasma 138 mmol/L 136-145 [facility] Urea nitrogen [Mass/volume] in Serum or Plasma 28 mg/dL 6-20 H [facility] Anion gap 3 in Serum or Plasma 13 mmol/L 8-15 [facility] Osmolality of Serum or Plasma by calculation 292 mosm/kg 275-300 [facility] Creatinine/Urea nitrogen [Mass Ratio] in Serum or Plasma 20 [facility] Calcium [Mass/volume] in Serum or Plasma 9.6 mg/dL 8.6-10.0 [facility] Glomerular filtration rate/1.73 sq M pre dicted among non-blacks [Volume Rate/Area] in Serum or Plasma by Creatinine-based formula (MDRD) 53 mL/min/1.73m2 >60 L [facility] Glomerular filtration rate/1.73 sq M pre dicted among blacks [Volume Rate/Area] in Serum or Plasma by Creatinine-based formula (MDRD) 62 mL/min/1.73m2 >60 [facility] ID Date Data Source [id number] 09/02/2021 06:19:[address] [facility] Name Value Range Interpretation Code Description Data [place] rce(s) Supporting Document(s) Leukocytes [#/volume] in Blood by Automated count 11.2 10*3/uL 4-10 H [facility] Erythrocytes [#/volume] in Blood by Automated count 5.27 10*6/uL 4.6- 6.1 [facility] Hemoglobin [Mass/volume] in Blood 16.0 g/dL 13.5-18 [facility] Hematocrit [Volume Fraction] of Blood by Automated count 48.2 % 4 1-53 [facility] Erythrocyte mean corpuscular volume [Entitic volume] by Auto mated count 91.5 fL 80-96 [facility] Erythrocyte mean corpuscular hemoglobin [Entitic mass] by Automated count 30.4 pg 27-33 [facility] Erythrocyte mean corpuscular hemoglobin concentration [Mass/volume] by Automated count 33.2 g/dL 32.0-[facility] distribution width [Ratio] by Automated count 15.1 % 11.5-14.5 H [facility] Platelets [#/volume] in Blood by Automated count 287 10*3/uL 150-400 [facility] Confirmed Differential cell count method - Blood [facility] Neutrophils/100 leukocytes in Blood by Automated count 72 % [facility] Lymphocytes/100 leukocytes in Blood by Automated count 18 % [facility] Monocytes/100 leukocytes in Blood by Automated count 8 % [facility] Eosinophils/100 leukocytes in Blood by Automated count 1 % [facility] Basophils/100 leukocytes in Blood by Automated count 1 % [facility] Neutrophils [#/volume] in Blood by Automated count 8.07 10*3/uL 1.8-7 .0 H [facility] Lymphocytes [#/volume] in Blood by Automated count 2.05 10*3/uL 1.2-4 .0 [facility] Monocytes [#/volume] in Blood by Automated count 0.88 10*3/uL 0-0.8 H [facility] Eosinophils [#/volume] in Blood by Automated count 0.10 10*3/uL 0-0.5 [facility] Basophils [#/volume] in Blood by Automated count 0.09 10*3/uL 0-0.2 [facility] Nucleated erythrocytes/100 leukocytes [Ratio] in Blood by Automated count 0 /100{WBCs} 0-0 [facility] ID Date Data Source [id number] 09/01/2021 03:18:43 PM EDT [facility] Name Value Range Interpretation Code Description Data [place] rce(s) Supporting Document(s) Consultation [facility] [id number]HmKIJ1iW2xZMY1YYzLNkAwSdAjZUN0 lbm QzUksRQdAfIWWoBldYEpTuDHodAcuicWUvQS0GbCD8LDByL74aLGKhPKEcX5XjYVXkQVX+La3IBIXdsY OeMC8HQcbP5P2Ta9cRSB8WqE1KZKZqJ7uSc5gfGH08QwLQyVmFuEAzXi90jGRGIqkvtajXv0PIpzyHh6 sl0TcQnv6ldPDna+7sal29uXwkK76HWbA207a0l/2Z 6kB92bX701+89WtRePva+nn8hQeH+pmf1h+IG0Bc5r+eHXrbP/dc8Ys8mAr+QIIlYKdk0k2dDa3wiTzw F/Hb9qp2VX0iGqwsooui8k0DswflzWmyrbhHg23D/8rwI2243xNGlvTY99HtQ4Kz2RyTOVFh95Eit2R1 Rxm2R7fa3DPqIPzxRJwCOsxvlXYp+gBak2WIylI6NT rvWLf/blanchard+oYEMObXVJHdIOPRb9Kh/CwWtyuxu7Tpd8CC7Ct9ccYETfG4zWs54ALz8mFHrZ40w8OLEBv0 [file] U6G6TLI3Z7QdOPJcTojzMEVaOLKpLbb+DU2jLKu+Dk0Oz7VijfS9tgCjQPc2IcC8KAagQBRAOg0Q ID Date Data Source [id number] 09/01/2021 12:24:[address] [facility] Name Value Range Interpretation Code Description Data [place] rce(s) Supporting Document(s) Consultation [facility] AZSBPg5vNwTHLgAw12/LPQcaGVJcz8JhGFjlXPc0KVubRKEvP9JaNEF2nY1pKMC8QQkNKzXfJbHfRND1 lbm [file] ICAgICAgICAgICAgICAgICAgICAgICAgICAgICAgICAgICAgICAgICAgICAgICAgICAgICAgICAgICAg ICAgICAgICAgICAgICAgICAgICAgICAgICAgDQogICAgICAgICAgICAgICAgICAgICAgICAgICAgICAg ICAgICAgICAgICAgICAgICAgICAgICAgICAgICAgIC AgICAgICAgICAgICAgICAgICAgICAgICAgICAgICAgICAgICAgDQogICAgICAgICAgICAgICAgICAgIC AgICAgICAgICAgICAgICAgICAgICAgICAgICAgICAgICAgICAgICAgICAgICAgICAgICAgICAgICAgIC AgICAgICAgICAgICAgICAgICAgDQogICAgICAgICAg ICAgICAgICAgICAgICAgICAgICAgICAgICAgICAgICAgICAgICAgICAgICAgICAgICAgICAgICAgICAg ICAgICAgICAgICAgICAgICAgICAgICAgICAgICAgDQogICAgICAgICAgICAgICAgICAgICAgICAgICAg ICAgICAgICAgICAgICAgICAgICAgICAgICAgICAgIC AgICAgICAgICAgICAgICAgICAgICAgICAgICAgICAgICAgICAgICAgDQogICAgICAgICAgICAgICAgIC AgICAgICAgICAgICAgICAgICAgICAgICAgICAgICAgICAgICAgICAgICAgICAgICAgICAgICAgICAgIC AgICAgICAgICAgICAgICAgICAgICAgDQogICAgICAg ICAgICAgICAgICAgICAgICAgICAgICAgICAgICAgICAgICAgICAgICAgICAgICAgICAgICAgICAgICAg ICAgICAgICAgICAgICAgICAgICAgICAgICAgICAgICAgDQogICAgICAgICAgICAgICAgICAgICAgICAg ICAgICAgICAgICAgICAgICAgICAgICAgICAgICAgIC AgICAgICAgICAgICAgICAgICAgICAgICAgICAgICAgICAgICAgICAgICAgDQogICAgICAgICAgICAgIC AgICAgICAgICAgICAgICAgICAgICAgICAgICAgICAgICAgICAgICAgICAgICAgICAgICAgICAgICAgIC AgICAgICAgICAgICAgICAgICAgICAgICAgDQogICAg ICAgICAgICAgICAgICAgICAgICAgICAgICAgICAgICAgICAgICAgICAgICAgICAgICAgICAgICAgICAg WMFeDTEwPEKrTKTtQINtMVSpJIIkMZJuSZFlTPKiMXHbBFVpFQl9W1dyJBVvMBWeYV9xXWo9Kp9+DQoN KzWlOAC5laVwkG0BID9ru4ElEYncOGTyp7CsTMh3WP 0ZALGyKVjoRR5DIGpywh6UBJFxLMMacQDDl1ybDoEnUZN8AHAdBenwEZ9JCYKcC1fojpRfBAInNKTZKS 5AMdSaX3XltE05GKLNPs0+CBnbduUhThgCJfN1WFTcf9FpYMs1ZP6HFHEvZrxcz7XcNDCpOXHNIGroDV 3IDLK2DGY8EMLyCo4YSOGxZ483zuCvUY1CXb4CZqRn JD8gta2TTBKtQEEtTeqMDzr0FSbgOV1EbFFtZKtVl06cfSm4hwJqlESBymSmmanmVCBaGqZmivedGN3F JuFlzEWiVS8vPC9dFGAtCOJvBjAyBJKAVG7SLKAmKOXtbGWjOCHkZEGJER3FCPdyVCH1ESFqxvYbdODv VNguXF8ADSWljpWyKSGiNWYZCQf+Le9MSX7yj3VvKB tcSkDpMK9xou8SPWeFAvWhR4I4nAZyL0E6PQkfUj3ZNFUuDSYgWOOvWQIMANacWN1ZHM8bymX3LI7BzN BdTCHjXMPlyUBlOIo6Q60seBAfPBhaMV7XYTL+Magdy+Vv9KTRRqIKDbVMIgUqGvRAIQHhNpX3KaL5QMh9 YpB6ApZN56aCzpbwDtKZjsKX0JAP7wTRXrYERJKV9S dKWaeH7ywtDwHIIzWYVKLaEbM75zbOTdYRVhUJIrJPIyCu2OCFVnA0ZawpQkgTmtcoWpUUOeCPJRIE8Q FXvctsKrwFGvrDlfTP77aPvxDF1DIy2FCqMuQH0bbu4XsLXrUd5IIMJwUf2GWTFiPEZoKHKyWRT4YUTc YiAnAWtrAJEwITDyRHQ8AXGeYYMnCY7LJnJdXZGsFY U2UXNkBLIqUSEvvi0FPFVqDAJmTrIfVpOjCMDoRVVcGIpnEEFfIBYkHEC1CTMpNREcNY8UOyFdYKImUM C6OEOqCSLyGVOshn4JYWIfPPZiHmo1KsQiUBNpZHMoCNjrIHNrRMKwLPL9VQCjBNMcCZ8RPhHtILDjQI IvKYUiXWOzMTOzxs4SOBAbMVNsFHDoOJEsYHHgVAKn RWqqONOtNOM2Vyo1BRKoCYEhQN1RTpPyXJKrIVM6XQOtRIXbFPFtux4WEWPzKXWdCLW6DIYlQHXyRWNi CBxwLZReERH9PWjeFRWnRXTcJS1KFfQvVWHfBYn1PIDpUBChAPLwpx8ZWTErOQCjNiK0CXKuXSMuCYRb LIpuQMUtZHI5LuH8YIMxLASqTZ1HGiKvBOnvSILXNq h2FFtgJ8s2ZWEcLu3OF9Hgp4RxUXElFTKCYZztEF2opyMdUXKoEg7FT6bBNql2TKH8RVWlSwLmCnIlFV O1PdzuTkPyNHL6RZIdPyJvTA9lZGiuIXIiXsF6MXFmEEM8Pab9EKObHdKwEUi4MdYoStA0YiQeCD4BBt 5DEuX0EHX4sBYwZm3BOcu8NJ8CLGSMU9GLTa== ID Date Data Source [id number] 09/01/2021 09:46:39 AM EDT [facility] Name Value Range Interpretation Code Description Data [place] rce(s) Supporting Document(s) Leukocytes [#/volume] in Blood by Automated count 11.7 10*3/uL 4-10 H [facility] Erythrocytes [#/volume] in Blood by Automated count 5.51 10*6/uL 4.6- 6.1 [facility] Hemoglobin [Mass/volume] in Blood 16.5 g/dL 13.5-18 [facility] Hematocrit [Volume Fraction] of Blood by Automated count 50.7 % 4 1-53 [facility] Erythrocyte mean corpuscular volume [Entitic volume] by Auto mated count 92.1 fL 80-96 [facility] Erythrocyte mean corpuscular hemoglobin [Entitic mass] by Automated count 30.0 pg 27-33 [facility] Erythrocyte mean corpuscular hemoglobin concentration [Mass/volume] by Automated count 32.6 g/[facility] width [Ratio] by Automated count 15.4 % 11.5-14.5 H [facility] Platelets [#/volume] in Blood by Automated count 286 10*3/uL 150-400 [facility] Differential cell count method - Blood [facility] Neutrophils/100 leukocytes in Blood by Automated count 75 % [facility] Lymphocytes/100 leukocytes in Blood by Automated count 16 % [facility] Monocytes/100 leukocytes in Blood by Automated count 8 % [facility] Eosinophils/100 leukocytes in Blood by Automated count 1 % [facility] Basophils/100 leukocytes in Blood by Automated count 0 % [facility] Neutrophils [#/volume] in Blood by Automated count 8.76 10*3/uL 1.8-7 .0 H [facility] Lymphocytes [#/volume] in Blood by Automated count 1.90 10*3/uL 1.2-4 .0 [facility] Monocytes [#/volume] in Blood by Automated count 0.88 10*3/uL 0-0.8 H [facility] Eosinophils [#/volume] in Blood by Automated count 0.07 10*3/uL 0-0.5 [facility] Basophils [#/volume] in Blood by Automated count 0.05 10*3/uL 0-0.2 [facility] Nucleated erythrocytes/100 leukocytes [Ratio] in Blood by Automated count 0 /100{WBCs} 0-0 [facility] ID Date Data Source [id number] 09/01/2021 10:04:45 AM [facility] Name Value Range Interpretation Code Description Data [place] rce(s) Supporting Document(s) Magnesium [Mass/volume] in Serum or Plasma 2.2 mg/dL 1.6-2.6 [facility] ID Date Data Source [id number] 09/01/2021 10:04:45 AM [facility] Name Value Range Interpretation Code Description Data [place] rce(s) Supporting Document(s) Phosphate [Mass/volume] in Serum or Plasma 4.1 mg/dL 2.5-4.5 [facility] ID Date Data Source [id number] [facility]/01[facility] 10:[facility] Interpretation Code Description Data [place] rce(s) Supporting Document(s) Bicarbonate [Moles/volume] in Serum 18 mmol/L 22-29 L [facility] Chloride [Moles/volume] in Serum or Plasma 102 mmol/L 98-107 [facility] Creatinine [Mass/volume] in Serum or Plasma 1.25 mg/dL 0.70-1.20 H [facility] Glucose [Mass/volume] in Serum or Plasma 120 mg/dL 70-140 [facility] Potassium [Moles/volume] in Serum or Plasma 4.3 mmol/L 3.4-5.1 [facility] Sodium [Moles/volume] in Serum or Plasma 133 mmol/L 136-145 L [facility] Urea nitrogen [Mass/volume] in Serum or Plasma 20 mg/dL 6-20 [facility] Anion gap 3 in Serum or Plasma 13 mmol/L 8-15 [facility] Osmolality of Serum or Plasma by calculation 280 mosm/kg 275-300 [facility] Creatinine/Urea nitrogen [Mass Ratio] in Serum or Plasma 16 [facility] Calcium [Mass/volume] in Serum or Plasma 10.0 mg/dL 8.6-10.0 [facility] Glomerular filtration rate/1.73 sq M pre dicted among non-blacks [Volume Rate/Area] in Serum or Plasma by Creatinine-based formula (MDRD) 62 mL/min/1.73m2 >60 [facility] Glomerular filtration rate/1.73 sq M pre dicted among blacks [Volume Rate/Area] in Serum or Plasma by Creatinine-based formula (MDRD) 72 mL/min/1.73m2 >60 [facility] ID Date Data Source [id number] 09/01/2021 08:21:26 AM T [facility] XR CHEST FRONTAL ONLY [id number] RESULTI nterpreted by:Zeenat Gonzalez, MDPROCEDURE INFORMATION: Exam: XR Chest Exam date and time: 09/01/2021 5:56 AM Age: 56 years old Clinical indication: Unspecified atrial fibrillation; Other: Evaluate for cause of desaturation TECHNIQUE: Imaging protocol: XR of the chest. Views: 1 view. (2 images total) COMPARISON: CR XR CHEST FRONTAL ONLY [id number] PORTABLE 08/29/2021 2:22 PM FINDINGS: Lungs: Previous [...] rce(s) Supporting Document(s) ID Date Data Source [id number] 08/31/2021 04:45:32 PM [facility] Name Value Range Interpretation Code Description Data [place] rce(s) Supporting Document(s) [facility] [id number]/ZQNeaUEEvy3AlVRstACx1RSqqPSVyH0EaVWL2sP1vWXW1RIzQOqKpOxRbBOT2 lbm [file] [id number]AJWKtXiON9DYEb= ID Date Data Source [id number] 08/31/2021 03:38:55 PM EDT [facility] Name Value Range Interpretation Code Description Data [place] rce(s) Supporting Document(s) Bicarbonate [Moles/volume] in Serum 20 mmol/L 22-29 L [facility] Chloride [Moles/volume] in Serum or Plasma 109 mmol/L 98-107 H [facility] Creatinine [Mass/volume] in Serum or Plasma 1.08 mg/dL 0.70-1.20 [facility] Glucose [Mass/volume] in Serum or Plasma 75 mg/dL 70-140 [facility] Potassium [Moles/volume] in Serum or Plasma 3.8 mmol/L 3.4-5.1 [facility] Sodium [Moles/volume] in Serum or Plasma 141 mmol/L 136-145 [facility] Urea nitrogen [Mass/volume] in Serum or Plasma 16 mg/dL 6-20 [facility] Anion gap 3 in Serum or Plasma 12 mmol/L 8-15 [facility] Osmolality of Serum or Plasma by calculation 292 mosm/kg 275-300 [facility] Creatinine/Urea nitrogen [Mass Ratio] in Serum or Plasma 15 [facility] Calcium [Mass/volume] in Serum or Plasma 8.1 mg/dL 8.6-10.0 L [facility] Glomerular filtration rate/1.73 sq M pre dicted among non-blacks [Volume Rate/Area] in Serum or Plasma by Creatinine-based formula (MDRD) 74 mL/min/1.73m2 >60 [facility] Glomerular filtration rate/1.73 sq M pre dicted among blacks [Volume Rate/Area] in Serum or Plasma by Creatinine-based formula (MDRD) 86 mL/min/1.73m2 >60 [facility] ID Date Data Source [id number] 08/31/2021 01:20:[address] [facility] Name Value Range Interpretation Code Description Data [place] rce(s) Supporting Document(s) Consultation [facility] [id number]/IJTvrCUXde4LrUUeaJZb8KXgfMUVjK9JhKKM7hA4aXNJ4ASeZMhEpCtFnOVS1 lbm [file] [id number]zHByCu4ZJXYgNKnWXoOfTQ5JVHg= ID Date Data Source [id number] 08/31/2021 10:16:[address] [facility] Name Value Range Interpretation Code Description Data [place] rce(s) Supporting Document(s) [facility] MGNEXj8nCeHOWbTch5KgQkGhLPInWV4tvwf3G7F4tQAoA7NchOUuk4hzG7MxE9ZnKFUiTERXPE1SxBWo jb2 [file] [id number]/Adrián/Guiu7kxGn/Q+/2w9 [file] r5BUIXg55oo+qPPhJOoNvz+MRCDyA5/iWVjc2/+y4uHZzmPkVGDc7LjRZTIQQxaqdhrytqXwHXr+Le +V8QO8WL7QQpdiNWVhEZloY9AcsyXsXfSLe8RA4yCw 2d6KhM0vn+PlF9vP0CJY85SY3718+gm2koW7OpKm7LQv0A3M2eQlu+S1en2t7/Y/J7k9+qK5XKIPIni5 gD8ZeEgdxwinDMFu1ztWz2gQlLA6RH/6nSn12/Yt+A/Exn46fnhJ0MUp1Bx9I0VqiIZ1FExzNNIRhqBd 5Mf6miwA2JS/pi5Ar8Ncf3Iw237X6gHn+4BnngBdcL j4iDoop1WmfmMoKLwwrLFkJuoqwMj/pZkjA1aphDKk1U6D5X/DenTu8U9idGr9HO/kaoIk1EGm/3LvMV /K8wXuh/hfL0v+rif9XF/6pDv+Qs2lyut23H9+xU4J98azWe64JJ/YrXRcqLlEt/Fv+vFm8dhdKlU73G Px/lY1qqW0F5Ki4na0w/8pZ2uTb/HtKfh/GdXz6T34 PG6+y34n/Vxf+qT/m+0K/Qb2ee//bJ139x+hXmf+xY5QgVz0GBfK2klNs/qr2BIox2ZW6rp+/Jg7XTyY +hf0K/iut++/Blackmon/jzz/DxBd9ehPI02HaE4hV80X/M1xMtxenyBzco0hq1P+rt+da+mKX2S83YdQ9eTez 1zPyk5RLgv21C+gTkKt2U+iN/slDBjq6Fd4UjCnw29 Khq7Jgzb85nGd1SHO/OZYE1RvYDI8MpIs2w7qpQ0uvz3pq56CEG9FT+BlLx9moISYjYO+225rgU6rPpk yve9/2J3FFfTjcx6MP/6xw6cD/pcNHA+7MWl04XjlznyDJ/7bbb3JxNa70kvFk6WaM1f57kuKw+cD8a1 lC/5/iz6lnM81+cB/Ap5yXsf3lzbGNYlyHNX8q4Fb4 hdn/yNvG9J+/PA+liquor inspector+/t3Tg9Y654n8X33zW/Kv+8Q/6sB/nkU6l4gG/z4wDS2sMrkibSE/lc+Fw34X/ l8NeB/2ZqpdK3KXItmbv81RqhF6S3tJXz5WpnV/9hZivjw75eWu9F7fO3/O+T+P07l3aj9dqwrYTyWi5 J7+sx2KJusm+K71+gSmzovRq0n0/LpaZu93aU0SkaN w/IpjxCeU8Ev9dR+KfQrXncp9/UI/SW3Clmc4Ti0L+hX+VXO0rjl9Z71iew2o3x4ciS7VcOmg/OF0dK+ MWC/Sf5dmi9KlxspjOnLcpi+k6Pl/ne0tD+Plv5IA/xG4bgjY6Iy/DWtvW5qYw2LKnyo2Z6ygzc2xsju aDk/z7hz73X+Fdd3Ph/Qrwav8/499ckB+sOyq7BN2s Majo/Yr4/HXW0qPf+/R094+pppYpb66wRC+OyK0Dq2W+IkZ3XaoKn2lh7O3Y/c8LVx5kVZUY/sYJfvtSH h6JXEqUn+K33t/bilvj8Z/Js/tj1xL+ch+Gv9AmRV+VXid/XnI+47c7w/Yr9AmI/dHY0p/bjKsZ5TuOy B2zsGp7mvpVo9v/7606elmG4/0FFzUFcdMf/6B80H0 M2xEYn1O//YB/PoqUv9M0/L4FJaZ127i8+PrEfqP+F+EZt326bu+DCSaOn2GTmCb2L3E6za+3m24T/V9 Yk1E1R9Fe8t2v3lqzjmdZpY3GJ9z547w05mwWMkG9yp+/uz3m/G65/QS21yTRa/6fvT2az2lrU50/TyH uxMY7LH9cHuDob+pSl78RBjg/Gny0IuP0P+Po1/Rt3 Mc/crYtke/Rodriguez/w1ekXefgQ8IYsV0dXKnt/bxifl67yWHV00OOG1tFz0kDQ+xXvOfK/pXilnws0V1Kjm fmk/c4SlsK1LIgOdy28dzhvn7j1Crfpk/6wScGQtuxpi09n0cexfjFI+Yzbj+f8G/7xktpeociirwjL8 ngMv2beVYUj43i2io/3rnzLet0UXw/l8K78pexrqTU xpdN0a+m+A4D0Ac2C2baZAfwhw/L75DQHWRoIcckufqldFkkw8J4c/9Vw/Q3nbAfeB+IMi7EO1n//on4 uzWiZioXvfW2Go8tqfL4ujvvI1nRSp1E0jX8QVxA5h48f/iyaUN+n/fPqTxXySpg96OAZ4stT+G7WJ6X Zzes5jckQgD8s0Zo6sMyysmShR3JL0uL6LcdJk4ba5 u9Mvmv6jQf6quagUtBlcD6p0dgtxTRD3GI/40J/UxnuYJ4emwNnvOym1T7sR5Teewdu/ek/Qq/SX1jwn 0T8VT8jw2Pp7S/7IR+hf4G/WrhN2m/mrRfDVzf/cuE/Vek2nXxaBV+JYogJ816Vc7mmL5e1xuVjX4D9G hFWr8TcbkWVF/F9Fqte5qIWb5iyPx31nn4j/LcnvXp 2P/iufB/2amWsqpzW3fw0W+bdBm/tOF16G8sM2y7hHgmQU/RUmXhE0bmw43Xr7BRlqD1mDre129AkMg+ r+tX/Q3JG9VpXDjk+oeoUhRQwrM9qdMPwuWy71r/pAn7FX+m1Emuwb/tSy0GC42rg5H+ElpZhsK8T/oV fkm9v1av+Zqf16aa8U24yB5PurU/RfdI2ML+V3PKej XWvD0k26S+s3zJ+Z1nvaTrAw2v0Uxq/iJ+AZ0ucM64hpFYcxSesEs9g/Ju60uoeEmot0UDL0xdK062C8 ymXfnBgnQtq4WqmDxzj4KAO9ikL073W4qjKjxwfLGK/ICc1t6blB8GZ5F3npQsERkjaWH/OCV+cEr84N rhtnqa6N/B+EFe3++1nlx/F/SrjfLsz+tJf/715Hn3 uxPske6lo3+g3KmxM9xzYGxb7WkS89f1DtyJ+lVD+xe2QqO0TdmGjk/YEkkr8baG06w+DkPr1lyGb5UM Tawanda/658S7VQph1ELE72OlioYZx3yM3+5A1i1sdOl/G3jFN3nKYM4EUmL6EdlR3u5dmQ7yvk+wJD/DkvwM [file] CIQCV5J= ID Date Data Source [id number] 08/31/2021 01:15:[address] [facility] Name Value Range Interpretation Code Description Data [place] rce(s) Supporting Document(s) Osmolality of Urine 436 mosm/kg 300-1000 [facility] ID Date Data Source [id number] [facility] Interpretation Code Description Data [place] rce(s) Supporting Document(s) Sodium [Moles/volume] in Urine 91 mmol/L [facility] ID Date Data Source [id number] 08/31/2021 10:16:47 AM [facility] Name Value Range Interpretation Code Description Data [place] rce(s) Supporting Document(s) Platelets [#/volume] in Blood by Automated count 232 10*3/uL 150-400 [facility] ID Date Data Source [id number] 08/31/2021 08:44:24 AM [facility] Value Range Interpretation Code Description Data [place] rce(s) Supporting Document(s) Bicarbonate [Moles/volume] in Serum 21 mmol/L 22-29 L [facility] Chloride [Moles/volume] in Serum or Plasma 99 mmol/L 98-107 [facility] Creatinine [Mass/volume] in Serum or Plasma 1.30 mg/dL 0.70-1.20 H [facility] Glucose [Mass/volume] in Serum or Plasma 115 mg/dL 70-140 [facility] Potassium [Moles/volume] in Serum or Plasma 3.6 mmol/L 3.4-5.1 [facility] Hemolyzed Sodium [Moles/volume] in Serum or Plasma 133 mmol/L 136-145 L [facility] Urea nitrogen [Mass/volume] in Serum or Plasma 16 mg/dL 6-20 [facility] Anion gap 3 in Serum or Plasma 13 mmol/L 8-15 [facility] Osmolality of Serum or Plasma by calculation 278 mosm/kg 275-300 [facility] Creatinine/Urea nitrogen [Mass Ratio] in Serum or Plasma 13 [facility] Calcium [Mass/volume] in Serum or Plasma 9.7 mg/dL 8.6-10.0 [facility] Glomerular filtration rate/1.73 sq M pre dicted among non-blacks [Volume Rate/Area] in Serum or Plasma by Creatinine-based formula (MDRD) 59 mL/min/1.73m2 >60 L [facility] Glomerular filtration rate/1.73 sq M pre dicted among blacks [Volume Rate/Area] in Serum or Plasma by Creatinine-based formula (MDRD) 69 mL/min/1.73m2 >60 [facility] ID Date Data Source [id number] 08/31/2021 08:44:24 AM [facility] Name Value Range Interpretation Code Description Data [place] rce(s) Supporting Document(s) Magnesium [Mass/volume] in Serum or Plasma 2.0 mg/dL 1.6-2.6 [facility] ID Date Data Source [id number] 08/31/2021 08:44:24 AM [facility] Name Value Range Interpretation Code Description Data [place] rce(s) Supporting Document(s) Phosphate [Mass/volume] in Serum or Plasma 2.4 mg/dL 2.5-4.5 L [facility] ID Date Data Source [id number] 08/31/2021 02:23:25 PM [facility] Name Value Range Interpretation Code Description Data [place] rce(s) Supporting Document(s) Bicarbonate [Moles/volume] in Serum 19 mmol/L 22-29 L [facility] Chloride [Moles/volume] in Serum or Plasma 97 mmol/L 98-107 L [facility] Creatinine [Mass/volume] in Serum or Plasma 1.30 mg/dL 0.70-1.20 H [facility] Glucose [Mass/volume] in Serum or Plasma 117 mg/dL 70-140 [facility] Potassium [Moles/volume] in Serum or Plasma 3.6 mmol/L 3.4-5.1 [facility] Sodium [Moles/volume] in Serum or Plasma 131 mmol/L 136-145 L [facility] Urea nitrogen [Mass/volume] in Serum or Plasma 17 mg/dL 6-20 [facility] Anion gap 3 in Serum or Plasma 17 mmol/L 8-15 H [facility] Osmolality of Serum or Plasma by calculation 291 mosm/kg 275-300 [facility] Creatinine/Urea nitrogen [Mass Ratio] in Serum or Plasma 13 [facility] Calcium [Mass/volume] in Serum or Plasma 9.5 mg/dL 8.6-10.0 [facility] Glomerular filtration rate/1.73 sq M pre dicted among non-blacks [Volume Rate/Area] in Serum or Plasma by Creatinine-based formula (MDRD) 59 mL/min/1.73m2 >60 L [facility] Glomerular filtration rate/1.73 sq M pre dicted among blacks [Volume Rate/Area] in Serum or Plasma by Creatinine-based formula (MDRD) 69 mL/min/1.73m2 >60 [facility] ID Date Data Source [id number] 08/31/2021 05:21:32 AM [facility] Value Range Interpretation Code Description Data [place] rce(s) Supporting Document(s) Prothrombin time (PT) 14.5 s 11.6-14.0 H [facility] INR in Platelet poor plasma by Coagulation assay 1.18 [facility] Routine intensity oral anticoagulation I NR is typically 2.0-3.0. Target INR must be clinically individualized. ID Date Data Source [id number] 08/31/2021 05:53:27 AM [facility] Value Range Interpretation Code Description Data [place] rce(s) Supporting Document(s) Bicarbonate [Moles/volume] in Serum 22-29 [facility] NOTIFIED GUI POTTER 9E [id number] [phone] 1 Chloride [Moles/volume] in Serum or Plasma 98-107 [facility] Creatinine [Mass/volume] in Serum or Plasma 0.70-1.20 [facility] Glucose [Mass/volume] in Serum or Plasma 70-140 [facility] Potassium [Moles/volume] in Serum or Plasma 3.4-5.1 [facility] Sodium [Moles/volume] in Serum or Plasma 136-145 [facility] Urea nitrogen [Mass/volume] in Serum or Plasma 6-20 [facility] Anion gap 3 in Serum or Plasma 8-15 [facility] Osmolality of Serum or Plasma by calculation 275-300 [facility] Creatinine/Urea nitrogen [Mass Ratio] in Serum or Plasma [facility] Calcium [Mass/volume] in Serum or Plasma 8.6-10.0 [facility] Glomerular filtration rate/1.73 sq M pre dicted among non-blacks [Volume Rate/Area] in Serum or Plasma by Creatinine-based formula (MDRD) >6 0 [facility] Glomerular filtration rate/1.73 sq M pre dicted among blacks [Volume Rate/Area] in Serum or Plasma by Creatinine-based formula (MDRD) >60 [facility] ID Date Data Source [id number] 08/31/2021 06:06:20 AM [facility] Value Range Interpretation Code Description Data [place] rce(s) Supporting Document(s) Leukocytes [#/volume] in Blood by Automated count 10.2 10*3/uL 4-10 [facility] Erythrocytes [#/volume] in Blood by Automated count 4.92 10*6/uL 4.6- 6.1 [facility] Hemoglobin [Mass/volume] in Blood 15.0 g/dL 13.5-18 [facility] Hematocrit [Volume Fraction] of Blood by Automated count 44.6 % 4 1-53 [facility] Erythrocyte mean corpuscular volume [Entitic volume] by Auto mated count 90.8 fL 80-96 [facility] Erythrocyte mean corpuscular hemoglobin [Entitic mass] by Automated count 30.5 pg 27-33 [facility] Erythrocyte mean corpuscular hemoglobin concentration [Mass/volume] by Automated count 33.6 g/[facility] width [Ratio] by Automated count 16.4 % 11.5-14.5 H [facility] Platelets [#/volume] in Blood by Automated count 150-400 [facility] Differential cell count method - Blood [facility] Neutrophils/100 leukocytes in Blood by Automated count 74 % [facility] Lymphocytes/100 leukocytes in Blood by Automated count 17 % [facility] Monocytes/100 leukocytes in Blood by Automated count 7 % [facility] Eosinophils/100 leukocytes in Blood by Automated count 1 % [facility] Basophils/100 leukocytes in Blood by Automated count 1 % [facility] Neutrophils [#/volume] in Blood by Automated count 7.60 10*3/uL 1.8-7 .0 H [facility] Lymphocytes [#/volume] in Blood by Automated count 1.69 10*3/uL 1.2-4 .0 [facility] Monocytes [#/volume] in Blood by Automated count 0.71 10*3/uL 0-0.8 [facility] Eosinophils [#/volume] in Blood by Automated count 0.09 10*3/uL 0-0.5 [facility] Basophils [#/volume] in Blood by Automated count 0.12 10*3/uL 0-0.2 [facility] Nucleated erythrocytes/100 leukocytes [Ratio] in Blood by Automated count 0 /100{WBCs} 0-0 [facility] ID Date Data Source [id number] 08/30/2021 01:15:[address] [facility] Name Value Range Interpretation Code Description Data [place] rce(s) Supporting Document(s) Consultation [facility] [id number] lbm [file] [id number] ID Date Data Source [id number] 08/30/2021 11:24:05 AM EDT [facility] CT HEAD WITHOUT CONTRAST [id number] RESU LTInterpreted by:Cheng Ovalle MDINDICATION: 56-year-old male [...] rce(s) Supporting Document(s) ID Date Data Source [id number] 08/30/2021 09:09:25 AM T [facility] Name Value Range Interpretation Code Description Data [place] rce(s) Supporting Document(s) Leukocytes [#/volume] in Blood by Automated count 9.6 10*3/uL 4-10 [facility] Erythrocytes [#/volume] in Blood by Automated count 4.63 10*6/uL 4.6- 6.1 [facility] Hemoglobin [Mass/volume] in Blood 14.3 g/dL 13.5-18 [facility] Hematocrit [Volume Fraction] of Blood by Automated count 42.9 % 4 1-53 [facility] Erythrocyte mean corpuscular volume [Entitic volume] by Auto mated count 92.7 fL 80-96 [facility] Erythrocyte mean corpuscular hemoglobin [Entitic mass] by Automated count 30.9 pg 27-33 [facility] Erythrocyte mean corpuscular hemoglobin concentration [Mass/volume] by Automated count 33.3 g/dL 32.0-36.0 [facility] distribution width [Ratio] by Automated count 15.2 % 11.5-14.5 H [facility] Platelets [#/volume] in Blood by Automated count 236 10*3/uL 150-400 [facility] Differential cell count method - Blood [facility] Neutrophils/100 leukocytes in Blood by Automated count 76 % [facility] Lymphocytes/100 leukocytes in Blood by Automated count 15 % [facility] Monocytes/100 leukocytes in Blood by Automated count 7 % [facility] Eosinophils/100 leukocytes in Blood by Automated count 1 % [facility] Basophils/100 leukocytes in Blood by Automated count 1 % [facility] Neutrophils [#/volume] in Blood by Automated count 7.28 10*3/uL 1.8-7 .0 H [facility] Lymphocytes [#/volume] in Blood by Automated count 1.46 10*3/uL 1.2-4 .0 [facility] Monocytes [#/volume] in Blood by Automated count 0.66 10*3/uL 0-0.8 [facility] Eosinophils [#/volume] in Blood by Automated count 0.11 10*3/uL 0-0.5 [facility] Basophils [#/volume] in Blood by Automated count 0.07 10*3/uL 0-0.2 [facility] Nucleated erythrocytes/100 leukocytes [Ratio] in Blood by Automated count 0 /100{WBCs} 0-0 [facility] ID Date Data Source [id number] 08/30/2021 09:22:[address] [facility] Name Value Range Interpretation Code Description Data [place] rce(s) Supporting Document(s) Bicarbonate [Moles/volume] in Serum 23 mmol/L 22-29 [facility] Chloride [Moles/volume] in Serum or Plasma 103 mmol/L 98-107 [facility] Creatinine [Mass/volume] in Serum or Plasma 1.27 mg/dL 0.70-1.20 H [facility] Glucose [Mass/volume] in Serum or Plasma 111 mg/dL 70-140 [facility] Potassium [Moles/volume] in Serum or Plasma 3.8 mmol/L 3.4-5.1 [facility] Sodium [Moles/volume] in Serum or Plasma 137 mmol/L 136-145 [facility] Urea nitrogen [Mass/volume] in Serum or Plasma 13 mg/dL 6-20 [facility] Anion gap 3 in Serum or Plasma 11 mmol/L 8-15 [facility] Osmolality of Serum or Plasma by calculation 284 mosm/kg 275-300 [facility] Creatinine/Urea nitrogen [Mass Ratio] in Serum or Plasma 10 [facility] Calcium [Mass/volume] in Serum or Plasma 9.6 mg/dL 8.6-10.0 [facility] Glomerular filtration rate/1.73 sq M pre dicted among non-blacks [Volume Rate/Area] in Serum or Plasma by Creatinine-based formula (MDRD) 61 mL/min/1.73m2 >60 [facility] Glomerular filtration rate/1.73 sq M pre dicted among blacks [Volume Rate/Area] in Serum or Plasma by Creatinine-based formula (MDRD) 71 mL/min/1.73m2 >60 [facility] ID Date Data Source [id number] 08/30/2021 09:22:25 AM [facility] Name Value Range Interpretation Code Description Data [place] rce(s) Supporting Document(s) Magnesium [Mass/volume] in Serum or Plasma 1.8 mg/dL 1.6-2.6 [facility] ID Date Data Source [id number] 08/30/2021 09:22:25 AM [facility] Value Range Interpretation Code Description Data [place] rce(s) Supporting Document(s) Phosphate [Mass/volume] in Serum or Plasma 2.7 mg/dL 2.5-4.5 [facility] ID Date Data Source [id number] 08/30/2021 11:21:08 AM [facility] Value Range Interpretation Code Description Data [place] rce(s) Supporting Document(s) Natriuretic peptide.B prohormone N-Terminal [Mass/volu me] in Serum or Plasma 1089 pg/mL <125 H [facility] ID Date Data Source [id number] 08/30/2021 06:23:11 AM [facility] Value Range Interpretation Code Description Data [place] rce(s) Supporting Document(s) Prothrombin time (PT) 14.5 s 11.6-14.0 H [facility] INR in Platelet poor plasma by Coagulation assay 1.18 [facility] Routine intensity oral anticoagulation I NR is typically 2.0-3.0. Target INR must be clinically individualized. ID Date Data Source [id number] 08/30/2021 12:47:59 AM EDT [facility] Name Value Range Interpretation Code Description Data [place] rce(s) Supporting Document(s) Prothrombin time (PT) 14.1 s 11.6-14.0 H [facility] INR in Platelet poor plasma by Coagulation assay 1.14 [facility] Routine intensity oral anticoagulation I NR is typically 2.0-3.0. Target INR must be clinically individualized. ID Date Data Source [id number] 08/29/2021 09:24:14 PM EDT [facility] Value Range Interpretation Code Description Data [place] rce(s) Supporting Document(s) [facility] [id number] m [file] [id number] ID Date Data Source [id number] 08/29/2021 08:57:[address] [facility] Name Value Range Interpretation Code Description Data [place] rce(s) Supporting Document(s) Consultation [facility] [id number] lbm [file] [id number] ID Date Data Source [id number] 08/29/2021 08:56:22 PM EDT [facility] Name Value Range Interpretation Code Description Data [place] rce(s) Supporting Document(s) History and Physical [facility] [id number] lbm [file] [id number] ID Date Data Source [id number] 08/29/2021 03:56:13 PM [facility] CT ANGIOGRAPHY HEAD [id number] RESULTInt erpreted by:Kike Sun MDINDICATION: 56-year-old male [...] rce(s) Supporting Document(s) ID Date Data Source [id number] 08/29/2021 03:56:13 PM EDT [facility] CT ANGIOGRAPHY NECK [id number] RESULTInt erpreted by:Kike Sun MDINDICATION: 56-year-old male [...] rce(s) Supporting Document(s) ID Date Data Source [id number] 08/29/2021 03:03:03 PM [facility] XR CHEST FRONTAL ONLY [id number] RESULTI nterpreted by:Cesario Vanessa MDPROCEDURE INFORMATION: Exam: XR Chest Exam date and time: 08/29/2021 2:22 PM Age: 56 years old Clinical indication: Other: Stroke eitiology TECHNIQUE: Imaging protocol: XR of the chest. Views: 1 view. COMPARISON: CT ANGIOGRAPHY NECK [id number] 08/29/2021 2:08 PM FINDINGS: Lungs: There is [...] DETECTED [facility] This lab was ordered by [facility] and reported by [facility]. ID Date Data Source [id number] 08/30/2021 06:37:36 AM EDT [facility] Service Cmnt XXX-Imp : NoneRespiratory P CR Panel : PCR ResultsMicroorganism XXX Cult : See Labs Tab for 2019 nCoV RT-PCR resultsHAdV DNA QI NIRMAL+non-probe : Not DetectedHCoV [id number] Nph QI NIRMAL+non-probe : Not DetectedHCoV [id number] Nph QI NIRMAL+non-probe : Not [id number] RNA Nph QI NIRMAL+non-probe : Not [id number] RNA Upper resp QI NIRMAL+probe : Not [...] DNA Nph Q NIRMAL+non-probe : Not DetectedB [id number] DNA Nph NIRMAL+non-probe : Not DetectedPlease note : FAX [phone] Name Value Range Interpretation Code Description Data [place] rce(s) Supporting Document(s) ID Date Data Source [id number] 08/29/2021 04:43:18 PM EDT [facility] Name Value Range Interpretation Code Description Data [place] rce(s) Supporting Document(s) Amphetamine [Presence] in Urine by Screen method Negative [facility] (NOTE)Positive results are presumptive a nd unconfirmed;confirmatorytesting [facility] be ordered at [facility] [address] [place] [address] at [facility] within 5 days of collection. Benzodiazepines [Presence] in Urine by Screen method Negat [facility] Cannabinoids [Presence] in Urine by Screen method Negative [facility] (NOTE)Positive results are presumptive a nd unconfirmed;confirmatorytesting can be ordered at the [facility] at [address] [place] [address] at [phone] within 5 days of collection. Benzoylecgonine [Presence] in Urine by Screen [facility] Methadone [Presence] in Urine by Screen method Negative [facility] Opiates [Presence] in Urine by Screen method Negative [facility] Oxycodone [Presence] in Urine by Screen method Negative [facility] Fentanyl+Norfentanyl [Presence] in Urine by Screen method Negative [facility] Service comment [facility] Results below the indicated cutoff (ng/m L), are reported as"Negative." Note: for medical purposes only; not valid for legalor employment testing. 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 [facility] Patient has symptoms related to condition [facility] When did you start to experience these symptoms [Date and time] [Phen X] [facility] Patient was hospitalized because of this condition [facility] patient was admitted to ICU for condition [facility] Patient resides in a congregate care setting [facility] status [facility] ID Date Data Source [id number] 08/29/2021 03:50:12 PM [facility] Value Range Interpretation Code Description Data [place] rce(s) Supporting Document(s) Natriuretic peptide.B prohormone N-Terminal [Mass/volu me] in Serum or Plasma 3052 pg/mL <125 H [facility] ID Date Data Source [id number] 08/29/2021 03:50:12 PM [facility] Value Range Interpretation Code Description Data [place] rce(s) Supporting Document(s) Cholesterol [Mass/volume] in Serum or Plasma 163 mg/dL <200 [facility] Triglyceride [Mass/volume] in Serum or Plasma 75 mg/dL <150 [facility] Cholesterol in HDL [Mass/volume] in Serum or Plasma 48 mg/dL >40 [facility] Cholesterol in LDL [Mass/volume] in Serum or Plasma by calcu lation 100 mg/dL <100 H [facility] Cholesterol in VLDL [Mass/volume] in Serum or Plasma by calc ulation 15 mg/dl 16-42 L [facility] Cholesterol non HDL [Mass/volume] in Serum or Plasma 115 mg/dL <130 [facility] ID Date Data Source [id number] 08/29/2021 04:18:28 PM T [facility] Value Range Interpretation Code Description Data [place] rce(s) Supporting Document(s) Hemoglobin A1c/Hemoglobin.total in Blood by HPLC 5.9 % 4.0-6.0 [facility] (NOTE)<5.7% Average risk of diabetes (ADA)5.7-6.4% Increased risk of diabetes(ADA)>/= 6.5% Diagnostic for diabetes(ADA) Glucose mean value [Mass/volume] in Blood Estimated fr om glycated hemoglobin 123 mg/dL <126 [facility] ID Date Data Source [id number] 08/29/2021 02:11:51 PM [facility] Value Range Interpretation Code Description Data [place] rce(s) Supporting Document(s) Leukocytes [#/volume] in Blood by Automated count 9.2 10*3/uL 4-10 [facility] Erythrocytes [#/volume] in Blood by Automated count 4.57 10*6/uL 4.6- 6.1 L [facility] Hemoglobin [Mass/volume] in Blood 14.2 g/dL 13.5-18 [facility] Hematocrit [Volume Fraction] of Blood by Automated count 42.5 % 4 1-53 [facility] Erythrocyte mean corpuscular volume [Entitic volume] by Auto mated count 92.8 fL 80-96 [facility] Erythrocyte mean corpuscular hemoglobin [Entitic mass] by Automated count 30.9 pg 27-33 [facility] Erythrocyte mean corpuscular hemoglobin concentration [Mass/volume] by Automated count 33.3 g/dL 32.0-36.0 [facility] E[facility] distribution width [Ratio] by Automated count 15.5 % 11.5-14.5 H [facility] Platelets [#/volume] in Blood by Automated count 237 10*3/uL 150-400 [facility] ID Date Data Source [id number] 08/29/2021 02:33:27 PM EDT [facility] Value Range Interpretation Code Description Data [place] rce(s) Supporting Document(s) Prothrombin time (PT) 15.4 s 11.6-14.0 H [facility] INR in Platelet poor plasma by Coagulation assay 1.27 [facility] Routine intensity oral anticoagulation I NR is typically 2.0-3.0. Target INR must be clinically individualized. ID Date Data Source [id number] 08/29/2021 02:33:27 PM T [facility] Value Range Interpretation Code Description Data [place] rce(s) Supporting Document(s) aPTT in Platelet poor plasma by Coagulation assay 30.5 s 24.0-33. 0 [facility] ID Date Data Source [id number] 08/29/2021 03:00:47 PM [facility] Value Range Interpretation Code Description Data [place] rce(s) Supporting Document(s) Ethanol [Mass/volume] in Serum or Plasma Negative [facility] ID Date Data Source [id number] 08/29/2021 03:26:52 PM [facility] Value Range Interpretation Code Description Data [place] rce(s) Supporting Document(s) Albumin [Mass/volume] in Serum or Plasma by Bromocresol green (BCG) dye binding method 4.1 g/dL 3.5-5.2 [facility] Bilirubin.total [Mass/volume] in Serum or Plasma 0.8 mg/dL <1.2 [facility] Calcium [Mass/volume] in Serum or Plasma 8.9 mg/dL 8.6-10.0 [facility] Chloride [Moles/volume] in Serum or Plasma 105 mmol/L 98-107 [facility] Creatinine [Mass/volume] in Serum or Plasma 1.21 mg/dL 0.70-1.20 H [facility] Glucose [Mass/volume] in Serum or Plasma 92 mg/dL 70-140 [facility] Alkaline phosphatase [Enzymatic activity/volume] in Serum or Plasma 122 U/L 40-129 [facility] Potassium [Moles/volume] in Serum or Plasma 4.2 mmol/L 3.4-5.1 [facility] Protein [Mass/volume] in Serum or Plasma 7.1 g/dL 6.4-8.3 [facility] Sodium [Moles/volume] in Serum or Plasma 142 mmol/L 136-145 [facility] Aspartate aminotransferase [Enzymatic activity/volume] in Serum or Plasma 14 U/L <40 [facility] Urea nitrogen [Mass/volume] in Serum or Plasma 13 mg/dL 6-20 [facility] Osmolality of Serum or Plasma by calculation 294 mosm/kg 275-300 [facility] Creatinine/Urea nitrogen [Mass Ratio] in Serum or Plasma 11 [facility] Bicarbonate [Moles/volume] in Serum 25 mmol/L 22-29 [facility] Alanine aminotransferase [Enzymatic activity/volume] in Seru m or Plasma 8 U/L <41 [facility] Anion gap 3 in Serum or Plasma 12 mmol/L 8-15 [facility] Glomerular filtration rate/1.73 sq M pre dicted among non-blacks [Volume Rate/Area] in Serum or Plasma by Creatinine-based formula (MDRD) 65 mL/min/1.73m2 >60 [facility] Glomerular filtration rate/1.73 sq M pre dicted among blacks [Volume Rate/Area] in Serum or Plasma by Creatinine-based formula (MDRD) 75 mL/min/1.73m2 >60 [facility] ID Date Data Source [id number] 08/29/2021 03:26:52 PM EDT [facility] Name Value Range Interpretation Code Description Data [place] rce(s) Supporting Document(s) Thyrotropin [Units/volume] in Serum or Plasma 1.420 u[IU]/mL 0.270-4. 200 [facility] ID Date Data Source [id number] 08/29/2021 02:42:17 PM EDT [facility] Name Value Range Interpretation Code Description Data [place] rce(s) Supporting Document(s) ABO and Rh group [Type] in Blood [facility] Blood group antibody screen [Presence] in Serum or Plasma [facility] Blood bank comment [facility] ID Date Data Source [id number] 08/29/2021 08:58:00 AM EDT [facility] DATE OF EXAMINATION: 08/29/2021 8:08 EDT [...] rce(s) Supporting Document(s) ID Date Data Source [id number] 08/29/2021 07:47:00 AM EDT [facility] DATE OF EXAMINATION: 08/29/2021 7:32 EDT [...] rce(s) Supporting Document(s) ID Date Data Source [id number] 08/29/2021 07:45:00 AM EDT [facility] Name Value Range Interpretation Code Description Data [place] rce(s) Supporting Document(s) COVID-19 NEGATIVE [facility] This lab was ordered by [facility] and reported by [facility]. ID Date Data Source [id number] 08/29/2021 08:39:00 AM EDT [facility] [id number] Name Value Range Interpretation Code Description Data [place] rce(s) Supporting Document(s) PARTIAL THROMBOPLASTIN TIME 26.3 SECONDS 21.2-27.3 [facility] ID Date Data Source [id number] 08/29/2021 08:39:00 AM EDT [facility] TSYSORDER [id number] Name Value Range Interpretation Code Description Data [place] rce(s) Supporting Document(s) PROTHROMBIN TIME (PATIENT) 11.6 SECONDS 9.1-11.6 [facility] INR 1.12 0.87-1.06 H [facility] ID Date Data Source [id number] 08/29/2021 08:16:00 AM EDT [facility] TSYSORDER [id number] Name Value Range Interpretation Code Description Data [place] rce(s) Supporting Document(s) ACETAMINOPHEN LEVEL < 2.0 ug/mL 10.0-30.0 [facility] ID Date Data Source [id number] 08/29/2021 08:16:00 AM EDT [facility] TSYSORDER [id number] Name Value Range Interpretation Code Description Data [place] rce(s) Supporting Document(s) ETHYL ALCOHOL 0.00 % 0-0.01 [facility] ID Date Data Source [id number] 08/29/2021 08:16:00 AM EDT [facility] TSYSORDER [id number] Name Value Range Interpretation Code Description Data [place] rce(s) Supporting Document(s) SALICYLATE < 3.0 mg/dL 2.8-20.0 [facility] ID Date Data Source [id number] 08/29/2021 08:16:00 AM EDT [facility] TSYSORDER [id number] Name Value Range Interpretation Code Description Data [place] rce(s) Supporting Document(s) GLUCOSE 97 mg/dL 74-106 [facility] BLOOD UREA NITROGEN 14 mg/dL 7-18 [facility] ital CREATININE 1.42 mg/dl 0.70-1.30 H [facility] SODIUM 141 mmol/L 136-145 [facility] POTASSIUM 3.8 mmol/L 3.5-5.1 [facility] CHLORIDE 105 mmol/L 98-107 [facility] CO2 25 mmol/L 21-32 [facility] CALCIUM 8.8 mg/dL 8.5-10.1 [facility] ANION GAP 11.0 mmol/L 5-12 [facility] GLOMERULAR FILTRATION RATE 51 mL/min [facility] GFR IS CALCULATED IN mL/min/1.73m2 YARY L FUNCTION: >90MILDLY DECREASED: 60-89MILDY TO MODERATELY DECREASED: 45-59 MODERATELY TO SEVERELY DECREASED: 30-44SEVERELY DECREASED: 15-29RENAL FAILURE: <15 AST 14 U/L 15-37 L [facility] ALT 16 U/L 16-63 [facility] ALKALINE PHOSPHATASE 118 U/L 46-116 H [facility] pital TOTAL BILIRUBIN 0.4 mg/dL 0.2-1.0 [facility] TOTAL PROTEIN 6.9 g/dL 6.4-8.2 [facility] ALBUMIN 3.1 gm/dL 3.4-5.0 [facility] ID Date Data Source [id number] 08/29/2021 08:09:00 AM EDT [facility] TSYSORDER [id number] Name Value Range Interpretation Code Description [facility](s) COVID-19 NEGATIVE NEGATIVE [facility] Negative results should be treated as pr [...] are for the indentification of SARS-CoV-2 RNA. BkqATPH-NlS-5 RNA is generally detectable in respiratorysamples during the actue phase of infection. ID Date Data Source [id number] 08/29/2021 07:54:00 AM EDT [facility] TSYSORDER [id number] Name Value Range Interpretation Code Description Data [facility] Supporting Document(s) WHITE BLOOD COUNT 9.0 K/mm3 4.0-10.0 [facility] al RED BLOOD COUNT 4.60 M/mm3 4.50-6.00 [facility] HEMOGLOBIN 13.9 gm/dL 14.0-18.0 L [facility] HEMATOCRIT 41.4 % 42.0-54.0 L [facility] MEAN CELL VOLUME 90.0 fl 80-96 [facility] MEAN CORPUSCULAR HEMOGLOBIN 30.2 pg 27.0-31.0 [facility] MEAN CORPUSCULAR HGB CONC 33.6 g/dl 32.0-36.0 [facility] RED CELL DISTRIBUTION WIDTH 14.6 % 10.0-14.5 H [facility] PLATELET COUNT 237 K/mm3 172-450 [facility] MEAN PLATELET VOLUME 10.0 fl 9.0-13.0 [facility] pital GRAN % 70.6 % 50-80.0 [facility] IG% 0.2 % 0.0-0.2 [facility] LYMPH % 19.1 % 25.0-50.0 L [facility] MONO % 7.4 % 2.0-10.0 [facility] EOS % 2.1 % 0-5.0 [facility] BASO % 0.6 % 0.0-2.0 [facility] GRAN # 6.4 K/mm3 2.0-8.00 [facility] IG# 0.0 K/mm3 0.0-0.2 [facility] LYMPH # 1.7 K/mm3 1.0-5.0 [facility] MONO # 0.7 K/mm3 0.10-1.20 [facility] EOS # 0.2 K/mm3 0.0-0.5 [facility] BASO # 0.1 K/mm3 0.0-0.2 [facility] ID Date Data Source [id number] 08/29/2021 07:42:00 AM EDT [facility] l DATE OF EXAMINATION: 08/29/2021 7:26 ED [...] Value Range Interpretation Code Description Data [place] rcsaba(s) Supporting Document(s) ID Date Data Source [id number] 08/16/2021 12:23:00 PM EDT [facility] DATE OF EXAMINATION: 08/16/2021 11:46 ED [...] 2 VIEWS 08/16/2021 12:00:00 AM EDT eCW1 ([facility]) Name Value Range Interpretation Code Description Data [place] rce(s) Supporting Document(s) CHEST 2 VIEWS eCW1 ([facility]) ID Date Data Source [id number] 05/31/2021 08:30:[address] [facility] CT A NGIO CHESTCLINICAL HISTORY: Paroxysmal atrial fibrillation. Pre ablation study.COMPARISON: CT angio thorax dated 06/16/2020.TECHNIQUE: 0.62 and 2.5 mm gated axial images were obtained through the thorax following the uneventful IV administration of 70 cc of Isovue 370. Sagittal and coronal reconstructed images were obtained. Images were also evaluated using a 3D etlmolmbpnn32/100CC Isovue 370 injected intravenously.FINDINGS: Right superior pulmonary [...] rce(s) Supporting Document(s) ID Date Data Source [id number] 05/24/2021 04:06:00 PM EDT [facility] Name Value Range Interpretation Code Description Data Paradise rce(s) Supporting Document(s) AFP, SERUM, TUMOR MARKER 3.6 ng/mL 0.0-8.3 [facility] [employer] Electrochemiluminescen ce Immunoassay(ECLIA)Values obtained with different assay methods or kits cannotbe used interchangeably. Results cannot be interpreted asabsolute evidence of the presence or absence of malignantdisease.This test is not interpretable in females.Performed at: [facility] [employer] [id number] Director: Renata Parra MD, Phone: [phone] ID Date Data Source [id number] 05/24/2021 08:09:00 PM EDT [facility] Name Value Range Interpretation Code Description Data [place] rce(s) Supporting Document(s) HEPATITIS C QUANTITATION HCV Not Detected IU/mL . [facility] TEST INFORMATION: Comment . [facility] The quantitative range of this assay is 15 IU/mL to 100million IU/mL.Performed at: [facility] [employer] [id number] Director: Renata Parra MD, Phone: [phone] ID Date Data Source [id number] 05/24/2021 04:05:00 PM EDT [facility] Name Value Range Interpretation Code Description Data [place] rce(s) Supporting Document(s) AFP, Serum, Tumor Marker 3.6 ng/mL 0.0-8.3 [facility] [employer] Electrochemiluminescen ce Immunoassay (ECLIA) Values obtained with different assay methods or kits cannot beused interchangeably. Results cannot be interpreted as absoluteevidence of the presence or absence of malignant disease. This test is not interpretable in females. ID Date Data Source [id number] 05/24/2021 08:05:00 PM EDT [facility] Name Value Range Interpretation Code Description Data [place] rce(s) Supporting Document(s) Hepatitis C Quantitation HCV Not Detected IU/mL [facility] Test Information: [facility] The quantitative range of this assay is 15 IU/mL to 100 million IU/mL. ID Date Data Source [id number] 05/23/2021 09:08:00 AM EDT [facility] FAX [phone] Name Value Range Interpretation Code Description Data [place] rce(s) Supporting Document(s) GLUCOSE 78 mg/dL 74-106 [facility] BLOOD UREA NITROGEN 19 mg/dL 7-18 [facility] CREATININE 1.43 mg/dL 0.7-1.3 H [facility] SODIUM 146 mmol/L 136-145 H [facility] POTASSIUM 4.8 mmol/L 3.5-5.1 [facility] CHLORIDE 106 mmol/L 98-107 [facility] CO2 30 mmol/L -32 [facility] CALCIUM 9.1 mg/dL 8.5-10.1 [facility] ANION GAP 10.0 mmol/L 5-12 [facility] GLOMERULAR FILTRATION RATE 51 mL/min [facility] GFR IS CALCULATED IN mL/min/1.73m2 YARY L FUNCTION: >90MILDLY DECREASED: 60-89MILDY TO MODERATELY DECREASED: 45-59 MODERATELY TO SEVERELY DECREASED: 30-44SEVERELY DECREASED: 15-29RENAL FAILURE: <15 AST 8 U/L 15-37 L [facility] ALT 11 U/L 12-78 L [facility] ALKALINE PHOSPHATASE 122 U/L 46-116 H [facility] pital TOTAL BILIRUBIN 0.5 mg/dL 0.2-1.0 [facility] TOTAL PROTEIN 7.4 g/dl 6.4-8.2 [facility] ALBUMIN 3.6 gm/dL 3.4-5.0 [facility] ID Date Data Source [id number] 05/03/2021 12:53:00 PM [facility] FAX [phone] Name Value Range Interpretation Code Description Data [place] e(s) Supporting Document(s) GLUCOSE 85 mg/dL 74-106 [facility] BLOOD UREA NITROGEN 17 mg/dL 7-18 [facility] ital CREATININE 1.39 mg/dL 0.7-1.3 H [facility] SODIUM 143 mmol/L 136-145 [facility] POTASSIUM 4.7 mmol/L 3.5-5.1 [facility] CHLORIDE 106 mmol/L 98-107 [facility] CO2 32 mmol/L -32 [facility] CALCIUM 9.4 mg/dL 8.5-10.1 [facility] ANION GAP 5.0 mmol/L 5-12 [facility] GLOMERULAR FILTRATION RATE 53 mL/min [facility] GFR IS CALCULATED IN mL/min/1.73m2 YARY L FUNCTION: >90MILDLY DECREASED: 60-89MILDY TO MODERATELY DECREASED: 45-59 MODERATELY TO SEVERELY DECREASED: 30-44SEVERELY DECREASED: 15-29RENAL FAILURE: <15 ID Date Data Source [id number] 05/03/2021 12:32:00 PM EDT [facility] [phone] Name Value Range Interpretation Code Description Data [place] rce(s) Supporting Document(s) FREE T4 1.0 ng/dL 0.76-1.46 [facility] ID Date Data Source [id number] 05/03/2021 12:32:00 PM EDT [facility] FAX [phone] Name Value Range Interpretation Code Description Data [place] rce(s) Supporting Document(s) TSH 1.187 uIU/mL 0.360-3.740 [facility] ID Date Data Source [id number] 05/03/2021 12:01:00 PM [facility] l FAX [phone] Name Value Range Interpretation Code Description Data [place] rce(s) Supporting Document(s) WHITE BLOOD COUNT 8.3 K/mm3 4.0-10.0 [facility] al RED BLOOD COUNT 4.97 M/mm3 4.50-6.00 [facility] HEMOGLOBIN 15.0 gm/dL 14.0-18.0 [facility] HEMATOCRIT 46.0 % 42.0-54.0 [facility] MEAN CELL VOLUME 92.6 fl 80-96 [facility] MEAN CORPUSCULAR HEMOGLOBIN 30.2 pg 27.0-31.0 [facility] MEAN CORPUSCULAR HGB CONC 32.6 g/dl 32.0-36.0 [facility] RED CELL DISTRIBUTION WIDTH 14.9 % 10.0-14.5 H [facility] PLATELET COUNT 241 K/mm3 172-450 [facility] MEAN PLATELET VOLUME 10.1 fl 9.0-13.0 [facility] pital GRAN % 66.5 % 50-80.0 [facility] IG% 0.1 % 0.0-0.2 [facility] LYMPH % 23.9 % 25.0-50.0 L [facility] MONO % 6.6 % 2.0-10.0 [facility] EOS % 2.3 % 0-5.0 [facility] BASO % 0.6 % 0.0-2.0 [facility] GRAN # 5.5 K/mm3 2.0-8.00 [facility] IG# 0.0 K/mm3 0.0-0.2 [facility] LYMPH # 2.0 K/mm3 1.0-5.0 [facility] MONO # 0.6 K/mm3 0.10-1.20 [facility] EOS # 0.2 K/mm3 0.0-0.5 [facility] BASO # 0.1 K/mm3 0.0-0.2 [facility] ID Date Data Source [id number] 01/09/2021 09:33:00 AM EST [facility] Name Value Range Interpretation Code Description Data [place] rce(s) Supporting Document(s) SARS [facility]IGEN [facility]IVE [facility] This lab was ordered by FILIPE saba nd reported by [facility]. ID Date Data Source [id number] 01/09/2021 07:23:00 AM EST [facility] DATE OF EXAMINATION: 01/09/2021 1:38 [...] rce(s) Supporting Document(s) ID Date Data Source [id number] 01/09/2021 07:08:00 AM [facility] DATE OF EXAMINATION: 01/09/2021 1:16 [...] soft tissue structuresare grossly normal. Carotid, parotid, houseman, prevertebral, andparapharyngeal spaces appear normal. Retropharyngeal space [...] Name Value Range Interpretation Code Description Data [facility](s) Supporting Document(s) ID Date Data Source [id number] 01/09/2021 07:05:00 AM [facility] DATE OF EXAMINATION: 01/09/2021 1:16 [...] rce(s) Supporting Document(s) ID Date Data Source [id number] 01/09/2021 06:07:00 AM EST [facility] Patient: LEAH BUSTOS Observation Report - [facility]VisitID: [id number] [place] [address] [phone], MRegistration Date/Time: 01/09/2021 00:20 Weight:86.1 kg (S). Height/Length:72 inches (S). BMI:25.8 FAMILY HISTORYNo significant family medical history. (Electronically signed by Rina Condon M.D. 01/09/2021 06:05) Name Value Range Interpretation Code Description Data [facility] rce(s) Supporting Document(s) ID Date Data Source [id number] 01/09/2021 02:00:00 AM EST [facility] TSYSORDER [id number] Name Value Range Interpretation Code Description [facility](s) C REACTIVE PROTEIN 42.4 mg/L 0.0-3.0 [facility] ID Date Data Source [id number] 01/09/2021 01:39:00 AM EST [facility] TSYSORDER [id number] Name Value Range Interpretation Code Description Data [facility] Supporting Document(s) GLUCOSE 94 mg/dL 74-106 [facility] BLOOD UREA NITROGEN 24 mg/dL 7-18 H [facility] ital CREATININE 1.68 mg/dL 0.7-1.3 H [facility] SODIUM 138 mmol/L 136-145 [facility] POTASSIUM 3.7 mmol/L 3.5-5.1 [facility] CHLORIDE 101 mmol/L 98-107 [facility] CO2 26 mmol/L 21-32 [facility] CALCIUM 8.6 mg/dL 8.5-10.1 [facility] ANION GAP 11.0 mmol/L 5-12 [facility] GLOMERULAR FILTRATION RATE 42 mL/min [facility] GFR IS CALCULATED IN mL/min/1.73m2 YARY L FUNCTION: >90MILDLY DECREASED: 60-89MILDY TO MODERATELY DECREASED: 45-59 MODERATELY TO SEVERELY DECREASED: 30-44SEVERELY DECREASED: 15-29RENAL FAILURE: <15 AST 24 U/L 15-37 [facility] ALT 16 U/L 12-78 [facility] ALKALINE PHOSPHATASE 94 U/L 46-116 [facility] TOTAL BILIRUBIN 0.6 mg/dL 0.2-1.0 [facility] TOTAL PROTEIN 7.1 g/dl 6.4-8.2 [facility] ALBUMIN 3.8 gm/dL 3.4-5.0 [facility] ID Date Data Source [id number] 01/09/2021 01:06:00 AM EST [facility] TSYSORDER [id number] Name Value Range Interpretation Code Description Data [place] rce(s) Supporting Document(s) WHITE BLOOD COUNT 6.7 K/mm3 4.0-10.0 [facility] al RED BLOOD COUNT 4.19 M/mm3 4.50-6.00 L [facility] HEMOGLOBIN 12.5 gm/dL 14.0-18.0 L [facility] HEMATOCRIT 36.5 % 42.0-54.0 L [facility] MEAN CELL VOLUME 87.1 fl 80-96 [facility] MEAN CORPUSCULAR HEMOGLOBIN 29.8 pg 27.0-31.0 [facility] MEAN CORPUSCULAR HGB CONC 34.2 g/dl 32.0-36.0 [facility] RED CELL DISTRIBUTION WIDTH 14.8 % 10.0-14.5 H [facility] PLATELET COUNT 178 K/mm3 172-450 [facility] MEAN PLATELET VOLUME 10.5 fl 9.0-13.0 [facility] GRAN % 66.7 % 50-80.0 [facility] IG% 0.2 % 0.0-0.2 [facility] LYMPH % 20.3 % 25.0-50.0 L [facility] MONO % 11.9 % 2.0-10.0 H [facility] EOS % 0.3 % 0-5.0 [facility] BASO % 0.6 % 0.0-2.0 [facility] GRAN # 4.5 K/mm3 2.0-8.00 [facility] IG# 0.0 K/mm3 0.0-0.2 [facility] LYMPH # 1.4 K/mm3 1.0-5.0 [facility] MONO # 0.8 K/mm3 0.10-1.20 [facility] EOS # 0.0 K/mm3 0.0-0.5 [facility] BASO # 0.0 K/mm3 0.0-0.2 [facility] ID Date Data Source [id number] 01/09/2021 12:30:00 AM EST [facility] Name Value Range Interpretation Code Description Data [place] rce(s) Supporting Document(s) COVID-19 POSITIVE [facility] This lab was ordered by [facility] M jennie Lab and reported by [facility]. ID Date Data Source [id number] 01/09/2021 12:51:00 AM EST [facility]vet[facility] TSYSORDER [id number] Name Value Range Interpretation Code Description Data [place] rce(s) Supporting Document(s) COVID-19 POSITIVE NEGATIVE H [facility] Positive results are indicative of the p resence qgDHAE-JaP-5 RNA.Positive results do not rule out bacterial infection orco-infection with other viruses.This is a rapid molecular in vitro diagnostic test utilizingan isothermal nucleic acid amplification technology intendedfor the qualitative detection of nucleic acid from the SARS-CoV-2 viral RNA in direct nasal, nasopharyngeal orthroat swabs from individuals who are suspected of COVID- 19.Results are for the indentification of SARS-CoV-2 RNA. SnuBYSA-GdN-3 RNA is generally detectable in respiratorysamples during the actue phase of infection. ID Date Data Source HEPATITIS C QUANT BY PCR 01/03/2021 12:00:00 AM EST eCW1 ([facility]) Name Value Range Interpretation Code Description Data [place] rce(s) Supporting Document(s) HCV Not Detected . HEPATITIS C QUANTIT ATION eCW1 ([facility]) TNP . Hepatitis C log10 eCW1 ([facility]) ID Date Data Source LIVER PROFILE 01/03/2021 12:00:00 AM EST eCW1 ([facility]) Name Value Range Interpretation Code Description Data [place] rce(s) Supporting Document(s) 120 45-117 ALKALINE PHOSPHATASE eCW1 ([facility]) 10 7-37 AST/SGOT eCW1 ([facility]) 14 12-78 ALT/SGPT eCW1 ([facility]) 0.9 0.2-1.0 BILIRUBIN,TOTAL eCW1 ([facility]) 1.1 ALBUMIN/GLOBULIN RATIO eCW1 ([facility]) 7.6 6.4-8.2 TOTAL PROTEIN eCW1 ([facility]) 0.3 0.0-0.2 BILIRUBIN,DIRECT eCW1 ([facility]) 3.9 3.2-5.2 ALBUMIN eCW1 ([facility]) ID Date Data Source HEPATITIS C GENOTYPE 11/25/2020 12:00:00 AM EST eCW1 ([facility]) Name Value Range Interpretation Code Description Data [place] rce(s) Supporting Document(s) 1a . HEPATITIS C VIRUS GENOTYPE eCW 1 ([facility]) . COMMENT FOR HEPC GENOTYPE eCW1 ([facility]) ID Date Data Source Comprehensive Metabolic Profile (CMP) 11/25/2020 12:00:00 AM EST eCW1 ([facility]) Name Value Range Interpretation Code Description Data [place] rce(s) Supporting Document(s) 12 7-18 BLOOD UREA NITROGEN eCW1 ([facility]) 84 70-100 GLUCOSE, FASTING eCW1 ([facility]) 1.35 0.70-1.30 CREATININE FOR GFR eCW1 ([facility]) 58.2 >56 GLOMERULAR FILTRATION RATE eCW 1 ([facility]) 105 98-107 CHLORIDE LEVEL eCW1 ([facility]) 9.8 8.5-10.1 CALCIUM LEVEL eCW1 ([facility]) 30 21-32 CARBON DIOXIDE LEVEL eCW1 ([facility]) 4.0 3.5-5.1 POTASSIUM SERUM eCW1 ([facility]) 143 136-145 SODIUM LEVEL eCW1 ([facility]) 347 7-37 AST/SGOT eCW1 ([facility]) 186 45-117 ALKALINE PHOSPHATASE eCW1 ([facility]) 0.8 0.2-1.0 BILIRUBIN,TOTAL eCW1 ([facility]) 562 12-78 ALT/SGPT eCW1 ([facility]) 1.0 ALBUMIN/GLOBULIN RATIO eCW1 ([facility]) 8.1 6.4-8.2 TOTAL PROTEIN eCW1 ([facility]) 4.1 3.2-5.2 ALBUMIN eCW1 ([facility]) ID Date Data Source ALPHA FETOPROTEIN TUMOR QUANT 11/25/2020 12:00:00 AM EST eCW 1 ([facility]) Name Value Range Interpretation Code Description Data [place] rce(s) Supporting Document(s) 5.1 <8.1 ALPHA FETOPROTEIN TUMOR Q UANT eCW1 ([facility]) ID Date Data Source [id number] 11/08/2020 09:18:00 AM EST [facility] FAX [phone] COULD NOT GIVE U RINE SAMPLE Name Value Range Interpretation Code Description Data [place] rce(s) Supporting Document(s) GLUCOSE 90 mg/dL 74-106 [facility] BLOOD UREA NITROGEN 15 mg/dL 7-18 [facility] ital CREATININE 1.41 mg/dL 0.7-1.3 H [facility] SODIUM 140 mmol/L 136-145 [facility] POTASSIUM 3.7 mmol/L 3.5-5.1 [facility] CHLORIDE 101 mmol/L 98-107 [facility] CO2 29 mmol/L 21-32 [facility] CALCIUM 9.2 mg/dL 8.5-10.1 [facility] ANION GAP 10.0 mmol/L 5-12 [facility] GLOMERULAR FILTRATION RATE 52 mL/min [facility] GFR IS CALCULATED IN mL/min/1.73m2 YARY L FUNCTION: >90MILDLY DECREASED: 60-89MILDY TO MODERATELY DECREASED: 45-59 MODERATELY TO SEVERELY DECREASED: 30-44SEVERELY DECREASED: 15-29RENAL FAILURE: <15 AST 15 U/L 15-37 [facility] ALT 15 U/L 12-78 [facility] ALKALINE PHOSPHATASE 121 U/L 46-116 H [facility] pital TOTAL BILIRUBIN 0.6 mg/dL 0.2-1.0 [facility] TOTAL PROTEIN 7.9 g/dl 6.4-8.2 [facility] ALBUMIN 3.7 gm/dL 3.4-5.0 [facility] ID Date Data Source [id number] 11/08/2020 08:40:00 AM EST [facility] FAX [phone] COULD NOT GIVE U RINE SAMPLE Name Value Range Interpretation Code Description Data [place] rce(s) Supporting Document(s) WHITE BLOOD COUNT 8.6 K/mm3 4.0-10.0 [facility] al RED BLOOD COUNT 5.34 M/mm3 4.50-6.00 [facility] HEMOGLOBIN 15.4 gm/dL 14.0-18.0 [facility] HEMATOCRIT 46.4 % 42.0-54.0 [facility] MEAN CELL VOLUME 86.9 fl 80-96 [facility] MEAN CORPUSCULAR HEMOGLOBIN 28.8 pg 27.0-31.0 [facility] MEAN CORPUSCULAR HGB CONC 33.2 g/dl 32.0-36.0 [facility] RED CELL DISTRIBUTION WIDTH 15.1 % 10.0-14.5 H [facility] PLATELET COUNT 248 K/mm3 172-450 [facility] ID Date Data Source [id number] 10/05/2020 12:33:04 PM EST [facility] Name Value Range Interpretation Code Description Data [place] e(s) Supporting Document(s) &PDF Health system [id number] vci [file] [id number]= ID Date Data Source [id number] 10/05/2020 10:49:07 AM EST [facility]FORMATIONPatient MRN Name Date of Age Gend*PT [id number] LindaLeah 1965 55 years M HOPPT Location Admission Date/Time Visit ID Attending Provider10/05/20 0640 --- Jazmin Thomas MD([id number]) EPI ID CSN Admitting Provider [id number] Jazmin Thomas MD([id number])Inpatient History & PhysicalRobert Saba BustosMRN:[id number]: AF Cryo ablation. Prior BRUNILDA clotPast Medical [...] rce(s) Supporting Document(s) ID Date Data Source [id number] 10/05/2020 10:49:02 AM EST [facility] INFORMATIONPatient MRN Name Date of Age Gend*PT [id number] Leah Bustos 1965 55 years M HOPPT Location Admission Date/Time Visit ID Attending Provider --- --- --- --- EPI ID CSN Admitting Provider [id number] ---Arterial Line PlacementPatient location during procedure: ORIndications [...] rce(s) Supporting Document(s) ID Date Data Source [id number] 10/05/2020 10:48:31 AM EST [facility] INFORMATIONPatient MRN Name Date of Age Gend*PT [id number] Leah Bustos 1965 55 years M HOPPT Location Admission Date/Time Visit ID Attending Provider --- --- --- --- EPI ID CSN Admitting Provider [id number] ---AirwayPatient location during procedure: ORUrgency: electiveDifficult airway: [...] mPlacement verified by: chest auscultation and + [id number]: CTA and equal breath sounds bilateralGrade view: grade I - full view of glottis Name Value Range Interpretation Code Description Data [place] rce(s) Supporting Document(s) ID Date Data Source [id number] 10/05/2020 10:12:58 AM EST [facility] [place] [facility] SPEC EXP DATE 10/08/2020PATI ENT ABO/Rh B POSITIVEANTIBODY SCREEN NEGATIVETESTING SITE PERFORMED AT [address] [place] [address] [id number] BANK COMMENT BLOOD TYPE CONFIRMED. Name Value Range Interpretation Code Description Data [place] rce(s) Supporting Document(s) TYPE AND SCREEN [facility] [place] [facility] ID Date Data Source [id number] 10/05/2020 06:10:00 AM EST [facility] Name Value Range Interpretation Code Description Data [place] rce(s) Supporting Document(s) SARS coronavirus 2 RNA [Presence] in Res piratory specimen by NIRMAL with probe detection [facility] This lab was reported by [facility] [place] [facility]. ID Date Data Source [id number] 10/05/2020 07:23:48 AM EST [facility] [place] [facility] Name Value Range Interpretation Code Description Data [place] rce(s) Supporting Document(s) SPECIMEN DESCRIPTION [facility] INFLUENZA A (NEG) [facility] [place] [facility] INFLUENZA B (NEG) [facility] [place] [facility] RSV (NEG) [facility] [place] [facility] COMMENT [facility] [place] [facility] UNDER AN EMERGENCY USE AUTHORIZATION(EUA ) FOR THE DETECTION AND/OR DIAGNOSISOF THE VIRUS THAT CAUSES COVID-19.PERFORMED AT [address] [place] [id number] COVID19 RESULT (NDET) [facility] [place] [facility] THIS ASSAY AMPLIFIES AND DETECTSTHE TARG ET RNA USING REAL-TIME PCR.NEGATIVE 2019_NCOV RT-PCR RESULTS DONOT PRECLUDE 2019_NCOV INFECTION ANDSHOULD NOT BE USED THE SOLE BASISFOR PATIENT MANAGEMENT DECISIONS. FIRST TEST [facility] [place] [facility] EMPLOYED IN [facility] SYMPTOMATIC [facility] [place] [facility] DATE OF SYMPT ONSET [facility] HOSPITALIZED [facility] [place] [facility] ICU [facility] [place] [facility] CONGREGATE CARE SET Lab [facility] [place] [facility] ID Date Data Source HEPATITIS B CORE ANTIBODY IGG 10/04/2020 12:00:00 AM EST eCW 1 ([facility]) Name Value Range Interpretation Code Description Data [place] rce(s) Supporting Document(s) Positive Negative eCW1 ([facility]) ID Date Data Source HEPATITIS A IgG 10/04/2020 12:00:00 AM EST eCW1 ([facility]) Name Value Range Interpretation Code Description Data [place] rce(s) Supporting Document(s) Negative Negative eCW1 ([facility]) ID Date Data Source [id number] 10/04/2020 12:00:00 AM EST eCW1 ([facility]) Name Value Range Interpretation Code Description Data [place] rce(s) Supporting Document(s) eCW1 ([facility]) ID Date Data Source HEPATITIS B SURFACE ANTIGEN 10/04/2020 12:00:00 AM EST eCW1 ([facility]) Name Value Range Interpretation Code Description Data [place] rce(s) Supporting Document(s) NEGATIVE NEGATIVE eCW1 ([facility]) ID Date Data Source HEPATITIS B SURFACE ANTIBODY 10/04/2020 12:00:00 AM EST eCW1 ([facility]) Name Value Range Interpretation Code Description Data [place] rce(s) Supporting Document(s) POSITIVE POSITIVE eCW1 ([facility]) ID Date Data Source [id number] 10/01/2020 04:51:00 PM EST [facility] [phone] Name Value Range Interpretation Code Description Data [place] rce(s) Supporting Document(s) GLUCOSE 118 mg/dL 74-106 H [facility] BLOOD UREA NITROGEN 22 mg/dL 7-18 H [facility] ital CREATININE 2.0 mg/dL 0.7-1.3 H [facility] SODIUM 139 mmol/L 136-145 [facility] POTASSIUM 4.7 mmol/L 3.5-5.1 [facility] CHLORIDE 103 mmol/L 98-107 [facility] CO2 26 mmol/L 21-32 [facility] CALCIUM 9.3 mg/dL 8.5-10.1 [facility] ANION GAP 10.0 mmol/L 5-12 [facility] GLOMERULAR FILTRATION RATE 35 mL/min [facility] GFR IS CALCULATED IN mL/min/1.73m2 YARY L FUNCTION: >90MILDLY DECREASED: 60-89MILDY TO MODERATELY DECREASED: 45-59 MODERATELY TO SEVERELY DECREASED: 30-44SEVERELY DECREASED: 15-29RENAL FAILURE: <15 ID Date Data Source [id number] 10/01/2020 03:30:00 PM EST [facility] [phone] Name Value Range Interpretation Code Description Data [place] rce(s) Supporting Document(s) WHITE BLOOD COUNT 10.2 K/mm3 4.0-10.0 [facility] RED BLOOD COUNT 4.92 M/mm3 4.50-6.00 [facility] HEMOGLOBIN 14.3 gm/dL 14.0-18.0 [facility] HEMATOCRIT 44.2 % 42.0-54.0 [facility] MEAN CELL VOLUME 89.8 fl 80-96 [facility] MEAN CORPUSCULAR HEMOGLOBIN 29.1 pg 27.0-31.0 [facility] MEAN CORPUSCULAR HGB CONC 32.4 g/dl 32.0-36.0 [facility] RED CELL DISTRIBUTION WIDTH 13.8 % 10.0-14.5 [facility] PLATELET COUNT 267 K/mm3 172-450 [facility] MEAN PLATELET VOLUME 10.0 fl 9.0-13.0 [facility] pital GRAN % 66.0 % 50-80.0 [facility] IG% 0.2 % 0.0-0.2 [facility] LYMPH % 26.9 % 25.0-50.0 [facility] MONO % 5.2 % 2.0-10.0 [facility] EOS % 1.4 % 0-5.0 [facility] BASO % 0.3 % 0.0-2.0 [facility] GRAN # 6.8 K/mm3 2.0-8.00 [facility] IG# 0.0 K/mm3 0.0-0.2 [facility] LYMPH # 2.8 K/mm3 1.0-5.0 [facility] MONO # 0.5 K/mm3 0.10-1.20 [facility] EOS # 0.1 K/mm3 0.0-0.5 [facility] BASO # 0.0 K/mm3 0.0-0.2 [facility] ID Date Data Source [id number] 09/22/2020 12:58:00 PM EST [facility] [...] SHOULDER COMPLETE 09/22/2020 12:00:00 AM EST eCW1 ([facility]) Name Value Range Interpretation Code Description Data [place] rce(s) Supporting Document(s) SHOULDER COMPLETE eCW1 ([facility]) ID Date Data Source [id number] 09/13/2020 03:02:00 PM EST [facility] Patient: LEAH BUSTOS Observation Report - [facility].VisitID: [id number] [place] [address] [phone], MRegistration Date/Time: 09/11/2020 12:24 Weight:90.7 kg (S). [...] 09/11/2020 18:45) Addenda for LEAH BUSTOS VisitID: [id number] Date: 09/11/2020 09/13/2020 15:00LWBS/LWBT/AMA??? follow-up Spoke with pt via telephone in f/u. Pt reports that he has an appointment with national service officer on Sunday09/15/2020. Pt advised to return to the ED as needed and agrees.(Electronically signed by Kortney Reyes R.N. - 09/13/2020 15:00) Name Value Range Interpretation Code Description Data [place] rce(s) Supporting Document(s) ID Date Data Source [id number] 09/11/2020 06:51:00 PM EST [facility] Patient: LEAH BUSTOS Observation Report - [facility].VisitID: [id number] [place] [address] [phone], MRegistration Date/Time: 09/11/2020 12:24 Weight:90.7 kg (S). [...] Name Value Range Interpretation Code Description Data [facility](s) Supporting Document(s) ID Date Data Source [id number] 09/11/2020 01:36:00 PM EST [facility] [...] Value Range Interpretation Code Description [facility] ID Date Data Source [id number] 09/18/2020 06:40:00 AM EST [facility] BLOOD CULTURE #2 Name Value Range Interpretation Code Description Data [facility] Supporting Document(s) [facility] ID Date Data Source [id number] 09/18/2020 06:40:00 AM EST [facility]vetlana BLOOD CULTURE #1 Name Value Range Interpretation Code Description Data [place] rce(s) Supporting Document(s) [facility] ID Date Data Source [id number] 09/11/2020 01:44:00 PM EST [facility] TSYSORDER [id number] Name Value Range Interpretation Code Description Data [place] rce(s) Supporting Document(s) FREE T4 1.50 ng/dL 0.76-1.46 H [facility] ID Date Data Source [id number] 09/11/2020 01:44:00 PM EST [facility] TSYSORDER [id number] Name Value Range Interpretation Code Description Data [place] rce(s) Supporting Document(s) TSH 1.22 uIU/mL 0.36-3.74 [facility] ID Date Data Source [id number] 09/11/2020 01:39:00 PM EST [facility] TSYSORDER [id number] Name Value Range Interpretation Code Description Data [place] rce(s) Supporting Document(s) MAGNESIUM 2.0 mg/dL 1.8-2.4 [facility] ID Date Data Source [id number] 09/11/2020 01:39:00 PM EST [facility] TSYSORDER [id number] Name Value Range Interpretation Code Description Data [place] rce(s) Supporting Document(s) TROPONIN I < 0.017 ng/mL 0.0-0.056 [facility] ID Date Data Source [id number] 09/11/2020 01:39:00 PM EST [facility] TSYSORDER [id number] Name Value Range Interpretation Code Description Data [place] rce(s) Supporting Document(s) LIPASE 210 U/L 73-393 [facility] ID Date Data Source [id number] 09/11/2020 01:39:00 PM EST [facility] TSYSORDER [id number] Name Value Range Interpretation Code Description Data [place] rce(s) Supporting Document(s) GLUCOSE 92 mg/dL 74-106 [facility] BLOOD UREA NITROGEN 16 mg/dL 7-18 [facility] ital CREATININE 1.4 mg/dL 0.7-1.3 H [facility] SODIUM 140 mmol/L 136-145 [facility] POTASSIUM 3.6 mmol/L 3.5-5.1 [facility] CHLORIDE 102 mmol/L 98-107 [facility] CO2 26 mmol/L 21-32 [facility] CALCIUM 9.1 mg/dL 8.5-10.1 [facility] ANION GAP 12.0 mmol/L 5-12 [facility] GLOMERULAR FILTRATION RATE 52 mL/min [facility] GFR IS CALCULATED IN mL/min/1.73m2 YARY L FUNCTION: >90MILDLY DECREASED: 60-89MILDY TO MODERATELY DECREASED: 45-59 MODERATELY TO SEVERELY DECREASED: 30-44SEVERELY DECREASED: 15-29RENAL FAILURE: <15 AST 98 U/L 15-37 H [facility] ALT 232 U/L 12-78 *H [facility] ALKALINE PHOSPHATASE 208 U/L 46-116 *H [facility] pital TOTAL BILIRUBIN 1.1 mg/dL 0.2-1.0 H [facility] TOTAL PROTEIN 8.3 g/dl 6.4-8.2 H [facility] ALBUMIN 3.4 gm/dL 3.4-5.0 [facility] ID Date Data Source [id number] 09/11/2020 01:30:00 PM [facility] TSYSORDER [id number] Name Value Range Interpretation Code Description Data [place] rce(s) Supporting Document(s) LACTIC ACID 0.8 mmol/L 0.4-2.0 [facility] ID Date Data Source [id number] 09/11/2020 01:26:00 PM EST [facility] TSYSORDER [id number] Name Value Range Interpretation Code Description Data [place] rce(s) Supporting Document(s) PARTIAL THROMBOPLASTIN TIME 28.5 SECONDS 21.2-27.3 H [facility] ID Date Data Source [id number] 09/11/2020 01:26:00 PM [facility] TSYSORDER [id number] Name Value Range Interpretation Code Description Data [place] rce(s) Supporting Document(s) PROTHROMBIN TIME (PATIENT) 14.3 SECONDS 9.1-11.6 H [facility] INR 1.38 0.87-1.06 H [facility] ID Date Data Source [id number] 09/11/2020 01:03:00 PM EST [facility] TSYSORDER [id number] Name Value Range Interpretation Code Description Data [facility](s) Supporting Document(s) WHITE BLOOD COUNT 10.7 K/mm3 4.0-10.0 H [facility] RED BLOOD COUNT 4.23 M/mm3 4.50-6.00 L [facility] l HEMOGLOBIN 12.7 gm/dL 14.0-18.0 L [facility] HEMATOCRIT 38.1 % 42.0-54.0 L [facility] MEAN CELL VOLUME 90.1 fl 80-96 [facility] MEAN CORPUSCULAR HEMOGLOBIN 30.0 pg 27.0-31.0 [facility] MEAN CORPUSCULAR HGB CONC 33.3 g/dl 32.0-36.0 [facility] RED CELL DISTRIBUTION WIDTH 14.1 % 10.0-14.5 [facility] PLATELET COUNT 217 K/mm3 172-450 [facility] MEAN PLATELET VOLUME 10.7 fl 9.0-13.0 [facility] pital GRAN % 74.5 % 50-80.0 [facility] IG% 0.3 % 0.0-0.2 H [facility] LYMPH % 18.3 % 25.0-50.0 L [facility] MONO % 6.0 % 2.0-10.0 [facility] EOS % 0.7 % 0-5.0 [facility] BASO % 0.2 % 0.0-2.0 [facility] GRAN # 8.0 K/mm3 2.0-8.00 [facility] IG# 0.0 K/mm3 0.0-0.2 [facility] LYMPH # 2.0 K/mm3 1.0-5.0 [facility] MONO # 0.6 K/mm3 0.10-1.20 [facility] EOS # 0.1 K/mm3 0.0-0.5 [facility] BASO # 0.0 K/mm3 0.0-0.2 [facility] ID Date Data Source [id number] 09/10/2020 08:10:00 AM EST [facility] Name Value Range Interpretation Code Description Data [place] rce(s) Supporting Document(s) SARS coronavirus 2 RNA [facility] This lab was ordered by [facility] and reported by [employer]. ID Date Data Source [id number] 09/11/2020 12:10:37 PM EST [facility] Name Value Range Interpretation Code Description Data [place] rce(s) Supporting Document(s) SARS-COV-2 NIRMAL [facility] Not DetectedReference range: Not Detecte d Testing was performed using the oneal(R) SARS-CoV-2 test. This nucleic acid amplification test was developed and its performance characteristics determined by [employer]. Nucleic acid amplification tests include PCR and [...] result in this assay. Performed At: [facility] [id number] Fidel Alexander MD Ph:[phone] ID Date Data Source [id number] 09/08/2020 10:19:00 AM EST [facility] [...] CT ABD/PEL WITH ORAL AND IV - [id number] 09/08/2020 12:00:[address] eCW1 ([facility]) Name Value Range Interpretation Code Description Data [place] rce(s) Supporting Document(s) CT ABD/PEL WITH ORAL AND IV - [id number] eCW1 ([facility]) ID Date Data Source [id number] 09/07/2020 08:33:00 AM EST [facility] [...] Pancreas is obscured byoverlying bowel gas. IMPRESSION: Cuee-rb-[id number] fatty infiltration of liver. Nonvisualization of the pancreas due to overlying bowel gas Electronically signed in PS360 by: Mickey Greenberg M.D. 09/07/2020 8:27 EST Name Value Range Interpretation Code Description Data [facility] rce(s) Supporting Document(s) ID Date Data Source [id number] 09/07/2020 08:32:00 AM EST [facility] DATE OF [...] Value Range Interpretation Code Description Data [facility] Supporting Document(s) ID Date Data Source CT CHEST W/O IV CONTRAST - [id number] 09/07/2020 12:00:00 AM EST eCW1 ([facility]) Name Value Range Interpretation Code Description Data [facility] Supporting Document[facility] CT CHEST W/O IV CONTRAST - [id number] eCW1 ([facility]) ID Date Data Source [id number] 09/03/2020 06:05:00 AM EDT [facility] Name Value Range Interpretation Code Description Data [place] rce(s) Supporting Document(s) FIBROSIS SCORE 0.63 0.00-0.21 H [facility] FIBROSIS STAGE Comment . [facility] F3-Bridging fibrosis with many septa STEATOSIS SCORE 0.87 0.00-0.30 H [facility] STEATOSIS GRADE Comment . [facility] S3 - Marked or Severe Steato sis MCDANIEL SCORE 0.50 0.25 H [facility] MCDANIEL GRADE Comment . [facility] N1 - Borderline or probable MCDANIEL HEIGHT: 72 in . [facility] WEIGHT: 204 LBS . [facility] ALPHA 2-MACROGLOBULINS,QN 216 mg/dL 110-276 [facility] HAPTOGLOBIN 110 mg/dL 29-370 [facility] APOLIPOPROTEIN A-1 119 mg/dL 101-178 [facility] svetlana BILIRUBIN,TOTAL 0.8 mg/dL 0.0-1.2 [facility] GGT 139 IU/L 0-65 H [facility] ALT 496 IU/L 0-55 H [facility] AST 467 IU/L 0-40 H [facility] CHOLESTEROL 170 mg/dL 100-199 [facility] GLUCOSE 113 mg/dL 65-99 H [facility] TRIGLYCERIDES 113 mg/dL 0-149 [facility] INTERPRETATIONS: Comment . [facility] Quantitative results of 10 biochemicals in [...] F4 - Cirrhosis STEATOSIS GRADING: Comment . [facility] < 0.30 = S0 - No Steatosis0.30 to 0.38 = S0 - S10.38 to 0.48 = S1 - Minimal Steatosis0.48 to 0.57 = S1 - S20.57 to 0.67 = S2 - Moderate Steatosis0.67 to 0.69 = S2 - S3 > 0.69 = S3 - Marked or Severe Steatosis MCDANIEL SCORING Comment . [facility] 0.25 = N0 - Not NASH0.50 = N1 - Borderli ne or probable NASH0.75 = N2 - MCDANIEL LIMITATIONS: Comment . [facility] MCDANIEL FibroSure is recommended for patien ts with suspectednon-alcoholic fatty liver disease. It is not recommendedfor patients with other liver diseases. It is also notrecommended in patients with Gilbert Disease, acutehemolysis, acute viral hepatitis, drug induced hepatitis,genetic liver disease, autoimmune hepatitis and/or extra-hepatic cholestasis. Any of these clinical situations maylead to inaccurate quantitative predictions of fibrosis. COMMENT: Comment . [facility] This test was developed and its performa nce characteristics determinedby [facility]. It has not been cleared or approved [...] fatty liver disease. [facility] 2006; 6:34 doi:10.1186/6324-200G-2-34.Performed at: [address] [place] [place], [place] [id number] Director: Fiordaliza Caceres MD, Phone: [phone] ID Date Data Source [id number] 09/01/2020 08:06:00 AM EDT [facility] Name Value Range Interpretation Code Description Data [place] rce(s) Supporting Document(s) HEP A AB, IGM Negative Negative [facility] HEP B SURFACE ANTIGEN SCREEN Negative Negative R [facility] HEP B CORE AB, IGM Negative Negative [facility] svetlana HCV ANTIBODY >11.0 0.0-0.9 H [facility] INFCE Result Units: s/co ratio Negative: < 0.8 Indeterminate: 0.8 - 0.9 Positive: > 0.9 The CDC recommends that a positive HCV antibody result be followed up with a HCV Nucleic Acid Amplification test (580316).Performed at: [facility] [id number] Director: Renata Parra MD, Phone: [phone] ID Date Data Source [id number] 09/01/2020 08:06:00 AM EDT [facility] Name Value [...] with a HCV Nucleic Acid Amplification test ([id number]). ID Date Data Source [id number] 09/03/2020 06:05:00 AM EDT [facility] Name Value [...] leadto inaccurate quantitative predictions of fibrosis. Comment: [facility] This test was developed and its performa nce characteristics determinedby [facility]. It has not been cleared or approved by the Food and DrugAdministration. The FDA has determined that such clearance orapproval is not necessary. For questions regarding this report please contactmount[facility] medical centertomer service at . References: 1. Freya Ball [...] fatty liver disease. [facility] 2006; 6:34 doi:10.1186/3277-854N-6-34. ID Date Data Source [id number] 08/31/2020 10:11:00 AM EDT [facility] Name Value Range Interpretation Code Description Data [place] rce(s) Supporting Document(s) GLUCOSE 96 mg/dL 74-106 [facility] BLOOD UREA NITROGEN 21 mg/dL 7-18 H [facility] ital CREATININE 1.5 mg/dL 0.7-1.3 H [facility] SODIUM 140 mmol/L 136-145 [facility] POTASSIUM 3.9 mmol/L 3.5-5.1 [facility] CHLORIDE 103 mmol/L 98-107 [facility] CO2 29 mmol/L 21-32 [facility] CALCIUM 9.0 mg/dL 8.5-10.1 [facility] ANION GAP 8.0 mmol/L 5-12 [facility] GLOMERULAR FILTRATION RATE 48 mL/min [facility] GFR IS CALCULATED IN mL/min/1.73m2 YARY L FUNCTION: >90MILDLY DECREASED: 60-89MILDY TO MODERATELY DECREASED: 45-59 MODERATELY TO SEVERELY DECREASED: 30-44SEVERELY DECREASED: 15-29RENAL FAILURE: <15 AST 445 U/L 15-37 *H [facility] ALT 510 U/L 12-78 *H [facility] ALKALINE PHOSPHATASE 210 U/L 46-116 *H [facility] pital TOTAL BILIRUBIN 0.7 mg/dL 0.2-1.0 [facility] TOTAL PROTEIN 7.3 g/dl 6.4-8.2 [facility] ALBUMIN 3.4 gm/dL 3.4-5.0 [facility] ID Date Data Source [id number] 08/31/2020 12:34:00 PM EDT [facility] Name Value Range Interpretation Code Description Data [place] rce(s) Supporting Document(s) LIPASE 376 U/L 73-393 [facility] ID Date Data Source [id number] 08/31/2020 12:34:00 PM EDT [facility] l Name Value Range Interpretation Code Description Data [place] rce(s) Supporting Document(s) AMYLASE 85 U/L 25-115 [facility] ID Date Data Source [id number] 08/31/2020 08:44:00 AM EDT [facility] Name Value Range Interpretation Code Description Data [place] rce(s) Supporting Document(s) WHITE BLOOD COUNT 7.8 K/mm3 4.0-10.0 [facility] RED BLOOD COUNT 4.13 M/mm3 4.50-6.00 L [facility] l HEMOGLOBIN 12.2 gm/dL 14.0-18.0 L [facility] HEMATOCRIT 38.1 % 42.0-54.0 L [facility] MEAN CELL VOLUME 92.3 fl 80-96 [facility] MEAN CORPUSCULAR HEMOGLOBIN 29.5 pg 27.0-31.0 [facility] MEAN CORPUSCULAR HGB CONC 32.0 g/dl 32.0-36.0 [facility] RED CELL DISTRIBUTION WIDTH 13.4 % 10.0-14.5 [facility] PLATELET COUNT 187 K/mm3 172-450 [facility] MEAN PLATELET VOLUME 10.7 fl 9.0-13.0 [facility] pital GRAN % 64.4 % 50-80.0 [facility] IG% 0.3 % 0.0-0.2 H [facility] LYMPH % 23.4 % 25.0-50.0 L [facility] MONO % 8.6 % 2.0-10.0 [facility] EOS % 2.7 % 0-5.0 [facility] BASO % 0.6 % 0.0-2.0 [facility] GRAN # 5.0 K/mm3 2.0-8.00 [facility] IG# 0.0 K/mm3 0.0-0.2 [facility] LYMPH # 1.8 K/mm3 1.0-5.0 [facility] MONO # 0.7 K/mm3 0.10-1.20 [facility] EOS # 0.2 K/mm3 0.0-0.5 [facility] BASO # 0.1 K/mm3 0.0-0.2 [facility] ID Date Data Source [id number] 08/31/2020 11:44:00 AM EDT [facility] Name Value Range Interpretation Code Description Data [place] r[facility](s) Supporting Document(s) GAMMA GLUTAMYL TRANSPEPTIDASE 170 U/L 15-85 *H [facility] ID Date Data Source [id number] 08/31/2020 10:11:00 AM EDT [facility] Name Value Range Interpretation Code Description Data [place] rce(s) Supporting Document(s) B-TYPE NATRIURETIC PEPTIDE 3889 pg/ml 0-125 *H [facility] ID Date Data Source [id number]/DIFF 08/31/2020 12:00:00 AM EDT eCW1 ([facility]) Name Value Range Interpretation Code Description Data [place] rce(s) Supporting Document(s) 7.8 4.0-10.0 WHITE BLOOD COUNT eCW1 ([facility]) 4.13 4.50-6.00 RED BLOOD COUNT eCW1 ([facility]) 12.2 14.0-18.0 HEMOGLOBIN eCW1 ([facility]) 92.3 80-96 MEAN CELL VOLUME eCW1 ([facility]) 38.1 42.0-54.0 HEMATOCRIT eCW1 ([facility]) 29.5 27.0-31.0 MEAN CORPUSCULAR HEMOGLOB IN eCW1 ([facility]) 187 172-450 PLATELET COUNT eCW1 ([facility]) 13.4 10.0-14.5 RED CELL DISTRIBUTION WID TH eCW1 ([facility]) 10.7 9.0-13.0 MEAN PLATELET VOLUME eCW1 ([facility]) 32.0 32.0-36.0 MEAN CORPUSCULAR HGB CONC eCW1 ([facility]) 64.4 50-80.0 GRAN % eCW1 ([facility]) 8.6 2.0-10.0 MONO % eCW1 ([facility]) 2.7 0-5.0 EOS % eCW1 ([facility]) 23.4 25.0-50.0 LYMPH % eCW1 ([facility]) 0.6 0.0-2.0 BASO % eCW1 ([facility]) 0.7 0.10-1.20 MONO # eCW1 ([facility]) 5.0 2.0-8.00 GRAN # eCW1 ([facility]) 1.8 1.0-5.0 LYMPH # eCW1 ([facility]) 0.2 0.0-0.5 EOS # eCW1 ([facility]) 0.1 0.0-0.2 BASO # eCW1 ([facility]) ID Date Data Source [id number] 08/18/2020 02:37:00 PM EDT [facility] Patient: LEAH BUSTOS Observation Report - [facility] [facility]VisitID: [id number] [place] [address] [phone], MRegistration Date/Time: 08/13/2020 07:35 Weight:91.6 kg (S). Height/Length:72 inches (S). BMI:27.4 FAMILY HISTORYMother: Cancer. Brother(s): Heart Disease. (Electronically signed by Anais Vazquez, Candido 08/13/2020 14:56) Addenda for LEAH BUSTOS VisitID: [id number] Date: 08/13/2020 08/14/2020 12:05Phoned pt regarding blood [...] f/u. PCP is Dr. Bruno. Called the [facility] spoke to nurse Gordon. Pt has appointment today at 3pm, [facility] nurse states she will call pt and urge him to keep his appointment. Culture results faxed to [phone] fax confirmation attached to chart. (Electronically signed by Sameera Jimenez R.N. - 08/18/2020 8:48) 08/18/2020 10:35[facility] stating they did not recieve culture. Hand delivered cultures to maría Lyons and pressed how pt has an appointment today at 3pm at clinic and needs close f/u. (Electronically signed by Sameera Jimenez R.N. - 08/18/2020 10:35) 08/18/2020 14:34Blood culture sensitvity resulted, faxed sensitivity to RF at [phone](Electronically signed by Sameera Jimenez R.N. - 08/18/2020 14:34) Name Value Range Interpretation Code Description Data Paradise rce(s) Supporting Document(s) ID Date Data Source [id number] 08/18/2020 10:47:00 AM EDT [facility] Patient: LEAH BUSTOS [facility]ation [facility].Visit[facility]: [id number] [place] [address] [phone], MRegistration Date/Time: 08/13/2020 07:35 Weight:91.6 kg (S). Height/Length:72 inches (S). BMI:27.4 FAMILY HISTORYMother: Cancer. Brother(s): Heart Disease. (Electronically signed by Anais Vazquez P.A. 08/13/2020 14:56) Addenda for LEAH BUSTOS VisitID: [id number] Date: 08/13/2020 08/14/2020 12:05Phoned pt regarding blood [...] keep his appointment. Culture results faxed to [phone] fax confirmation attached to chart. (Electronically signed [...] rce(s) Supporting Document(s) ID Date Data Source [id number] 08/18/2020 08:49:00 AM EDT [facility] Patient: LEAH BUSTOS [facility]ation [facility].Visit[facility]: [id number] [place] [address] [phone], MRegistration Date/Time: 08/13/2020 07:35 Weight:91.6 kg (S). Height/Length:72 inches (S). BMI:27.4 FAMILY HISTORYMother: Cancer. Brother(s): Heart Disease. (Electronically signed by Anais Vazquez P.A. 08/13/2020 14:56) Addenda for LEAH BUSTOS VisitID: [id number] Date: 08/13/2020 08/14/2020 12:05Phoned pt regarding blood [...] f/u. PCP is Dr. Bruno. Called [facility] spoke to nurse Heidi. Pt has appointment today at 3pm, [facility] nurse states she will call pt and urge him to keep his appointment. Culture results faxed to [phone] fax confirmation attached to chart. (Electronically signed by Sameera Jimenez R.N. - 08/18/2020 8:48) Name Value Range Interpretation Code Description Data Paradise rce(s) Supporting Document(s) ID Date Data Source [id number] 08/17/2020 09:44:00 AM [facility] Patient: LEAH BUSTOS Observation [facility].Visit[facility]: [id number] [place] [address] [phone], MRegistration Date/Time: 08/13/2020 07:35 Weight:91.6 kg (S). Height/Length:72 inches (S). BMI:27.4 FAMILY HISTORYMother: Cancer. Brother(s): Heart Disease. (Electronically signed by Anais Vazquez P.A. 08/13/2020 14:56) Addenda for LEAH BUSTOS VisitID: [id number] Date: 08/13/2020 08/14/2020 12:05Phoned pt regarding blood [...] rce(s) Supporting Document(s) ID Date Data Source [id number] 08/14/2020 12:06:00 PM [facility] Patient: LEAH BUSTOS [facility] [id number] [place] [address] [phone], MRegistration Date/Time: 08/13/2020 07:35 Weight:91.6 kg (S). Height/Length:72 inches (S). BMI:27.4 FAMILY HISTORYMother: Cancer. Brother(s): Heart Disease. (Electronically signed by Anais Vazquez, P.A. 08/13/2020 14:56) Addenda LEAH Booth VisitID: [id number] Date: 08/13/2020 08/14/2020 12:05Phoned pt regarding blood culture. No answer. No voicemail.(Electronically signed by Alma Turner R.N. - 08/14/2020 12:05) Name Value Range Interpretation Code Description Data Paradise rce(s) Supporting Document(s) ID Date Data Source [id number] 08/13/2020 03:13:00 PM [facility] Patient: LEAH BUSTOS [facility] [id number] [place] [address] [phone], MRegistration Date/Time: 08/13/2020 07:35 Weight:91.6 kg (S). Height/Length:72 inches (S). BMI:27.4 FAMILY HISTORYMother: Cancer. Brother(s): Heart Disease. (Electronically signed by Anais Vazquez, P.A. 08/13/2020 14:56) Name Value Range Interpretation Code Description Data Paradise rce(s) Supporting Document(s) ID Date Data Source [id number] 08/13/2020 08:40:00 AM EDT [facility] Name Value Range Interpretation Code Description Data Paradise rce(s) Supporting Document(s) SARS COV2 TRP [facility] This lab was ordered by [facility] and reported by [facility] Laboratory. ID Date Data Source [id number] 08/13/2020 09:47:00 AM EDT [facility] TSYSORDER [id number] Name Value Range Interpretation Code Description Data Paradise rce(s) Supporting Document(s) Adenovirus Not Detected Detected Not [facility] ospital Coronavirus 229E Not Detected Detected Not [facility] Coronavirus HKU1 Not Detected Detected Not [facility] Coronavirus NL63 Not Detected Detected Not [facility] Coronavirus OC43 Not Detected Detected Not [facility] Sars Cov 2 Not Detected Detected Not [facility] Metapneumovirus Not Detected Detected Not [facility] Human Rhinovirus Not Detected Detected Not [facility] Influenza A Not Detected Detected [facility] Influenza B Not Detected Detected Not [facility] Parainfluenza Virus 1 Not Detected Detected Not [facility] Parainfluenza Virus 2 Not Detected Detected Not [facility] Parainfluenza Virus 3 Not Detected Detected Not [facility] Parainfluenza Virus 4 Not Detected Detected Not [facility] Respiratory Syncytial Virus Not Detected Detected Not [facility] Bordetella parapertus ([id number]) Not Detected Detected Not [facility] Bordetella pertussis (ptxP) Not Detected Detected Not [facility] Chlamydia pneumoniae Not Detected Detected Not [facility] Mycoplasma pneumoniae Not Detected Detected Not [facility] The Above results have been determined b y using the [employer] [facility] system.FilmArray is an automated in vitro diagnostic system thatutilizes nested multiplex Polymerase Chain Reaction (PCR)and high-resolution melting analysis to detect and identifymultiple nucleic acid targets from clinical specimens. ID Date Data Source [id number] 08/19/2020 10:27:00 AM EDT [facility] 2 Name Value Range Interpretation Code Description Data Paradise rce(s) Supporting Document(s) [facility] ID Date Data Source [id number] 08/18/2020 10:28:00 AM EDT [facility] Name Value Range Interpretation Code Description Data [place] rce(s) Supporting Document(s) ORGANISM [facility] COLONY COUNT N [facility] ID Date Data Source [id number] 08/18/2020 10:28:00 AM EDT [facility] SET 1 Name Value Range Interpretation Code Description Data [place] rce(s) Supporting Document(s) GRAM STAIN [facility] GRAM STAIN N [facility] ID Date Data Source [id number] 08/15/2020 12:41:00 AM EDT [facility] Name Value Range Interpretation Code Description Data [place] rce(s) Supporting Document(s) GRAM STAIN [facility] GRAM STAIN N [facility] ID Date Data Source [id number] 08/14/2020 04:19:00 AM EDT [facility] Name Value Range Interpretation Code Description Data [place] rce(s) Supporting Document(s) KPC (carb resi) Not Detected Detected Not N [facility] Enterococcus Not Detected Detected Not [facility] Listeria mono Not Detected Detected Not [facility] Staphylococcus Not Detected Detected Not N [facility] Staph aureus Not Detected Detected Not [facility] Streptococcus Not Detected Detected Not N [facility] Strep Grp B Not Detected Detected Not N [facility] Strep pneumo Not Detected Detected Not [facility] Strep pyogenes Not Detected Detected Not N [facility] Acineto baumani Not Detected Detected Not N [facility] Enterobacteriac DETECTED Detected Not Very abnormal (applies to non-numeric units [facility] Enterob cloacae Not Detected Detected Not N [facility] Escherichia col Not Detected Detected Not N [facility] Klebsiella oxyt Not Detected Detected Not N [facility] Kleb pneumoniae Not Detected Detected Not N [facility] Proteus Not Detected Detected Not N [facility] Serratia marces DETECTED Detected Not Very abnormal (applies to non-numeric units [facility] Haemophilus inf Not Detected Detected Not N [facility] Neisseria menin Not Detected Detected Not N [facility] Pseudomonas aer Not Detected Detected Not N [facility] Ciara albican Not Detected Detected Not N [facility] Ciara glabrat Not Detected Detected Not N [facility] Ciara krusei Not Detected Detected Not N [facility] Ciara parapsi Not Detected Detected Not N [facility] Ciara tropica Not Detected Detected Not N [facility] The above results have been determined by using the [employer] system.FilmArray is an automated in vitro diagnostic system thatutilizes nested multiplex Polymerase Chain Reaction (PCR)and high-resolution melting analysis to detect and identifymultiple nucleic acid targets from clinical specimens. ID Date Data Source [id number] 08/13/2020 09:18:00 AM [facility] l TSYSORDER [id number] Results called to [email or web address] on 08/13/20 [email or web address]. Name Value Range Interpretation Code Description Data Paradise rce(s) Supporting Document(s) B-TYPE NATRIURETIC PEPTIDE 9729 pg/ml 0-125 *H [facility] ID Date Data Source [id number] 08/13/2020 09:18:00 AM EDT [facility] TSYSORDER [id number] Results called to [email or web address] on 08/13/20 [email or web address]. Name Value Range Interpretation Code Description Data [place] rce(s) Supporting Document(s) TROPONIN I < 0.017 ng/mL 0.0-0.056 [facility] ID Date Data Source [id number] 08/13/2020 09:18:00 AM T [facility] l TSYSORDER [id number] Results called to [email or web address] on 08/13/20 [email or web address]. Name Value Range Interpretation Code Description Data [place] rce(s) Supporting Document(s) GLUCOSE 94 mg/dL 74-106 [facility] BLOOD UREA NITROGEN 27 mg/dL 7-18 H [facility] ital CREATININE 1.9 mg/dL 0.7-1.3 H [facility] SODIUM 145 mmol/L 136-145 [facility] POTASSIUM 3.3 mmol/L 3.5-5.1 L [facility] CHLORIDE 105 mmol/L 98-107 [facility] CO2 27 mmol/L 21-32 [facility] CALCIUM 9.4 mg/dL 8.5-10.1 [facility] ANION GAP 13.0 mmol/L 5-12 H [facility] GLOMERULAR FILTRATION RATE 37 mL/min [facility] GFR IS CALCULATED IN mL/min/1.73m2 YARY L FUNCTION: >90MILDLY DECREASED: 60-89MILDY TO MODERATELY DECREASED: 45-59 MODERATELY TO SEVERELY DECREASED: 30-44SEVERELY DECREASED: 15-29RENAL FAILURE: <15 AST 33 U/L 15-37 [facility] ALT 27 U/L 12-78 [facility] ALKALINE PHOSPHATASE 193 U/L 46-116 H [facility] pital TOTAL BILIRUBIN 1.4 mg/dL 0.2-1.0 H [facility] TOTAL PROTEIN 7.8 g/dl 6.4-8.2 [facility] ALBUMIN 4.1 gm/dL 3.4-5.0 [facility] ID Date Data Source [id number] 08/13/2020 09:12:00 AM EDT [facility] ital TSYSORDER [id number] Name Value Range Interpretation Code Description Data [place] rce(s) Supporting Document(s) URINE COLOR. PALE [facility] URINE APPEARANCE CLEAR [facility] l URINE GLUCOSE (UA) NEGATIVE mg/dL NEGATIVE [facility] URINE BILIRUBIN NEGATIVE NEGATIVE [facility] URINE KETONE NEGATIVE mg/dL NEGATIVE [facility] SPECIFIC GRAVITY,URINE 1.015 1.001-1.035 [facility] URINE BLOOD NEGATIVE NEGATIVE [facility] PH,URINE 5.0 5.0-9.0 [facility] URINE PROTEIN NEGATIVE mg/dL NEGATIVE [facility] URINE UROBILINOGEN NORMAL(0.2-1) mg/dL 0-1 [facility] URINE NITRATE NEGATIVE NEGATIVE [facility] URINE LEUKOCYTE ESTERASE NEGATIVE NEGATIVE [facility] ID Date Data Source [id number] 08/13/2020 09:11:00 AM EDT [facility] l TSYSORDER [id number] Name Value Range Interpretation Code Description Data [place] rce(s) Supporting Document(s) LACTIC ACID 2.3 mmol/L 0.4-2.0 H [facility] ID Date Data Source [id number] 08/13/2020 09:00:00 AM EDT [facility] TSYSORDER [id number] Name Value Range Interpretation Code Description Data Paradise rce(s) Supporting Document(s) WHITE BLOOD COUNT 4.6 K/mm3 4.0-10.0 [facility] al RED BLOOD COUNT 4.12 M/mm3 4.50-6.00 L [facility] HEMOGLOBIN 12.6 gm/dL 14.0-18.0 L [facility] HEMATOCRIT 37.6 % 42.0-54.0 L [facility] MEAN CELL VOLUME 91.3 fl 80-96 [facility] MEAN CORPUSCULAR HEMOGLOBIN 30.6 pg 27.0-31.0 [facility] MEAN CORPUSCULAR HGB CONC 33.5 g/dl 32.0-36.0 [facility] RED CELL DISTRIBUTION WIDTH 14.0 % 10.0-14.5 [facility] PLATELET COUNT 206 K/mm3 172-450 [facility] MEAN PLATELET VOLUME 11.1 fl 9.0-13.0 [facility] pital GRAN % 87.2 % 50-80.0 H [facility] IG% 0.0 % 0.0-0.2 [facility] LYMPH % 11.2 % 25.0-50.0 L [facility] MONO % 0.2 % 2.0-10.0 L [facility] EOS % 0.7 % 0-5.0 [facility] BASO % 0.7 % 0.0-2.0 [facility] GRAN # 4.0 K/mm3 2.0-8.00 [facility] IG# 0.0 K/mm3 0.0-0.2 [facility] LYMPH # 0.5 K/mm3 1.0-5.0 L [facility] MONO # 0.0 K/mm3 0.10-1.20 L [facility] EOS # 0.0 K/mm3 0.0-0.5 [facility] BASO # 0.0 K/mm3 0.0-0.2 [facility] ID Date Data Source [id number] 08/13/2020 12:00:00 AM EDT [facility] Name Value Range Interpretation Code Description Data [place] rce(s) Supporting Document(s) 2019 Novel Coronavirus RNA [facility] This lab was ordered by [facility] L aboratory and reported by [facility] Laboratory. ID Date Data Source [id number] 08/09/2020 09:37:00 AM EDT [facility] DATE OF EXAMINATION: 08/09/2020 8:56 EDT [...] rce(s) Supporting Document(s) ID Date Data Source [id number] 07/19/2020 10:54:16 AM EDT [facility] Name Value Range Interpretation Code Description Data [place] rce(s) Supporting Document(s) &PDF Health system [id number] vci [file] [id number] ID Date Data Source [id number] 07/19/2020 10:55:29 AM EDT [facility] INFORMATIONPatient MRN Name Date of Age Gend*PT [id number] Leah Bustos 1965 54 years M HOPPT Location Admission Date/Time Visit ID Attending [id number] 07/19/20 0756 --- M Robert Thomas MD([id number]) EPI ID CSN Admitting Provider [id number] Jazmin Robert Thomas MD([id number])Inpatient History & PhysicalRobert Saba BustosMRN:[id number]: sx af for ablationPast Medical History:Past Medical [...] rce(s) Supporting Document(s) ID Date Data Source [id number] 07/19/2020 10:06:36 AM EDT [facility]FORMATIONPatient MRN Name Date of Age Gend*PT [id number] Linda Leah Walter 1965 54 years M HOPPT Location Admission Date/Time Visit ID Attending Provider --- --- --- --- EPI ID CSN Admitting Provider [id number] ---Arterial Line PlacementPatient location during procedure: ORIndications [...] rce(s) Supporting Document(s) ID Date Data Source [id number] 07/19/2020 10:06:21 AM EDT [facility]FORMATIONPatient MRN Name Date of Age Gend*PT [id number] Leah Bustos 1965 54 years M HOPPT Location Admission Date/Time Visit ID Attending Provider --- --- --- --- EPI ID CSN Admitting Provider [id number] ---AirwayPatient location during procedure: ORUrgency: electiveDifficult airway: [...] cmPlacement verified by: chest auscultation and + [id number]: CTA and equal breath sounds bilateralGrade view: grade I - full view of glottis Name Value Range Interpretation Code Description Data [place] rce(s) Supporting Document(s) ID Date Data Source [id number] 07/19/2020 10:07:00 AM EDT [facility] SPEC EXP DATE 07/22/2020PATI ENT ABO/Rh B POSITIVEANTIBODY SCREEN NEGATIVETESTING SITE PERFORMED AT [address] [place] [id number] Name Value Range Interpretation Code Description Data [place] rce(s) Supporting Document(s) TYPE AND SCREEN [facility] ID Date Data Source [id number] 07/19/2020 09:06:15 AM EDT [facility] Name Value Range Interpretation Code Description Data [place] rce(s) Supporting Document(s) WBC 8.9 10*3/uL (4.1-11.0) [facility] [place] RBC 4.56 10*6/uL (4.60-6.10) L [facility] HGB 13.6 g/dL (13.5-18.0) [facility] HCT 41.9 % (41.0-53.0) [facility] PERFORMED AT [address] [place] [address] [place] [address] MCV 91.8 fL (80.0-95.0) [facility] MCH 29.9 pg (27.0-32.0) [facility] MCHC 32.5 g/dL (32.0-36.0) [facility] RDW 15.7 % (10.5-14.5) H [facility] PLT 241 10*3/uL (150-450) [facility] MPV 8.5 fL (7.1-10.7) [facility] ID Date Data Source [id number] 07/14/2020 08:30:00 AM EDT [facility] Name Value Range Interpretation Code Description Data [place] rce(s) Supporting Document(s) SARS coronavirus 2 RNA [facility] This lab was ordered by [facility] and reported by [facility]. ID Date Data Source [id number] 07/15/2020 11:07:00 AM EDT [facility]ana Performed at: RN - [facility] [address] [id number] Director: Renata Parra MD, Phone: [phone] Name Value Range Interpretation Code Description Data [place] rce(s) Supporting Document(s) SARS-CoV-2, NIRMAL Not Detected Not Detected N [facility] This nucleic acid amplification test was developed [...] SARS-CoV-2 virusand/or diagnosis of COVID-19 infection under zzxxiuo520(b)(1) of the Act, 21 U.S.C. 360bbb-3(b) (1), [...] Current Smoker completed Curre nt Smoker eCW1 ([facility]) Smoking 08/16/2021 12:00:00 AM EDT Current Smoker completed Curre nt Smoker eCW1 ([facility]) Smoking 08/16/2021 12:00:00 AM EDT Current Smoker completed Curre nt Smoker eCW1 ([facility]) Smoking 05/26/2021 12:00:00 AM EDT Current Smoker completed Curre nt Smoker eCW1 ([facility]) Smoking 05/26/2021 12:00:00 AM EDT Current Smoker completed Curre nt Smoker eCW1 ([facility]) Smoking 02/03/2021 12:00:00 AM EDT Current Smoker completed Curre nt Smoker eCW1 ([facility]) Smoking 01/24/2021 12:00:00 AM EDT Current Smoker completed Curre nt Smoker eCW1 ([facility]) Smoking 01/24/2021 12:00:00 AM EDT Current Smoker completed Curre nt Smoker eCW1 ([facility]) Smoking 01/24/2021 12:00:00 AM EDT Current Smoker completed Curre nt Smoker eCW1 ([facility]) Smoking 01/03/2021 12:00:00 AM EST Current Smoker completed Curre nt Smoker eCW1 ([facility]) Smoking 01/03/2021 12:00:00 AM EST Current Smoker completed Curre nt Smoker eCW1 ([facility]) Smoking 01/03/2021 12:00:00 AM EST Current Smoker completed Curre nt Smoker eCW1 ([facility]) Smoking 12/05/2020 12:00:00 AM EST Current Smoker completed Curre nt Smoker eCW1 ([facility]) Smoking 12/05/2020 12:00:00 AM EST Current Smoker completed Curre nt Smoker eCW1 ([facility]) Smoking 10/08/2020 12:00:00 AM EST Current Smoker completed Curre nt Smoker eCW1 ([facility]) Smoking 10/08/2020 12:00:00 AM EST Current Smoker completed Curre nt Smoker eCW1 ([facility]) Alcohol intake 10/06/2020 12:00:00 AM EST Ex-drinker (finding) comp leted Ex- drinker (finding) [facility] Alcohol intake 10/05/2020 12:00:00 AM EST Not Currently completed [facility] Cigarettes smoked current (pack per day) - Reported 10/05/20 12:00:00 AM EST UNK completed Health system Smoking 10/05/2020 12:00:00 AM EST Current every day smoker co mpleted Current every day smoker [facility] Smoking 10/04/2020 12:00:00 AM EST Current Smoker completed Curre nt Smoker eCW1 ([facility]) Smoking 10/04/2020 12:00:00 AM EST Current Smoker completed Curre nt Smoker eCW1 ([facility]) Smoking 10/04/2020 12:00:00 AM EST Current Smoker completed Curre nt Smoker eCW1 ([facility]) Smoking 10/04/2020 12:00:00 AM EST Current Smoker completed Curre nt Smoker eCW1 ([facility]) Smoking 10/04/2020 12:00:00 AM EST Current Smoker completed Curre nt Smoker eCW1 ([facility]) Smoking 09/28/2020 12:00:00 AM EST Current Smoker completed Curre nt Smoker eCW1 ([facility]) Smoking 09/28/2020 12:00:00 AM EST Current Smoker completed Curre nt Smoker eCW1 ([facility]) Smoking 09/23/2020 12:00:00 AM EST Current Smoker completed Curre nt Smoker eCW1 ([facility]) Smoking 09/22/2020 12:00:00 AM EST Current Smoker completed Curre nt Smoker eCW1 ([facility]) Smoking 08/31/2020 12:00:00 AM EDT Current Smoker completed Curre nt Smoker eCW1 ([facility]) Smoking 08/31/2020 12:00:00 AM EDT Current Smoker completed Curre nt Smoker eCW1 ([facility]) Smoking 08/31/2020 12:00:00 AM EDT Current Smoker completed Curre nt Smoker eCW1 ([facility]) Smoking 08/09/2020 12:00:00 AM EDT Current Smoker completed Curre nt Smoker eCW1 ([facility]) Smoking 08/09/2020 12:00:00 AM EDT Current Smoker completed Curre nt Smoker eCW1 ([facility]) Alcohol intake 07/20/2020 12:00:00 AM EDT No completed [facility] Cigarettes smoked current (pack per day) - Reported 07/20/20 12:00:00 AM EDT UNK completed Health system Smoking 07/20/2020 12:00:00 AM EDT Current every day smoker co mpleted Current every day smoker [facility] Alcohol intake 07/19/2020 12:00:00 AM EDT No completed [facility] Cigarettes smoked current (pack per day) - Reported 07/19/20 12:00:00 AM EDT UNK completed Health system Smoking 07/19/2020 12:00:00 AM EDT Current every day smoker co mpleted Current every day smoker [facility] Vital Signs ID Date Data Source UNK Name Value Range Interpretation Code Description Data Source(s) Body height 72 [in_i] 72 [in_i] eCW1 ([facility]) Body weight 181.6 [lb_av] 181.6 [lb_av] eCW1 ([facility]) Body mass index (BMI) [Ratio] 24.63 kg/m2 24.63 kg/m2 eCW1 ([facility]) Body temperature 98.0 [degF] 98.0 [degF] eCW1 ( [facility]) Heart rate 65 /min 65 /min eCW1 ([facility]) Respiratory rate 18 /min 18 /min eCW1 ([facility]) Oxygen saturation in Arterial blood by Pulse oximetry 100 % 100 % eCW1 ([facility]) Body weight 178 [lb_av] 178 [lb_av] eCW1 ([facility]) Body height 72 [in_i] 72 [in_i] eCW1 ([facility]) Body mass index (BMI) [Ratio] 24.14 kg/m2 24.14 kg/m2 eCW1 ([facility]) Heart rate 103 /min 103 /min eCW1 ([facility]) Respiratory rate 18 /min 18 /min eCW1 ([facility]) Body temperature 97.6 [degF] 97.6 [degF] eCW1 ( [facility]) Systolic blood pressure 132 mm[Hg] 132 mm[Hg] e CW1 ([facility]) Diastolic blood pressure 72 mm[Hg] 72 mm[Hg] eCW1 ([facility]) Body height 72 [in_i] 72 [in_i] MEDENT ([facility] 6'0" Diastolic blood pressure--sitting 84 mm[Hg] 84 mm[Hg] MEDENT ([facility]) Systolic blood pressure--sitting 128 mm[Hg] 128 mm[Hg] MEDENT ([facility]) Heart rate 80 /min 80 /min MEDENT ([facility] Oxygen saturation in Arterial blood by Pulse oximetry 99 % 99 % MEDENT ([facility]) Body surface area Derived from formula 2.06 m2 2.06 m2 MEDENT ([facility] Body weight 184.50 [lb_av] 184.50 [lb_av] MEDEN T ([facility]) Body mass index (BMI) [Ratio] 25.0 kg/m2 25.0 k g/m2 MEDENT ([facility]) Oxygen saturation in Arterial blood by Pulse oximetry 99 % 99 % MEDENT ([facility]) Body surface area Derived from formula 2.08 m2 2.08 m2 MEDENT ([facility]) Heart rate 63 /min 63 /min MEDENT ([facility]) Body height 72 [in_i] 72 [in_i] MEDENT ([facility]) 6'0" Systolic blood pressure 122 mm[Hg] 122 mm[Hg] M EDENT ([facility]) Diastolic blood pressure 80 mm[Hg] 80 mm[Hg] MEDENT ([facility] Body weight 189.38 [lb_av] 189.38 [lb_av] MEDEN T ([facility]) Body mass index (BMI) [Ratio] 25.7 kg/m2 25.7 k g/m2 MEDENT ([facility]) Systolic blood pressure 124 mm[Hg] 124 mm[Hg] M EDENT ([facility]) Diastolic blood pressure 92 mm[Hg] 92 mm[Hg] MEDENT ([facility]) Heart rate 71 /min 71 /min [facility]ENT [facility] Body weight 183.00 [lb_av] 183.00 [lb_av] MEDEN T ([facility]) Body height 72 [in_i] 72 [in_i] MEDENT ([facility] 6'0" Body mass index (BMI) [Ratio] 24.8 kg/m2 24.8 k g/m2 MEDENT ([facility]) Oxygen saturation in Arterial blood by Pulse oximetry 95 % 95 % MEDENT ([facility]) Body surface area Derived from formula 2.05 m2 2.05 m2 MEDENT ([facility]) Body height 72 [in_i] 72 [in_i] eCW1 ([facility]) Body weight 190 [lb_av] 190 [lb_av] eCW1 ([facility]) Body mass index (BMI) [Ratio] 25.77 kg/m2 25.77 kg/m2 eCW1 ([facility]) Body temperature 98.1 [degF] 98.1 [degF] eCW1 ( [facility]) Heart rate 66 /min 66 /min eCW1 ([facility]) Respiratory rate 18 /min 18 /min eCW1 ([facility]) Oxygen saturation in Arterial blood by Pulse oximetry 99 % 99 % eCW1 ([facility]) Body weight 191 [lb_av] 191 [lb_av] eCW1 ([facility]) Body height 72 [in_i] 72 [in_i] eCW1 ([facility]) Body mass index (BMI) [Ratio] 25.90 kg/m2 25.90 kg/m2 eCW1 ([facility]) Heart rate 78 /min 78 /min eCW1 ([facility]) Respiratory rate 18 /min 18 /min eCW1 ([facility]) Body temperature 98.2 [degF] 98.2 [degF] eCW1 ( [facility]) Systolic blood pressure 142 mm[Hg] 142 mm[Hg] e CW1 ([facility]) Diastolic blood pressure 68 mm[Hg] 68 mm[Hg] eCW1 ([facility]) Body weight 190 [lb_av] 190 [lb_av] eCW1 ([facility]) Body height 72 [in_i] 72 [in_i] eCW1 ([facility]) Body mass index (BMI) [Ratio] 25.77 kg/m2 25.77 kg/m2 eCW1 ([facility]) Heart rate 88 /min 88 /min eCW1 ([facility]) Respiratory rate 16 /min 16 /min eCW1 ([facility]) Body temperature 98.3 [degF] 98.3 [degF] eCW1 ( [facility]) Systolic blood pressure 140 mm[Hg] 140 mm[Hg] e CW1 ([facility]) Diastolic blood pressure 88 mm[Hg] 88 mm[Hg] eCW1 ([facility]) Systolic blood pressure 137 mm[Hg] 137 mm[Hg] [facility] Diastolic blood pressure 91 mm[Hg] 91 mm[Hg] [facility] Heart rate 126 /min 126 /min [facility] Oxygen saturation in Arterial blood by Pulse oximetry 91 % 91 % [facility] Body temperature 36.33 Ivy 36.33 Ivy [facility] Respiratory rate 12 /min 12 /min [facility] Body height 182.9 cm 182.9 cm [facility] Body weight 88.451 kg 88.451 kg [facility] Body mass index (BMI) [Ratio] 26.45 kg/m2 26.45 kg/m2 [facility] Body weight 193 [lb_av] 193 [lb_av] eCW1 ([facility]) Body height 72 [in_i] 72 [in_i] eCW1 ([facility]) Body mass index (BMI) [Ratio] 26.17 kg/m2 26.17 kg/m2 eCW1 ([facility]) Heart rate 86 /min 86 /min eCW1 ([facility]) Respiratory rate 18 /min 18 /min eCW1 ([facility]) Body temperature 98.7 [degF] 98.7 [degF] eCW1 ( [facility]) Systolic blood pressure 124 mm[Hg] 124 mm[Hg] e CW1 ([facility]) Diastolic blood pressure 68 mm[Hg] 68 mm[Hg] eCW1 ([facility]) Body height 72 [in_i] 72 [in_i] eCW1 ([facility]) Body weight 195.2 [lb_av] 195.2 [lb_av] eCW1 ([facility]) Body mass index (BMI) [Ratio] 26.47 kg/m2 26.47 kg/m2 eCW1 ([facility]) Body temperature 97.9 [degF] 97.9 [degF] eCW1 ( [facility]) Heart rate 87 /min 87 /min eCW1 ([facility]) Respiratory rate 17 /min 17 /min eCW1 ([facility]) Oxygen saturation in Arterial blood by Pulse oximetry 99 % 99 % eCW1 ([facility]) Body height 72 [in_i] 72 [in_i] eCW1 ([facility]) Body weight 199.4 [lb_av] 199.4 [lb_av] eCW1 ([facility]) Body mass index (BMI) [Ratio] 27.04 kg/m2 27.04 kg/m2 eCW1 ([facility]) Body temperature 98.4 [degF] 98.4 [degF] eCW1 ( [facility]) Heart rate 64 /min 64 /min eCW1 ([facility]) Respiratory rate 20 /min 20 /min eCW1 ([facility]) Oxygen saturation in Arterial blood by Pulse oximetry 99 % 99 % eCW1 ([facility]) Body height 72 [in_i] 72 [in_i] eCW1 ([facility]) Body weight 197.4 [lb_av] 197.4 [lb_av] eCW1 ([facility]) Body mass index (BMI) [Ratio] 26.77 kg/m2 26.77 kg/m2 eCW1 ([facility]) Body temperature 98.6 [degF] 98.6 [degF] eCW1 ( [facility]) Heart rate 60 /min 60 /min eCW1 ([facility]) Respiratory rate 20 /min 20 /min eCW1 ([facility]) Oxygen saturation in Arterial blood by Pulse oximetry 99 % 99 % eCW1 ([facility]) Body height 72 [in_i] 72 [in_i] eCW1 ([facility]) Body weight 205 [lb_av] 205 [lb_av] eCW1 ([facility]) Body mass index (BMI) [Ratio] 27.80 kg/m2 27.80 kg/m2 eCW1 ([facility]) Body temperature 98.4 [degF] 98.4 [degF] eCW1 ( [facility]) Heart rate 90 /min 90 /min eCW1 ([facility]) Respiratory rate 19 /min 19 /min eCW1 ([facility]) Oxygen saturation in Arterial blood by Pulse oximetry 98 % 98 % eCW1 ([facility]) Body height 72 [in_i] 72 [in_i] eCW1 ([facility]) Body weight 204.4 [lb_av] 204.4 [lb_av] eCW1 ([facility]) Body mass index (BMI) [Ratio] 27.72 kg/m2 27.72 kg/m2 eCW1 ([facility]) Body temperature 98.4 [degF] 98.4 [degF] eCW1 ( [facility]) Heart rate 92 /min 92 /min eCW1 ([facility]) Respiratory rate 18 /min 18 /min eCW1 ([facility]) Oxygen saturation in Arterial blood by Pulse oximetry 98 % 98 % eCW1 ([facility]) Body height 72 [in_i] 72 [in_i] eCW1 ([facility]) Body weight 201.6 [lb_av] 201.6 [lb_av] eCW1 ([facility]) Body mass index (BMI) [Ratio] 27.34 kg/m2 27.34 kg/m2 eCW1 ([facility]) Body temperature 98.0 [degF] 98.0 [degF] eCW1 ( [facility]) Heart rate 80 /min 80 /min eCW1 ([facility]) Respiratory rate 18 /min 18 /min eCW1 ([facility]) Oxygen saturation in Arterial blood by Pulse oximetry 98 % 98 % eCW1 ([facility]) Systolic blood pressure 160 mm[Hg] 160 mm[Hg] [facility] Diastolic blood pressure 96 mm[Hg] 96 mm[Hg] [facility] Heart rate 73 /min 73 /min [facility] Body temperature 36.67 Ivy 36.67 Ivy [facility] Respiratory rate 16 /min 16 /min [facility] Oxygen saturation in Arterial blood by Pulse oximetry 96 % 96 % [facility] Body height 182.9 cm 182.9 cm [facility] Body weight 86.183 kg 86.183 kg [facility] Body mass index (BMI) [Ratio] 25.77 kg/m2 25.77 kg/m2 [facility] ID Date Data Source [id number] 09/07/2021 12:59:15 PM EDT [facility] Name Value Range Interpretation Code Description Data Source(s) TRANSFER FROM [facility] Patient Treatment Plan of Care Planned Activity Planned Date Details Description Data Source (s) Fluticasone Propionate 50 MCG/ACT 01/24/2021 12:00:00 AM EDT eCW1 ([facility]) Fexofenadine hydrochloride 180 MG Oral Tablet 01/24/2021 12:00:00 A M EDT eCW1 ([facility]) Fluticasone Propionate 50 MCG/ACT 01/24/2021 12:00:00 AM EDT eCW1 ([facility]) Fexofenadine hydrochloride 180 MG Oral Tablet 01/24/2021 12:00:00 A M EDT eCW1 ([facility]) Fluticasone Propionate 50 MCG/ACT 01/24/2021 12:00:00 AM EDT eCW1 ([facility]) Fexofenadine hydrochloride 180 MG Oral Tablet 01/24/2021 12:00:00 A M EDT eCW1 ([facility]) Epclusa 400-100 MG 12/05/2020 12:00:00 AM EST eCW1 ([facility]) Epclusa 400-100 MG 12/05/2020 12:00:00 AM EST eCW1 ([facility]) Epclusa 400-100 MG 10/04/2020 12:00:00 AM EST eCW1 ([facility]) Epclusa 400-100 MG 10/04/2020 12:00:00 AM EST eCW1 ([facility]) Epclusa 400-100 MG 10/04/2020 12:00:00 AM EST eCW1 ([facility]) Epclusa 400-100 MG 10/04/2020 12:00:00 AM EST eCW1 ([facility]) AirDuo RespiClick 55/14 55-14 MCG/ACT 09/23/2020 12:00:00 AM EST eCW1 ([facility]) Cyclobenzaprine hydrochloride 10 MG Oral Tablet 09/22/2020 12:00:00 AM EST eCW1 ([facility]) physical therapy eval and tx - 08/09/2020 12:00:00 AM EDT eCW1 ([facility]) physical therapy eval and tx - 08/09/2020 12:00:00 AM EDT eCW1 ([facility]) Furosemide 40 MG Oral Tablet [Lasix] 07/20/2020 12:00:00 AM EDT eCW1 ([facility]) Furosemide 40 MG Oral Tablet [Lasix] 07/20/2020 12:00:00 AM EDT eCW1 ([facility]) Amiodarone hydrochloride 200 MG Oral Tablet [facility]
== END 2021-09-07 17:45 | disposition left against medical advice (07) ==
LOC: M ED 14:47
DX: Z53.21 Procedure and treatment not carried out due to patient leaving prior to being seen by health care provider (principal)

== ENCOUNTER 2021-09-10 15:37 | Emergency (ER) | payer OTHER ==
[~2021-09-10] VITALS: Ht 182.9 cm; Wt 83.2 kg
[~2021-09-10 15:37] MED LIST changes: +NORV5TAB PO
[2021-09-10 15:39] VITALS: BP 125/80
[2021-09-10] MEDS ORDERED: METO200T28 PO (15:58)
[2021-09-10] MEDS ORDERED: LOSA100T50 PO (15:58)
[2021-09-10] MEDS ORDERED: NORV5TAB PO (15:58)
--- OUTSIDE RECORDS SUMMARY | 2021-09-10 17:50 | CCD ---
Author Author [facility] Address Unknown Phone Unavailable Support Name Relationship Address Phone DISABLED Next Of Kin Unknown Unavailable CODY SAENZ Next Of Kin [address] [place] [address] GABY BUSTOS Next Of Kin [address] [facility] Re-disclosure Warning The records that you are [...] is protected by Article 27-F of the [facility] Public Health law. If you continue you may have access to information: Regarding HIV / AIDS; Provided by facilities licensed or operated by the [facility] Office of Mental Health; or Provided by the [facility] Office for People With Developmental Disabilities. If such information is present, then the following [facility] mandated warning applies: This information has been [...] law may result in a fine or senior living sentence or both. A general authorization for the release of medical or other information is NOT sufficient authorization for further disc losure. Medications No Information Insurance Providers Payer name Policy type / Coverage type Policy ID Covered constitution party ID Covered constitution party's relationship to simons Policy Simons Plan Information [facility] [id number] Problems, Conditions, and Diagnoses No Information Surgeries/Procedures No Information Results No Information Social History No Information
--- NOTE | 2021-09-10 18:48 | REPVR ---
PROCEDURE INFORMATION: Exam: CT Head Without Contrast Exam date and time: 09/10/2021 6:26 PM Age: 56 years old Clinical indication: Condition or disease; Other: Recent CVA, right sided weakness TECHNIQUE: Imaging protocol: Computed tomography of the head without contrast. Radiation optimization: All CT scans at this facility use at least one of these dose optimization techniques: automated exposure control; mA and/or kV adjustment per patient size (includes targeted exams where dose is matched to clinical indication); or iterative reconstruction. COMPARISON: No relevant prior studies available. FINDINGS: Brain: There is a hemorrhage noted in the left subinsular white white matter extending superiorly into voss radiata with surrounding low-density/edema. The hemorrhage measures 3.5 by 2.4 by 3.9 cm. . There is mass effect upon the body and temporal horn of the left lateral ventricle. Midline structures are intact. Moderate generalized cerebral atrophy. Moderate cerebellar atrophy. Cerebral ventricles: No hydrocephalus. Paranasal sinuses: Visualized sinuses are unremarkable. No fluid levels. Mastoid air cells: Visualized mastoid air cells are well aerated. Bones/joints: Unremarkable. No acute fracture. Soft tissues: Unremarkable. IMPRESSION: Parenchymal hemorrhage within the left subinsular white matter extending superiorly into the voss radiata. Mild mass effect surrounding the hemorrhage. Midline structures intact.THIS REPORT CONTAINS FINDINGS THAT MAY BE CRITICAL TO PATIENT CARE. The findings were verbally communicated via telephone conference with MISHA KHALIL at 6:47 PM EDT on 09/10/2021. The findings were acknowledged and understood. 2. Cerebral and cerebellar cortical atrophy Electronically signed by: Marlyn Reyes On 09/10/2021 18:47:43 PM
[2021-09-10 19:06] LABS: BASO # 0.1 10^3/uL (0.0-0.2); BASO % 0.9 % (0.0-1.0); EOS # 0.3 10^3/uL (0.0-0.5); EOS % 2.9 % (0.0-3.0); HEMATOCRIT 43.9 % (42.0-52.0); HEMOGLOBIN 14.2 g/dl (13.5-17.5); LYMPH # 2.6 10^3/uL (1.5-5.0); LYMPH % 26.2 % (24.0-44.0); MEAN CORPUSCULAR HEMOGLOBIN 30.1 pg (27.0-33.0); MEAN CORPUSCULAR HGB CONC 32.3 g/dl (32.0-36.5); MONO # 0.8 10^3/uL (0.0-0.8); MONO % 7.9 % (2.0-8.0); NEUTROPHILS # 6.1 10^3/uL (1.5-8.5); NEUTROPHILS % 61.7 % (36.0-66.0); PLATELET COUNT, AUTOMATED 271 10^3/uL (150-450); RED BLOOD COUNT 4.72 10^6/uL (4.30-6.10); WHITE BLOOD COUNT 9.9 10^3/uL (4.0-10.0)
[2021-09-10 19:17] LABS: INR 0.96; PARTIAL THROMBOPLASTIN TIME 27.4 SECONDS (25.9-37.0); PROTHROMBIN TIME 13.2 SECONDS (12.7-14.5)
[2021-09-10 19:27] LABS: BLOOD UREA NITROGEN 20 MG/DL (7-18); CALCIUM LEVEL 9.3 MG/DL (8.5-10.1); CARBON DIOXIDE LEVEL 29 MEQ/L (21-32); CHLORIDE LEVEL 109 MEQ/L (98-107); GLOMERULAR FILTRATION RATE > 60.0 (>56); GLUCOSE, FASTING 84 MG/DL (70-100); POTASSIUM SERUM 4.2 MEQ/L (3.5-5.1); SODIUM LEVEL 143 MEQ/L (136-145)
--- NOTE | 2021-09-11 20:12 | ECGEPIP ---
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 Order Number: [id number] Reading MD: Tommy Mooney Measurements Intervals [place] Rate: 73 P: CT: QRS: 57 QRSD: 108 T: 73 QT: 434 QTc: 478 Interpretive Statements Atrial fibrillation Moderate voltage criteria for LVH, may be normal variant ( Sokolow-Alba , Earl product ) NO PRIORS FOR COMPARISON Electronically Signed on 09-11-2021 20:12:17 EST by Tommy Mooney
== END 2021-09-10 21:34 | disposition left against medical advice (07) ==
LOC: MERGE 15:37 → M ED 15:37 → EDBD 15:37 → M ED 21:34
DX: R26.2 Difficulty in walking, not elsewhere classified (principal); I61.9 Nontraumatic intracerebral hemorrhage, unspecified; Z53.9 Procedure and treatment not carried out, unspecified reason; I48.91 Unspecified atrial fibrillation; Z79.899 Other long term (current) drug therapy

== ENCOUNTER 2022-05-04 16:36 | Emergency (ER) | payer OTHER ==
[~2022-05-04] VITALS: Ht 182.9 cm; Wt 77.4 kg
[~2022-05-04 16:36] MED LIST changes: -AMIO200T3 PO; +AMIO200T49 PO; +LOSA100T45 PO; -LOSA100T50 PO
[2022-05-04] MEDS ORDERED: MORPHINE 4 MG/ML 1ML VIAL/SYRINGE As Ordered ONE (16:48)
[2022-05-04] MEDS ORDERED: ONDANSETRON 4MG 2ML VIAL As Ordered ONE (16:49)
[2022-05-04] MEDS ORDERED: ONDANSETRON 4MG 2ML VIAL IV ONE (16:55)
[2022-05-04] MEDS: MORPHINE 4 MG/ML 1ML VIAL/SYRINGE IV PRN ×2 (16:57→17:30)
[2022-05-04 17:00] LABS: VENOUS BASE EXCESS -4.9 (-2.0-2.0); VENOUS HCO3 19.9 MEQ/L (23.0-27.0); VENOUS PARTIAL PRESSURE CO2 36.9 mmHg (38.0-50.0); VENOUS PARTIAL PRESSURE O2 54.3 mmHg (30.0-50.0); VENOUS STANDARD HCO3 20.3 MEQ/L
[2022-05-04] MEDS ORDERED: METOPROLOL TART 25 MG TABLET PO ONE (17:00)
[2022-05-04 17:07] LABS: BASO # 0.1 10^3/uL (0.0-0.2); BASO % 0.7 % (0.0-1.0); EOS % 0.4 % (0.0-3.0); HEMATOCRIT 50.9 % (42.0-52.0); LYMPH # 3.3 10^3/uL (1.5-5.0); MEAN CORPUSCULAR HEMOGLOBIN 30.7 pg (27.0-33.0); MEAN CORPUSCULAR HGB CONC 33.4 g/dl (32.0-36.5); MONO # 0.7 10^3/uL (0.0-0.8); MONO % 6.1 % (2.0-8.0); NEUTROPHILS # 7.2 10^3/uL (1.5-8.5); NEUTROPHILS % 63.4 % (36.0-66.0); PLATELET COUNT, AUTOMATED 305 10^3/uL (150-450); RED BLOOD COUNT 5.53 10^6/uL (4.30-6.10); WHITE BLOOD COUNT 11.4 10^3/uL (4.0-10.0)
[2022-05-04] MEDS: METOPROLOL 5 MG/5 ML VIAL IV SCH ×3 (17:14→17:31)
[2022-05-04] MEDS: HYDROMORPHONE HCL 0.5 MG/ 0.5 ML SYRINGE (J1170 PER 1) IV PRN ×2 (17:16→20:09)
[2022-05-04] MEDS ORDERED: NS 1,000 ML IV SCH (17:20)
[2022-05-04 17:21] LABS: INR 1.03; PROTHROMBIN TIME 13.9 SECONDS (12.7-14.5)
[2022-05-04 17:22] LABS: PARTIAL THROMBOPLASTIN TIME 25.1 SECONDS (25.9-37.0)
[2022-05-04 17:45] LABS: ALBUMIN 3.9 GM/DL (3.2-5.2); BILIRUBIN,DIRECT 0.1 MG/DL (0.0-0.2); BILIRUBIN,TOTAL 0.6 MG/DL (0.2-1.0); FREE T4 1.18 NG/DL (0.76-1.46); THYROID STIMULATING HORMONE 1.73 uIU/ML (0.358-3.740); TOTAL PROTEIN 7.9 GM/DL (6.4-8.2)
[2022-05-04 18:21] LABS: RSV AMPLIFICATION NEGATIVE (NEGATIVE)
[2022-05-04] MEDS ORDERED: hydrALAZINE 20MG/ML 1ML VIAL (J0360 PER 20MG) IV STA (19:42)
[2022-05-04] MEDS ORDERED: HEPARIN DRIP 25,000 UNITS in IV 1 EA IV SCH (19:45)
[2022-05-04] MEDS ORDERED: LABETALOL 100MG/20ML VIAL IV STA (20:26)
[2022-05-04 20:30] VITALS: BP 201/109
[2022-05-04] MEDS ORDERED: niCARdipine IV 40 MG in IV 1 EA IV SCH (20:55)
[2022-05-04 21:42] VITALS: BP 155/83
== END 2022-05-04 21:43 | disposition short-term general hospital (02) ==
LOC: M ED 16:36
DX: I70.202 Unspecified atherosclerosis of native arteries of extremities, left leg (principal); I48.91 Unspecified atrial fibrillation; I50.9 Heart failure, unspecified; I10 Essential (primary) hypertension; J44.9 Chronic obstructive pulmonary disease, unspecified; Z86.73 Personal history of transient ischemic attack (TIA), and cerebral infarction without residual deficits; Z86.19 Personal history of other infectious and parasitic diseases; F17.200 Nicotine dependence, unspecified, uncomplicated; F19.11 Other psychoactive substance abuse, in remission; F10.11 Alcohol abuse, in remission; Z79.01 Long term (current) use of anticoagulants; Z79.899 Other long term (current) drug therapy
CPT/HCPCS: 70450; 71045; 75635; 80047; 80076; 82803; 83690; 84439; 84443; 85025; 85610; 85730; 87631; 93005; 93041; 94760; 99285; J0360; J1170; J1644; J2270; J2405

== ENCOUNTER → 2022-05-25 | Outpatient (CLI) | payer OTHER | LOC: M RAD 13:09 | PROVIDERS: ATTEND Nurse Practitioner Family | DX: I63.59 Cerebral infarction due to unspecified occlusion or stenosis of other cerebral artery (principal); I65.01 Occlusion and stenosis of right vertebral artery; J34.1 Cyst and mucocele of nose and nasal sinus ==

== ENCOUNTER 2024-05-15 10:09 | Day surgery (SDC) | payer OTHER ==
[~2024-05-15] VITALS: Ht 182.9 cm; Wt 73.9 kg
[~2024-05-15 10:09] MED LIST changes: +AMLO2.5T3 PO; +ATROPINE SULFATE 1% OPHTH SOLN 2ML BTL OS SCH; +CLOP75TA2; +FURO20TA2 PO; +LIDOCAINE 3.5 % 1ML OPHTH TOPICAL GEL OU ONE; -LOSA100T45 PO; +LOSA100T46 PO; +LOSA50TA28; +METO100T5 PO; +METO1TAB7 PO; +METO200T15 PO; -METO200T28 PO; +OFLOXACIN 0.3 % (OCUFLOX) OPTH SOL 5ML OS ONE; +PANT40TA29 PO; +PHENYLEPHRINE 10% OPHTH SOL 5ML OS PRN; +PHENYLEPHRINE 2.5% OPHTH SOL 2ML OS SCH; +SILD100T PO; +TROPICAMIDE 1% OPHTH SOLN 15ML OS SCH
[2024-05-15] MEDS ORDERED: fentaNYL 100 MCG/2 ML INJECTION As Ordered ONE (11:54)
[2024-05-15] MEDS ORDERED: MIDAZOLAM INJ 2MG/2ML VIAL As Ordered ONE (11:54)
[2024-05-15] MEDS: LIDOCAINE 1% SDV 5ML VIAL As Ordered ONE (12:09)
[2024-05-15] MEDS: CEFUROXIME 1MG/0.1ML INTRACAMERAL INJ As Ordered ONE (12:10)
[2024-05-15] MEDS: BSS IRRIG/VANCO(10MG)/TOBRA(5MG)/EPINEPH(1:1000-0.5CC)500ML BAG-ORONLY As Ordered ONE (12:10)
[2024-05-15 12:28] VITALS: BP 157/99; TEMP 97.2; O2SAT 99
== END 2024-05-15 12:55 | disposition home or self-care (01) ==
LOC: M SDC 10:09
PROVIDERS: ATTEND Ophthalmology
DX: H25.12 Age-related nuclear cataract, left eye (principal); I48.0 Paroxysmal atrial fibrillation; I11.0 Hypertensive heart disease with heart failure; I50.9 Heart failure, unspecified; J44.9 Chronic obstructive pulmonary disease, unspecified; I69.351 Hemiplegia and hemiparesis following cerebral infarction affecting right dominant side; Z79.899 Other long term (current) drug therapy; Z79.01 Long term (current) use of anticoagulants; F17.210 Nicotine dependence, cigarettes, uncomplicated; Z90.89 Acquired absence of other organs; K21.9 Gastro-esophageal reflux disease without esophagitis; G47.30 Sleep apnea, unspecified
CPT/HCPCS: 66984; J0697; J2250; J3010; V2632

== ENCOUNTER 2024-08-05 10:17 | Inpatient (IN) | payer OTHER ==
[~2024-08-05] VITALS: Ht 182.9 cm; Wt 72.7 kg
[~2024-08-05 10:17] MED LIST changes: -ATROPINE SULFATE 1% OPHTH SOLN 2ML BTL OS SCH; -LIDOCAINE 3.5 % 1ML OPHTH TOPICAL GEL OU ONE; -OFLOXACIN 0.3 % (OCUFLOX) OPTH SOL 5ML OS ONE; -PHENYLEPHRINE 10% OPHTH SOL 5ML OS PRN; -PHENYLEPHRINE 2.5% OPHTH SOL 2ML OS SCH; -TROPICAMIDE 1% OPHTH SOLN 15ML OS SCH
[2024-08-05] MEDS ORDERED: ISOVUE-370 76% 100ML VIAL As Ordered ONE (13:55)
[2024-08-05 14:03] LABS: BASO # 0.1 10^3/uL (0.0-0.2); BASO % 0.8 % (0.0-1.0); EOS # 0.2 10^3/uL (0.0-0.5); EOS % 1.9 % (0.0-3.0); HEMATOCRIT 43.3 % (42.0-52.0); HEMOGLOBIN 14.1 g/dl (13.5-17.5); LYMPH # 1.7 10^3/uL (1.5-5.0); LYMPH % 22.1 % (24.0-44.0); MEAN CORPUSCULAR HEMOGLOBIN 29.9 pg (27.0-33.0); MEAN CORPUSCULAR HGB CONC 32.6 g/dl (32.0-36.5); MEAN CORPUSCULAR VOLUME 91.7 fl (80.0-96.0); MONO # 0.6 10^3/uL (0.0-0.8); MONO % 7.7 % (2.0-8.0); NEUTROPHILS # 5.3 10^3/uL (1.5-8.5); NEUTROPHILS % 67.1 % (36.0-66.0); PLATELET COUNT, AUTOMATED 257 10^3/uL (150-450); RED BLOOD COUNT 4.72 10^6/uL (4.30-6.10); WHITE BLOOD COUNT 7.9 10^3/uL (4.0-10.0)
[2024-08-05 14:25] LABS: LIPASE 57 U/L (12-53)
[2024-08-05 14:27] LABS: ALBUMIN 3.5 G/DL (3.2-5.2); ALKALINE PHOSPHATASE 107 U/L (46-116); ALT/SGPT < 9 U/L (7.0-40); AST/SGOT 14 U/L (<34); BILIRUBIN,DIRECT 0.2 MG/DL (<0.4); BILIRUBIN,TOTAL 0.5 MG/DL (0.3-1.2); TOTAL PROTEIN 7.3 G/DL (5.7-8.2)
[2024-08-05] MEDS: LIDOCAINE 1% MDV 20ML VIAL SC ONE (16:56)
[2024-08-05] MEDS: cefTRIAXone SOD 1 GM in D5W MINI-BAG PLUS 50 ML IV ONE (17:33)
[2024-08-05] MEDS: ACETAMINOPHEN 500 MG TAB PO ONE (17:33)
[2024-08-05] MEDS ORDERED: AMLO1TAB24 PO (17:45)
[2024-08-05] MEDS ORDERED: HOME MED LIST COMPLETE! XX SCH (17:45)
[2024-08-05 20:45] VITALS: BP 164/95; TEMP 97.9; O2SAT 95
[2024-08-05 21:13] VITALS: BP 164/95
[2024-08-05] MEDS: METOPROLOL TARTRATE 100MG TAB PO SCH (21:13)
[2024-08-06 04:00] VITALS: BP 159/95; TEMP 98.2; O2SAT 99
[2024-08-06 05:32] LABS: HEMATOCRIT 39.2 % (42.0-52.0); HEMOGLOBIN 13.3 g/dl (13.5-17.5); MEAN CORPUSCULAR HEMOGLOBIN 30.6 pg (27.0-33.0); MEAN CORPUSCULAR HGB CONC 33.9 g/dl (32.0-36.5); MEAN CORPUSCULAR VOLUME 90.3 fl (80.0-96.0); PLATELET COUNT, AUTOMATED 238 10^3/uL (150-450); RED BLOOD COUNT 4.34 10^6/uL (4.30-6.10); WHITE BLOOD COUNT 6.6 10^3/uL (4.0-10.0)
[2024-08-06 05:56] LABS: CALCIUM LEVEL 8.9 MG/DL (8.3-10.6); CREATININE FOR GFR 1.35 MG/DL (0.70-1.30); GLOMERULAR FILTRATION RATE 57.4 (>49); POTASSIUM SERUM 3.3 MMOL/L (3.5-5.1)
[2024-08-06] MEDS ORDERED: RIVAROXABAN 15MG TAB (XARELTO) PO SCH (08:00)
[2024-08-06] MEDS ORDERED: LOSARTAN 50MG TABLET PO SCH (09:00)
[2024-08-06] MEDS ORDERED: amLODIPine 5 MG TAB PO SCH (09:00)
[2024-08-06] MEDS ORDERED: FLUBLOK(EGGFREE) TRIVAL(24-25) VACCINE PF 0.5ML SYRINGE 18YRS & OLDER IM.IMMUN ONE (09:00)
[2024-08-06] MEDS ORDERED: PANTOPRAZOLE 40MG TAB (PROTONIX) PO SCH (09:00)
[2024-08-06] MEDS ORDERED: cefTRIAXone SOD 1 GM in D5W MINI-BAG PLUS 50 ML IV SCH (17:00)
== END 2024-08-06 08:12 | disposition left against medical advice (07) | DRG 383 ==
LOC: M ED 10:17 → M ED INP 17:39 → M MSPAV 20:41
PROVIDERS: ADMIT Internal Medicine; ATTEND Internal Medicine
DX: L02.214 Cutaneous abscess of groin (principal); I11.0 Hypertensive heart disease with heart failure; I50.9 Heart failure, unspecified; I73.9 Peripheral vascular disease, unspecified; I48.91 Unspecified atrial fibrillation; I69.351 Hemiplegia and hemiparesis following cerebral infarction affecting right dominant side; J44.9 Chronic obstructive pulmonary disease, unspecified; N49.2 Inflammatory disorders of scrotum; Z79.899 Other long term (current) drug therapy; F17.200 Nicotine dependence, unspecified, uncomplicated

== ENCOUNTER 2025-08-17 08:05 | Day surgery (SDC) | payer OTHER ==
[~2025-08-17] VITALS: Ht 185.4 cm; Wt 75.6 kg
[~2025-08-17 08:05] MED LIST changes: -AMIO200T49 PO; +AMIO200T54 PO; +AMLO1TAB24 PO; +ASPI81TA26 PO; +ATOR80TA59 PO; +FARX1TAB3 PO; +FURO40TA2 PO; +METO1TAB87 PO; +SPIR-10 PO
[2025-08-17] MEDS ORDERED: ROCURONIUM BROMIDE 50MG/5ML VIAL As Ordered ONE (08:50)
[2025-08-17] MEDS ORDERED: LIDOCAINE 2% 100 MG/5 ML SDV (FOR ANES.) As Ordered ONE (08:51)
[2025-08-17] MEDS ORDERED: dexAMETHasone 4 MG/ML 1 ML VIAL As Ordered ONE (08:51)
[2025-08-17] MEDS ORDERED: LR 1,000 ML IV SCH (09:00)
[2025-08-17] MEDS ORDERED: ONDANSETRON 4MG 2ML VIAL As Ordered ONE (09:52)
[2025-08-17] MEDS ORDERED: ETOMIDATE 20 MG/10 ML VIAL As Ordered ONE (09:52)
[2025-08-17] MEDS: ceFAZolin SOD 2 GM IV ONCE IV ONE (10:10)
[2025-08-17] MEDS: HEPARIN SOD 5000 UNITS/ML 1 ML VIAL/SYRINGE SQ ONE (10:30)
[2025-08-17] MEDS ORDERED: ACETAMINOPHEN 1000MG/100ML IV BAG As Ordered ONE (10:30)
[2025-08-17] MEDS ORDERED: KETOROLAC 30 MG/ML 1 ML VIAL As Ordered ONE (11:45)
[2025-08-17] MEDS ORDERED: SUGAMMADEX SODIUM 500 MG/5 ML VIAL As Ordered ONE (11:46)
[2025-08-17] MEDS ORDERED: MORPHINE 4 MG/ML 1 ML VIAL IV PRN (12:05)
[2025-08-17] MEDS: ONDANSETRON 4MG 2ML VIAL IV PRN (12:48)
[2025-08-17 14:15] VITALS: BP 137/89; TEMP 97.5; O2SAT 100
== END 2025-08-17 14:20 | disposition home or self-care (01) ==
LOC: M SDC 08:05
PROVIDERS: ATTEND Surgery
DX: K40.90 Unilateral inguinal hernia, without obstruction or gangrene, not specified as recurrent (principal); I48.91 Unspecified atrial fibrillation; I10 Essential (primary) hypertension; I73.9 Peripheral vascular disease, unspecified; K21.9 Gastro-esophageal reflux disease without esophagitis; J44.9 Chronic obstructive pulmonary disease, unspecified; F17.210 Nicotine dependence, cigarettes, uncomplicated; Z86.73 Personal history of transient ischemic attack (TIA), and cerebral infarction without residual deficits; G47.33 Obstructive sleep apnea (adult) (pediatric); Z79.82 Long term (current) use of aspirin; Z79.51 Long term (current) use of inhaled steroids; Z79.899 Other long term (current) drug therapy
CPT/HCPCS: 49650; C1781; J0131; J0665; J0688; J1100; J1885; J2405; J3010; S2900